=== PATIENT | female | born 1955 | race Caucasian/White ===

== ENCOUNTER 2017-12-15 15:33 | Observation (INO) | payer MEDICAID, SELFPAY ==
[2017-12-15 15:35] VITALS: BP 146/78; PULSE 77; RESP 18; TEMP 36.6; O2SAT 94; BMI 39.3
--- NOTE | 2017-12-15 16:00 | RAD_ITS ---
STUDY: X-RAY - RIGHT SHOULDER REASON FOR EXAM: Female, 62 years old. Right-sided shoulder pain after fall. TECHNIQUE: 2 view(s) of the shoulder. COMPARISON: None. FINDINGS: There is mild degenerative arthrosis of the glenohumeral articulation. There is minimal widening of the AC joint suggesting a Type I acromioclavicular joint separation. Normal acromion. There is demineralization of the humerus and visualized osseous structures. The soft tissue structures are unremarkable. There is a questionable fracture of the distal right clavicle. The visualized right lung has a prominence of bronchovascular markings. RAD/Shoulder min 2 Views IMPRESSION: 1. Possible type I acromial clavicular joint separation. 2. Possible sequela of fracture of the distal clavicle. Electronically Signed: Lizzette Swann MD at 17:01 EDT , Service support ,
--- NOTE | 2017-12-15 16:00 | RAD_ITS ---
STUDY: X-RAY - RIGHT ELBOW REASON FOR EXAM: Female, 62 years old. Right-sided elbow pain. TECHNIQUE: 3 view(s) of the elbow. COMPARISON: Prior comparison studies are not available for review at this time. FINDINGS: Normal visualized humerus, radius and ulna. There is degenerative arthrosis of the radiocapitellar and ulnotrochlear articulations. There is a bone fragment visible that may represent an intra-articular loose body. This may represent the result of previous trauma. There is prominence of the soft tissues. No anterior or posterior fat-pad signs are visible. RAD/Elbow min 3 Views IMPRESSION: 1. Degenerative arthropathy of the right elbow with intra-articular loose body. 2. If there is still clinical concern for acute fracture, follow-up radiographs in 7-10 days maybe helpful in evaluating a healing radiographically occult fracture. Electronically Signed: Lizzette Swann MD at 16:52 EDT , Service support ,
--- NOTE | 2017-12-15 16:01 | RAD_ITS ---
STUDY: X-RAY - RIGHT KNEE REASON FOR EXAM: Female, 62 years old. Right-sided knee pain after fall. TECHNIQUE: 3 view(s) of the knee. COMPARISON: Prior comparable comparison studies are not available for review at this time. FINDINGS: Normal visualized distal femur. Normal visualized proximal tibia and fibula. Normal proximal tibiofibular articulation. There is no demonstrated fracture. There is mild degenerative arthrosis of the medial femorotibial compartment. Normal lateral femorotibial compartment. There is mild degenerative arthrosis of the patellofemoral articulation. There is no demonstrated joint effusion. The soft tissue structures are unremarkable. RAD/Knee 3 Views IMPRESSION: 1. Mild degenerative arthropathy. 2. No radiographic evidence for acute fracture. 3. If there is still clinical concern for acute fracture, follow-up radiographs in 7-10 days maybe helpful in evaluating a healing radiographically occult fracture. Electronically Signed: Lizzette Swann MD at 17:00 EDT , Service support ,
[2017-12-15 17:31] VITALS: BP 142/80; PULSE 74; RESP 22; O2SAT 96
--- NOTE | 2017-12-15 17:38 | ED.VISSUMM ---
- ER Visit Summary Date of Service: 12/15/17 Chief Complaint: Fall with right shoulder pain History of Present Illness: The patient is a 62 F presenting for evaluation secondary to fall and right shoulder injury. Patient states that she suffered a mechanical fall today. She states that she was walking and tripped over a personal walker and struck her right shoulder on the ground. Patient states that she has continuous sharp pain with movement of her shoulder. She denies hitting her head or loss of consciousness. Patient does have a bakery associate, who states that the patient is unsafe and unfit to be living at home by herself at this point. Patient denies any other symptoms at this time. Physical Examination: Primary survey: Airway is patent, breath sounds equal bilateral, central peripheral pulses 2+ and symmetric, GCS 15 out of 15. Vitals within normal limits. Secondary survey: General: Well-nourished well-developed no acute distress Head: Normocephalic atraumatic Eyes: PERRLA, EOMI ENT: TMs clear no hemotympanum no drainage Neck: Nontender full range of motion, no step-offs noted Heart: Regular rate and rhythm no murmurs Lungs: Respirations nondistressed, lung sounds clear to auscultation bilaterally, chest nontender, normal chest excursion bilaterally Abdomen: Soft nontender nondistended normal bowel sounds no palpable abdominal masses Back: Nontender no step-offs noted Extremities: Patient has a boot orthosis on her left leg in brace on her right leg. There is minimal tenderness palpation over the anterior proximal tibia without any evidence of deformity with normal range of motion. Examination of the shoulder shows limited range of motion secondary to pain with no deformity. Minimal pain of the elbow. Skin: Normal color no trauma Neuro: Alert and oriented ?4, GCS 15 out of 15, no lateralizing neurological deficits. Test Results: X-rays of the shoulder elbow and knee show only evidence of a grade 1 right-sided AC joint separation Emergency Department Course and Treatment: Patient presented secondary to fall. There is no head injury. Primary and secondary surveys are noted as above and showed only injury to the knee elbow and shoulder. Radiographs show an AC joint separation. Patient's bakery associate states that she is completely unfit to be at home by herself, and the patient already has braces on both legs and now is going to have her right arm in a sling so I do believe that she meets criteria for admission for rehabilitation. I discussed this with hospitalist. Disposition: Admit Impression: 1. Right-sided AC joint separation 2. Mechanical fall 3. Functional decline This note was generated with [employer] dictation software. It may contain incorrect words, spelling, and punctuation that were not noted in review of the chart prior to signing ED Disposition - Plan for ED Patient: Chief Complaint: Upper Extremity Injury Referrals: Meseret Villalobos MD [Primary Care Provider] -
--- NOTE | 2017-12-15 17:44 | NURSING ---
301 FALL, RT UPPER EXTREMITY INJURY, POSSIBLE CLAVICLE FX ASHELFAH
--- NOTE | 2017-12-15 17:45 | ED.DCSUM_ITS ---
- ER Visit Summary Date of Service: 12/15/17 Chief Complaint: Fall with right shoulder pain History of Present Illness: The patient is a 62 F presenting for evaluation secondary to fall and right shoulder injury. Patient states that she suffered a mechanical fall today. She states that she was walking and tripped over a personal walker and struck her right shoulder on the ground. Patient states that she has continuous sharp pain with movement of her shoulder. She denies hitting her head or loss of consciousness. Patient does have a zipper setter chainstitch, who states that the patient is unsafe and unfit to be living at home by herself at this point. Patient denies any other symptoms at this time. Physical Examination: Primary survey: Airway is patent, breath sounds equal bilateral, central peripheral pulses 2+ and symmetric, GCS 15 out of 15. Vitals within normal limits. Secondary survey: General: Well-nourished well-developed no acute distress Head: Normocephalic atraumatic Eyes: PERRLA, EOMI ENT: TMs clear no hemotympanum no drainage Neck: Nontender full range of motion, no step-offs noted Heart: Regular rate and rhythm no murmurs Lungs: Respirations nondistressed, lung sounds clear to auscultation bilaterally , chest nontender, normal chest excursion bilaterally Abdomen: Soft nontender nondistended normal bowel sounds no palpable abdominal masses Back: Nontender no step-offs noted Extremities: Patient has a boot orthosis on her left leg in brace on her right leg. There is minimal tenderness palpation over the anterior proximal tibia without any evidence of deformity with normal range of motion. Examination of the shoulder shows limited range of motion secondary to pain with no deformity. Minimal pain of the elbow. Skin: Normal color no trauma Neuro: Alert and oriented ?4, GCS 15 out of 15, no lateralizing neurological deficits. Test Results: X-rays of the shoulder elbow and knee show only evidence of a grade 1 right-sided AC joint separation Emergency Department Course and Treatment: Patient presented secondary to fall. There is no head injury. Primary and secondary surveys are noted as above and showed only injury to the knee elbow and shoulder. Radiographs show an AC joint separation. Patient's zipper setter chainstitch states that she is completely unfit to be at home by herself, and the patient already has braces on both legs and now is going to have her right arm in a sling so I do believe that she meets criteria for admission for rehabilitation. I discussed this with hospitalist. Disposition: Admit Impression: 1. Right-sided AC joint separation 2. Mechanical fall 3. Functional decline This note was generated with [employer] dictation software. It may contain incorrect words, spelling, and punctuation that were not noted in review of the chart prior to signing ED Disposition - Plan for ED Patient: Chief Complaint: Upper Extremity Injury Referrals: Meseret Villalobos MD [Primary Care Provider] -
[2017-12-15 17:52] VITALS: BMI 39.3
--- NOTE | 2017-12-15 17:54 | PCM.HP.STD ---
Problem List (1) Hyperlipidemia Status: Chronic (2) Schizophrenia Status: Chronic (3) Anxiety Status: Chronic (4) Depression Status: Chronic (5) COPD (chronic obstructive pulmonary disease) Status: Chronic (6) Hypertension Status: Chronic History of Present Illness Date of Admission: 12/15/17 Chief Complaint: Fall and right shoulder pain. The patient is a 62 year old F with past medical history as mentioned above presented to the emergency room because of fall and right shoulder pain. Today, she has been using her walker and she tripped off and landed on her right side and started complaining of left shoulder and arm pain. The pain is on the right shoulder and right upper arm, sharp pain, 9 out of 10 in severity, goes down to the right elbow, aggravated by movement, relieved by rest and without associated symptoms. At this time, her pain is improved after she received pain medication in the emergency room. She denied any prodromal symptoms such as dizziness, lightheadedness, chest pain or shortness of breath. Denied syncope or presyncope. Few weeks ago, she had left lower extremity sprain or tendon injury according to the patient and she has been using walker and has a large boot that was prescribed by her information receptionist. In the emergency room, her vital signs were stable. There was no routine blood work done in the emergency room. Right elbow x-ray revealed an intra-articular loose bone. Right shoulder x-ray revealed questionable separation of the acromioclavicular joint with possible distal fracture of the clavicle. Right knee x-ray showed degenerative changes without evidence of acute fracture or dislocation. She is being admitted for mechanical fall, right upper extremity injury with separation of the acromioclavicular joint and possible distal clavicular fracture. Past Medical History Past Medical History (Chronic Problems): Chronic Problems Hyperlipidemia (Chronic) Schizophrenia (Chronic) Anxiety (Chronic) Depression (Chronic) COPD (chronic obstructive pulmonary disease) (Chronic) Hypertension (Chronic) Allergies No Known Allergies Allergy (Verified 12/15/17 15:37) Home Medications: Ambulatory Orders Medication Instructions Recorded Benztropine [Cogentin] 0.5 mg PO BID 12/15/17 BuPROPion (SR) [Wellbutrin Sr] 150 mg PO BID 12/15/17 Clonazepam [Klonopin] 0.5 mg PO Q8H PRN PRN 12/15/17 Docusate Sodium [Stool Softener] 100 mg PO DAILY 12/15/17 Fluticasone 220 Mcg [Flovent (SP)] 1 puff INHALATION BID 12/15/17 Lisinopril [Zestril] 10 mg PO DAILY 12/15/17 Omeprazole 40 mg PO DAILY 12/15/17 Perphenazine 6 mg PO TID 12/15/17 Sertraline HCl [Zoloft] 200 mg PO DAILY 12/15/17 Simvastatin [Zocor] 40 mg PO QHS 12/15/17 Surgical History: no surgical history Psychiatric History: Anxiety, Depression, Schizophrenia 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 Dyspnea, Syncope Respiratory: Denies: Cough, Hemoptysis, Pleuritic Pain, Shortness of Breath, Sputum production, Wheezing Gastrointestinal: Denies: Abdominal Pain, Constipation, Diarrhea, Nausea, Vomiting Genitourinary: Denies: Dysuria, Frequency, Hematuria Musculoskeletal: Reports: Arm Pain, Joint Pain, Shoulder Pain. Denies: Back Pain, Foot Pain Skin: Denies: Dryness, Rash Neurological: Denies: Balance problems, Double vision, Change in Speech, Slurred speech, Headaches, Incoordination, Numbness Psychiatric: Reports: Anxiety, Depression Endocrine: Denies: Change in Body Habitus, Polydipsia VTE Information - Inpt Only VTE Present on Admission: No VTE Mechan Device Prophylaxis: None VTE Pharm Prophylaxis ordered?: Yes - Physical Exam General: Alert, Oriented x3, Cooperative, No apparent distress HEENT: Atraumatic, PERRLA, EOMI Oral: Moist Mucosa, No Gingival or Mucosal Lesions/ Ulcerations Neck: Supple, No JVD, Negative Carotid Bruits, Trachea Midline, Thyroid Normal Size and Texture Lungs: Clear to auscultation, No rhonchi, No wheeze, No rales, Diminished Cardiovascular: Regular rate, Regular Rhythm, Normal S1, Normal S2, PMI Normal Abdomen: Bowel Sounds Present, Soft, Non Tender, Non-Distended, No Hepato-splenomegaly, Obese Extremities: No clubbing, No cyanosis, No edema Skin: No rashes, No breakdown Lymphatic: No Cervical, Supraclavicular, or Inguinal Adenopathy Neurological: Cranial nerves II-XII grossly intact, Motor Exam 5/5 strength throughout Psych/Mental Status: Normal Affect, Appropriate, Alert and oriented to time, place, person, mood and affect Vital Signs Temp Pulse Resp BP Pulse Ox 97.8 F 74 22 H 142/80 H 96 12/15/17 15:35 12/15/17 17:31 12/15/17 17:31 12/15/17 17:31 12/15/17 17:31 Oxygen Delivery Method Room Air Weight: 222 lb Body Mass Index (BMI) 39.3 Clinical Impression(s) from Imaging Studies Elbow X-Ray 12/15/17 16:00 IMPRESSION: 1. Degenerative arthropathy of the right elbow with intra-articular loose body. 2. If there is still clinical concern for acute fracture, follow-up radiographs in 7-10 days maybe helpful in evaluating a healing radiographically occult fracture. Electronically Signed: Lizzette Swann MD at 16:52 EDT , Service support , Shoulder X-Ray 12/15/17 16:00 IMPRESSION: 1. Possible type I acromial clavicular joint separation. 2. Possible sequela of fracture of the distal clavicle. Electronically Signed: Lizzette Swann MD at 17:01 EDT , Service support , Knee X-Ray 12/15/17 16:01 IMPRESSION: 1. Mild degenerative arthropathy. 2. No radiographic evidence for acute fracture. 3. If there is still clinical concern for acute fracture, follow-up radiographs in 7-10 days maybe helpful in evaluating a healing radiographically occult fracture. Electronically Signed: Lizzette Swann MD at 17:00 EDT , Service support , Assessment/Plan This is a 62 years old female patient presented to the emergency room because of mechanical fall and right shoulder and upper arm pain, found to have questionable separation of the right acromioclavicular joint, questionable distal clavicle fracture. #1 right upper extremity injury/questionable separation of right acromioclavicular joint/questionable distal clavicular fracture/right elbow intra-articular loose body: This is secondary to mechanical fall. X-ray report was not so clear on a much sure if patient has acute fractures or not. At this time, her vital signs are stable. No routine blood work was done in the emergency room. Plan: Admit to [facility] floor, ambulate as tolerated, IV morphine as needed for pain, OxyIR as needed for pain, orthopedic surgery consult, stat CBC and BMP, PT OT evaluation and treatment. #2 hypertension: Blood pressure stable, continue lisinopril. #3 COPD: Clinically stable, pulse ox is normal on room air. Plan for albuterol as needed. #4 schizophrenia: Continue benztropine and perphenazine. #5 hyperlipidemia: Continue statins. #6 depression/anxiety: Continue Wellbutrin, Klonopin and Zoloft. #7 DVT prophylaxis: Subcu Lovenox. This note was generated with [employer] dictation software. It may contain incorrect words, spelling, and punctuation that were not noted in checking the note before signing. Code Visit Inpatient E&M: 15890 Init Hosp L3
--- NOTE | 2017-12-15 18:00 | HP.PCM_ITS ---
Problem List (1) Hyperlipidemia Status: Chronic (2) Schizophrenia Status: Chronic (3) Anxiety Status: Chronic (4) Depression Status: Chronic (5) COPD (chronic obstructive pulmonary disease) Status: Chronic (6) Hypertension Status: Chronic History of Present Illness Date of Admission: 12/15/17 Chief Complaint: Fall and right shoulder pain. The patient is a 62 year old F with past medical history as mentioned above presented to the emergency room because of fall and right shoulder pain. Today , she has been using her walker and she tripped off and landed on her right side and started complaining of left shoulder and arm pain. The pain is on the right shoulder and right upper arm, sharp pain, 9 out of 10 in severity, goes down to the right elbow, aggravated by movement, relieved by rest and without associated symptoms. At this time, her pain is improved after she received pain medication in the emergency room. She denied any prodromal symptoms such as dizziness, lightheadedness, chest pain or shortness of breath. Denied syncope or presyncope. 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 In the emergency room, her vital signs were stable. There was no routine blood work done in the emergency room. Right elbow x-ray revealed an intra-articular loose bone. Right shoulder x-ray revealed questionable separation of the acromioclavicular joint with possible distal fracture of the clavicle. Right knee x-ray showed degenerative changes without evidence of acute fracture or dislocation. She is being admitted for mechanical fall, right upper extremity injury with separation of the acromioclavicular joint and possible distal clavicular fracture. Past Medical History Past Medical History (Chronic Problems): Chronic Problems Hyperlipidemia (Chronic) Schizophrenia (Chronic) Anxiety (Chronic) Depression (Chronic) COPD (chronic obstructive pulmonary disease) (Chronic) Hypertension (Chronic) Allergies No Known Allergies Allergy (Verified 12/15/17 15:37) Home Medications: Ambulatory Orders Medication Instructions Recorded Benztropine [Cogentin] 0.5 mg PO BID 12/15/17 BuPROPion (SR) [Wellbutrin Sr] 150 mg PO BID 12/15/17 Clonazepam [Klonopin] 0.5 mg PO Q8H PRN PRN 12/15/17 Docusate Sodium [Stool Softener] 100 mg PO DAILY 12/15/17 Fluticasone 220 Mcg [Flovent (SP)] 1 puff INHALATION BID 12/15/17 Lisinopril [Zestril] 10 mg PO DAILY 12/15/17 Omeprazole 40 mg PO DAILY 12/15/17 Perphenazine 6 mg PO TID 12/15/17 Sertraline HCl [Zoloft] 200 mg PO DAILY 12/15/17 Simvastatin [Zocor] 40 mg PO QHS 12/15/17 Surgical History: no surgical history Psychiatric History: Anxiety, Depression, Schizophrenia 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 Dyspnea, Syncope Respiratory: Denies: Cough, Hemoptysis, Pleuritic Pain, Shortness of Breath, Sputum production, Wheezing Gastrointestinal: Denies: Abdominal Pain, Constipation, Diarrhea, Nausea, Vomiting Genitourinary: Denies: Dysuria, Frequency, Hematuria Musculoskeletal: Reports: Arm Pain, Joint Pain, Shoulder Pain. Denies: Back Pain, Foot Pain Skin: Denies: Dryness, Rash Neurological: Denies: Balance problems, Double vision, Change in Speech, Slurred speech, Headaches, Incoordination, Numbness Psychiatric: Reports: Anxiety, Depression Endocrine: Denies: Change in Body Habitus, Polydipsia VTE Information - Inpt Only VTE Present on Admission: No VTE Mechan Device Prophylaxis: None VTE Pharm Prophylaxis ordered?: Yes - Physical Exam General: Alert, Oriented x3, Cooperative, No apparent distress HEENT: Atraumatic, PERRLA, EOMI Oral: Moist Mucosa, No Gingival or Mucosal Lesions/ Ulcerations Neck: Supple, No JVD, Negative Carotid Bruits, Trachea Midline, Thyroid Normal Size and Texture Lungs: Clear to auscultation, No rhonchi, No wheeze, No rales, Diminished Cardiovascular: Regular rate, Regular Rhythm, Normal S1, Normal S2, PMI Normal Abdomen: Bowel Sounds Present, Soft, Non Tender, Non-Distended, No Hepato- splenomegaly, Obese Extremities: No clubbing, No cyanosis, No edema Skin: No rashes, No breakdown Lymphatic: No Cervical, Supraclavicular, or Inguinal Adenopathy Neurological: Cranial nerves II-XII grossly intact, Motor Exam 5/5 strength throughout Psych/Mental Status: Normal Affect, Appropriate, Alert and oriented to time, place, person, mood and affect Vital Signs Temp Pulse Resp BP Pulse Ox 97.8 F 74 22 H 142/80 H 96 12/15/17 15:35 12/15/17 17:31 12/15/17 17:31 12/15/17 17:31 12/15/17 17:31 Oxygen Delivery Method Room Air Weight: 222 lb Body Mass Index (BMI) 39.3 Clinical Impression(s) from Imaging Studies Elbow X-Ray 12/15/17 16:00 IMPRESSION: 1. Degenerative arthropathy of the right elbow with intra-articular loose body. 2. If there is still clinical concern for acute fracture, follow-up radiographs in 7-10 days maybe helpful in evaluating a healing radiographically occult fracture. Electronically Signed: Lizzette Swann MD at 16:52 EDT , Service support , Shoulder X-Ray 12/15/17 16:00 IMPRESSION: 1. Possible type I acromial clavicular joint separation. 2. Possible sequela of fracture of the distal clavicle. Electronically Signed: Lizzette Swann MD at 17:01 EDT , Service support , Knee X-Ray 12/15/17 16:01 IMPRESSION: 1. Mild degenerative arthropathy. 2. No radiographic evidence for acute fracture. 3. If there is still clinical concern for acute fracture, follow-up radiographs in 7-10 days maybe helpful in evaluating a healing radiographically occult fracture. Electronically Signed: Lizzette Swann MD at 17:00 EDT , Service support , Assessment/Plan This is a 62 years old female patient presented to the emergency room because of mechanical fall and right shoulder and upper arm pain, found to have questionable separation of the right acromioclavicular joint, questionable distal clavicle fracture. #1 right upper extremity injury/questionable separation of right acromioclavicular joint/questionable distal clavicular fracture/right elbow intra-articular loose body: This is secondary to mechanical fall. X-ray report was not so clear on a much sure if patient has acute fractures or not. At this time, her vital signs are stable. No routine blood work was done in the emergency room. Plan: Admit to MedSur floor, ambulate as tolerated, IV morphine as needed for pain, OxyIR as needed for pain, orthopedic surgery consult, stat CBC and BMP, PT OT evaluation and treatment. #2 hypertension: Blood pressure stable, continue lisinopril. #3 COPD: Clinically stable, pulse ox is normal on room air. Plan for albuterol as needed. #4 schizophrenia: Continue benztropine and perphenazine. #5 hyperlipidemia: Continue statins. #6 depression/anxiety: Continue Wellbutrin, Klonopin and Zoloft. #7 DVT prophylaxis: Subcu Lovenox. This note was generated with Noah dictation software. It may contain incorrect words, spelling, and punctuation that were not noted in checking the note before signing. Code Visit Inpatient E&M: 94431 Init Hosp L3
[2017-12-15] MEDS: HYDROcodone Bitartrate/Apap 5/325 Tablet PO (18:06)
[2017-12-15 18:30] VITALS: BP 148/78; PULSE 60; RESP 16; TEMP 37.2; O2SAT 95; BMI 37.8
[2017-12-15 19:12] LABS: Absolute Lymphocyte Count 2.92 X10^3/ul (0.83-4.51); Absolute Neutrophil Count 5.4 X10^3/uL (2.0-7.7); Basophil# 0.01 X10^3/uL; Basophil% 0.1 % (0-1); Eosinophil# 0.06 X10^3/uL; Eosinophils% 0.7 % (0-5); Hematocrit 43.5 % (37-47); Hemoglobin 13.9 g/dl (12.0-15.0); Lymphocyte # 2.92 X10^3/ul (4.0); Lymphocyte % 32.3 % (19-41); Mean Corpuscular Hgb 27.7 pg (27.0-32.0); Mean Corpuscular Volume 86.7 fL (81-99); Mean Platelet Vol. 10.5 fl (6.2-12.0); Monocyte# 0.67 X10^3/uL; Monocyte% 7.4 % (0-10); Neutrophil # 5.36 X10^3/uL (2.7-7.7); Neutrophil % 59.4 % (47-70); POSITIVE COUNT NO; POSITIVE DIFFERENTIAL NO; POSITIVE MORPHOLOGY NO; Platelet Count 219 K/mm3 (150-450); RBC Distribution Width CV 14.5 % (11.6-14.6); RBC Distribution Width SD 45.6 fl (35.1-43.9); Red Blood Count 5.02 M/mm3 (4.2-5.4)
[2017-12-15 19:36] LABS: Anion Gap 7 (5-15); BUN 11 mg/dL (7-18); BUN/Creat Ratio 17.7 RATIO (10-20); Calcium,Total 8.6 mg/dL (8.5-10.1); Chloride 106 mmol/L (98-107); Creatinine, Serum 0.62 mg/dL (0.55-1.02); EST Glomerular Filtration Rate 104 mL/min (>60); Est Glom Filt Rate - Afr Amer 126 mL/min (>60); Estimated Creatinine Clearance 79.82 ml/min; Glucose 83 mg/dL (74-106); Potassium 4.2 mmol/L (3.5-5.1); Sodium Level 140 mmol/L (136-145)
[2017-12-15] MEDS: 0.9% Normal Saline 1,000 ML 75 ML IV (19:42)
[2017-12-15] MEDS: Atorvastatin Calcium 20 MG Tablet PO (21:42)
[2017-12-15] MEDS: Benztropine 2 MG Tablet 0.5 MG PO (21:42)
[2017-12-15] MEDS: Docusate Sodium 100 MG Capsule PO (21:42)
[2017-12-16] MEDS: oxyCODONE 5 MG Tablet PO ×3 (00:24→15:43)
[2017-12-16 00:50] VITALS: BP 143/73; PULSE 71; RESP 16; TEMP 36.5; O2SAT 94
[2017-12-16 06:28] VITALS: BP 151/85; PULSE 70; RESP 18; TEMP 36.6; O2SAT 95
[2017-12-16 08:52] VITALS: O2SAT 91
--- NOTE | 2017-12-16 09:21 | PCM.PN.HOSP ---
Subjective: Patient is a 62-year-old lady who presented to the emergency department following a fall injuring his right shoulder and upper arm there was a questionable separation of the right acromioclavicular joint and distal clavicular fracture. 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 SKIN: No lesions no erythema, Vitals/I&O's: Vital Signs Temp Pulse Resp BP Pulse Ox 97.9 F 70 18 151/85 H 91 12/16/17 06:28 12/16/17 06:28 12/16/17 06:28 12/16/17 06:28 12/16/17 08:52 Oxygen Flow Rate (L/min) 1.5 Oxygen Delivery Method Nasal Cannula Weight: 97 kg Body Mass Index (BMI) 37.8 Intake and Output for Last 24 Hours 12/14/17 12/15/17 12/16/17 23:59 23:59 23:59 Intake Total 1437 / 1437 Output Total 400 / 400 Balance 1037 / 1037 Laboratory Results 12/15/17 19:04: WBC 9.0, RBC 5.02, Hgb 13.9, Hct 43.5, MCV 86.7, MCH 27.7, MCHC 32.0, RDW 14.5, RDW Differential 45.6 H, Plt Count 219, MPV 10.5, Immature Gran % (Auto) 0.100, Neut % (Auto) 59.4, Lymph % (Auto) 32.3, [place] % (Auto) 7.4, Eos % (Auto) 0.7, Baso % (Auto) 0.1, Absolute Neuts (auto) 5.4, Absolute Lymphs (auto) 2.92, Total Counted Not Reportable 12/15/17 19:04: Sodium 140, Potassium 4.2, Chloride 106, Carbon Dioxide 27.0, Anion Gap 7, BUN 11, Creatinine 0.62, Estim Creat Clear Calc 79.82, Est GFR (MDRD) Af Amer 126, Est GFR (MDRD) Non-Af 104, BUN/Creatinine Ratio 17.7, Glucose 83, Calcium 8.6 Current Medications Acetaminophen (Tylenol) 650 mg PO Q6H PRN PRN PRN Reason: Fever, headache, pain Albuterol Sulfate (Ventolin Aerosols) 2.5 mg INHALATION Q4H PRN PRN PRN Reason: Shortness of breath, wheezing Atorvastatin Calcium (Lipitor) 20 mg PO QHS [facility] Last Admin: 12/15/17 21:42 Dose: 20 mg Benztropine Mesylate (Cogentin) 0.5 mg PO BID [facility] Last Admin: 12/15/17 21:42 Dose: 0.5 mg Bupropion HCl (Wellbutrin Sr) 150 mg PO BID [facility] Last Admin: 12/15/17 21:42 Dose: 150 mg Clonazepam (Klonopin) 0.5 mg PO Q8H PRN PRN PRN Reason: ANXIETY Docusate Sodium (Colace) 100 mg PO BID [facility] Last Admin: 12/15/17 21:42 Dose: 100 mg Enoxaparin Sodium (Lovenox) 40 mg SC DAILY@1000 [facility] Influenza Virus Vaccine Quadrival (Fluarix/Fluzone) 0.5 ml IM .ONCE ONE Stop: 12/16/17 10:01 Lisinopril (Zestril) 10 mg PO DAILY [facility] Magnesium Hydroxide (Milk Of Magnesia) 30 ml PO DAILY PRN PRN PRN Reason: Constipation Morphine Sulfate (Morphine) 1 mg IV Q4H PRN PRN PRN Reason: SEVERE PAIN (6-10/10) Ondansetron HCl (Zofran) 4 mg IV Q8H PRN PRN PRN Reason: NAUSEA/VOMITING Oxycodone HCl (Oxyir) 5 mg PO Q6H PRN PRN PRN Reason: SEVERE PAIN (6-10/10) Last Admin: 12/16/17 06:55 Dose: 5 mg Pantoprazole Sodium (Protonix) 40 mg PO DAILY [facility] Perphenazine (Perphenazine) 6 mg PO TID [facility] Sertraline HCl (Zoloft) 200 mg PO DAILY [facility] Sodium Chloride () 5 - 30 ml IV UD PRN PRN Reason: SALINE FLUSH Assessment/Plan Patient is a 62-year-old lady who presented to the emergency department following a fall injuring his right shoulder and upper arm there was a questionable separation of the right acromioclavicular joint and distal clavicular fracture. Patient was immobilized and admitted to regular nursing floor with consultation placed to orthopedic surgery 1. Mechanical fall injuring with right shoulder and upper arm there was a questionable separation of the right acromioclavicular joint and distal clavicular fracture. Patient was immobilized and admitted to regular nursing floor with consultation placed to orthopedic surgery 2. Hypertension-blood pressure controlled, home medications continued with dose adjustment as needed 3. COPD without exacerbation 4. Schizophrenia: on benztropine and fluphenazine did continue 5. Morbid obesity with BMI of 37.9 weight loss advised 6. Depression with anxiety patient is on Wellbutrin as well as Klonopin and SSRIZoloft 7. Dyslipidemia-patient is on statin therapy, continued at home dose 8. DVT prophylaxis: Subcu Lovenox. 9. Tobacco dependence counseled on cessation, offered nicotine patch for tobacco cravings Clinical Impression(s) from Imaging Studies Elbow X-Ray 12/15/17 16:00 IMPRESSION: 1. Degenerative arthropathy of the right elbow with intra-articular loose body. 2. If there is still clinical concern for acute fracture, follow-up radiographs in 7-10 days maybe helpful in evaluating a healing radiographically occult fracture. Electronically Signed: Lizzette Swann MD at 16:52 EDT , Service support , Shoulder X-Ray 12/15/17 16:00 IMPRESSION: 1. Possible type I acromial clavicular joint separation. 2. Possible sequela of fracture of the distal clavicle. Electronically Signed: Lizzette Swann MD at 17:01 EDT , Service support , Knee X-Ray 12/15/17 16:01 IMPRESSION: 1. Mild degenerative arthropathy. 2. No radiographic evidence for acute fracture. 3. If there is still clinical concern for acute fracture, follow-up radiographs in 7-10 days maybe helpful in evaluating a healing radiographically occult fracture. Electronically Signed: Lizzette Swann MD at 17:00 EDT , Service support , Code Visit Inpatient E&M: 87294 Subs Hosp L3
--- NOTE | 2017-12-16 09:29 | PN_ITS ---
Subjective: Patient is a 62-year-old lady who presented to the emergency department following a fall injuring his right shoulder and upper arm there was a questionable separation of the right acromioclavicular joint and distal clavicular fracture. 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 SKIN: No lesions no erythema, Vitals/I&O's: Vital Signs Temp Pulse Resp BP Pulse Ox 97.9 F 70 18 151/85 H 91 12/16/17 06:28 12/16/17 06:28 12/16/17 06:28 12/16/17 06:28 12/16/17 08:52 Oxygen Flow Rate (L/min) 1.5 Oxygen Delivery Method Nasal Cannula Weight: 97 kg Body Mass Index (BMI) 37.8 Intake and Output for Last 24 Hours 12/14/17 12/15/17 12/16/17 23:59 23:59 23:59 Intake Total 1437 / 1437 Output Total 400 / 400 Balance 1037 / 1037 Laboratory Results 12/15/17 19:04: WBC 9.0, RBC 5.02, Hgb 13.9, Hct 43.5, MCV 86.7, MCH 27.7, MCHC 32.0, RDW 14.5, RDW Differential 45.6 H, Plt Count 219, MPV 10.5, Immature Gran % (Auto) 0.100, Neut % (Auto) 59.4, Lymph % (Auto) 32.3, [place] % (Auto) 7.4, Eos % (Auto) 0.7, Baso % (Auto) 0.1, Absolute Neuts (auto) 5.4, Absolute Lymphs ( auto) 2.92, Total Counted Not Reportable 12/15/17 19:04: Sodium 140, Potassium 4.2, Chloride 106, Carbon Dioxide 27.0, Anion Gap 7, BUN 11, Creatinine 0.62, Estim Creat Clear Calc 79.82, Est GFR ( MDRD) Af Amer 126, Est GFR (MDRD) Non-Af 104, BUN/Creatinine Ratio 17.7, Glucose 83, Calcium 8.6 Current Medications Acetaminophen (Tylenol) 650 mg PO Q6H PRN PRN PRN Reason: Fever, headache, pain Albuterol Sulfate (Ventolin Aerosols) 2.5 mg INHALATION Q4H PRN PRN PRN Reason: Shortness of breath, wheezing Atorvastatin Calcium (Lipitor) 20 mg PO QHS [facility] Last Admin: 12/15/17 21:42 Dose: 20 mg Benztropine Mesylate (Cogentin) 0.5 mg PO BID [facility] Last Admin: 12/15/17 21:42 Dose: 0.5 mg Bupropion HCl (Wellbutrin Sr) 150 mg PO BID [facility] Last Admin: 12/15/17 21:42 Dose: 150 mg Clonazepam (Klonopin) 0.5 mg PO Q8H PRN PRN PRN Reason: ANXIETY Docusate Sodium (Colace) 100 mg PO BID [facility] Last Admin: 12/15/17 21:42 Dose: 100 mg Enoxaparin Sodium (Lovenox) 40 mg SC DAILY@1000 [facility] Influenza Virus Vaccine Quadrival (Fluarix/Fluzone) 0.5 ml IM .ONCE ONE Stop: 12/16/17 10:01 Lisinopril (Zestril) 10 mg PO DAILY [facility] Magnesium Hydroxide (Milk Of Magnesia) 30 ml PO DAILY PRN PRN PRN Reason: Constipation Morphine Sulfate (Morphine) 1 mg IV Q4H PRN PRN PRN Reason: SEVERE PAIN (6-10/10) Ondansetron HCl (Zofran) 4 mg IV Q8H PRN PRN PRN Reason: NAUSEA/VOMITING Oxycodone HCl (Oxyir) 5 mg PO Q6H PRN PRN PRN Reason: SEVERE PAIN (6-10/10) Last Admin: 12/16/17 06:55 Dose: 5 mg Pantoprazole Sodium (Protonix) 40 mg PO DAILY [facility] Perphenazine (Perphenazine) 6 mg PO TID [facility] Sertraline HCl (Zoloft) 200 mg PO DAILY [facility] Sodium Chloride () 5 - 30 ml IV UD PRN PRN Reason: SALINE FLUSH Assessment/Plan Patient is a 62-year-old lady who presented to the emergency department following a fall injuring his right shoulder and upper arm there was a questionable separation of the right acromioclavicular joint and distal clavicular fracture. Patient was immobilized and admitted to regular nursing floor with consultation placed to orthopedic surgery 1. Mechanical fall injuring with right shoulder and upper arm there was a questionable separation of the right acromioclavicular joint and distal clavicular fracture. Patient was immobilized and admitted to regular nursing floor with consultation placed to orthopedic surgery 2. Hypertension-blood pressure controlled, home medications continued with dose adjustment as needed 3. COPD without exacerbation 4. Schizophrenia: on benztropine and fluphenazine did continue 5. Morbid obesity with BMI of 37.9 weight loss advised 6. Depression with anxiety patient is on Wellbutrin as well as Klonopin and SSRIZoloft 7. Dyslipidemia-patient is on statin therapy, continued at home dose 8. DVT prophylaxis: Subcu Lovenox. 9. Tobacco dependence counseled on cessation, offered nicotine patch for tobacco cravings Clinical Impression(s) from Imaging Studies Elbow X-Ray 12/15/17 16:00 IMPRESSION: 1. Degenerative arthropathy of the right elbow with intra-articular loose body. 2. If there is still clinical concern for acute fracture, follow-up radiographs in 7-10 days maybe helpful in evaluating a healing radiographically occult fracture. Electronically Signed: Lizzetet Swann MD at 16:52 EDT , Service support , Shoulder X-Ray 12/15/17 16:00 IMPRESSION: 1. Possible type I acromial clavicular joint separation. 2. Possible sequela of fracture of the distal clavicle. Electronically Signed: Lizzette Swann MD at 17:01 EDT , Service support , Knee X-Ray 12/15/17 16:01 IMPRESSION: 1. Mild degenerative arthropathy. 2. No radiographic evidence for acute fracture. 3. If there is still clinical concern for acute fracture, follow-up radiographs in 7-10 days maybe helpful in evaluating a healing radiographically occult fracture. Electronically Signed: Lizzette Swann MD at 17:00 EDT , Service support , Code Visit Inpatient E&M: 49596 Subs Hosp L3
--- NOTE | 2017-12-16 10:09 | CASEMGMT ---
Social Work Met with pt renal case manager from [facility] Claire Bryant who has been pt's renal case manager for the past 10 years. Per Claire, pt lives alone in an apartment with one flight of stairs in. Pt lives alone with does have [employer] services with Rina Srinivasan is pt renal case manager. [facility] been unable to find home health aid coverage. Pt does receive meals and [employer] is setting up a chore service. Pt had a fall a few weeks ago and is currently wearing a boot. Pt made first visit to [facility] day care yesterday and fell while there. Hydraulic Punch Press Operator does not feel pt is safe to return home at this time and could benefit from short term skilled placement. Per CM, pt has been diagnosed with schizophrenia with paranoia and is compliant with medication and does not exhibit behaviors toward others. She exhibit some memory issues and needs assistance with decision making process. Pt has not been in a SNF in the past and alf goal would be to return home. CM states she did make APS referral after fall a few weeks ago but has not heard back from them. Pt living conditions are deplorable according to CM. Pt does not have a social support network. No family that is active in pt life. SW met with pt and CM in room and introduced self and role at . Discussed with pt discharge plan and asked her feelings about returning home and presented option of short term SNF placement. Pt states she has talked to her CM about this and is agreeable to short term SNF with the plan to return home. [facility] is facility of choice. Phone call to Frances at [facility] and information provided. They do have beds available and referral faxed. Will await determination from SNF. FABI Kay
[2017-12-16 10:27] VITALS: BP 141/75; PULSE 71; RESP 16; TEMP 36.9; O2SAT 95
[2017-12-16] MEDS: Docusate Sodium 100 MG Capsule PO ×2 (10:46→21:11)
[2017-12-16] MEDS: Benztropine 2 MG Tablet 0.5 MG PO ×2 (10:49→21:11)
[2017-12-16] MEDS: Sertraline 100 MG Tablet 200 MG PO (10:50)
[2017-12-16] MEDS: Lisinopril 10 MG Tablet PO (10:50)
[2017-12-16] MEDS: Pantoprazole Sodium 40 MG Tablet PO (10:50)
[2017-12-16] MEDS: Enoxaparin 40 MG/0.4 ML Syringe SC (10:52)
[2017-12-16 15:40] VITALS: BP 137/72; PULSE 76; RESP 16; TEMP 37.1; O2SAT 96
--- NOTE | 2017-12-16 16:38 | CASEMGMT ---
Social Work SW placed call to Frances at [facility] to inquire about referral. [facility] is able to accept pt. Spoke with pt CM on the phone and informed her that [facility] can accept pt and that PASSRR and LOC will need to be obtained prior to d/c. left with pt [employer] CM Rina Srinivasan and informed of pt hospitalization and d/c plan. MARY will continue to follow. Plan: [place], pending level of care FABI Kay
--- NOTE | 2017-12-16 17:18 | PCM.CONS.GEN ---
Reason for Consult Date of Consultation: 12/16/17 History of Present Illness: The patient is a 62 year old female that fell 2 days ago injuring her right shoulder region. She was having difficulty walking because of a boot on her left foot and an ankle brace on her right. She injured her right shoulder. She states her right shoulder was fine before. Denies head injury or loss of consciousness. She is still having some discomfort at the top of the right shoulder. Denies pain numbness or tingling down the arm. She feels she is to continue wearing her boot on the left foot for about another 2 weeks. She does plan to follow-up with Dr. Campbell in [facility] to that. [] Past Medical History Past Medical History (Chronic Problems): Chronic Problems Hyperlipidemia (Chronic) Schizophrenia (Chronic) Anxiety (Chronic) Depression (Chronic) COPD (chronic obstructive pulmonary disease) (Chronic) Hypertension (Chronic) Allergies No Known Allergies Allergy (Verified 12/15/17 15:37) Home Medications: Ambulatory Orders Medication Instructions Recorded Benztropine [Cogentin] 0.5 mg PO BID 12/15/17 Clonazepam [Klonopin] 0.5 mg PO Q8H PRN PRN 12/15/17 Docusate Sodium [Stool Softener] 100 mg PO DAILY 12/15/17 Fluticasone 220 Mcg [Flovent (SP)] 1 puff INHALATION BID 12/15/17 Lisinopril [Zestril] 10 mg PO DAILY 12/15/17 Omeprazole 40 mg PO DAILY 12/15/17 Perphenazine 6 mg PO TID 12/15/17 Sertraline HCl [Zoloft] 200 mg PO DAILY 12/15/17 Simvastatin [Zocor] 40 mg PO QHS 12/15/17 buPROPion SR [Wellbutrin Sr] 150 mg PO BID 12/15/17 Surgical History: no surgical history Psychiatric History: 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 Arm sling on the right side. No deformity noted. No significant bruising or swelling noted. She does have some tenderness at the top of the right shoulder, AC joint region, distal clavicle region. Mild pain over the greater tuberosity of the shoulder as well. She has no pain at the elbow wrist or fingers. Distal pulses and sensation are normal. She has mild shoulder pain with good passive motion. Negative drop arm test. Arms are neurovascularly intact distally. No pain at the left shoulder. No pain at the cervical spine. No pain at the right knee today. Boot noted on left foot. Brace noted on right ankle. Vital signs and laboratory work reviewed Admission H&P noted X-rays several views of the right shoulder shows a possible nondisplaced distal clavicle fracture. No obvious significant AC joint separation. No obvious lytic or blastic lesions. X-rays of the knee showed mild degenerative changes. Possible small loose bodies. - Physical Exam Vital Signs Temp Pulse Resp BP Pulse Ox 98.7 F 76 16 137/72 H 96 12/16/17 15:40 12/16/17 15:40 12/16/17 15:40 12/16/17 15:40 12/16/17 15:40 Oxygen Flow Rate (L/min) 2 Oxygen Delivery Method Nasal Cannula Weight: 97 kg Body Mass Index (BMI) 37.8 Intake and Output for Last 24 Hours 12/14/17 12/15/17 12/16/17 23:59 23:59 23:59 Intake Total 1437 / 1437 Output Total 400 / 400 Balance 1037 / 1037 Laboratory Tests Past 24 Hrs 12/15/17 12/15/17 19:04 19:04 WBC 9.0 RBC 5.02 Hgb 13.9 Hct 43.5 MCV 86.7 MCH 27.7 MCHC 32.0 RDW 14.5 RDW Differential 45.6 H Plt Count 219 MPV 10.5 Immature Gran % (Auto) 0.100 Neut % (Auto) 59.4 Lymph % (Auto) 32.3 Foard % (Auto) 7.4 Eos % (Auto) 0.7 Baso % (Auto) 0.1 Absolute Neuts (auto) 5.4 Absolute Lymphs (auto) 2.92 Total Counted Not Reportable Sodium 140 Potassium 4.2 Chloride 106 Carbon Dioxide 27.0 Anion Gap 7 BUN 11 Creatinine 0.62 Estim Creat Clear Calc 79.82 Est GFR (MDRD) Af Amer 126 Est GFR (MDRD) Non-Af 104 BUN/Creatinine Ratio 17.7 Glucose 83 Calcium 8.6 Assessment/Plan Right shoulder injury, possible distal clavicle fracture, doubt significant AC joint separation. Continue with sling as needed. I recommended she remove the sling to gently move the shoulder to avoid shoulder stiffness. Recommended ice if needed. Tylenol if needed. DisCharge when stable. Follow-up with orthopedic surgeon in 2 weeks if needed. Explained I am not planning on any shoulder surgery for her. She understands and agrees.
[2017-12-16] MEDS: Atorvastatin Calcium 20 MG Tablet PO (21:11)
[2017-12-16 21:40] VITALS: BP 153/78; PULSE 78; RESP 18; TEMP 36.5; O2SAT 95
[2017-12-17 03:40] VITALS: BP 154/80; PULSE 75; RESP 18; TEMP 36.6; O2SAT 94
[2017-12-17 07:18] VITALS: O2SAT 92
--- NOTE | 2017-12-17 08:36 | PCM.TXEXTCAR ---
- Diet 12/15/17 17:47 Diet: Regular Diet Food consistency:: Regular Liquid Consistency:: Regular/Thin - Routine Orders/Code Status Code Status: Full Code - Therapies Physical Therapy: Eval and Treat Occupational Therapy: Eval and Treat Speech Therapy: Eval and Treat - Allergies/Procedures Done in Hospital Allergies/Adverse Reactions: Allergies No Known Allergies Allergy (Verified 12/15/17 15:37) - Type of Care/Length of Stay Estimated LOS: Convalescent Care Less Than 30 days Type of Care Needed: Skilled Rehab Potential: Fair Prognosis: Fair - Additional Orders/Day of Discharge Day of Discharge: 12/17/17 - Follow Up Care Primary Care Physician: Meseret Villalobos MD [Primary Care Provider] -
--- NOTE | 2017-12-17 08:42 | PCM.DC.SUM ---
Discharge Date and Diagnosis Date of Admission: 12/15/17 Date of Discharge: 12/17/17 - Primary Discharge Diagnosis Mechanical fall injuring with right shoulder and upper arm with separation of the right acromioclavicular joint and distal clavicular fracture - Secondary Discharge Diagnosis Chronic Problems Hyperlipidemia (Chronic) Schizophrenia (Chronic) Anxiety (Chronic) Depression (Chronic) COPD (chronic obstructive pulmonary disease) (Chronic) Hypertension (Chronic) Hospital Course and Treatment Summary of Care Provided: Patient is a 62-year-old lady who presented to the emergency department following a fall injuring his right shoulder and upper arm there was a questionable separation of the right acromioclavicular joint and distal clavicular fracture. Patient was immobilized and admitted to regular nursing floor with consultation placed to orthopedic surgery 1. Mechanical fall injuring with right shoulder and upper arm with separation of the right acromioclavicular joint and distal clavicular fracture. Patient was immobilized and admitted to regular nursing floor with consultation placed to orthopedic surgery patient was seen in consultation by Dr. Kenneth Swann with orthopedic surgery who recommended conservative management by putting patient arm in a sling and arm exercise as tolerated 2. Hypertension-blood pressure controlled, home medications continued with dose adjustment as needed 3. COPD without exacerbation 4. Schizophrenia: on benztropine and fluphenazine did continue 5. Morbid obesity with BMI of 37.9 weight loss advised 6. Depression with anxiety patient is on Wellbutrin as well as Klonopin and SSRIZoloft 7. Dyslipidemia-patient is on statin therapy, continued at home dose 8. DVT prophylaxis: Subcu Lovenox. 9. Tobacco dependence counseled on cessation, offered nicotine patch for tobacco cravings Discharge Diet: No Restrictions Home Medications: Medications to take at Discharge Benztropine [Cogentin] 0.5 mg PO BID 12/15/17 Clonazepam [Klonopin] 0.5 mg PO Q8H PRN PRN 12/15/17 Docusate Sodium [Stool Softener] 100 mg PO DAILY 12/15/17 Fluticasone 220 Mcg [Flovent 220 Mcg] 1 puff INHALATION BID 12/15/17 Lisinopril [Zestril] 10 mg PO DAILY 12/15/17 Omeprazole 40 mg PO DAILY 12/15/17 Perphenazine 6 mg PO TID 12/15/17 Sertraline HCl [Zoloft] 200 mg PO DAILY 12/15/17 Simvastatin [Zocor] 40 mg PO QHS 12/15/17 buPROPion SR [Wellbutrin SR (150mg tablets)] 150 mg PO BID 12/15/17 Acetaminophen [Tylenol Tablet] 650 mg PO Q6H PRN PRN tablet 12/17/17 Albuterol Aerosols [Ventolin Aerosols] 2.5 mg INHALATION Q4H PRN PRN vial.neb. 12/17/17 Oxycodone [Oxyir] 5 mg PO Q6H PRN PRN 7 Days #20 tab 12/17/17 Following Prescrptions Were Given to Patient: Oxycodone [Oxyir] 5 mg PO Q6H PRN PRN 7 Days #20 tab PRN Reason: Severe Pain (-07/13) Primary Care Physician: Meseret Villalobos MD [Primary Care Provider] - Disposition: Home Minutes spent on discharge:: 35 Patient Condition:: Stable Meaningful Use Info Meaningful Use Diagnoses (Choose all that apply): None applicable Code Visit Inpatient E&M: 87926 Disch Hosp
[2017-12-17 09:19] VITALS: BP 156/78; PULSE 92; RESP 18; TEMP 36.9; O2SAT 94
[2017-12-17] MEDS: Docusate Sodium 100 MG Capsule PO ×2 (09:20→21:17)
[2017-12-17] MEDS: Pantoprazole Sodium 40 MG Tablet PO (09:20)
[2017-12-17] MEDS: Sertraline 100 MG Tablet 200 MG PO (09:20)
[2017-12-17] MEDS: Enoxaparin 40 MG/0.4 ML Syringe SC (09:21)
[2017-12-17] MEDS: Lisinopril 10 MG Tablet PO (09:21)
[2017-12-17] MEDS: Benztropine 2 MG Tablet 0.5 MG PO ×2 (09:21→21:17)
[2017-12-17] MEDS: Acetaminophen 325 MG Tablet 650 MG PO (09:25)
[2017-12-17] MEDS: oxyCODONE 5 MG Tablet PO (10:50)
--- NOTE | 2017-12-17 11:41 | CASEMGMT ---
Social Work: LOC and PASRR faxed to [facility]. TC to Myriam Rudolph regarding PASRR. Myriam states that information will be faxed to [facility] for further review due to indications of serious mental illness. Myriam also states that that because patient is a waiver (PASSPORT) patient already, the LOC will be validated. Myriam indicated that patient can not be moved to another level of care until PASRR determination is made. TC to Frances at [facility]. Frances aware that per [facility] further review is needed and information will be faxed to [facility]. Frances verbalizing understanding and states they will still take patient. Frances asking this GYNECOLOGIST to speak to patient about [facility] non smoking policy. Orders, therapy notes and Ortho consult faxed to Frances. Spoke with Claire, patient's mental health pillowcase turner, by phone and patient in room. Both aware that [facility] is able to accept patient and that a PASRR determiantion will need to be completed before patient is able to admit to [facility]. Explained to both patient and Claire that [facility] is a non smoking facility. Patient verbalizes understanding and states I am doing ok without smoking. TC to Frances at [facility]. Frances aware that patient understands the non smoking policy at [facility]. Will continue to follow. PLAN: Patient to be discharged to [facility] once PASRR determination is completed. ADDISON Perez
--- NOTE | 2017-12-17 14:02 | PCM.PN.HOSP ---
Subjective: Patient seen shoulder immobilized. Pain is tolerable. Awaiting level of care prior to transfer to [facility] facility Objective: GENERAL: cooperative HEENT: Clear conjunctiva, NECK; supple, normal thyroid, CHEST: Diminished to auscultation bilaterally, HEART: Regular S1 S2, no audible murmurs ABDOMEN: soft, non-tender, normoactive bowel sounds, RECTAL: deferred EXTREMITIES: Right upper extremity immobilized MOTION PICTURE COMMENTATOR: Awake, no lateralizing signs. SKIN: No lesions no erythema, Vitals/I&O's: Vital Signs Temp Pulse Resp BP Pulse Ox 98.4 F 92 18 156/78 H 94 12/17/17 09:19 12/17/17 09:19 12/17/17 09:19 12/17/17 09:19 12/17/17 09:19 Oxygen Flow Rate (L/min) 1 Oxygen Delivery Method Room Air Weight: 97 kg Body Mass Index (BMI) 37.8 Intake and Output for Last 24 Hours 12/15/17 12/16/17 12/17/17 23:59 23:59 23:59 Intake Total 1437 / 1437 800 / 800 Output Total 400 / 400 200 / 200 Balance 1037 / 1037 600 / 600 Current Medications Acetaminophen (Tylenol) 650 mg PO Q6H PRN PRN PRN Reason: Fever, headache, pain Last Admin: 12/17/17 09:25 Dose: 650 mg Albuterol Sulfate (Ventolin Aerosols) 2.5 mg INHALATION Q4H PRN PRN PRN Reason: Shortness of breath, wheezing Atorvastatin Calcium (Lipitor) 20 mg PO QHS [facility] Last Admin: 12/16/17 21:11 Dose: 20 mg Benztropine Mesylate (Cogentin) 0.5 mg PO BID [facility] Last Admin: 12/17/17 09:21 Dose: 0.5 mg Bupropion HCl (Wellbutrin Sr) 150 mg PO BID [facility] Last Admin: 12/17/17 09:21 Dose: 150 mg Clonazepam (Klonopin) 0.5 mg PO Q8H PRN PRN PRN Reason: ANXIETY Docusate Sodium (Colace) 100 mg PO BID [facility] Last Admin: 12/17/17 09:20 Dose: 100 mg Enoxaparin Sodium (Lovenox) 40 mg SC DAILY@1000 [facility] Last Admin: 12/17/17 09:21 Dose: 40 mg Lisinopril (Zestril) 10 mg PO DAILY [facility] Last Admin: 12/17/17 09:21 Dose: 10 mg Magnesium Hydroxide (Milk Of Magnesia) 30 ml PO DAILY PRN PRN PRN Reason: Constipation Morphine Sulfate (Morphine) 1 mg IV Q4H PRN PRN PRN Reason: SEVERE PAIN (6-10/10) Ondansetron HCl (Zofran) 4 mg IV Q8H PRN PRN PRN Reason: NAUSEA/VOMITING Oxycodone HCl (Oxyir) 5 mg PO Q6H PRN PRN PRN Reason: SEVERE PAIN (6-10/10) Last Admin: 12/17/17 10:50 Dose: 5 mg Pantoprazole Sodium (Protonix) 40 mg PO DAILY [facility] Last Admin: 12/17/17 09:20 Dose: 40 mg Perphenazine (Perphenazine) 6 mg PO TID [facility] Last Admin: 12/17/17 13:45 Dose: 6 mg Sertraline HCl (Zoloft) 200 mg PO DAILY [facility] Last Admin: 12/17/17 09:20 Dose: 200 mg Sodium Chloride () 5 - 30 ml IV UD PRN PRN Reason: SALINE FLUSH Assessment/Plan Patient is a 62-year-old lady who presented to the emergency department following a fall injuring his right shoulder and upper arm there was a questionable separation of the right acromioclavicular joint and distal clavicular fracture. Patient was immobilized and admitted to regular nursing floor with consultation placed to orthopedic surgery 1. Mechanical fall injuring with right shoulder and upper arm with separation of the right acromioclavicular joint and distal clavicular fracture. Patient was immobilized and admitted to regular nursing floor with consultation placed to orthopedic surgery patient was seen in consultation by Dr. Kenneth Swann with orthopedic surgery who recommended conservative management by putting patient arm in a sling and arm exercise as tolerated 2. Hypertension-blood pressure controlled, home medications continued with dose adjustment as needed 3. COPD without exacerbation 4. Schizophrenia: on benztropine and fluphenazine did continue 5. Morbid obesity with BMI of 37.9 weight loss advised 6. Depression with anxiety patient is on Wellbutrin as well as Klonopin and SSRIZoloft 7. Dyslipidemia-patient is on statin therapy, continued at home dose 8. DVT prophylaxis: Subcu Lovenox. 9. Tobacco dependence counseled on cessation, offered nicotine patch for tobacco cravings Code Visit Inpatient E&M: 67512 Subs Hosp L2
[2017-12-17 15:16] VITALS: BP 148/87; PULSE 80; RESP 18; TEMP 36.9; O2SAT 93
--- NOTE | 2017-12-17 17:15 | CASEMGMT ---
Social Work: TC from Sammi Mccray, mental health slot ambassador from [facility]. Sammi states that she will need to do a face to face evaluation with patient and will come to [facility] tomorrow to do this evaluation. Sammi states that patient may be able to be discharged on Wednesday or Wednesday if PASRR determination is expedited, otherwise patient can not D/C until Wednesday. Sammi given name and number of ADDISON Rose who is social worker health services working on Wednesday. Spoke with patient in room and left a voice mail for Claire mental health director case management, notifying both that patient will not be discharged today. Will follow to assist with D/C planning as needed. PLAN: Patient to be discharged to [facility] once PASRR determination is made. ADDISON Perez
[2017-12-17 20:30] VITALS: BP 148/87; PULSE 80; RESP 18; TEMP 36.8; O2SAT 94
[2017-12-17] MEDS: Atorvastatin Calcium 20 MG Tablet PO (21:18)
[2017-12-18 02:30] VITALS: BP 152/84; PULSE 76; RESP 16; TEMP 36.5; O2SAT 95
[2017-12-18 07:58] VITALS: O2SAT 94
[2017-12-18 08:30] VITALS: BP 162/82; PULSE 83; RESP 18; TEMP 37.1; O2SAT 93
[2017-12-18] MEDS: Benztropine 2 MG Tablet 0.5 MG PO ×2 (09:27→21:27)
[2017-12-18] MEDS: Enoxaparin 40 MG/0.4 ML Syringe SC (09:28)
[2017-12-18] MEDS: oxyCODONE 5 MG Tablet PO ×2 (09:28→17:02)
[2017-12-18] MEDS: Sertraline 100 MG Tablet 200 MG PO (09:28)
[2017-12-18] MEDS: Docusate Sodium 100 MG Capsule PO ×2 (09:28→21:27)
[2017-12-18] MEDS: Lisinopril 10 MG Tablet PO (09:28)
[2017-12-18] MEDS: Pantoprazole Sodium 40 MG Tablet PO (09:28)
--- NOTE | 2017-12-18 12:06 | CASEMGMT ---
SW has not received a phone call from the mental health seals engraver. Staff on the Med Surg unit have not noticed anyone visit. Patient will have to remain in the hospital until this assessment is complete and SW is given the ok. Therefore, patient will be here until Wednesday. Plan: Birgit- pending mental health assessment from [facility]. Charisma FOY MSW
[2017-12-18 14:18] VITALS: BP 133/66; PULSE 86; RESP 16; TEMP 37; O2SAT 93
--- NOTE | 2017-12-18 15:45 | NURSING ---
Pt found up in bathroom unattended. Pt is a fall risk. Reminded pt of fall risk protocol and always calling for assistance. Personal alarm will be placed on pt while up in chair.
--- NOTE | 2017-12-18 16:30 | PCM.PROGNOTE ---
Subjective: She feels well. Her mood is stable. Persisting right shoulder pain, unchanged. - Physical Exam General: Alert, Oriented x3, Cooperative HEENT: Atraumatic, PERRLA, Normocephalic Oral: Moist Mucosa, No Gingival or Mucosal Lesions/ Ulcerations Neck: Supple, No JVD, Negative Carotid Bruits, Negative Hepatojugular Reflux, No Nodes, No Nuchal Rigidity Lungs: Clear to auscultation, Normal air movement, No rhonchi, No wheeze, No rales Cardiovascular: Regular rate, Regular Rhythm, Normal S1, Normal S2, No murmurs, No Ectopic Activity Abdomen: Bowel Sounds Present, Soft, Non Tender, Non-Distended, No Hepato-splenomegaly, Obese Extremities: No clubbing, No cyanosis, No edema Skin: No rashes, No breakdown Musculoskeletal: No Muscle Wasting, - - Right upper arm in sling. Shoulder tenderness. Wears braces for right ankle. Lymphatic: No Cervical, Supraclavicular, or Inguinal Adenopathy Neurological: Cranial nerves II-XII grossly intact, Neuro grossly intact Psych/Mental Status: Normal Affect Vital Signs Temp Pulse Resp BP Pulse Ox 98.6 F 86 16 133/66 H 93 12/18/17 14:18 12/18/17 14:18 12/18/17 14:18 12/18/17 14:18 12/18/17 14:18 Oxygen Flow Rate (L/min) 1 Oxygen Delivery Method Room Air Weight: 213 lb 13.574 oz Body Mass Index (BMI) 37.8 Intake and Output for Last 24 Hours 12/16/17 12/17/17 12/18/17 23:59 23:59 23:59 Intake Total 1437 / 1437 800 / 800 Output Total 400 / 400 200 / 200 Balance 1037 / 1037 600 / 600 Diagnostic Data Elbow X-Ray 12/15/17 16:00 IMPRESSION: 1. Degenerative arthropathy of the right elbow with intra-articular loose body. 2. If there is still clinical concern for acute fracture, follow-up radiographs in 7-10 days maybe helpful in evaluating a healing radiographically occult fracture. Electronically Signed: Lizzette Swann MD at 16:52 EDT , Service support , Shoulder X-Ray 12/15/17 16:00 IMPRESSION: 1. Possible type I acromial clavicular joint separation. 2. Possible sequela of fracture of the distal clavicle. Electronically Signed: Lizzette Swann MD at 17:01 EDT , Service support , Knee X-Ray 12/15/17 16:01 IMPRESSION: 1. Mild degenerative arthropathy. 2. No radiographic evidence for acute fracture. 3. If there is still clinical concern for acute fracture, follow-up radiographs in 7-10 days maybe helpful in evaluating a healing radiographically occult fracture. Electronically Signed: Lizzette Swann MD at 17:00 EDT , Service support , Medical Necessity - Tobacco Use Smoking Status: Current every day smoker Tobacco Use: Cigarettes Assessment/Plan Patient is a 62-year-old lady who presented to the emergency department following a fall injuring his right shoulder and upper arm there was a questionable separation of the right acromioclavicular joint and distal clavicular fracture. Patient was immobilized and admitted to regular nursing floor with consultation placed to orthopedic surgery 1. Mechanical fall injuring with right shoulder and upper arm with separation of the right acromioclavicular joint and distal clavicular fracture. Patient was immobilized and admitted to regular nursing floor with consultation placed to orthopedic surgery patient was seen in consultation by Dr. Kenneth Swann with orthopedic surgery who recommended conservative management by putting patient arm in a sling and arm exercise as tolerated 2. Hypertension-blood pressure controlled, home medications continued with dose adjustment as needed 3. COPD without exacerbation 4. Schizophrenia: on benztropine and fluphenazine did continue 5. Morbid obesity with BMI of 37.9 weight loss advised 6. Depression with anxiety patient is on Wellbutrin as well as Klonopin and SSRIZoloft 7. Dyslipidemia-patient is on statin therapy, continued at home dose 8. Tobacco dependence counseled on cessation, offered nicotine patch for tobacco cravings DVT prophylaxis: Lovenox. GI prophylaxis: PPI po. patient is full code. Disposition: SNF rehab. Await mental health to evaluate for PASSRR and LOC prior to accepted to SNF. Code Visit Inpatient E&M: 66082 Subs Hosp L2
--- NOTE | 2017-12-18 16:35 | PN_ITS ---
Subjective: She feels well. Her mood is stable. Persisting right shoulder pain, unchanged. - Physical Exam General: Alert, Oriented x3, Cooperative HEENT: Atraumatic, PERRLA, Normocephalic Oral: Moist Mucosa, No Gingival or Mucosal Lesions/ Ulcerations Neck: Supple, No JVD, Negative Carotid Bruits, Negative Hepatojugular Reflux, No Nodes, No Nuchal Rigidity Lungs: Clear to auscultation, Normal air movement, No rhonchi, No wheeze, No rales Cardiovascular: Regular rate, Regular Rhythm, Normal S1, Normal S2, No murmurs, No Ectopic Activity Abdomen: Bowel Sounds Present, Soft, Non Tender, Non-Distended, No Hepato- splenomegaly, Obese Extremities: No clubbing, No cyanosis, No edema Skin: No rashes, No breakdown Musculoskeletal: No Muscle Wasting, - - Right upper arm in sling. Shoulder tenderness. Wears braces for right ankle. Lymphatic: No Cervical, Supraclavicular, or Inguinal Adenopathy Neurological: Cranial nerves II-XII grossly intact, Neuro grossly intact Psych/Mental Status: Normal Affect Vital Signs Temp Pulse Resp BP Pulse Ox 98.6 F 86 16 133/66 H 93 12/18/17 14:18 12/18/17 14:18 12/18/17 14:18 12/18/17 14:18 12/18/17 14:18 Oxygen Flow Rate (L/min) 1 Oxygen Delivery Method Room Air Weight: 213 lb 13.574 oz Body Mass Index (BMI) 37.8 Intake and Output for Last 24 Hours 12/16/17 12/17/17 12/18/17 23:59 23:59 23:59 Intake Total 1437 / 1437 800 / 800 Output Total 400 / 400 200 / 200 Balance 1037 / 1037 600 / 600 Diagnostic Data Elbow X-Ray 12/15/17 16:00 IMPRESSION: 1. Degenerative arthropathy of the right elbow with intra-articular loose body. 2. If there is still clinical concern for acute fracture, follow-up radiographs in 7-10 days maybe helpful in evaluating a healing radiographically occult fracture. Electronically Signed: Lizzette Swann MD at 16:52 EDT , Service support , Shoulder X-Ray 12/15/17 16:00 IMPRESSION: 1. Possible type I acromial clavicular joint separation. 2. Possible sequela of fracture of the distal clavicle. Electronically Signed: Lizzette Swann MD at 17:01 EDT , Service support , Knee X-Ray 12/15/17 16:01 IMPRESSION: 1. Mild degenerative arthropathy. 2. No radiographic evidence for acute fracture. 3. If there is still clinical concern for acute fracture, follow-up radiographs in 7-10 days maybe helpful in evaluating a healing radiographically occult fracture. Electronically Signed: Lizzette Swann MD at 17:00 EDT , Service support , Medical Necessity - Tobacco Use Smoking Status: Current every day smoker Tobacco Use: Cigarettes Assessment/Plan Patient is a 62-year-old lady who presented to the emergency department following a fall injuring his right shoulder and upper arm there was a questionable separation of the right acromioclavicular joint and distal clavicular fracture. Patient was immobilized and admitted to regular nursing floor with consultation placed to orthopedic surgery 1. Mechanical fall injuring with right shoulder and upper arm with separation of the right acromioclavicular joint and distal clavicular fracture. Patient was immobilized and admitted to regular nursing floor with consultation placed to orthopedic surgery patient was seen in consultation by Dr. Kenneth Swann with orthopedic surgery who recommended conservative management by putting patient arm in a sling and arm exercise as tolerated 2. Hypertension-blood pressure controlled, home medications continued with dose adjustment as needed 3. COPD without exacerbation 4. Schizophrenia: on benztropine and fluphenazine did continue 5. Morbid obesity with BMI of 37.9 weight loss advised 6. Depression with anxiety patient is on Wellbutrin as well as Klonopin and SSRIZoloft 7. Dyslipidemia-patient is on statin therapy, continued at home dose 8. Tobacco dependence counseled on cessation, offered nicotine patch for tobacco cravings DVT prophylaxis: Lovenox. GI prophylaxis: PPI po. patient is full code. Disposition: SNF rehab. Await mental health to evaluate for PASSRR and LOC prior to accepted to SNF. Code Visit Inpatient E&M: 29664 Subs Hosp L2
[2017-12-18 19:37] VITALS: BP 139/73; PULSE 81; RESP 16; TEMP 36.7; O2SAT 97
[2017-12-18] MEDS: Atorvastatin Calcium 20 MG Tablet PO (21:27)
[2017-12-19] VITALS (7 sets, daily range): BP systolic 131–153; BP diastolic 73–90; PULSE 72–80; RESP 16; TEMP 35.8–36.7; O2SAT 92–94
[2017-12-19] MEDS: oxyCODONE 5 MG Tablet PO ×2 (05:00→19:44)
[2017-12-19] MEDS: Docusate Sodium 100 MG Capsule PO ×2 (09:07→21:50)
[2017-12-19] MEDS: Enoxaparin 40 MG/0.4 ML Syringe SC (09:07)
[2017-12-19] MEDS: Sertraline 100 MG Tablet 200 MG PO (09:07)
[2017-12-19] MEDS: Benztropine 2 MG Tablet 0.5 MG PO ×2 (09:08→21:50)
[2017-12-19] MEDS: Pantoprazole Sodium 40 MG Tablet PO (09:08)
[2017-12-19] MEDS: Lisinopril 10 MG Tablet PO (09:08)
--- NOTE | 2017-12-19 12:26 | PCM.PROGNOTE ---
Subjective: No change from yesterday. Her mood is stable. Right shoulder pain unchanged. General: Alert, Oriented x3, Cooperative HEENT: Atraumatic, PERRLA, Normocephalic Oral: Moist Mucosa, No Gingival or Mucosal Lesions/ Ulcerations Neck: Supple, No JVD, Negative Carotid Bruits, Negative Hepatojugular Reflux, No Nodes, No Nuchal Rigidity Lungs: Clear to auscultation, Normal air movement, No rhonchi, No wheeze, No rales Cardiovascular: Regular rate, Regular Rhythm, Normal S1, Normal S2, No murmurs, No Ectopic Activity Abdomen: Bowel Sounds Present, Soft, Non Tender, Non-Distended, No Hepato-splenomegaly, Obese Extremities: No clubbing, No cyanosis, No edema Skin: No rashes, No breakdown Musculoskeletal: No Muscle Wasting, - - Right upper arm in sling. Shoulder tenderness. Wears braces for right ankle. Lymphatic: No Cervical, Supraclavicular, or Inguinal Adenopathy Neurological: Cranial nerves II-XII grossly intact, Neuro grossly intact Psych/Mental Status: Normal Affect - Physical Exam Vital Signs Temp Pulse Resp BP Pulse Ox 96.7 F L 76 16 138/78 H 94 12/19/17 11:28 12/19/17 11:28 12/19/17 11:28 12/19/17 11:28 12/19/17 11:28 Oxygen Flow Rate (L/min) 1 Oxygen Delivery Method Room Air Weight: 213 lb 13.574 oz Body Mass Index (BMI) 37.8 Intake and Output for Last 24 Hours 12/17/17 12/18/17 12/19/17 23:59 23:59 23:59 Intake Total 800 / 800 350 / 350 Output Total 200 / 200 200 / 200 Balance 600 / 600 150 / 150 Diagnostic Data Elbow X-Ray 12/15/17 16:00 IMPRESSION: 1. Degenerative arthropathy of the right elbow with intra-articular loose body. 2. If there is still clinical concern for acute fracture, follow-up radiographs in 7-10 days maybe helpful in evaluating a healing radiographically occult fracture. Electronically Signed: Lizzette Swann MD at 16:52 EDT , Service support , Shoulder X-Ray 12/15/17 16:00 IMPRESSION: 1. Possible type I acromial clavicular joint separation. 2. Possible sequela of fracture of the distal clavicle. Electronically Signed: Lizzette Swann MD at 17:01 EDT , Service support , Knee X-Ray 12/15/17 16:01 IMPRESSION: 1. Mild degenerative arthropathy. 2. No radiographic evidence for acute fracture. 3. If there is still clinical concern for acute fracture, follow-up radiographs in 7-10 days maybe helpful in evaluating a healing radiographically occult fracture. Electronically Signed: Lizzette Swann MD at 17:00 EDT , Service support , Medical Necessity - Tobacco Use Smoking Status: Current every day smoker Tobacco Use: Cigarettes Assessment/Plan Patient is a 62-year-old lady who presented to the emergency department following a fall injuring his right shoulder and upper arm there was a questionable separation of the right acromioclavicular joint and distal clavicular fracture. Patient was immobilized and admitted to regular nursing floor with consultation placed to orthopedic surgery 1. Mechanical fall with injury to right shoulder and upper arm with separation of the right acromioclavicular joint and distal clavicular fracture. Right upper extremity was immobilized, admitted to med-surg floor. Orghopedic surgery consultation with Dr. Kenneth Swann was done, recommended for conservative management, continue shoulder sling and increase movement with PT as tolerated. 2. Hypertension-blood pressure controlled, home medications continued with dose adjustment as needed 3. COPD without exacerbation stable. 4. Schizophrenia / mood disorder: on benztropine, fluphenazine, Wellbutrin, and Klonopin. Continue. 5. Morbid obesity with BMI of 37.9 weight loss advised 6. Dyslipidemia-patient is on statin therapy, continued at home dose 7. Tobacco dependence counseled on cessation, offered nicotine patch for tobacco cravings DVT prophylaxis: Lovenox. GI prophylaxis: PPI po. patient is full code. Disposition: SNF rehab. Await mental health to evaluate for PASSRR and LOC prior to accepted to SNF. Code Visit Inpatient E&M: 30913 Subs Hosp L2
--- NOTE | 2017-12-19 12:33 | PN_ITS ---
Subjective: No change from yesterday. Her mood is stable. Right shoulder pain unchanged. General: Alert, Oriented x3, Cooperative HEENT: Atraumatic, PERRLA, Normocephalic Oral: Moist Mucosa, No Gingival or Mucosal Lesions/ Ulcerations Neck: Supple, No JVD, Negative Carotid Bruits, Negative Hepatojugular Reflux, No Nodes, No Nuchal Rigidity Lungs: Clear to auscultation, Normal air movement, No rhonchi, No wheeze, No rales Cardiovascular: Regular rate, Regular Rhythm, Normal S1, Normal S2, No murmurs, No Ectopic Activity Abdomen: Bowel Sounds Present, Soft, Non Tender, Non-Distended, No Hepato- splenomegaly, Obese Extremities: No clubbing, No cyanosis, No edema Skin: No rashes, No breakdown Musculoskeletal: No Muscle Wasting, - - Right upper arm in sling. Shoulder tenderness. Wears braces for right ankle. Lymphatic: No Cervical, Supraclavicular, or Inguinal Adenopathy Neurological: Cranial nerves II-XII grossly intact, Neuro grossly intact Psych/Mental Status: Normal Affect - Physical Exam Vital Signs Temp Pulse Resp BP Pulse Ox 96.7 F L 76 16 138/78 H 94 12/19/17 11:28 12/19/17 11:28 12/19/17 11:28 12/19/17 11:28 12/19/17 11:28 Oxygen Flow Rate (L/min) 1 Oxygen Delivery Method Room Air Weight: 213 lb 13.574 oz Body Mass Index (BMI) 37.8 Intake and Output for Last 24 Hours 12/17/17 12/18/17 12/19/17 23:59 23:59 23:59 Intake Total 800 / 800 350 / 350 Output Total 200 / 200 200 / 200 Balance 600 / 600 150 / 150 Diagnostic Data Elbow X-Ray 12/15/17 16:00 IMPRESSION: 1. Degenerative arthropathy of the right elbow with intra-articular loose body. 2. If there is still clinical concern for acute fracture, follow-up radiographs in 7-10 days maybe helpful in evaluating a healing radiographically occult fracture. Electronically Signed: Lizzette Swann MD at 16:52 EDT , Service support , Shoulder X-Ray 12/15/17 16:00 IMPRESSION: 1. Possible type I acromial clavicular joint separation. 2. Possible sequela of fracture of the distal clavicle. Electronically Signed: Lizzette Swann MD at 17:01 EDT , Service support , Knee X-Ray 12/15/17 16:01 IMPRESSION: 1. Mild degenerative arthropathy. 2. No radiographic evidence for acute fracture. 3. If there is still clinical concern for acute fracture, follow-up radiographs in 7-10 days maybe helpful in evaluating a healing radiographically occult fracture. Electronically Signed: Lizzette Swann MD at 17:00 EDT , Service support , Medical Necessity - Tobacco Use Smoking Status: Current every day smoker Tobacco Use: Cigarettes Assessment/Plan Patient is a 62-year-old lady who presented to the emergency department following a fall injuring his right shoulder and upper arm there was a questionable separation of the right acromioclavicular joint and distal clavicular fracture. Patient was immobilized and admitted to regular nursing floor with consultation placed to orthopedic surgery 1. Mechanical fall with injury to right shoulder and upper arm with separation of the right acromioclavicular joint and distal clavicular fracture. Right upper extremity was immobilized, admitted to med-surg floor. Orghopedic surgery consultation with Dr. Kenneth Swann was done, recommended for conservative management, continue shoulder sling and increase movement with PT as tolerated. 2. Hypertension-blood pressure controlled, home medications continued with dose adjustment as needed 3. COPD without exacerbation stable. 4. Schizophrenia / mood disorder: on benztropine, fluphenazine, Wellbutrin, and Klonopin. Continue. 5. Morbid obesity with BMI of 37.9 weight loss advised 6. Dyslipidemia-patient is on statin therapy, continued at home dose 7. Tobacco dependence counseled on cessation, offered nicotine patch for tobacco cravings DVT prophylaxis: Lovenox. GI prophylaxis: PPI po. patient is full code. Disposition: SNF rehab. Await mental health to evaluate for PASSRR and LOC prior to accepted to SNF. Code Visit Inpatient E&M: 71571 Subs Hosp L2
[2017-12-19] MEDS: Acetaminophen 325 MG Tablet 650 MG PO (19:44)
[2017-12-19] MEDS: Atorvastatin Calcium 20 MG Tablet PO (21:50)
[2017-12-19] MEDS: clonazePAM 0.5 MG Tablet PO (21:57)
[2017-12-20 02:00] VITALS: BP 154/83; PULSE 75; PULSE 80; RESP 16; TEMP 36.7; O2SAT 94
[2017-12-20 06:20] LABS: Hematocrit 44.4 % (37-47); Hemoglobin 14.7 g/dl (12.0-15.0); Mean Corp Hgb Conc 33.1 g/gl (32-36); Mean Corpuscular Hgb 28.2 pg (27.0-32.0); Mean Corpuscular Volume 85.2 fL (81-99); Mean Platelet Vol. 10.3 fl (6.2-12.0); Platelet Count 205 K/mm3 (150-450); RBC Distribution Width CV 14.3 % (11.6-14.6); RBC Distribution Width SD 44.6 fl (35.1-43.9); Red Blood Count 5.21 M/mm3 (4.2-5.4); White Blood Count 7.7 K/mm3 (4.4-11.0)
[2017-12-20 06:32] LABS: Anion Gap 7 (5-15); BUN 12 mg/dL (7-18); BUN/Creat Ratio 17.8 RATIO (10-20); Calcium,Total 8.9 mg/dL (8.5-10.1); Chloride 101 mmol/L (98-107); Creatinine, Serum 0.68 mg/dL (0.55-1.02); EST Glomerular Filtration Rate 94 mL/min (>60); Est Glom Filt Rate - Afr Amer 114 mL/min (>60); Estimated Creatinine Clearance 72.78 ml/min; Glucose 87 mg/dL (74-106); Potassium 4.3 mmol/L (3.5-5.1); Sodium Level 138 mmol/L (136-145)
[2017-12-20 06:40] LABS: Scan Indicated on CBC? Y/N NO
[2017-12-20 08:00] VITALS: BP 139/87; PULSE 91; RESP 18; TEMP 36.7; O2SAT 97
--- NOTE | 2017-12-20 09:35 | CASEMGMT ---
Social Work Note Updated by Paper Pattern Folder, Lucia Joe, that [facility] has approved the pt for SNF placement. Paged physician to update and will await confirmation to discharge. SW to continue to follow and assist with discharge planning. Plan: [facility] for rehabilitation. Radha Conteh, RIB SAWYER, NATIONAL EXPANSION RECRUITER
--- NOTE | 2017-12-20 09:52 | CASEMGMT ---
Social Work Note Physician to complete new Transfer Summary with correct date. Placed call to Maggie Baker, marine operations coordinator at [facility], to update that pt would be discharging this date. Setup transport through [facility] via ambulette between [id number]. Radha Conteh, MIDDLE SCHOOL RESOURCE TEACHER, MATERIALS AND CORROSION ENGINEER
[2017-12-20] MEDS: Enoxaparin 40 MG/0.4 ML Syringe SC (09:56)
[2017-12-20] MEDS: Docusate Sodium 100 MG Capsule PO (09:56)
[2017-12-20] MEDS: Sertraline 100 MG Tablet 200 MG PO (09:58)
[2017-12-20] MEDS: Pantoprazole Sodium 40 MG Tablet PO (09:58)
[2017-12-20] MEDS: Lisinopril 10 MG Tablet PO (09:59)
[2017-12-20] MEDS: Benztropine 2 MG Tablet 0.5 MG PO (09:59)
[2017-12-20] MEDS: Acetaminophen 325 MG Tablet 650 MG PO (10:02)
[2017-12-20] MEDS: oxyCODONE 5 MG Tablet PO (10:02)
--- NOTE | 2017-12-20 10:48 | PCM.TXEXTCAR ---
- Diet 12/15/17 17:47 Diet: Regular Diet Food consistency:: Regular Liquid Consistency:: Regular/Thin - Routine Orders/Code Status Code Status: Full Code - Therapies Physical Therapy: Eval and Treat Occupational Therapy: Eval and Treat Speech Therapy: Eval and Treat - Allergies/Procedures Done in Hospital Allergies/Adverse Reactions: Allergies No Known Allergies Allergy (Verified 12/15/17 15:37) Procedures: None - Type of Care/Length of Stay Estimated LOS: Convalescent Care Less Than 30 days Type of Care Needed: Skilled Rehab Potential: Fair Prognosis: Fair - Additional Orders/Day of Discharge H&P will serve as current which was dated: 12/15/17 Day of Discharge: 12/20/17 - Follow Up Care Primary Care Physician: Meseret Villalobos MD [Primary Care Provider] -
[2017-12-20 10:53] VITALS: BP 131/79; PULSE 84; RESP 18; TEMP 36.7; O2SAT 96
--- NOTE | 2017-12-20 12:37 | CASEMGMT ---
Rina from [facility] called for an update, SW let her know pt is going to [facility] today. ADDISON Hyatt, PHOTONICS ENGINEERING TECHNOLOGIST
--- NOTE | 2017-12-22 17:04 | PCM.DC.SUM ---
Discharge Date and Diagnosis Date of Admission: 12/15/17 Date of Discharge: 12/20/17 - Primary Discharge Diagnosis #1 right distal clavicular fracture due to mechanical fall #2 Minor AC joint separation right shoulder due to mechanical fall #3 hypertension #4 COPD #5 schizophrenia - Secondary Discharge Diagnosis Chronic Problems Hyperlipidemia (Chronic) Schizophrenia (Chronic) Anxiety (Chronic) Depression (Chronic) COPD (chronic obstructive pulmonary disease) (Chronic) Hypertension (Chronic) Hospital Course and Treatment Operations: None Procedures: None Summary of Care Provided: The patient is a 62 year old F who was seen in the emergency room at [facility] after sustaining a fall and injuring her right shoulder. She complained of right shoulder pain and right upper arm pain. Patient received pain medication in the emergency room, x-rays of the right shoulder revealed probable separation of the acromioclavicular joint with a distal fracture of the clavicle. Patient was admitted to [place] [address], seen by PT and OT, and seen by orthopedic surgery. Shoulder immobilizer was utilized, it was felt that the patient would benefit from short-term placement in correction facility. On 12/20/17, patient was seen and examined felt to be in stable condition for discharge to correction facility for rehab Discharge Diet: No Restrictions Home Medications: Medications to take at Discharge Benztropine [Cogentin] 0.5 mg PO BID 12/15/17 Clonazepam [Klonopin] 0.5 mg PO Q8H PRN PRN 12/15/17 Docusate Sodium [Stool Softener] 100 mg PO DAILY 12/15/17 Fluticasone 220 Mcg [Flovent 220 Mcg] 1 puff INHALATION BID 12/15/17 Lisinopril [Zestril] 10 mg PO DAILY 12/15/17 Omeprazole 40 mg PO DAILY 12/15/17 Perphenazine 6 mg PO TID 12/15/17 Sertraline HCl [Zoloft] 200 mg PO DAILY 12/15/17 Simvastatin [Zocor] 40 mg PO QHS 12/15/17 buPROPion SR [Wellbutrin SR (150mg tablets)] 150 mg PO BID 12/15/17 Acetaminophen [Tylenol Tablet] 650 mg PO Q6H PRN PRN tablet 12/17/17 Albuterol Aerosols [Ventolin Aerosols] 2.5 mg INHALATION Q4H PRN PRN vial.neb. 12/17/17 Oxycodone [Oxyir] 5 mg PO Q6H PRN PRN 7 Days #20 tab 12/17/17 Clonazepam [Klonopin] 0.5 mg PO Q8H PRN PRN 5 Days #14 tab 12/20/17 Following Prescrptions Were Given to Patient: Oxycodone [Oxyir] 5 mg PO Q6H PRN PRN 7 Days #20 tab PRN Reason: Severe Pain (6-07/13) Clonazepam [Klonopin] 0.5 mg PO Q8H PRN PRN 5 Days #14 tab PRN Reason: Anxiety Primary Care Physician: Meseret Villalobos MD [Primary Care Provider] - Disposition: Home Minutes spent on discharge:: 34 Patient Condition:: Stable Medical Necessity - Tobacco Use Smoking Status: Current every day smoker Tobacco Use: Cigarettes Meaningful Use Info Meaningful Use Diagnoses (Choose all that apply): None applicable Code Visit OBSV E&M: 90262 Observation care discharge
--- NOTE | 2017-12-22 17:17 | DS.PCM_ITS ---
Discharge Date and Diagnosis Date of Admission: 12/15/17 Date of Discharge: 12/20/17 - Primary Discharge Diagnosis #1 right distal clavicular fracture due to mechanical fall #2 Minor AC joint separation right shoulder due to mechanical fall #3 hypertension #4 COPD #5 schizophrenia - Secondary Discharge Diagnosis Chronic Problems Hyperlipidemia (Chronic) Schizophrenia (Chronic) Anxiety (Chronic) Depression (Chronic) COPD (chronic obstructive pulmonary disease) (Chronic) Hypertension (Chronic) Hospital Course and Treatment Operations: None Procedures: None Summary of Care Provided: The patient is a 62 year old F who was seen in the emergency room at [facility] after sustaining a fall and injuring her right shoulder. She complained of right shoulder pain and right upper arm pain. Patient received pain medication in the emergency room, x-rays of the right shoulder revealed probable separation of the acromioclavicular joint with a distal fracture of the clavicle. Patient was admitted to [place] [address], seen by PT and OT , and seen by orthopedic surgery. Shoulder immobilizer was utilized, it was felt that the patient would benefit from short-term placement in long-term facility. On 12/20/17, patient was seen and examined felt to be in stable condition for discharge to long-term facility for rehab Discharge Diet: No Restrictions Home Medications: Medications to take at Discharge Benztropine [Cogentin] 0.5 mg PO BID 12/15/17 Clonazepam [Klonopin] 0.5 mg PO Q8H PRN PRN 12/15/17 Docusate Sodium [Stool Softener] 100 mg PO DAILY 12/15/17 Fluticasone 220 Mcg [Flovent 220 Mcg] 1 puff INHALATION BID 12/15/17 Lisinopril [Zestril] 10 mg PO DAILY 12/15/17 Omeprazole 40 mg PO DAILY 12/15/17 Perphenazine 6 mg PO TID 12/15/17 Sertraline HCl [Zoloft] 200 mg PO DAILY 12/15/17 Simvastatin [Zocor] 40 mg PO QHS 12/15/17 buPROPion SR [Wellbutrin SR (150mg tablets)] 150 mg PO BID 12/15/17 Acetaminophen [Tylenol Tablet] 650 mg PO Q6H PRN PRN tablet 12/17/17 Albuterol Aerosols [Ventolin Aerosols] 2.5 mg INHALATION Q4H PRN PRN vial.neb. 12/17/17 Oxycodone [Oxyir] 5 mg PO Q6H PRN PRN 7 Days #20 tab 12/17/17 Clonazepam [Klonopin] 0.5 mg PO Q8H PRN PRN 5 Days #14 tab 12/20/17 Following Prescrptions Were Given to Patient: Oxycodone [Oxyir] 5 mg PO Q6H PRN PRN 7 Days #20 tab PRN Reason: Severe Pain (6-07/13) Clonazepam [Klonopin] 0.5 mg PO Q8H PRN PRN 5 Days #14 tab PRN Reason: Anxiety Primary Care Physician: Meseret Villalobos MD [Primary Care Provider] - Disposition: Home Minutes spent on discharge:: 34 Patient Condition:: Stable Medical Necessity - Tobacco Use Smoking Status: Current every day smoker Tobacco Use: Cigarettes Meaningful Use Info Meaningful Use Diagnoses (Choose all that apply): None applicable Code Visit OBSV E&M: 25794 Observation care discharge
== END 2017-12-20 14:33 | disposition skilled nursing facility (03) ==
LOC: ED 16:20 → MS3 18:09
PROVIDERS: Hospitalist; Admitting Provider Hospitalist; Emergency Provider Emergency Medicine; Family Provider Family Medicine; PCP Family Medicine; Visit Provider Internal Medicine
DX: S42.031A Displaced fracture of lateral end of right clavicle, initial encounter for closed fracture (principal); W01.198A Fall on same level from slipping, tripping and stumbling with subsequent striking against other object, initial encounter; Y93.01 Activity, walking, marching and hiking; Y92.9 Unspecified place or not applicable; E66.01 Morbid (severe) obesity due to excess calories; Z68.37 Body mass index [BMI] 37.0-37.9, adult; Z71.3 Dietary counseling and surveillance; J44.9 Chronic obstructive pulmonary disease, unspecified; Z23 Encounter for immunization; F20.9 Schizophrenia, unspecified; E78.5 Hyperlipidemia, unspecified; F41.8 Other specified anxiety disorders; I10 Essential (primary) hypertension; Z79.899 Other long term (current) drug therapy; F17.210 Nicotine dependence, cigarettes, uncomplicated
CPT/HCPCS: 36415; 73030; 73080; 73562; 80048; 85025; 85027; 96360; 96361; 96372; 97110; 97116; 97162; 97166; 97530; 97535; 99218; 99284; 99406; J7030; 90686; A4216; G0378

== ENCOUNTER → 2018-12-15 13:49 | Outpatient (CLI) | payer MEDICAID, SELFPAY ==
--- NOTE | 2018-12-15 13:54 | US_ITS ---
STUDY: ULTRASOUND BREAST - RIGHT REASON FOR EXAM: Female, 63 years old. Palpable lump in the right breast. TECHNIQUE: Axial and longitudinal images of the RIGHT breast were performed with a high resolution ultrasound transducer. COMPARISON: Comparison is made with prior mammogram done earlier in the day. FINDINGS: RIGHT Breast: The upper lateral aspect of the right breast was examined by ultrasound. There is homogeneous fibroglandular tissue. No solid or cystic mass lesion is seen. US/Breast Limited Unilateral IMPRESSION: Unremarkable breast ultrasound. ASSESSMENT CATEGORY: BIRADS Category 1: Negative. A letter regarding these results will be sent to the patient by the facility within 30 days. Electronically Signed: Genaro Hook, at 8:17 EDT , Service support ,
--- NOTE | 2018-12-15 13:54 | BI_ITS ---
MAMMOGRAPHY - UNILATERAL DIAGNOSTIC: RIGHT BREAST REASON FOR EXAM: Female, 63 years old. Right breast bruising. PERTINENT HISTORY: Non-contributory. TECHNIQUE: Digital unilateral breast see (3D mammographic acquisition) in the CC and MLO projections. 2-D mediolateral oblique (MLO) and craniocaudad (CC) views of both breasts were obtained. CAD: Full Field Digital Mammography with Computer Added Detection was performed. COMPARISON: Comparison is made with prior examination dated September 02, 2018. FINDINGS: Breast Composition: There are scattered areas of fibroglandular density. There are no dominant masses or suspicious calcifications. No other significant abnormalities are identified. There has been no significant change since the prior study. BI/DIAG MAMM W/CAD, UNILAT IMPRESSION: Stable unilateral diagnostic mammogram. With the patient's history of a bruising and possible right breast lump, correlation with ultrasound is recommended. ASSESSMENT CATEGORY: BIRADS Category 0: Incomplete. Need additional imaging evaluation. A letter regarding these results will be sent to the patient by the facility within 30 days. Approximately 10% of breast cancers are not detected by mammography. A normal mammogram should not delay biopsy of a clinically suspicious abnormality. Electronically Signed: Genaro Hook, at 14:52 EDT , Service support ,
== END ==
PROVIDERS: Family Provider Family Medicine; PCP Family Medicine; Visit Provider Nurse Practitioner Adult Health
DX: N63.10 Unspecified lump in the right breast, unspecified quadrant (principal)
CPT/HCPCS: 76642; 77061; 77065; G0279

== ENCOUNTER → 2019-02-06 | Outpatient (CLI) | payer MEDICAID, SELFPAY ==
--- NOTE | 2019-02-06 14:52 | RAD_ITS ---
STUDY: X-RAY - LUMBAR SPINE REASON FOR EXAM: Female, 63 years old. Chronic low back pain. TECHNIQUE: 2 view(s) of the lumbar spine were obtained. COMPARISON: None FINDINGS: Normal lumbar lordosis. There is a levoscoliosis of the lumbar spine with a rotatory component. There is a normal alignment of the vertebrae. There is multilevel endplate spondylosis of the lumbar vertebrae. There is multi-level degenerative disc disease with multi-level disc space narrowing. There is no demonstrated fracture. There is atherosclerotic calcification of the abdominal aorta without a demonstrated aneurysm. RAD/Lumbar Spine 2 or 3 Views IMPRESSION: This limited 2 view study of the lumbar spine shows no acute abnormality. Degenerative changes. Electronically Signed: Lui Porras MD at 22:49 EDT , Service support ,
[2019-02-06 15:12] LABS: Absolute Lymphocyte Count 2.44 X10^3/ul (0.83-4.51); Absolute Neutrophil Count 4.7 X10^3/uL (2.0-7.7); Basophil# 0.02 X10^3/uL; Basophil% 0.3 % (0-1); Eosinophil# 0.04 X10^3/uL; Eosinophils% 0.5 % (0-5); Hematocrit 39.9 % (37-47); Hemoglobin 12.8 g/dl (12.0-15.0); Lymphocyte # 2.44 X10^3/ul (4.0); Lymphocyte % 31.3 % (19-41); Mean Corp Hgb Conc 32.1 g/gl (32-36); Mean Corpuscular Hgb 27.6 pg (27.0-32.0); Mean Corpuscular Volume 86.2 fL (81-99); Monocyte# 0.61 X10^3/uL; Monocyte% 7.8 % (0-10); Neutrophil # 4.68 X10^3/uL (2.7-7.7); Platelet Count 257 K/mm3 (150-450); RBC Distribution Width CV 14.5 % (11.6-14.6); Red Blood Count 4.63 M/mm3 (4.2-5.4); White Blood Count 7.8 K/mm3 (4.4-11.0)
[2019-02-06 15:14] LABS: POSITIVE COUNT NO; POSITIVE DIFFERENTIAL NO; POSITIVE MORPHOLOGY NO
[2019-02-06 15:50] LABS: Vitamin B12 476 pg/mL (211-911)
[2019-02-06 16:00] LABS: ALB/GLOB Ratio 1.2 RATIO (0.9-2.4); AST(SGOT) 17 U/L (15-37); Alanine Aminotransfer ALT/SGPT 25 U/L (13-56); Albumin, Serum 3.9 g/dL (3.2-5.0); Alkaline Phosphatase 68 U/L (45-117); Anion Gap 8 (5-15); BUN 9 mg/dL (7-18); BUN/Creat Ratio 11.7 RATIO (10-20); Chloride 104 mmol/L (98-107); Creatinine, Serum 0.77 mg/dL (0.55-1.02); EST Glomerular Filtration Rate 81 mL/min (>60); Est Glom Filt Rate - Afr Amer 98 mL/min (>60); Globulin 3.3 g/dL (2.2-4.2); Glucose 101 mg/dL (74-106); Potassium 4.4 mmol/L (3.5-5.1); Protein, Total 7.2 g/dL (6.4-8.2); Sodium Level 138 mmol/L (136-145); Thyroid Stim Hormone (TSH) 1.29 uIU/mL (0.358-3.74)
[2019-02-08 22:07] LABS: Folate, Hemolysate Test 491.2 ng/mL (Not Estab.); Folate, RBC (Hct) Test 38.8 % (34.0-46.6)
[2019-02-09 15:54] LABS: Folates, RBC Test 1266 ng/mL (>498)
[2019-02-10 03:40] LABS: Rapid Plasmin Reagin (RPR) NONREACTIVE (NONREACTIVE)
== END | disposition home or self-care (01) ==
LOC: LAB 14:15
PROVIDERS: Family Provider Family Medicine Geriatric Medicine; PCP Family Medicine Geriatric Medicine; Referring Provider Family Medicine Geriatric Medicine; Visit Provider Family Medicine Geriatric Medicine
DX: E53.8 Deficiency of other specified B group vitamins (principal); G30.9 Alzheimer's disease, unspecified; M54.5 Low back pain; I10 Essential (primary) hypertension
CPT/HCPCS: 36415; 72100; 80053; 82607; 82747; 84443; 85014; 85025; 86592

== ENCOUNTER 2019-02-07 13:30 | Outpatient (RCR) | payer MEDICAID, SELFPAY ==
--- NOTE | 2019-01-05 09:48 | HP.SP.AD ---
History - History Date of Eval: 01/03/19 Medical Diagnosis (from RX): Cognitive deficits. Previous speech therapy: No Smoking Status: Light Smoker (<10/day) Hx Smoking: Yes Years Smokin Hx Tobacco Use: Yes - Pain Is pain an issue with your current prescribed condition?: Yes - Personal Education History: 8th grade. Occupation: Not working currently. Right Hearing Abillity: Normal Left Hearing Abillity: Normal Visual Assistive Devices: Glasses Patient Allergies - Allergies Allergies No Known Allergies Allergy (Verified 01/04/19 12:08) CLQT - CLQT CLQT Administered: Yes CLQT: Cognitive Linguistic Quick Test (CLQT) is a criterion - referenced assessment designed for adults between the ages of 18 and 89 with known or suspected neurological dysfuntions. The CLQT is to assess strength and weaknesses in five cognitive domains. Severity ratings are within normal limits, mild, moderate, severe deficits. The subtests are as follows: Date: 01/05/19 - Attention Attention: Mild - Memory Memory: Moderate - Executive Functions Executive Functions: Moderate - Language Language: Mild - Visuospatial Skills Visuospatial Skills: Mild - CLQT Comments Analysis She need increased time but was able to self correct errors on clock drawing and mazes. During the design generation she noted that she copies designs. Overall I consider her skills mild as she only needed increased time and had good abilitiles. Other Impressions - Comments Home skills -: The patient reported taht she doesn't have to complete her own banking, medication or book meals. She moved into an assisted living two months ago as her social service technician told her she had to as she was not able to continue to care for her house. The patient reports no deficits at the assisted living.The patient reported that she has always had memory issues but they are alittle worse now. Plan - Plan Plan: Speech therapy is recommended for recall deficits. - Recommendations Treatment Warranted: Yes - Frequency Frequency: 1x/Week Duration: 4 Weeks Visits in this POC: 4 - Prognosis Prognosis: Good - Goals that are Established: Determination:: Goals will be added/modified as deemed necessary and appropriate. Therapy will be discontinued when results of re-evaluation indicate therapy is no longer needed or lack of progress has been documented. - Goal #1-5 Goal #1: The Patient will demonstrate and utilize recommended compensatory recall techniques to facilitate improved recall for functional tasks including but not limited to appointments and important dates on 4/5 trials. Education - Patient has Indicated that the Following Identified Educational Needs: Cognitively Impaired - Patient Instruction Patient Education: Diagnosis, Treatment Plan Person Taught: Patient Response to teaching: Verbalize understanding
--- NOTE | 2019-03-06 14:34 | HP.SP.DC ---
ST Discharge Summary - Discharged: Discharge: Mayuri Saez is discharged from [facility] as of February 07, 2019. She attended a total of 3 visits after her initial evaluation on 11-16-18. Patient was provided with multiple recall strategies and overall she lacked carry over for all strategies. She was given written suggestions for homework and stated things like ? I remember you said that and I should do it when I get home?. Lengthy discussion with social service coordinator to provide increased support. Patient reported that she has depression, anxiety, and schizophrenia. Patient reported that her doctor said she may have a touch of Alzheimer?s. She was given information on continuing to use strategies at home. Patient stated she feels her memory has improved and she will continue to do her strategies at home. Patient did not significantly increase overall skills but she lacked carry over at home and lived in an assisted living facility. A copy of this discharge summary will be sent to her referring physician.
== END 2019-02-07 19:00 | disposition home or self-care (01) ==
LOC: SP 13:30
PROVIDERS: Family Provider Family Medicine Geriatric Medicine; PCP Family Medicine Geriatric Medicine; Referring Provider Nurse Practitioner Adult Health; Visit Provider Nurse Practitioner Adult Health
DX: G31.84 Mild cognitive impairment of uncertain or unknown etiology (principal)
CPT/HCPCS: 92507; 92523

== ENCOUNTER → 2019-02-10 12:54 | Outpatient (CLI) | payer MEDICAID, SELFPAY ==
--- NOTE | 2019-02-10 12:59 | CT_ITS ---
STUDY: CT BRAIN WITHOUT CONTRAST REASON FOR EXAM: Female, 63 years old. Alzheimer's disease RADIATION DOSAGE (If Supplied By Facility): CTDIvol = ( 60.81 ) mGy, DLP = ( 998.67 ) mGycm TECHNIQUE: Transaxial CT imaging of the brain was performed without administration of intravenous contrast material. Individualized dose optimization techniques were used for this CT. COMPARISON: No relevant priors. FINDINGS: There is no scalp tumor and no calvarial fracture. No acute hemorrhage or acute infarction and no intra or extra-axial tumor mass. The cortical sulci in the occipital and temporal lobes are not particularly prominent. Nonspecific microangiopathic white matter changes are seen in both hemispheres. CT/Brain/Head without Contrast IMPRESSION: No acute findings in the brain. No typical brain Alzheimer's changes are noted Electronically Signed: Mark Schmidt MD at 1:14 EDT Tel , Service support ,
--- NOTE | 2019-02-10 13:00 | CT_ITS ---
STUDY: LOW DOSE CT LUNG CANCER SCREENING REASON FOR EXAM: Female, 63 years old. LUNG CANCER SCREENING. SMOKED 40 + YEARS 1PPD RADIATION DOSAGE (If Supplied By Facility): CTDIvol = ( 3.40 ) mGy, DLP = ( 89.80 ) mGycm TECHNIQUE: No contrast was administered. Low dose technique was utilized (average mAS-38 and kVp 120). 1.25 mm axial source images with a slice interval of 1.25-mm were reconstructed in lung windows. 2.5 mm axial source images with a slice interval of 2.5-mm were reconstructed in lung windows. 5.0 mm axial source images with a slice interval of 5.0-mm were reconstructed in soft tissue windows. Nodule measured using lung windows on PACS and/or independent workstation with automated measurement of minimum and maximum diameter. Nodule measurement reported as average diameter rounded to the nearest whole number. Growth is defined as an increase ins size of greater than 1.5 mm. COMPARISON: None. NODULES: Subsegmental atelectases are noted in the right middle lobe and lingula. There is no demonstrated pleural abnormality. Normal heart and pericardium. Normal mediastinum. Normal hilar regions. Normal unenhanced pulmonary arteries. Normal aorta arch and descending thoracic aorta. There are multi-level degenerative changes of the thoracic spine. There is no demonstrated abnormality of the visualized upper abdomen. CT/Low Dose CT Lung Screening IMPRESSION: Lung-RADS category 2. Benign findings. Recommendation: Routine screening CT scan in one year. IMPORTANT NOTES FOR USE: ACR Lung-RADS Version 1.0 Assessment Categories Release Date: January 29, 2014 Category: Coded 0-4 bases on nodule(s) with highest degree of suspicion. Negative screen is defined as categories 1 and 2; a positive screen is defined as categories 3 and 4. Category 3 and 4A nodules that are unchanged on interval CT should be coded as category 2, and individuals returned to screening in 12 months. Category 4X: Category 3 or 4 nodules with additional imaging findings that increase the suspicion of lung cancer, such as spiculation, GGN that doubles in size in 1 year, enlarged lymph notes, etc. Category Modifiers: S (significant finding unrelated to lung cancer) and C (prior history of treated lung cancer) may be added to the 0-4 Lung-RADS Electronically Signed: Rolo Alva, at 6:59 EDT Tel , Service support ,
== END ==
PROVIDERS: Family Provider Family Medicine Geriatric Medicine; PCP Family Medicine Geriatric Medicine; Referring Provider Family Medicine Geriatric Medicine; Visit Provider Family Medicine Geriatric Medicine
DX: G30.9 Alzheimer's disease, unspecified (principal); Z87.891 Personal history of nicotine dependence
CPT/HCPCS: 70450; G0297

== ENCOUNTER → 2019-03-01 | Outpatient (CLI) | payer MEDICAID, SELFPAY ==
[2019-03-01 14:56] VITALS: BMI 38.1
[2019-03-06 10:10] LABS: HPV APTIMA, High Risk Negative (Negative)
== END | disposition home or self-care (01) ==
PROVIDERS: Family Provider Family Medicine Geriatric Medicine; PCP Family Medicine Geriatric Medicine; Referring Provider Nurse Practitioner Women's Health; Visit Provider Nurse Practitioner Women's Health
DX: N89.8 Other specified noninflammatory disorders of vagina (principal); Z12.4 Encounter for screening for malignant neoplasm of cervix
CPT/HCPCS: 87070; 87205; 87624; 88175; G0145

== ENCOUNTER 2019-04-09 11:34 | Emergency (ER) | payer MEDICAID, SELFPAY ==
[2019-03-30 10:59] VITALS: BMI 39.9
[2019-04-09 11:35] VITALS: BP 165/96; PULSE 80; RESP 16; TEMP 36.9; O2SAT 93; BMI 42.3
[2019-04-09] MEDS: HYDROcodone Bitartrate/Apap 5/325 Tablet PO (12:43)
[2019-04-09 12:44] LABS: Mucous, Urine 0 SEEN /hpf (<or=2+)
[2019-04-09 12:45] LABS: Color, Urine Yellow (Yellow); Glucose, Dipstick Normal (Normal); Ketone-Dipstick Negative (Negative); Leukocyte Esterase-Dipstick 100 /ul (Negative); Nitrite-Dipstick Negative (Negative); Occult Blood-Urine 25 /ul (Negative); Protein-Dipstick Negative (Negative); Urine Bilirubin Dipstick Negative (Negative); Urine Clarity Sl. Cloudy (Clear); Urine Urobilinogen Normal (Normal)
[2019-04-09 12:53] LABS: Bacteria RARE /hpf (None Seen); Red Blood Cells-Urine 0-5 SEEN /hpf (0-5); Squamous Epithelial Cells - UA 0-5 SEEN /hpf (5-10); White Blood Cells 0-5 SEEN /hpf (0-5)
--- NOTE | 2019-04-09 13:11 | ED.VISSUMM ---
- ER Visit Summary Date of Service: 04/09/19 Chief Complaint: [Back pain] History of Present Illness: The patient is a 63 F [ presents to the emergency department chief complaint back pain for over a week. Patient denies any injury. Patient also complains of pain in both legs that she has had along with it. Patient's had some back issues in the past and states that she think she had x-rays about a year ago that may have showed a bend in 1 of her vertebrae. Patient denies any fevers. She does complain of some urinary frequency but no dysuria. Patient is currently in assisted living facility. She has a history of hypertension, high cholesterol, currently schizophrenia, anxiety, and depression. Patient denies any change in bowel bladder function. She denies weakness in extremities.] Physical Examination: [HEENT-PERRLA, EOMI. Cranial nerves II through XII grossly intact. TMs clear. Mucous membranes moist. No adenopathy. Cardiovascular-regular rate and rhythm without murmur or ectopy Lungs-clear to auscultation, chest wall stable without crepitus or subcu emphysema Abdomen-normoactive bowel sounds, soft, nontender, no rebound or rigidity, no peritoneal signs. Back exam-patient has tenderness to palpation over the right lumbar paraspinal muscular sure that reproduces her pain. Patient has negative straight leg raise bilaterally. Patient has deep tendon reflexes of plus 1 out of 4 bilaterally at the patella and Achilles. Patient has normal sensation to light touch. Normal L5 extension bilaterally. Extremities-intact ?4, normal range of motion, normal pulses, atraumatic] Test Results: Analysis obtained was normal. [] Emergency Department Course and Treatment: [She was given 1 [place] p.o. when she felt significantly improved.] Treatment Plan: [Follow-up with primary care physician within next 5 to 7 days.] Patient given a prescription for [place] and Flexeril as well as naproxen. Disposition: [Discharged home in stable condition. Patient advised to return if worsening pain, weakness extremities, change of bowel bladder function, or conditions worsen anyway.] Impression: [Back pain] This note was generated with [employer] dictation software. It may contain incorrect words, spelling, and punctuation that were not noted in review of the chart prior to signing ED Disposition - Plan for ED Patient: Referrals: Waldo Mark Chi, MD [Primary Care Provider] -
--- NOTE | 2019-04-09 13:14 | DCINST.ED_ITS ---
ED Disposition - Plan for ED Patient: Instructions: BACK PAIN (Acute or Chronic) Prescriptions: cycloBENZAPRine HCl [Flexeril] 10 mg PO TID PRN #20 tab PRN Reason: Muscle Spasm Prescription Printed Naproxen [Naprosyn] 500 mg PO BID PRN #20 tab Prescription Printed Hydrocodone Bitart/Apap 5-325 [[place] 5MG-325MG] 1 tab PO Q4H PRN PRN 2 Days #14 tab PRN Reason: Pain Prescription Printed Referrals: Waldo Mark Chi, MD [Primary Care Provider] - 5-7 Days
--- NOTE | 2019-04-09 13:21 | NURSING ---
CALLED [facility] FOR TRANSPORT. AMANDEEP CREMonty
[2019-04-09 13:44] VITALS: BP 195/105; PULSE 85; RESP 16; O2SAT 94
== END 2019-04-09 13:46 | disposition home or self-care (01) ==
LOC: ED 12:21
PROVIDERS: Emergency Provider Emergency Medicine; Family Provider Family Medicine Geriatric Medicine; PCP Family Medicine Geriatric Medicine
DX: M54.5 Low back pain (principal); I10 Essential (primary) hypertension; E78.00 Pure hypercholesterolemia, unspecified; F32.9 Major depressive disorder, single episode, unspecified; F41.9 Anxiety disorder, unspecified; F20.9 Schizophrenia, unspecified
CPT/HCPCS: 81001; 99284

== ENCOUNTER → 2019-04-13 15:34 | Outpatient (CLI) | payer MEDICAID, SELFPAY ==
[2019-04-09 11:35] VITALS: BMI 42.3
--- NOTE | 2019-04-13 15:38 | RAD_ITS ---
STUDY: X-RAY - ABDOMEN/PELVIS REASON FOR EXAM: Female, 63 years old. Diarrhea for past couple of months, abdomen pain. TECHNIQUE: AP supine and upright views of the abdomen and pelvis. COMPARISON: None. FINDINGS: Normal visualized lung bases. There is an unremarkable bowel gas pattern. There is no demonstrated free abdominal air. The visualized liver, spleen and kidneys are grossly normal in size and morphology. Normal soft tissue structures. There are diffuse degenerative changes of the visualized lumbar spine. There is levoscoliosis of the lumbar spine. RAD/Abd Inc Decub and/or Erect IMPRESSION: No acute abnormality of the abdomen and pelvis. Electronically Signed: Rolo Alva, at 7:20 EDT Tel , Service support ,
== END ==
PROVIDERS: Family Provider Family Medicine Geriatric Medicine; PCP Family Medicine Geriatric Medicine; Referring Provider Family Medicine Geriatric Medicine; Visit Provider Family Medicine Geriatric Medicine
DX: K56.41 Fecal impaction (principal)
CPT/HCPCS: 74019

== ENCOUNTER → 2019-05-02 | Outpatient (CLI) | payer MEDICAID, SELFPAY ==
[2019-03-30 10:59] VITALS: BMI 39.9
== END | disposition home or self-care (01) ==
LOC: SL 23:04
PROVIDERS: Family Provider Family Medicine Geriatric Medicine; PCP Family Medicine Geriatric Medicine; Referring Provider Internal Medicine Critical Care Medicine; Visit Provider Internal Medicine Critical Care Medicine
DX: G47.33 Obstructive sleep apnea (adult) (pediatric) (principal)
CPT/HCPCS: 95810; 95811

== ENCOUNTER → 2019-05-05 | Outpatient (CLI) | payer MEDICAID, SELFPAY ==
[2019-03-30 10:59] VITALS: BMI 39.9
[2019-04-09 11:35] VITALS: BMI 42.3
--- NOTE | 2019-05-06 08:51 | PFT ---
INTRODUCTION: The patient is a 64-year-old female that presents for pulmonary function studies secondary to a diagnosis of COPD. Respiratory therapy reports good patient effort. Bronchodilators were used during testing. INTERPRETATION: Forced expiration spirometry demonstrates the presence of a moderate large airways obstructive ventilatory defect. There was no significant response to aerosolized bronchodilators. Spirograms are of good quality and plateau normally. Body plethysmography was performed and reveals an elevated RV to 151% of predicted, indicative of underlying air trapping. Diffusing capacity by single breath CO is reduced at 62% of predicted. IMPRESSION: Irreversible moderate large airways obstructive ventilatory defect with associated air trapping and symmetric reduction in diffusing capacity.
== END | disposition home or self-care (01) ==
LOC: PSN 13:31
PROVIDERS: Family Provider Family Medicine Geriatric Medicine; PCP Family Medicine Geriatric Medicine; Referring Provider Internal Medicine Critical Care Medicine; Visit Provider Internal Medicine Critical Care Medicine
DX: J44.9 Chronic obstructive pulmonary disease, unspecified (principal); F17.211 Nicotine dependence, cigarettes, in remission
CPT/HCPCS: 94060; 94726; 94729

== ENCOUNTER 2019-05-19 13:00 | Outpatient (RCR) | payer MEDICAID, SELFPAY ==
--- NOTE | 2019-04-21 15:17 | HP.PTEVAL_ITS ---
Patient's Visit Information JESSENIA ARROYO is a 63 year old F referred to Physical Therapy by Waldo Mark MD with a diagnosis of LOW BACK PAIN. Date of Evaluation: 04/21/19 Physical Therapist: Luc Rebolledo, PT, Cert MDT, OCS - Visit Plan Frequency: 1-2x /Week Duration: 4 Weeks Plan: PT INTERVENTIONS POSTURAL EX'S,DLS,LE STRENGTHENING,ENDURANCE PROGRAM - Subjective Findings: This 63 y/o female presents to physical therpay with low back pain . Patient patient has LBP and leg pain may years but symptoms worse in legs past 6 months. Patient location back pain symmtrical L-S radiates to hamstring -calf . Aggravating factors walking,standing,lifting,bending. Alleviated factors rest and sitting. Patient pain affects sleeping thus has to slep in a recliner. Patient c/o parathesia left >right thigh . 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 Patient has walk-in shower but has difficulty . Patient uses cane for walking and has ankle braces hinge. SOCAIL: Assisted living [facility]. VOCATION: disablity - Pain Bilateral Back Pain Intensity (Out of 10): 6 Pain Intensity Range: 10 Bilateral Lower Extremity Pain Intensity (Out of 10): 7 Pain Intensity Range: 10 - Objective POSTURE: mild foward posture ,hips/knee flexed calaneal valgus. GAIT: antalgic gait foward posture hips/flexed foward unsteady with cane. NEURO: c/o parathesia/tingling left leg ,light touch intact,reflexes L3-,L4-5,L5-S1 1/3. SYMMTRIES: pelvis maligned. PALAPTION: tendetr L-S. MMT: quads hams 4-/5,hip flexion 4-/5,abd 4-/5,ankle 4-/5. LUMBAR ROM: flexion mod loss,side glides mod loss,extension MOD loss pain at endrange. FLEXABLITY: hams min tight - Special Tests L/S Slump test left side: Negative L/S Slump test right side: Negative L/S Left Straight Leg Raise: Negative L/S Right Straight Leg Raise: Negative - Goals Goal 1:: Independant with HEP Goal 2:: Pateint to improve gait with less pain and antalgic gait Goal Time Frame: 4-6 Weeks Goal 3:: Patient to increase strength BLE by 4/5 to improve gait and function. Goal Time Frame: 4-6 Weeks Goal 4:: Patient improve back owsestry score by 5 points or greater to improve QOL Goal Time Frame: 2-4 Weeks Goal 5:: Patient to decrease back pain by 50% or greater to improve function. Goal Time Frame: 2-4 Weeks - Rehabilitation Potential Physical Therapy Diagnosis: This patient has LBP with leg pain with weakness ,poor Lumbar ROM ,unsteady gait thus impairs function benifit from skilled PT Rehabilitation Potential: Good - Anticipated Interventions Patient/Client Instruction: Educate patient on: Condition, Plan of Care For the Purpose of:: To decrease pain, To increase ROM, To increase oxygenation perfusion, To improve ability to perform ADL's, To increase tolerance to activity/condition/position, To improve performance and independence with ADL's, To improve ability of physical actions for home/community/work/leisure, To improve health of tissue, To decrease soft tissue restriction, To increase flexibility/ROM, To improve ability to perform tasks related to life management Therapeutic Exercise to Include: Strength training, Endurance training, Postural training, Flexibilty training, Gait and locomotor training, Dynamic Lumbar Stabilization For the Purpose of:: To decrease pain, To improve muscle performance and motor function, To improve ability to perform ADL's, To increase tolerance to activity/condition/position, To improve health of tissue, To decrease soft tissue restriction, To increase flexibility/ROM, To improve endurance, To improve ability to perform tasks related to life management TENS: Yes IF ES: Yes Cryotherapy (ice pack, ice massage): Yes Thermo therapy (hot pack): Yes Ultrasound (thermal/non thermal): Yes For the Purpose of:: To decrease pain, To increase ROM, To improve health of tissue, To decrease soft tissue restriction Thank you for the opportunity to evaluate your patient. For Medicare and Medicare HMO plans, please review the plan of care and approve it. It will need to be FAXED BACK to us at [phone] for Medicare purposes. For Medicare only, by signing this I certify the plan of care. Please let me know if there are questions or concerns regarding this plan of care. Physician Signature: Date:
--- NOTE | 2019-07-19 15:22 | HP.PT.NRP ---
HP - Discharge Summary (1) - Patient Information JESSENIA ARROYO was seen in my office for initial evaluation on 04/21/19. The following Plan of Care was established for this patient: Initial Frequency: 1-2x /Week Initial Duration: 4 Weeks - Anticipated Interventions Patient/Client Instruction: Educate patient on: Condition, Plan of Care For the Purpose of:: To decrease pain, To increase ROM, To increase oxygenation perfusion, To improve ability to perform ADL's, To increase tolerance to activity/condition/position, To improve performance and independence with ADL's, To improve ability of physical actions for home/community/work/leisure, To improve health of tissue, To decrease soft tissue restriction, To increase flexibility/ROM, To improve ability to perform tasks related to life management Therapeutic Exercise to Include: Strength training, Endurance training, Postural training, Flexibilty training, Gait and locomotor training, Dynamic Lumbar Stabilization For the Purpose of:: To decrease pain, To improve muscle performance and motor function, To improve ability to perform ADL's, To increase tolerance to activity/condition/position, To improve health of tissue, To decrease soft tissue restriction, To increase flexibility/ROM, To improve endurance, To improve ability to perform tasks related to life management TENS: Yes IF ES: Yes Cryotherapy (ice pack, ice massage): Yes Thermo therapy (hot pack): Yes Ultrasound (thermal/non thermal): Yes For the Purpose of:: To decrease pain, To increase ROM, To improve health of tissue, To decrease soft tissue restriction This patient was last seen in our office 05/19/19. Pertinent comments regarding their Physical therapy will appear below: Patient seen for PT for DLS ,postural ex's for lumbar pain ,thus is d/c to HEP. At this point I will be discontinuing this patient from physical therapy. I would be happy to see this patient again in the future if found appropriate by the physician. Thank you! Luc Rebolledo, PT, Cert MDT, OCS
== END 2019-05-19 19:00 | disposition home or self-care (01) ==
LOC: PT 13:00
PROVIDERS: Family Provider Family Medicine Geriatric Medicine; PCP Family Medicine Geriatric Medicine; Referring Provider Family Medicine Geriatric Medicine; Visit Provider Family Medicine Geriatric Medicine
DX: M54.5 Low back pain (principal)
CPT/HCPCS: 97014; 97110; 97162; G0283

== ENCOUNTER → 2019-06-21 | Outpatient (CLI) | payer MEDICAID, SELFPAY ==
[2019-05-25 13:29] VITALS: BMI 42.3
== END | disposition home or self-care (01) ==
LOC: SL 19:51
PROVIDERS: Family Provider Family Medicine Geriatric Medicine; PCP Family Medicine Geriatric Medicine; Referring Provider Nurse Practitioner Acute Care; Visit Provider Nurse Practitioner Acute Care
DX: G47.33 Obstructive sleep apnea (adult) (pediatric) (principal)
CPT/HCPCS: 95811

== ENCOUNTER 2019-07-07 06:37 | Day surgery (SDC) | payer MEDICAID, SELFPAY ==
[2019-05-25 13:29] VITALS: BMI 42.3
[2019-07-07 07:03] VITALS: BP 165/82; PULSE 71; RESP 16; TEMP 36.4; O2SAT 95; BMI 37.3
[2019-07-07] MEDS: Lactated Ringers 1,000 ML 100 ML IV (07:20)
--- NOTE | 2019-07-07 07:53 | H&P.OPEN ---
History of Present Illness Date of Admission: 07/07/19 The patient is a 64 year old F here for screening colonoscopy. Her last colonoscopy was over 10 years ago. She does suffer from constipation. She denies any blood in her stool or abdominal pain. She has no family history of colon cancer. Past Medical/Surgical History - Planned Operation Planned Operative Procedure/s: COLONOSCOPY Date of Operative Procedure: 07/07/19 Permit Signed: Yes S.O.S: No Is This Patient Having a Total Joint: No - Previous Hospitalizations/Surgeries HX Hospitalizations: No HX of Surgeries: TUBAL. MOLE REMOVAL ON BACK. COLONOSCOPY/EGD Any Problems With Anesthesia: No You/Your Family Experience Fever (Hyperthermia) With Anes: No Cholinesterase deficiency: No - Cardiovascular Hx Chest Pain within Last 2 months: Yes - SOME, HASN'T BEEN TO Hx of Irregular Heartbeat and/or Afib: Yes - PALPATATIONS Hx Heart Attack: No Hx Congestive Heart Failure: No Hx Rheumatic Fever: No Hx Hypertension: Yes Hx Internal Defibrillator: No Hx Pacemaker: No Hx Cardiac Catheterization: No Hx Cardiac Surgery/Stents/Etc.: No Hx Stress Test: No HX Edema: No Hx Pain in Legs when Walking/Leg Cramps: No - Respiratory Chronic Cough: No HX of Shortness of Breath: No Hoarseness: Yes Hx Chronic Obstructive Pulmonary Disease (COPD): Yes - asthma Hx Asthma: Yes Hx Emphysema: No Hx Sleep Apnea: Yes CPAP: Yes - has not been using regularly BIPAP: No Hx Oxygen Use at Home: No Hx Respiratory Tract Infection/Cold (presently): No - RUNNY NOSE Result (for STOP score): Positive Hx Smoking: Yes Smoking Status: Former smoker - Gastrointestinal Hx Gastroesophageal Reflux: Yes Controlled With Meds: No Hx Gastrointestinal Disorders: No Hx Gastrointestinal Bleed: No Hx Ulcer: No Hx Hiatal Hernia: No Difficulty Chewing/Swallowing: No Recent Onset of Swallowing Problems: No Special diet followed at home: No Hx Unplanned Weight Loss of 20#: No HX Unplanned Weight Gain of 20#: No - Neurological Hx Seizures: No HX Syncope/Blackout Spells/Unconsciousness: No Hx CVA/Stroke: No Hx Transient Ischemic Attacks (TIA): No Hx Multiple Sclerosis: No Hx Parkinson's Disease: No Hx Head/Neck Injury: Yes Hx Headaches: No Hx Back Injury/Pain: Yes Recent Onset of Speech Difficulty: No Restless Legs: No Does patient have nerve stimulator: No - Blood Disorder Hx Leukemia: No Bleeding Tendencies: No Hx Deep Vein Thrombosis: No Hx High Cholesterol: Yes Blood Transmitted Disease: No Hx Hepatitis: No Hx Cirrhosis: No Hx Anemia: No Hx Blood Disorders: No - Genitourinary Hx Renal Disease: No Hx Dialysis: No - Musculoskeletal Hx Arthritis: Yes Hx Rheumatoid Arthritis: No Hx Gout: No Recent Onset of an Orthopedic Problem: No - Endocrine Hx Diabetes: No Thyroid Disease: No Hx Steroid Therapy: No - Psycho/Social Hx Substance Use: No Hx Alcohol Use: No Hx Anxiety: Yes Hx Depression: Yes Mental Illness: No Hx Dementia: No - Miscellaneous Hx Cancer: No Recent Exposure to Contagious Disease: No Active MRSA: No Hx of C-Diff: No Any Loose Teeth: No Allergies No Known Allergies Allergy (Verified 07/05/19 10:28) Maternal Family History: Family History (Last Reviewed 05/25/19 @ 13:57 by ELVIN Rich) Father Cancer Mother Cancer No pertinent history Paternal Family History: Family History (Last Reviewed 05/25/19 @ 13:57 by ALCON RichC) Father Cancer Mother Cancer No pertinent history - Discharge Is Pt Admitted From a Custodial, or a Long-Term: No Who Could Help: HOSP TRANSPORTATION After D/C, Where Do you Plan to Go: Assisted Living - From the PAT History Number of Risk Factors: 4 - Physical Exam General: Alert, Cooperative, No apparent distress Neck: No JVD Lungs: Normal air movement Cardiovascular: Regular rate, Regular Rhythm Abdomen: Soft, Non Tender, Non-Distended Vital Signs Temp Pulse Resp BP Pulse Ox 97.6 F L 71 16 165/82 H 95 07/07/19 07:03 07/07/19 07:03 07/07/19 07:03 07/07/19 07:03 07/07/19 07:03 Oxygen Delivery Method Room Air Weight: 217 lb 2.485 oz Body Mass Index (BMI) 37.3 Assessment/Plan All Active Problems (Last Reviewed 05/25/19 @ 13:57 by Yeny Baum NP-C) Constipation (Acute) Encounter for screening colonoscopy (Acute) Intermittent palpitations (Acute) Abnormal electrocardiogram (Acute) 64-year-old female with constipation here for screening colonoscopy I explained endoscopy in detail to the patient. I explained the risks including but not limited to stroke or heart attack with anesthesia, perforation of the GI tract, bleeding, infection. I explained that any of these could necessitate further emergency surgery. The patient understands and all questions were answered sufficiently. The patient wishes to proceed with procedure. Conor Puri MD Pager: [facility] [address] [place] [address] [address] [place] [address] Office: Surgery Risks - Colonoscopy Risks Include but are not Limited To: Risks include but are not limited to: Bleeding, perforation requiring further surgery, inability to complete colonoscopy requiring barium enema.
--- NOTE | 2019-07-07 08:00 | COLBX_PTH ---
PATIENT: JESSENIA ARROYO LOC: EN U#:[id number] AGE/SX: 64/F ROOM: RE07/07/[address]: Dr. Conor Puri MD : [id number] BED: DIS: 07/07/2019 SPEC #: [id number] RECD: 07/07/19 09:23 STATUS: CHAPO ASTER #: [id number] ROXANNE: 07/07/19 08:[address]: Conor Puri DEPT: SURGICAL PATHOLOGY RECD BY: Donta Bob ENTERED: 07/07/19 12:01 SP TYPE: COLON BX OT DR: Dena Stevens, NIK-Hany Tissues: Transverse colon Procedures: Surgery Specimen Level IV HEADER OPERATION: Colonoscopy (MAC) PRE-OP DIAGNOSIS: Screen TISSUE SUBMITTED: Transverse colon polyp MICROSCOPIC DIAGNOSIS Transverse colon polyp, biopsy: Tubular adenoma. SJ:jensen 07/10/19 MICROSCOPIC DESCRIPTION Slides are reviewed. GROSS DESCRIPTION Received in fixative is one container labeled with the patient's name and designated transverse colon polyp. The specimen consists of a dorsey-pink polyp measuring 0.6 x 0.6 x 0.3 cm. The specimen is totally submitted in one cassette. / SJ:jensen 07/07/19 TC:1 CPT: 81003
[2019-07-07 08:35] VITALS: BP 156/102; BP 165/82; PULSE 65; RESP 16; TEMP 36.1; O2SAT 97
[2019-07-07 08:40] VITALS: BP 163/90; BP 165/82; PULSE 67; RESP 16; O2SAT 99
[2019-07-07 08:47] VITALS: BP 150/102; BP 165/82; PULSE 66; RESP 16; O2SAT 99
[2019-07-07 08:50] VITALS: BP 161/96; BP 165/82; PULSE 66; RESP 16; TEMP 36.2; O2SAT 94
--- NOTE | 2019-07-07 08:50 | OP.ENDO_ITS ---
07/07/2019 Dena Stevens Re : Colonoscopy procedure for Mayuri Saez Dear Rodney This procedure was performed on Sunday, July 07, 2019. My impressions and recommendations are as follows: Impressions : - One polyp in the transverse colon, removed with a hot snare. Resected and retrieved. - The examination was otherwise normal on direct and retroflexion views. Recommendations : - Discharge patient to home. - Resume previous diet. - Continue present medications. - Repeat colonoscopy date to be determined after pending pathology results are reviewed for surveillance based on pathology results. My findings are described in the full procedure note, which is enclosed. If I can be of further assistance, please feel free to contact me at Doctor phone number(s): , Work: . Sincerely, Conor Puri MD 07/07/2019 8:49:41 AM This report has been signed electronically.
[2019-07-07 09:14] VITALS: BP 165/82
== END 2019-07-07 09:31 | disposition home or self-care (01) ==
LOC: EN 06:37 → AC 06:41
PROVIDERS: Family Provider Nurse Practitioner Adult Health; PCP Nurse Practitioner Adult Health; Referring Provider Nurse Practitioner Adult Health; Visit Provider Surgery
PROC: 0DJD8ZZ Inspection of Lower Intestinal Tract, Via Natural or Artificial Opening Endoscopic (ICD-10-PCS; CPT 45378; principal; 2019-07-07 07:55)
DX: Z12.11 Encounter for screening for malignant neoplasm of colon (principal); D12.3 Benign neoplasm of transverse colon; K21.9 Gastro-esophageal reflux disease without esophagitis; F41.9 Anxiety disorder, unspecified; F32.9 Major depressive disorder, single episode, unspecified; I10 Essential (primary) hypertension; G47.30 Sleep apnea, unspecified; Z79.899 Other long term (current) drug therapy
CPT/HCPCS: 45380; 88305; J7120

== ENCOUNTER 2019-09-10 06:31 | Emergency (ER) | payer MEDICAID, SELFPAY ==
[2019-07-26 08:04] VITALS: BMI 38.0
[2019-09-10 06:32] VITALS: BP 173/104; BP 176/109; PULSE 90; RESP 16; TEMP 36.5; O2SAT 98; BMI 37.8
--- NOTE | 2019-09-10 06:57 | EKG12_ITS ---
Test Reason : MED CLEARANCE Blood Pressure : / mmHG Vent. Rate : 085 BPM Atrial Rate : 085 BPM P-R Int : 146 ms QRS Dur : 100 ms QT Int : 370 ms P-R-T Axes : 044 -46 052 degrees QTc Int : 440 ms Normal sinus rhythm Left anterior fascicular block Cannot rule out Anteroseptal infarct , age undetermined Abnormal ECG Confirmed by JUSTIN HUFFMAN MD ([id number]), television news video editor JUDITH TIDWELL ([id number]) on 09/13/2019 11:27:03 AM Referred By: GÉNESIS Confirmed By:JUSTIN HUFFMAN MD
--- NOTE | 2019-09-10 06:58 | ED.DCSUM_ITS ---
History of Present Illness Chief Complaint: Mental Health Informant: Patient Onset: Days Context: Gradual Onset Associated Symptoms: Change in sleeping, Paranoia, Auditory Hallucinations Narrative: Patient is a 64-year-old female with extensive psychiatric history presenting with worsening auditory hallucinations and insomnia. Patient states she is only been able to sleep to 3 hours/day for the past week. She states that she has been having worsening auditory hallucinations as well. Patient states she is been hearing voices for the past 2 to 3 years but has not told anyone. She states that voices call her names as well as mentioning names of her ex- and a sister in law as well as people she does not know. The voices also stated that she is going to get murdered. Patient denies any homicidal or suicidal ideations. She states she is been feeling very anxious and tremulous because of this. She also states she feels strange inside. She notes that she had tightness in her chest for the past year as well as leg pain for the past 5 to 6 months. Patient states she does feel safe most the time at home except with the voices that she is going to get murdered. Patient has appointment to see the counseling center tomorrow. She states she is on psychiatric medications been compliant with them. States she has had a psychiatric admission in the past but it was years ago. She denies any other complaints at this time. Prior similar symptoms: Yes Recent Illness/Hospitalization: No Past Medical History - Allergies and Home Meds Allergies/Adverse Reactions: Allergies No Known Allergies Allergy (Verified 07/26/19 08:05) Primary Care Physician: Dena Stevens, [employer] ADMINISTRATOR DEVELOPER-C [Primary Care Provider] - Past Medical History: - - Schizophrenia, MIK, hyperlipidemia, GERD, hypertension, COPD, anxiety/depression, Alzheimer's disease Surgical History: - - Colonoscopy Smoking Status: Former smoker - Family History Maternal Family History: Family History (Last Reviewed 07/26/19 @ 09:58 by Akira Whitt MD) Father Cancer Mother Cancer Family History: Reports: No pertinent history Paternal Family History: Family History (Last Reviewed 07/26/19 @ 09:58 by Akira Whitt MD) Father Cancer Mother Cancer Family History: Reports: No pertinent history Review of Systems General: Denies: Chills, Fever, Sweats Eyes: Denies: Visual changes - bilaterally, Diplopia ENT: Denies: Rhinorrhea, Sore throat Cardiovascular: Reports: Chest pain - X1 year?tightness. Denies: Palpitations Respiratory: Denies: Dyspnea, Cough, Dyspnea on exertion Gastrointestinal: Denies: Abdominal pain, Nausea, Vomiting, Diarrhea, Melena, Hematochezia Genitourinary: Denies: Dysuria, Hematuria, Frequency Musculoskeletal: Reports: Back pain, Extremity Pain - Bilateral, chronic Skin: Denies: Rash, Wounds Neurological: Denies: Headache, Weakness, Numbness Psych: Reports: Anxiety, - - Auditory hallucinations. Denies: Suicidal thoughts, Suicidal ideations Physical Exam Vital Signs/Narrative: Vital Signs Temp Pulse Resp BP Pulse Ox 09/10/19 06:32 97.7 F L 90 16 173/104 H 98 Inital Vital Signs reviewed: Yes General: Well nourished, Well developed Head: Normocephalic, Atraumatic Eyes: Perrl, EOMI ENT: Moist mucous membranes, No rhinorrhea Neck: Supple, Nontender Cardiovascular: Regular rate, Regular rhythm, No murmurs Respiratory: No distress, CTA bilaterally, Chest nontender Abdomen: Soft, Nontender, Nondistended, Normal bowel sounds Back: Nontender, Normal Inspection Extremities: Nontender, No Edema Skin: Normal color, No rash Neurological: Alert, Oriented x3, Cranial nerves II-XII grossly intact, Normal Strength, Normal Sensation Psych: No suicidal or homicidal ideation, Pressured Speech, Delusions Diagnostic/Tx/Re-eval Chest X-Ray - ED: 1 View, Read by ED Physician, Read by Radiologist, No Acute Disease Clinical Impression(s) from Imaging Studies Chest X-Ray 09/10/19 07:00 IMPRESSION: Normal x-ray examination of the chest. Electronically Signed: Eulogio Mehdi, at 7:49 EST Tel , Service support , Laboratory Data 09/10/19 09/10/19 09/10/19 07:10 07:10 07:10 WBC 8.4 RBC 4.98 Hgb 13.9 Hct 42.8 MCV 85.9 MCH 27.9 MCHC 32.5 RDW Std Deviation 42.1 RDW Coeff of Humphrey 13.5 Plt Count 250 MPV 9.5 Immature Gran % (Auto) 0.600 Neut % (Auto) 72.0 H Lymph % (Auto) 19.7 [place] % (Auto) 7.1 Eos % (Auto) 0.4 Baso % (Auto) 0.2 Absolute Neuts (auto) 6.1 Absolute Lymphs (auto) 1.66 Nucleated RBC % 0 Sodium 134 L Potassium 4.1 Chloride 101 Carbon Dioxide 27.0 Anion Gap 6 BUN 9 Creatinine 0.73 Estim Creat Clear Calc 69.00 Est GFR (MDRD) Af Amer 103 Est GFR (MDRD) Non-Af 86 BUN/Creatinine Ratio 12.3 Glucose 129 H Calcium 9.3 Troponin I < 0.015 Urine Color Urine Clarity Urine pH Ur Specific [place] Urine Protein Urine Glucose (UA) Urine Ketones Urine Occult Blood Urine Nitrite Urine Bilirubin Urine Urobilinogen Ur Leukocyte Esterase Urine RBC Urine WBC Ur Squamous Epith Cells Urine Bacteria Urine Mucus Urine Opiates Screen Urine Methadone Screen Ur Barbiturates Screen Ur Phencyclidine Scrn Ur Amphetamines Screen U Methamphetamin-MDMA U Benzodiazepines Scrn Urine Cocaine Screen U Cannabinoids Screen Ur Drug Screen Comment Ethyl Alcohol < 3.0 09/10/19 09/10/19 07:53 07:53 WBC RBC Hgb Hct MCV MCH MCHC RDW Std Deviation RDW Coeff of Humphrey Plt Count MPV Immature Gran % (Auto) Neut % (Auto) Lymph % (Auto) [place] % (Auto) Eos % (Auto) Baso % (Auto) Absolute Neuts (auto) Absolute Lymphs (auto) Nucleated RBC % Sodium Potassium Chloride Carbon Dioxide Anion Gap BUN Creatinine Estim Creat Clear Calc Est GFR (MDRD) Af Amer Est GFR (MDRD) Non-Af BUN/Creatinine Ratio Glucose Calcium Troponin I Urine Color Yellow Urine Clarity Sl. Cloudy Urine pH 7.0 Ur Specific [place] 1.010 Urine Protein Negative Urine Glucose (UA) Normal Urine Ketones Negative Urine Occult Blood 10 H Urine Nitrite Negative Urine Bilirubin Negative Urine Urobilinogen Normal Ur Leukocyte Esterase Negative Urine RBC 0 SEEN Urine WBC 0 SEEN Ur Squamous Epith Cells 0-5 SEEN Urine Bacteria 0 SEEN Urine Mucus 0 SEEN Urine Opiates Screen NEGATIVE Urine Methadone Screen NEGATIVE Ur Barbiturates Screen NEGATIVE Ur Phencyclidine Scrn NEGATIVE Ur Amphetamines Screen NEGATIVE U Methamphetamin-MDMA POSITIVE H U Benzodiazepines Scrn NEGATIVE Urine Cocaine Screen NEGATIVE U Cannabinoids Screen NEGATIVE Ur Drug Screen Comment Ethyl Alcohol - Rhythm Strip Rhythm Strip: Sinus Rhythm Rate: 85 Ectopy: None - EKG Initial EKG Interpretation: Sinus Rhythm, - - Normal sinus rhythm at a rate of 85 Left anterior fascicular block Normal intervals Left axis deviation Normal ST segments Patient is evaluated for worsening psychiatric symptoms. She seems to be displaying likely angus with auditory hallucinations. Patient's been compliant with her medications and has acutely decompensated still. Consulted crisis for further evaluation. Crisis evaluated the patient after she is medically cleared. Patient does not have any obvious organic cause of her symptoms. She is hemodynamically stable and medical screening exam is completed. They feel that she is a good candidate for outpatient follow-up. She has an appointment tomorrow to see her psychiatrist. I am agreeable with this plan. I feel that patient is safe at home. Patient is counseled on signs and symptoms requiring return to the emergency room. Patient verbalizes agreement and understand this plan. Patient discharged home in stable and improved condition. ED Disposition - Plan for ED Patient: Disposition: Home or Assisted Living Diagnosis: Anxiety, Auditory hallucination Instructions: SCHIZOPHRENIA, General Referrals: Dena Stevens, [employer] ADMINISTRATOR DEVELOPER-C [Primary Care Provider] - Additional Instructions: Please make sure you follow-up with the crisis center for your appointment scheduled tomorrow. You are safe to go home. Return to emergency room if you have worsening symptoms or further concerns.
--- NOTE | 2019-09-10 07:00 | RAD_ITS ---
STUDY: X-RAY CHEST REASON FOR EXAM: Female, 64 years old. Hallucinations, decreased sleep TECHNIQUE: Portable chest COMPARISON: None. FINDINGS: The lungs are clear and expanded. There is no demonstrated pleural abnormality. Normal size heart. Normal mediastinum and yael. Normal visualized pulmonary arteries. Normal visualized aortic arch and descending thoracic aorta. Normal visualized thoracic spine. Normal visualized ribs, clavicles, and shoulders. There is no demonstrated abnormality of the visualized soft tissue structures of the upper abdomen. RAD/Chest 1 View (Portable) IMPRESSION: Normal x-ray examination of the chest. Electronically Signed: Eulogio Harding, at 7:49 EST Tel , Service support ,
--- NOTE | 2019-09-10 07:02 | NURSING ---
NO OLD EKGS
[2019-09-10 07:16] LABS: Absolute Lymphocyte Count 1.66 X10^3/uL (0.83-4.51); Absolute Neutrophil Count 6.1 X10^3/uL (2.0-7.7); Basophil# 0.02 X10^3/uL; Basophil% 0.2 % (0-1); Eosinophil# 0.03 X10^3/uL; Eosinophils% 0.4 % (0-5); Hematocrit 42.8 % (37-47); Hemoglobin 13.9 g/dL (12.0-15.0); Lymphocyte # 1.66 X10^3/ul (4.0); Lymphocyte % 19.7 % (19-41); Mean Corp Hgb Conc 32.5 g/dL (32-36); Mean Corpuscular Hgb 27.9 pg (27.0-32.0); Mean Corpuscular Volume 85.9 fL (81-99); Mean Platelet Vol. 9.5 fl (6.2-12.0); Monocyte% 7.1 % (0-10); NRBC Flagged by Analyzer 0 % (0-5); Neutrophil # 6.08 X10^3/uL (2.7-7.7); Platelet Count 250 K/mm3 (150-450); RBC Distribution Width CV 13.5 % (11.6-14.6); RBC Distribution Width SD 42.1 fl (35.1-43.9); Red Blood Count 4.98 M/mm3 (4.2-5.4); White Blood Count 8.4 K/mm3 (4.4-11.0)
[2019-09-10 07:32] LABS: Anion Gap 6 (5-15); BUN 9 mg/dL (7-18); BUN/Creat Ratio 12.3 RATIO (10-20); Calcium,Total 9.3 mg/dL (8.5-10.1); Chloride 101 mmol/L (98-107); Creatinine, Serum 0.73 mg/dL (0.55-1.02); EST Glomerular Filtration Rate 86 mL/min (>60); Est Glom Filt Rate - Afr Amer 103 mL/min (>60); Glucose 129 mg/dL (74-106); Potassium 4.1 mmol/L (3.5-5.1); Sodium Level 134 mmol/L (136-145)
[2019-09-10 07:40] LABS: Alcohol, Blood (Medical)-Serum < 3.0 mg/dL
[2019-09-10 08:03] LABS: Bacteria 0 SEEN /hpf (None Seen); Mucous, Urine 0 SEEN /hpf (<or=2+); Red Blood Cells-Urine 0 SEEN /hpf (0-5); White Blood Cells 0 SEEN /hpf (0-5)
[2019-09-10 08:04] LABS: Color, Urine Yellow (Yellow); Glucose, Dipstick Normal (Normal); Ketone-Dipstick Negative (Negative); Leukocyte Esterase-Dipstick Negative /ul (Negative); Nitrite-Dipstick Negative (Negative); Occult Blood-Urine 10 /ul (Negative); Protein-Dipstick Negative (Negative); Urine Bilirubin Dipstick Negative (Negative); Urine Clarity Sl. Cloudy (Clear); Urine Urobilinogen Normal (Normal)
[2019-09-10 08:08] LABS: Amphetamine Urine VISTA NEGATIVE (<1000 ng/mL); Barbiturate Urine VISTA NEGATIVE (< 200 ng/mL); Benzodiazepine Urine VISTA NEGATIVE (< 200 ng/mL); Cocaine Urine VISTA NEGATIVE (< 300 ng/mL); Ecstacy Urine VISTA POSITIVE (< 500 ng/mL); Methadone Urine VISTA NEGATIVE (< 300 ng/mL); PCP Urine VISTA NEGATIVE (< 25 ng/mL); THC Urine VISTA NEGATIVE (< 50 ng/mL); Vista UDS pH Range 6
[2019-09-10 08:11] LABS: Squamous Epithelial Cells - UA 0-5 SEEN /hpf (5-10)
--- NOTE | 2019-09-10 08:20 | NURSING ---
CALLED CRISIS, LEFT MESSAGE WITH ANSWERING SERVICE
--- NOTE | 2019-09-10 08:25 | NURSING ---
CHANDLER LORD, CALLED BACK. SHE WILL BE SENDING [facility] TO SEE PATIENT
[2019-09-10 09:33] VITALS: RESP 16
[2019-09-10 11:42] VITALS: RESP 18
--- NOTE | 2019-09-10 11:44 | NURSING ---
CALLED [facility] FOR TRANSPORT. ETA IS 20 MIN
== END 2019-09-10 12:20 | disposition home or self-care (01) ==
PROVIDERS: Emergency Provider Emergency Medicine; Family Provider Nurse Practitioner Adult Health; PCP Nurse Practitioner Adult Health
DX: R44.0 Auditory hallucinations (principal); F41.9 Anxiety disorder, unspecified; Z87.891 Personal history of nicotine dependence; Z79.899 Other long term (current) drug therapy
CPT/HCPCS: 71045; 80048; 80307; 80320; 81001; 84484; 85025; 93005; 99284; A4216; G0480

== ENCOUNTER 2019-12-11 19:30 | Emergency (ER) | payer MEDICAID, SELFPAY ==
[2019-12-11 19:31] VITALS: BP 177/103; PULSE 92; RESP 16; TEMP 36.7; O2SAT 92; BMI 38.8
--- NOTE | 2019-12-11 19:34 | EKG12_ITS ---
Test Reason : WEAKNESS Blood Pressure : / mmHG Vent. Rate : 080 BPM Atrial Rate : 080 BPM P-R Int : 148 ms QRS Dur : 100 ms QT Int : 396 ms P-R-T Axes : 047 -27 065 degrees QTc Int : 456 ms Normal sinus rhythm Low voltage QRS Borderline ECG Confirmed by BINTA PELLETIER, ANNA ([id number]), assignment desk editor JILL EVANS ([id number]) on 12/12/2019 1:45:27 PM Referred By: MARK ANTHONY Confirmed By:ANNA JUDD MD
--- NOTE | 2019-12-11 19:38 | ED.DCSUM_ITS ---
History of Present Illness Chief Complaint: Weakness Informant: Patient Onset: Days Context: Gradual Onset Timing: Continuous Current Severity: Moderate Maximum Severity: Moderate Narrative: The patient is a 64-year-old female with medical history of COPD who is not on oxygen, noncompliant with BiPAP, schizophrenia who presents to the emergency department with cough, shortness of breath, and generalized weakness. The patient states that she was diagnosed with influenza just about a week ago. She states that she was treated with Tamiflu. She states that since that, she is been having a lot of myalgias and arthralgias. She states she is also had cough and shortness of breath. She denies any fevers or chills. She has had productive sputum. She was sent in from her nursing facility due to increasing weakness. Prior similar symptoms: No Recent Illness/Hospitalization: Yes Past Medical History - Allergies and Home Meds Allergies/Adverse Reactions: Allergies No Known Allergies Allergy (Verified 12/11/19 19:36) Primary Care Physician: Dena Stevens [facility] RO[facility]-C [Primary Care Provider] - Prior records reviewed: Yes Past Medical History: - - COPD, schizophrenia Surgical History: noncontributory, - - Colonoscopy Smoking Status: Former smoker - Family History Maternal Family History: Family History (Last Reviewed 07/26/19 @ 09:[address] Akira Whitt MD) Father Cancer Mother Cancer Family History: Reports: No pertinent history Paternal Family History: Family History (Last Reviewed 07/26/19 @ 09:[address] Akira Whitt MD) Father Cancer Mother Cancer Family History: Reports: No pertinent history Review of Systems General: Reports: Malaise. Denies: Chills, Fever, Sweats Eyes: Denies: Visual changes - bilaterally, Diplopia ENT: Denies: Rhinorrhea, Sore throat Cardiovascular: Denies: Chest pain, Palpitations Respiratory: Reports: Dyspnea, Cough. Denies: Dyspnea on exertion Gastrointestinal: Denies: Abdominal pain, Nausea, Vomiting, Diarrhea, Melena, Hematochezia Genitourinary: Denies: Dysuria, Hematuria, Frequency Musculoskeletal: Reports: Myalgias. Denies: Back pain, Extremity Pain Skin: Denies: Rash, Wounds Neurological: Denies: Headache, Weakness, Numbness Physical Exam Vital Signs/Narrative: Vital Signs Temp Pulse Resp BP Pulse Ox 12/11/19 19:31 98.0 F 92 16 177/103 H 87 Inital Vital Signs reviewed: Yes General: Well nourished, Well developed, No Acute Distress Head: Normocephalic, Atraumatic Eyes: Perrl, EOMI ENT: Moist mucous membranes, No rhinorrhea Neck: Supple, Nontender Cardiovascular: Regular rate, Regular rhythm, No murmurs Respiratory: No distress, Chest nontender, Wheezing, Decreased Air Movement Abdomen: Soft, Nontender, Nondistended, Normal bowel sounds Back: Nontender, Normal Inspection Extremities: Nontender, No edema Skin: Normal color, No rash Neurological: Alert, Oriented x3, Cranial nerves II-XII grossly intact, Normal Strength, Normal Sensation Psychological: Normal affect, Normal Mood Diagnostic/Tx/Re-eval Clinical Impression(s) from Imaging Studies Chest X-Ray 12/11/19 20:25 IMPRESSION: No acute cardiopulmonary disease perceived. at 2045 Reported and signed by: Mike Bettencourt MD Electronically Signed: Mike Bettencourt MD at 20:43 EDT Tel , Service support , Abnormal Lab Results 12/11/19 12/11/19 12/11/19 19:55 19:55 19:55 WBC 9.5 RBC 4.44 Hgb 12.2 Hct 38.2 MCV 86.0 MCH 27.5 MCHC 31.9 L RDW Std Deviation 41.0 RDW Coeff of Humphrey 13.2 Plt Count 254 MPV 9.7 Immature Gran % (Auto) 2.300 H Neut % (Auto) 64.0 Lymph % (Auto) 25.6 [place] % (Auto) 7.2 Eos % (Auto) 0.5 Baso % (Auto) 0.4 Absolute Neuts (auto) 6.1 Absolute Lymphs (auto) 2.43 Nucleated RBC % 0 Sodium 139 Potassium 4.0 Chloride 106 Carbon Dioxide 27.0 Anion Gap 6 BUN 13 Creatinine 0.54 L Estim Creat Clear Calc 89.35 Est GFR (MDRD) Af Amer 146 Est GFR (MDRD) Non-Af 121 BUN/Creatinine Ratio 24.0 H Glucose 102 Lactic Acid 1.3 Calcium 9.3 Total Creatine Kinase 12/11/19 19:55 WBC RBC Hgb Hct MCV MCH MCHC RDW Std Deviation RDW Coeff of Humphrey Plt Count MPV Immature Gran % (Auto) Neut % (Auto) Lymph % (Auto) [place] % (Auto) Eos % (Auto) Baso % (Auto) Absolute Neuts (auto) Absolute Lymphs (auto) Nucleated RBC % Sodium Potassium Chloride Carbon Dioxide Anion Gap BUN Creatinine Estim Creat Clear Calc Est GFR (MDRD) Af Amer Est GFR (MDRD) Non-Af BUN/Creatinine Ratio Glucose Lactic Acid Calcium Total Creatine Kinase 105 - Medical Decision Making The patient presents with generalized weakness after diagnosed with influenza. She had finished Tamiflu. The weakness is in her legs and she describes pain in her calves and thighs. She has normal pulses and reflexes. The patient does ambulate with a walker. She has no focal neurologic complaints. My suspicion is that this is likely a post influenza myositis. She is had no bowel or bladder difficulty. I do not suspect epidural abscess or other dangerous process like cauda equina. Patient did have wheezing all lung larose. She was given steroids and nebulized breathing treatments with improvement of aeration. Her chest x-ray does not show focal infiltrative process. Screening labs including CK are unremarkable. The patient is feeling improved. At this point, I do feel that she is safe for outpatient therapy. She was counseled on concerning symptoms and reasons to return. She will be discharged back to her nursing facility. Impression 1. COPD exacerbation 2. Viral myositis ED Disposition - Plan for ED Patient: Instructions: Copd Flare Prescriptions: Prednisone [Deltasone] 40 mg PO DAILY #10 tab Prescription Printed Referrals: Dena Stevens, [facility]EW[facility] RO[facility]-C [Primary Care Provider] -
[2019-12-11] MEDS: Ipratropium/Albuterol Sulfate 3 ML AMPUL.NEB INHALATION (19:47)
[2019-12-11 19:48] VITALS: PULSE 84; RESP 20
[2019-12-11] MEDS: Albuterol 2.5 MG/3 ML VIAL.NEB. INHALATION ×3 (19:56)
[2019-12-11 20:02] LABS: Absolute Lymphocyte Count 2.43 X10^3/uL (0.83-4.51); Absolute Neutrophil Count 6.1 X10^3/uL (2.0-7.7); Basophil# 0.04 X10^3/uL; Basophil% 0.4 % (0-1); Eosinophil# 0.05 X10^3/uL; Eosinophils% 0.5 % (0-5); Hematocrit 38.2 % (37-47); Hemoglobin 12.2 g/dL (12.0-15.0); Lymphocyte # 2.43 X10^3/ul (4.0); Lymphocyte % 25.6 % (19-41); Mean Corp Hgb Conc 31.9 g/dL (32-36); Mean Corpuscular Hgb 27.5 pg (27.0-32.0); Mean Platelet Vol. 9.7 fl (6.2-12.0); Monocyte# 0.68 X10^3/uL; Monocyte% 7.2 % (0-10); NRBC Flagged by Analyzer 0 % (0-5); Neutrophil # 6.06 X10^3/uL (2.7-7.7); Platelet Count 254 K/mm3 (150-450); RBC Distribution Width CV 13.2 % (11.6-14.6); Red Blood Count 4.44 M/mm3 (4.2-5.4); White Blood Count 9.5 K/mm3 (4.4-11.0)
[2019-12-11] MEDS: Acetaminophen 500 MG Tablet 1000 MG PO (20:02)
[2019-12-11] MEDS: MethylPREDNISolone 125 MG/2 ML Vial IV (20:02)
[2019-12-11] MEDS: 0.9% Normal Saline 1,000 ML 150 ML IV (20:02)
[2019-12-11 20:15] LABS: Anion Gap 6 (5-15); BUN 13 mg/dL (7-18); Calcium,Total 9.3 mg/dL (8.5-10.1); Chloride 106 mmol/L (98-107); Creatinine, Serum 0.54 mg/dL (0.55-1.02); EST Glomerular Filtration Rate 121 mL/min (>60); Est Glom Filt Rate - Afr Amer 146 mL/min (>60); Estimated Creatinine Clearance 89.35 ml/min; Glucose 102 mg/dL (74-106); Sodium Level 139 mmol/L (136-145)
--- NOTE | 2019-12-11 20:25 | RAD_ITS ---
HISTORY: WEAKNESS WITH COUGH AND SOB EXAM: XR Chest 2 Views: COMPARISON: None FINDINGS: # of images incl. paperwork: 2 Lungs are clear. Heart is not enlarged. Multilevel degenerative disc disease is present with a lower lumbar spine kyphosis. The descending thoracic aorta is tortuous Pulmonary vascularity is distinct. No effusions. RAD/Chest PA and Lateral IMPRESSION: No acute cardiopulmonary disease perceived. at 2045 Reported and signed by: Mike Bettencourt MD Electronically Signed: Mike Bettencourt MD at 20:43 EDT Tel , Service support ,
[2019-12-11 20:58] LABS: Lactic Acid 1.3 mmol/L (0.4-1.9)
[2019-12-11 21:04] LABS: CPK Total, Creatine Kinase 105 U/L (26-192)
[2019-12-11 21:58] VITALS: BP 174/99; PULSE 87; RESP 16; O2SAT 92
== END 2019-12-11 22:32 | disposition home or self-care (01) ==
LOC: ED 19:59
PROVIDERS: Emergency Provider Emergency Medicine; PCP Nurse Practitioner Adult Health
DX: J44.1 Chronic obstructive pulmonary disease with (acute) exacerbation (principal); M60.9 Myositis, unspecified; F20.9 Schizophrenia, unspecified; Z79.51 Long term (current) use of inhaled steroids; Z79.899 Other long term (current) drug therapy; Z87.891 Personal history of nicotine dependence
CPT/HCPCS: 71046; 80048; 82550; 83605; 85025; 93005; 94640; 96361; 96374; 99251; 99285; J7030; A4216; G0463

== ENCOUNTER 2019-12-18 16:26 | Emergency (ER) | payer MEDICAID, SELFPAY ==
[2019-12-18 16:27] VITALS: BP 156/101; PULSE 86; RESP 16; TEMP 36.5; O2SAT 90; BMI 37.7
--- NOTE | 2019-12-18 16:43 | ED.VIS.GEN ---
History of Present Illness Chief Complaint: Lower Extremity Injury Detail of Chief Complaint: Lateral leg pain Informant: Patient Onset: Month(s) Current Severity: Moderate Maximum Severity: Moderate Narrative: Patient presents from [facility] with bilateral leg pain. She states this is been going on for couple months. She states the pain is over the back of her thighs and calves. She states she is not able to get up and walk secondary to pain. She has been given Tylenol and naproxen without improvement. She states that she was doing in-home physical therapy but stopped that a few weeks ago. She tells me she is been crawling to the bathroom. She states that the staff at her assisted living facility has been telling her to come down to eat meals. She states that she is not able. They did bring her breakfast yesterday. - Past Medical History (1) COPD (chronic obstructive pulmonary disease) Status: Chronic (2) Schizophrenia Status: Chronic (3) Essential (primary) hypertension Status: Chronic (4) Hyperlipidemia Status: Chronic Past Medical History - Allergies and Home Meds Allergies/Adverse Reactions: Allergies No Known Allergies Allergy (Verified 12/18/19 16:29) Primary Care Physician: Dena Stevens NP-C [Primary Care Provider] - Prior records reviewed: Yes Surgical History: noncontributory, - - Colonoscopy Lives: - - Assisted living Smoking Status: Former smoker - Family History Maternal Family History: Family History (Last Reviewed 07/26/19 @ 09:[address] Akira Whitt MD) Father Cancer Mother Cancer Family History: Reports: No pertinent history Paternal Family History: Family History (Last Reviewed 07/26/19 @ 09:[address] Akira Whitt MD) Father Cancer Mother Cancer Family History: Reports: No pertinent history Review of Systems General: Denies: Chills, Fever Eyes: Denies: Visual changes - bilaterally ENT: Denies: Bilateral ear pain Cardiovascular: Denies: Chest pain Respiratory: Reports: Dyspnea, Cough. Denies: Sputum Gastrointestinal: Denies: Abdominal pain, Nausea, Vomiting, Diarrhea Musculoskeletal: Reports: Extremity Pain. Denies: Swelling Skin: Denies: Rash Neurological: Denies: Headache Hematologic: Denies: Easy bruising, Easy bleeding Allergy: Denies: Uticaria Physical Exam Vital Signs/Narrative: Vital Signs Temp Pulse Resp BP Pulse Ox 12/18/19 16:27 97.7 F L 86 16 156/101 H 90 Inital Vital Signs reviewed: Yes General: Well nourished, Well developed Head: Normocephalic ENT: Moist mucous membranes Neck: Supple Cardiovascular: Regular rate, Regular rhythm Respiratory: Diminished Abdomen: Soft, Nontender Extremities: - - No significant extremity edema noted. When patient is distracted she has no pain with palpation. There is no significant erythema or joint swelling. She has strong pulses. She is able to hold both legs up off the bed for me. Neurological: Alert, Oriented x3 Psychological: Normal affect Diagnostic/Tx/Re-eval Impressions Venous Duplex 12/18/19 17:20 IMPRESSION: Normal venous Doppler ultrasound of the bilateral lower extremities. Electronically Signed: Oziel Mcgregor MD at 18:33 EDT , Service support , Chest X-Ray 12/18/19 17:25 IMPRESSION: Normal x-ray examination of the chest. Electronically Signed: Lui Porras MD at 17:39 EDT , Service support , 12/18/19 17:25 Chest 1 View (Portable) [RAD] Stat Laboratory Results 12/18/19 12/18/19 12/18/19 17:10 17:10 17:10 WBC 12.9 H RBC 4.68 Hgb 12.7 Hct 39.7 MCV 84.8 MCH 27.1 MCHC 32.0 RDW Std Deviation 42.2 RDW Coeff of Humphrey 13.7 Plt Count 336 MPV 9.7 Immature Gran % (Auto) 1.900 H Neut % (Auto) 71.9 H Lymph % (Auto) 20.2 [place] % (Auto) 5.6 Eos % (Auto) 0.2 Baso % (Auto) 0.2 Absolute Neuts (auto) 9.3 H Absolute Lymphs (auto) 2.60 Nucleated RBC % 0 Sodium 137 Potassium 4.1 Chloride 104 Carbon Dioxide 24.0 Anion Gap 9 BUN 14 Creatinine 0.59 Estim Creat Clear Calc 81.78 Est GFR (MDRD) Af Amer 133 Est GFR (MDRD) Non-Af 110 BUN/Creatinine Ratio 23.8 H Glucose 91 Calcium 8.9 Total Bilirubin 0.50 Direct Bilirubin 0.09 AST 25 ALT 30 Alkaline Phosphatase 76 Total Creatine Kinase 109 Total Protein 7.8 Albumin 3.6 Globulin 4.2 Urine Color Urine Clarity Urine pH Ur Specific [place] Urine Protein Urine Glucose (UA) Urine Ketones Urine Occult Blood Urine Nitrite Urine Bilirubin Urine Urobilinogen Ur Leukocyte Esterase Urine RBC Urine WBC Ur Squamous Epith Cells Urine Bacteria Urine Mucus 12/18/19 18:30 WBC RBC Hgb Hct MCV MCH MCHC RDW Std Deviation RDW Coeff of Humphrey Plt Count MPV Immature Gran % (Auto) Neut % (Auto) Lymph % (Auto) [place] % (Auto) Eos % (Auto) Baso % (Auto) Absolute Neuts (auto) Absolute Lymphs (auto) Nucleated RBC % Sodium Potassium Chloride Carbon Dioxide Anion Gap BUN Creatinine Estim Creat Clear Calc Est GFR (MDRD) Af Amer Est GFR (MDRD) Non-Af BUN/Creatinine Ratio Glucose Calcium Total Bilirubin Direct Bilirubin AST ALT Alkaline Phosphatase Total Creatine Kinase Total Protein Albumin Globulin Urine Color Yellow Urine Clarity Clear Urine pH 6.5 Ur Specific [place] 1.010 Urine Protein Negative Urine Glucose (UA) Normal Urine Ketones 15 H Urine Occult Blood 10 H Urine Nitrite Negative Urine Bilirubin Negative Urine Urobilinogen Normal Ur Leukocyte Esterase Negative Urine RBC 0 SEEN Urine WBC 0 SEEN Ur Squamous Epith Cells 0 SEEN Urine Bacteria 0 SEEN Urine Mucus 0 SEEN - Medical Decision Making Patient was able to use the bedpan here and lift her hips to get on and off the bedpan. She was then able to get up to the bedside commode. She is able to get her self back in the bed after getting off the commode. At this time there is no medical reason why the patient cannot get up and walk, I feel that this is more behavioral in nature. Patient was seen by social work. Patient has agreed to in-home physical therapy and social work to visit her there. She has made those arrangements. Patient will be sent back to [facility]. ED Disposition - Plan for ED Patient: Disposition: Home or Assisted Living Diagnosis: Leg pain Instructions: CONTUSION, Lower Extremity Referrals: Dena Stevens, CLOTH BLEACHING RANGE OPERATOR CHIEF-C [Primary Care Provider] -
[2019-12-18] MEDS: Acetaminophen 325 MG Tablet 650 MG PO (17:13)
[2019-12-18] MEDS: 0.9% Normal Saline 1,000 ML 150 ML IV (17:13)
[2019-12-18 17:14] LABS: Absolute Neutrophil Count 9.3 X10^3/uL (2.0-7.7); Basophil# 0.03 X10^3/uL; Basophil% 0.2 % (0-1); Eosinophil# 0.02 X10^3/uL; Eosinophils% 0.2 % (0-5); Hematocrit 39.7 % (37-47); Hemoglobin 12.7 g/dL (12.0-15.0); Lymphocyte % 20.2 % (19-41); Mean Corpuscular Hgb 27.1 pg (27.0-32.0); Mean Corpuscular Volume 84.8 fL (81-99); Mean Platelet Vol. 9.7 fl (6.2-12.0); Monocyte# 0.72 X10^3/uL; Monocyte% 5.6 % (0-10); NRBC Flagged by Analyzer 0 % (0-5); Neutrophil # 9.28 X10^3/uL (2.7-7.7); Neutrophil % 71.9 % (47-70); Platelet Count 336 K/mm3 (150-450); RBC Distribution Width CV 13.7 % (11.6-14.6); RBC Distribution Width SD 42.2 fl (35.1-43.9); Red Blood Count 4.68 M/mm3 (4.2-5.4); White Blood Count 12.9 K/mm3 (4.4-11.0)
--- NOTE | 2019-12-18 17:20 | US_ITS ---
STUDY: VENOUS DOPPLER ULTRASOUND - BILATERAL LOWER EXTREMITIES REASON FOR EXAM: Female, 64 years old. BILATERAL LEG PAIN FOR WEEKS SEVERE/ SHARP TECHNIQUE: Ultrasound evaluation of the deep vein system to include landeros-scale imaging and compression was performed. Landeros-scale imaging and Doppler sonographic evaluation, including duplex spectral analysis and qualitative color flow sonography, was performed. COMPARISON: None. FINDINGS: RIGHT LEG Common Femoral Vein: Normal compression, spontaneity and augmentation. Normal color Doppler. Common Femoral Vein/Greater Saphenous Junction: Normal compression, spontaneity and augmentation. Normal color Doppler. Deep Femoral Vein: Normal compression, spontaneity and augmentation. Normal color Doppler. Femoral Proximal: Normal compression, spontaneity and augmentation. Normal color Doppler. Femoral Middle: Normal compression, spontaneity and augmentation. Normal color Doppler. Femoral Distal: Normal compression, spontaneity and augmentation. Normal color Doppler. Popliteal Vein: Normal compression, spontaneity and augmentation. Normal color Doppler. Posterior Tibial Vein: Normal compression, spontaneity and augmentation. Normal color Doppler. Peroneal Vein: Normal compression, spontaneity and augmentation. Normal color Doppler. LEFT LEG Common Femoral Vein: Normal compression, spontaneity and augmentation. Normal color Doppler. Common Femoral Vein/Greater Saphenous Junction: Normal compression, spontaneity and augmentation. Normal color Doppler. Deep Femoral Vein: Normal compression, spontaneity and augmentation. Normal color Doppler. Femoral Proximal: Normal compression, spontaneity and augmentation. Normal color Doppler. Femoral Middle: Normal compression, spontaneity and augmentation. Normal color Doppler. Femoral Distal: Normal compression, spontaneity and augmentation. Normal color Doppler. Popliteal Vein: Normal compression, spontaneity and augmentation. Normal color Doppler. Posterior Tibial Vein: Normal compression, spontaneity and augmentation. Normal color Doppler. Peroneal Vein: Normal compression, spontaneity and augmentation. Normal color Doppler. There is no demonstrated deep venous thrombosis. US/Venous Duplex Imag/Sen Extrem IMPRESSION: Normal venous Doppler ultrasound of the bilateral lower extremities. Electronically Signed: Oziel Mcgregor MD at 18:33 EDT , Service support ,
--- NOTE | 2019-12-18 17:25 | RAD_ITS ---
STUDY: X-RAY CHEST REASON FOR EXAM: Female, 64 years old. BILATERAL LEG PAIN WITH COUGH AND WEAKNESS TECHNIQUE: Single AP portable view of the chest. COMPARISON: 12/11/2019. FINDINGS: The lungs are clear and expanded. There is no demonstrated pleural abnormality. Normal size heart. Normal mediastinum and yael. Normal visualized pulmonary arteries. Normal visualized aortic arch and descending thoracic aorta. Normal visualized thoracic spine. Normal visualized ribs, clavicles, and shoulders. There is no demonstrated abnormality of the visualized soft tissue structures of the upper abdomen. RAD/Chest 1 View (Portable) IMPRESSION: Normal x-ray examination of the chest. Electronically Signed: Lui Porras MD at 17:39 EDT , Service support ,
[2019-12-18 17:51] LABS: AST(SGOT) 25 U/L (15-37); Alanine Aminotransfer ALT/SGPT 30 U/L (13-56); Albumin, Serum 3.6 g/dL (3.2-5.0); Alkaline Phosphatase 76 U/L (45-117); Anion Gap 9 (5-15); BUN 14 mg/dL (7-18); BUN/Creat Ratio 23.8 RATIO (10-20); Bilirubin, Direct 0.09 mg/dL (0.00-0.30); CPK Total, Creatine Kinase 109 U/L (26-192); Calcium,Total 8.9 mg/dL (8.5-10.1); Chloride 104 mmol/L (98-107); Creatinine, Serum 0.59 mg/dL (0.55-1.02); EST Glomerular Filtration Rate 110 mL/min (>60); Est Glom Filt Rate - Afr Amer 133 mL/min (>60); Estimated Creatinine Clearance 81.78 ml/min; Globulin 4.2 g/dL (2.2-4.2); Glucose 91 mg/dL (74-106); Potassium 4.1 mmol/L (3.5-5.1); Protein, Total 7.8 g/dL (6.4-8.2); Sodium Level 137 mmol/L (136-145)
[2019-12-18 18:38] LABS: Bacteria 0 SEEN /hpf (None Seen); Mucous, Urine 0 SEEN /hpf (<or=2+); Red Blood Cells-Urine 0 SEEN /hpf (0-5); Squamous Epithelial Cells - UA 0 SEEN /hpf (5-10); White Blood Cells 0 SEEN /hpf (0-5)
[2019-12-18 19:10] VITALS: BP 175/80; PULSE 77; RESP 16; O2SAT 95
[2019-12-18 19:27] LABS: Color, Urine Yellow (Yellow); Glucose, Dipstick Normal (Normal); Ketone-Dipstick 15 mg/dl (Negative); Leukocyte Esterase-Dipstick Negative /ul (Negative); Nitrite-Dipstick Negative (Negative); Occult Blood-Urine 10 /ul (Negative); Protein-Dipstick Negative (Negative); Urine Bilirubin Dipstick Negative (Negative); Urine Clarity Clear (Clear); Urine Urobilinogen Normal (Normal); Urine pH 6.5 (5.0 - 8.0)
--- NOTE | 2019-12-18 20:00 | CM.ED ---
SOCIAL WORK INFORMANT: DR. GODOY REASON FOR REFERRAL: RESOURCES MET WITH PATIENT IN ROOM. INTRODUCED ROLE AND REASON FOR REFERRAL. PATIENT REPORTS RESIDES AT [facility]. UPDATED PATIENT, DOES NOT MEET CRITERIA FOR ADMISSION. PATIENT BELIEVES WOULD BENEFIT FROM THERAPY AND STATES HAD HOME HEALTH PT/OT LAST MONTH. PATIENT UNSURE OF THE NAME OF PROVIDER AND IS IN AGREEMENT WITH HOME HEALTH SERVICES. PATIENT REPORTS WILL NEED TRANSPORT HOME UPON D/C. STAFF UPDATED. CALL TO [facility]. PER WORKER, THE FACILITY PROVIDES THEIR OWN THERAPY AND REQUESTS ORDER FOR THERAPY. ORDER TO BE FAXED. DR. GODOY UPDATED ON THE ABOVE. PLAN: HOME WITH ORDER FOR HOME HEALTH PT/OT. Garrick ZAVALA MSW, OIL WELL SERVICE OPERATOR HELPER.
[2019-12-18 20:45] VITALS: BP 179/86; PULSE 77; RESP 16; O2SAT 94
== END 2019-12-18 21:23 | disposition skilled nursing facility (03) ==
PROVIDERS: Emergency Provider Emergency Medicine; PCP Nurse Practitioner Adult Health
DX: M79.605 Pain in left leg (principal); M79.604 Pain in right leg; J44.9 Chronic obstructive pulmonary disease, unspecified; I10 Essential (primary) hypertension; E78.5 Hyperlipidemia, unspecified; F20.9 Schizophrenia, unspecified; Z79.51 Long term (current) use of inhaled steroids; Z79.52 Long term (current) use of systemic steroids; Z79.899 Other long term (current) drug therapy; Z87.891 Personal history of nicotine dependence
CPT/HCPCS: 71045; 80048; 80076; 81001; 82550; 85025; 93970; 96360; 96361; 99285; J7030; P9612; A4216

== ENCOUNTER 2020-02-07 09:44 | Observation (INO) | payer MEDICAID, SELFPAY ==
[2020-02-07 09:45] VITALS: BP 157/93; PULSE 74; RESP 16; TEMP 36.7; O2SAT 93; BMI 38.9
--- NOTE | 2020-02-07 10:10 | ED.DCSUM_ITS ---
- ER Visit Summary Date of Service: 02/07/20 Chief Complaint: Leg pain History of Present Illness: The patient is a 64 F who sees Porsche Stevens. She reports that she has had bilateral leg pain for the past year. States that for the past few months she has had to use a walker. States that his pain was so b ad today that she could not even get around with her walker. She reports that she fell today. She denies any loss of consciousness. She is not on anticoagulants. She complains of right shoulder pain is 7-10 in severity. She is left-hand dominant. She reports she has low back pain is 7 out of 10 severity. She denies any wrist or hip pain. However, the patient then reports I hurt all over. On review of systems patient complains of rhinorrhea and nausea once in a while. She also reports generalized weakness. Physical Examination: Vitals: Stable. Afebrile. Neck: No vertebral tenderness. Full ROM without difficulty. Cleared by NEXUS criteria. Back: No vertebral tenderness. General: A&O x 3. NAD. Cardiovascular exam: Regular rate and rhythm, no murmur, rub or gallop. Respiratory exam: Chest nontender. No crepitus. Clear to auscultation bilaterally. No wheezes or stridor. Abdominal exam: Soft, nontender, nondistended, normal bowel sounds. No pain in R UQ or LUQ specifically. No peritoneal signs. Extremity: Mild tenderness palpation over the proximal humerus on the right. Full range of motion of her shoulder without any difficulty. She is neuro vas intact distally. Moderate diffuse tenderness palpation over her legs bilaterally. There is no point tenderness. When distracted the patient does not have pain with palpation.. No pain with range of motion. 2+ dorsalis pedis pulses bilaterally. Neuro: Alert and oriented x3. Cranials 2 through 12 are grossly intact. She has normal sensation to light touch throughout. 4-5 strength throughout. However, this is due to effort in my opinion. Psych: Depressed affect. Test Results: CBC is normal. Chem-7 shows a BUN of 21. UA is negative. CPK is 114. Clinical Impression(s) from Imaging Studies Femur X-Ray 02/07/20 11:00 IMPRESSION: Normal x-ray examination of the femur. Electronically Signed: Genaro Hook, at 11:13 EDT , Service support , Shoulder X-Ray 02/07/20 11:00 IMPRESSION: Normal x-ray examination of the shoulder. Electronically Signed: Genaro Hook, at 11:13 EDT , Service support , Emergency Department Course and Treatment: Patient has chronic pain. She reports of pain for over a year. She was given a dose of ibuprofen p.o. She is asking for stronger pain medications. I had a prolonged discussion with her her primary care physician or pain management needs to prescribe opiates for her chronic pain. I do not think that it is appropriate to give her opiates in the emergency department. She reports that she spoken with her primary care physician about pain medications, but they will not give her anything stronger for pain and they are wrong. Patient was discussed with case management who has seen her in the emergency department. They have discussed with her outpatient case manager from the counseling center. This person reports that they have known the patient for 11 years and she had never complained of back pain until last summer and that no one is taking her seriously. She does not think the patient is medication seeking. Because of this an x-ray was obtained which shows degenerative changes. Case management also discussed the patient with assisted living. They report that unless the patient is willing to get up and walk that they cannot accept her back. Patient is still refusing to even get out of the bed. Patient was given a dose of morphine IV and is resting more comfortably. Treatment Plan: The patient was discussed with Dr. Prakash. She will be admitted to the hospital for further evaluation and treatment. Disposition: Admitted in stable condition. Impression: 1. Fall. 2. Low back pain. 3. Right leg pain. 4. Inability to ambulate. 5. Generalized weakness. This note was generated with [employer] software. It may contain incorrect words, spelling, and punctuation that were not noted in review of the chart prior to signing ED Disposition - Plan for ED Patient: Referrals: Dena Stevens, TIGER MACHINE OPERATOR-C [Primary Care Provider] -
[2020-02-07] MEDS: Ibuprofen 600 MG Tablet PO (10:12)
[2020-02-07 10:34] LABS: Absolute Lymphocyte Count 1.87 X10^3/uL (0.83-4.51); Absolute Neutrophil Count 4.6 X10^3/uL (2.0-7.7); Basophil# 0.02 X10^3/uL; Basophil% 0.3 % (0-1); Eosinophil# 0.04 X10^3/uL; Eosinophils% 0.6 % (0-5); Hematocrit 42.2 % (37-47); Hemoglobin 13.1 g/dL (12.0-15.0); Lymphocyte # 1.87 X10^3/ul (4.0); Lymphocyte % 26.3 % (19-41); Mean Corpuscular Hgb 27.2 pg (27.0-32.0); Mean Corpuscular Volume 87.7 fL (81-99); Mean Platelet Vol. 9.9 fl (6.2-12.0); Monocyte# 0.52 X10^3/uL; Monocyte% 7.3 % (0-10); NRBC Flagged by Analyzer 0 % (0-5); Neutrophil # 4.62 X10^3/uL (2.7-7.7); Neutrophil % 65.1 % (47-70); Platelet Count 230 K/mm3 (150-450); RBC Distribution Width CV 14.3 % (11.6-14.6); Red Blood Count 4.81 M/mm3 (4.2-5.4); White Blood Count 7.1 K/mm3 (4.4-11.0)
[2020-02-07 10:42] LABS: Bacteria 0 SEEN /hpf (None Seen); Mucous, Urine 0 SEEN /hpf (<or=2+); Squamous Epithelial Cells - UA 0 SEEN /hpf (5-10); White Blood Cells 0 SEEN /hpf (0-5)
[2020-02-07 10:43] LABS: Color, Urine Yellow (Yellow); Glucose, Dipstick Normal (Normal); Ketone-Dipstick Negative (Negative); Leukocyte Esterase-Dipstick Negative /ul (Negative); Nitrite-Dipstick Negative (Negative); Occult Blood-Urine Negative /ul (Negative); Protein-Dipstick Negative (Negative); Urine Bilirubin Dipstick Negative (Negative); Urine Clarity Clear (Clear); Urine Urobilinogen Normal (Normal)
[2020-02-07 10:47] LABS: Anion Gap 6 (5-15); BUN 21 mg/dL (7-18); BUN/Creat Ratio 31.6 RATIO (10-20); Calcium,Total 9.5 mg/dL (8.5-10.1); Chloride 104 mmol/L (98-107); Creatinine, Serum 0.66 mg/dL (0.55-1.02); EST Glomerular Filtration Rate 95 mL/min (>60); Est Glom Filt Rate - Afr Amer 115 mL/min (>60); Estimated Creatinine Clearance 73.11 ml/min; Glucose 103 mg/dL (74-106); Potassium 4.2 mmol/L (3.5-5.1); Sodium Level 139 mmol/L (136-145)
[2020-02-07 10:49] LABS: Red Blood Cells-Urine 0-5 SEEN /hpf (0-5)
[2020-02-07 10:53] LABS: CPK Total, Creatine Kinase 114 U/L (26-192)
--- NOTE | 2020-02-07 11:00 | RAD_ITS ---
STUDY: X-RAY - RIGHT SHOULDER REASON FOR EXAM: Female, 64 years old. COMPLAINTS OF ALL OVER PAIN, DX WITH PSYCHOLOGICAL PAIN TECHNIQUE: 4 view(s) of the shoulder. COMPARISON: None. FINDINGS: Normal glenohumeral articulation. Normal acromioclavicular joint. Normal acromion. Normal humeral head and visualized proximal humerus. The soft tissue structures are unremarkable. Normal visualized pulmonary apex. RAD/Shoulder min 2 Views IMPRESSION: Normal x-ray examination of the shoulder. Electronically Signed: Genaro Hook, at 11:13 EDT , Service support ,
--- NOTE | 2020-02-07 11:00 | RAD_ITS ---
STUDY: X-RAY - RIGHT FEMUR REASON FOR STUDY: Female, 64 years old. COMPLAINTS OF ALL OVER PAIN, DX WITH PSYCHOLOGICAL PAIN TECHNIQUE: 4 view(s) of the femur. COMPARISON: None. FINDINGS: Normal visualized femur. Normal visualized soft tissue structure. RAD/Femur Min 2 Views IMPRESSION: Normal x-ray examination of the femur. Electronically Signed: Genaro Hook, at 11:13 EDT , Service support ,
[2020-02-07 13:17] VITALS: BP 116/86; PULSE 96; RESP 15; O2SAT 95
--- NOTE | 2020-02-07 13:28 | RAD_ITS ---
STUDY: X-RAY - LUMBAR SPINE REASON FOR EXAM: Female, 64 years old. FALL, PAIN TECHNIQUE: 3 view(s) of the lumbar spine were obtained. COMPARISON: None FINDINGS: Normal lumbar lordosis. There is a levoscoliosis of the lumbar spine. There is a normal alignment of the vertebrae. There is multilevel endplate spondylosis of the lumbar vertebrae. There is multi-level degenerative disc disease with multi-level disc space narrowing. There is atherosclerotic calcification of the abdominal aorta without a demonstrated aneurysm. RAD/Lumbar Spine 2 or 3 Views IMPRESSION: Degenerative changes of the spine, as detailed above. Electronically Signed: Genaro Hook, at 13:50 EDT , Service support ,
--- NOTE | 2020-02-07 13:30 | CASEMGMT ---
Social Work Reason for Consult: from assisted living, inability to ambulate, mental health history; concern that patient is refusing to ambulate; assess for needs Summary: Report received from Dr. Ramachandran in the ED and from Santino Hopper RN for the ED. Brief chart review. Noted that patient has diagnosis of schizoaffective disorder in addition to other medical issues. Noted ED squad report indicating that patient with history of similar issues as ED presentation today, which in the past was related to psychological pain. Noted an ED visit in 09/2019 related to mental health, exacerbation of hallucinations and weakness, cleared by crisis and sent back to assisted living. 2 ED visits in December 2019 related to pain, weakness and inability to ambulate, sent back to the assisted living. Presented to patient's room but the patient toileting. Per [facility]: Called [facility] nurse for an update, at [phone]. Spoke with Cortney who reports patient has been having pain issues, and the thought that this has been related to psychiatric issues. Cortney reports she updated [facility] yesterday and today. Cortney reports in order for patient to return the patient must be able to help with own transfers as the facility does not have a Betty lift and there is only one aide at night. Terry has a rollator and has been getting in house physical therapy about 2 times a week. Cortney reports the patient refused to get up or help assisted living staff or EMS squad with getting up today after falling. Confirmed with Cortney that patient is own guardian, but was informed that patient has a case management associate, Claire Bryant, who is involved and helps out. Conversation with patient: Met with patient in room. Patient confirms use of rollator, but belief that has had much difficulty doing so safely. Patent reports she fell today transferring to the rollator and laid on the floor for approximately a half hour prior to staff finding the patient. Patient reports was unable to get up or move, had too much pain, and was not able to reach phone or call light. Patient reports pain and weakness have been getting worse without much relief and now fearful of falling again if she returns to the assisted living. Reports increasing pain in lower back and general weakness in legs for a couple of months, worsening over the last couple of days. Patient reports to feel the assisted living doesn't treat me right. Upon clarification of this statement patient feels it is wrong she must travel from the 3rd floor to the 1st floor 4 times a day to get her medicine, and that people are not checking on patient more often. Patient reports people don't believe me regarding level of pain. Patient reports has been getting physical therapy at the assisted living and the PT reportedly told patient that thinks something is wrong with patient's spine. Patient asked about a MRI and something for pain. Patient states she has been trying to do things for herself. Patient also admits she has not been doing PT exercises on her own like she should. Through conversation, patient started crying, the patient spontaneously endorsed thoughts of dying and stated sometimes I wish I was . This check writer explored whether patient has ever thought of suicide. Patient endorsed that lately thinking of suicide. No thoughts of harming others endorsed. Patient reports thoughts of dying and suicide have been on and off. Patient describes thinking that should get it over with and then won't have to worry about anything. Patient reports last thought of suicide was this morning when lying on the floor alone. Patient admits thought of stabbing self with a knife, denies intent to follow through with this method, and denies actual planning to kill self. Patient reports to think about things, such as her children and then is able to move on from thoughts of dying and suicide. Patient reports the thoughts come and go, and has been able to move on. Patient reports history of overdosing on sleeping pills years ago, no treatment sought, and that moved on. Last psychiatric hospitalization in the mid . Patient inquired about where she can go today if discharged, as does not feel in current state and pain management that she would be safe alone in her assisted living apartment. Patient talked about whether someone could stay with patient a few nights of if patient could use a wheelchair. Conversation with mental health case management associate: Received message patient's case management associate from [facility], Claire Garcia ([phone]) called in for an update. Let patient know and patient gave verbal consent for pediatric social worker to call Claire back. Spoke with Claire on the phone who shares that has been patient's case management associate for 11 years and that complaints of pain have just started since the summer 2018. Claire voiced belief many health care providers are not taking patient seriously, that patient's pain has not gotten better, that recently physical therapy indicated patient may have sciatic issues or impinged nerve, and that due to COVID no further testing or workup has been done for patient. Claire reports it has been a struggle with patient getting needs met, such as meals being brought to patient rather than patient having to travel to main dining area. Claire report the waiver case management associate through the [facility] was able to help get some more care for patient at the assisted living, but that patient has still been struggling over the last month. Claire made statements that patient is not medication seeking for pain medications, nor is patient attention seeking, that patient is truly dealing with pain issues. Updated Claire to patient's statements about wanting to . Per Claire, this is new and not something that patient talks about. Claire reports patient's mental health has been stable overall since moving into the assisted living, as patient's medication regiment is better managed and adhered to. Patient's Mental Status: Patient alert, oriented, logical thought process when talking to this check writer. Patient stayed focused on task and subject at hand. Patient's main focus was pain, weakness, inability to walk around without pain and fear of falling again. Patient denies any active hallucinations but admits that auditory hallucinations come and go, with last episode a few days ago. Patient denies the hallucinations as problematic or distressing to the patient at present time. Patient's affect blunted to flattened. Patient became tearful and actively cried several times during conversation, appropriate to topics being discussed: not feeling heard about pain, loss of children to children services years ago, and also feelings of loneliness and loss of independence. Mood depressed. Has had recent thoughts of suicide, has thought of a method and has history of one past reported attempt years ago. At present time patient denies intent to kill herself, has no plan to do so, and reports desire to feel better. Patient identifies thoughts of children helping patient to move on from suicidal thinking, as well as has a cat that patient loves and cares for Assessment: Updated nursing staff and ED physician regarding assisted living being unable to take patient back if unable to transfer, as well as conversations with patient and patient's mental health case management associate today. This is patient's 3rd presentation since December to the ED for similar complaints. Plan: Social work to follow and assist. -ADDISNO Arana, MADISON
--- NOTE | 2020-02-07 14:00 | CM.ED ---
Social Work After collaboration with ED staff, physician, patient, mental health casey saw operator and [facility] assisted living decision made to have patient stay in hospital at least overnight for further workup. Spoke with hospitalist and plan for observation stay and MRI. Met with patient to update. Patient tearful, asking what she will do if she goes back to the assisted living today, wondered if someone can stay with patient a few days or if there is somewhere to go for a couple of days. Updated patient that looking into having patient stay overnight in the hospital and get an MRI. Let patient know the ultimate goal would be for patient to return to her home at the assisted living, rather than go to a alf. Patient voiced agreement that this would probably be better, as well as voiced thanks that may be able to stay in hospital overnight. Let patient know in a gentle but direct way that it is expected and encouraged for patient to participate in own care, to give effort in things rather than refusal to try. Educated patient that if patient just lays in the bed, does not help staff, then it is very hard for staff to make a good assessment and know what interventions may best help patient. Encouraged that if PT and OT are ordered, that patient needs to participate. Let patient know that patient is not expected to run marathon, to which patient smiled, but that patient is highly encouraged to put in effort. Reinforced with patient that no one knows what they can or cannot do until they try. Patient voiced understanding and that she will give effort in things regarding mobility. Addressed topic of suicidality again. Patient reports intermittent thoughts of dying and suicide have been present even before pain started, but that has always been able to move on from these negative thoughts. Patient admits that she does not talk to her psychiatrist, Dr. Ray, or casey saw operator about this. Patient reports I guess I should. This feature writer encouraged patient to be open and honest with mental health providers as the providers want to help patient. Patient voiced agreement. Patient denies current thoughts of suicide, there is no intent at this time, no current plan, and reports thanks for help today. Patient is future oriented in the sense that she does have desire to feel better. No active plan or intent. No current need for suicide risk precautions. Called patient's casey saw operator Claire Bryant at [phone] to update. Claire expressed much appreciation for giving patient a chance with trying to determine cause of pain. This feature writer addressed patient's cat, to which Claire reports she will make sure the cat is taken care of. Updated Cortney, a nurse, at [facility] to plan for observation stay. Plan: Anticipating return to [facility] assisted living, so long as patient can participate more in own care. Claire, mental health casey saw operator, plans to call in tomorrow to check on patient. *note, Patient has been to [facility] in the past. Handoff to Sheryl WALLACE for MS3 regarding social work interventions with patient this date. ADDISON Arana, SUPERVISOR TUMBLERS
[2020-02-07] MEDS: Morphine 4 MG/ML Syringe IV (14:11)
[2020-02-07 14:13] VITALS: BP 166/64; PULSE 71; RESP 22; TEMP 36.3; O2SAT 99
--- NOTE | 2020-02-07 14:20 | NURSING ---
306 [facility] INABILITY TO AMBULATE
--- NOTE | 2020-02-07 14:27 | HP.PCM_ITS ---
Problem List (1) Low back pain Status: Acute (2) Anxiety and depression Status: Chronic (3) COPD (chronic obstructive pulmonary disease) Status: Chronic (4) Schizophrenia Status: Chronic (5) Essential (primary) hypertension Status: Chronic (6) Hyperlipidemia Status: Chronic History of Present Illness Date of Admission: 02/07/20 Chief Complaint: Leg pain, back pain. The patient is a 64 year old F with past medical history as mentioned above p resented to the emergency room because of bilateral leg pain and back pain. Her main presenting complaint today is leg pain which has been going on for almost a year, on both legs, more on the right leg, associated with difficulty ambulating and in the recent days, she has not been able even to stand up. She complained of low back pain that has been going on for several months, sharp pain, somet imes 7 out of 10 in severity, goes down to both legs but more to the right lower extremity, aggravated by standing and no significant improvement with rest. Patient was resting comfortably but she mentioned her pain is 10 out of 10 in severity. She denied leg numbness or tingling. She denied urine or stool incontinence. She denied paresthesia in the perineal region. She mentioned that she fell today but denied any loss of consciousness or significant trauma to her head or extremities. She complains of right shoulder pain and left thigh pain as well. In the emergency department, her vital signs were stable. Her routine blood work was unremarkable. Urinalysis revealed no evidence of infection. Right femur x-ray showed no acute fractures. Right shoulder x-ray showed no acute fractures as well. Lumbar spine x-ray showed degenerative changes, no acute findings. She is being admitted for intractable low back pain with debility and difficulty ambulating for evaluation and patient probably will need placement to detention facility. Past Medical History Past Medical History (Chronic Problems): Chronic Problems (Last Updated 02/07/20 @ 14:[address] Adrian Prakash MD) Anxiety and depression (Chronic) COPD (chronic obstructive pulmonary disease) (Chronic) Schizophrenia (Chronic) Essential (primary) hypertension (Chronic) Hyperlipidemia (Chronic) Medical History: Medical History (Last Updated 02/07/20 @ 14:[address] 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 MIK (obstructive sleep apnea) G47.33 Obesity E66.9 Obstructive sleep apnea G47.33 Schizophrenia F20.9 Allergies No Known Allergies Allergy (Verified 12/18/19 16:29) Home Medications: Ambulatory Orders Medication Instructions Recorded Sertraline HCl [Zoloft] 200 mg PO DAILY 12/15/17 buPROPion SR [Wellbutrin SR (150mg 150 mg PO BID 12/15/17 tablets)] meloxicam 15 mg tablet 15 mg PO QHS tab 12/28/18 paliperidone palmitate 234 mg/1.5 234 mg IM QMONTH 02/17/19 mL intramuscular syringe lidocaine 5 % topical patch 1 patch TOPICAL DAILY 03/01/19 Acetaminophen 1,000 mg PO TID 04/09/19 Clonazepam [Klonopin] 0.5 mg PO TID PRN 04/09/19 Famotidine [Pepcid] 40 mg PO DAILY 07/05/19 Memantine HCl [Namenda] 10 mg PO BID 07/05/19 Budesonide/Formoterol 160/4.5 2 puff INHALATION BID 12/11/19 [Symbicort 160/4.5 Mcg Inhaler (SP)] Docusate Sodium [Dok] 100 mg PO DAILY 12/11/19 Holliday-3 Fatty Acids/Fish Oil [Fish 1 ea PO BID 12/11/19 Oil 1,000 mg Capsule] Acetaminophen 650 mg PO Q6H PRN PRN 02/07/20 Atorvastatin Calcium [Lipitor] 10 mg PO QHS 02/07/20 Benztropine Mesylate 0.5 mg PO BID 02/07/20 Donepezil HCl [Aricept] 10 mg PO DAILY 02/07/20 Guaifenesin 400 mg PO TID PRN PRN 02/07/20 Lisinopril 20 mg PO DAILY 02/07/20 Lisinopril [Prinivil] 5 mg PO DAILY 02/07/20 Melatonin 5 mg PO QHS 02/07/20 Naproxen [Naprosyn] 500 mg PO BID PRN PRN 02/07/20 Perphenazine 8 mg PO TID 02/07/20 cycloBENZAPRine HCl [Flexeril] 10 mg PO BID PRN 02/07/20 Surgical History: Surgical History (Last Reviewed 07/26/19 @ 09:[address] Akira Whitt MD) History of colonoscopy Z98.890 History of esophagogastroduodenoscopy (EGD) Onset Date: ~2015 Z98.890 History of tooth extraction K08.409 History of tubal ligation Z98.51 Surgical History: - - Colonoscopy Psychiatric History: Anxiety, Depression, Schizophrenia [employer] CHIEF History: No pertinent [employer] CHIEF history Lives: - - Assisted living. Smoking Status: Former smoker Alcohol: None Drugs: None - *Family History Maternal Family History: Family History (Last Reviewed 02/07/20 @ 14:[address] Adrian Prakash MD) Father Cancer Mother Cancer Paternal Family History: Family History (Last Reviewed 02/07/20 @ 14:[address] Adrian Prakash MD) Father Cancer Mother Cancer Review of Systems Constitutional: Denies: Anorexia, Chills, Fever, Weakness Eyes: Denies: Blurred vision, Double vision, Drainage, Redness HEENT: Denies: Difficulty Hearing, Ear Pain, Eye Pain, Nasal Congestion, Sore Throat Cardiovascular: Denies: Chest Pain, Chest Pressure, Chest Tightness, Heaviness, Light Headedness, Palpitations, Syncope Respiratory: Denies: Cough, Pleuritic Pain, Shortness of Breath, Sputum production, Wheezing Gastrointestinal: Reports: Constipation. Denies: Abdominal Pain, Diarrhea, Nausea, Vomiting Genitourinary: Denies: Dysuria, Frequency, Hematuria Musculoskeletal: Reports: Back Pain, Leg Pain. Denies: Arm Pain, Foot Pain, Neck Pain Skin: Denies: Dryness, Rash Neurological: Denies: Balance problems, Double vision, Change in Speech, Slurred speech, Confusion, Focal weakness, Headaches, Incoordination, Numbness Psychiatric: Reports: Anxiety, Depression Endocrine: Denies: Change in Body Habitus, Polydipsia, Polyuria VTE Information - Inpt Only VTE Present on Admission: No VTE Mechan Device Prophylaxis: None VTE Pharm Prophylaxis ordered?: Yes Patient Problems: Active and Suspected Problems (Last Updated 02/07/20 @ 14:[address] Adrian Prakash MD) Low back pain (Acute) - Physical Exam Vitals/I&O's: Vital Signs Temp Pulse Resp BP Pulse Ox 97.4 F L 71 22 H 166/64 H 99 02/07/20 14:13 02/07/20 14:13 02/07/20 14:13 02/07/20 14:13 02/07/20 14:13 Oxygen Delivery Method Room Air Weight: 219 lb 12.814 oz Body Mass Index (BMI) 38.9 General: Alert, Oriented x3, Cooperative, No apparent distress HEENT: Atraumatic, PERRLA, EOMI, Normocephalic Oral: Moist Mucosa, No Gingival or Mucosal Lesions/ Ulcerations Neck: Supple, No JVD, Negative Carotid Bruits, Trachea Midline, Thyroid Normal Size and Texture Lungs: Clear to auscultation, Normal air movement, No rhonchi, No wheeze, No rales, Diminished Cardiovascular: Regular rate, Regular Rhythm, Normal S1, Normal S2, PMI Normal Abdomen: Bowel Sounds Present, Soft, Non Tender, Non-Distended, No Hepato- splenomegaly, Obese Extremities: No clubbing, No cyanosis, No edema Skin: No rashes, No breakdown Lymphatic: No Cervical, Supraclavicular, or Inguinal Adenopathy Neurological: Cranial nerves II-XII grossly intact, Motor Exam 5/5 strength throughout Psych/Mental Status: Normal Affect, Appropriate, Alert and oriented to time, place, person, mood and affect Laboratory Results 02/07/20 10:25: WBC 7.1, RBC 4.81, Hgb 13.1, Hct 42.2, MCV 87.7, MCH 27.2, MCHC 31.0 L, RDW Std Deviation 46.0 H, RDW Coeff of Humphrey 14.3, Plt Count 230, MPV 9.9, Immature Gran % (Auto) 0.400, Neut % (Auto) 65.1, Lymph % (Auto) 26.3, Teller % (Auto) 7.3, Eos % (Auto) 0.6, Baso % (Auto) 0.3, Absolute Neuts (auto) 4.6, Absolute Lymphs (auto) 1.87, Nucleated RBC % 0 02/07/20 10:25: Sodium 139, Potassium 4.2, Chloride 104, Carbon Dioxide 29.0, Anion Gap 6, BUN 21 H, Creatinine 0.66, Estim Creat Clear Calc 73.11, Est GFR (MDRD) Af Amer 115, Est GFR (MDRD) Non-Af 95, BUN/Creatinine Ratio 31.6 H, Glucose 103, Calcium 9.5 02/07/20 10:25: Total Creatine Kinase 114 02/07/20 10:40: Urine Color Yellow, Urine Clarity Clear, Urine pH 7.0, Ur Specific [place] 1.010, Urine Protein Negative, Urine Glucose (UA) Normal, Urine Ketones Negative, Urine Occult Blood Negative, Urine Nitrite Negative, Urine Bilirubin Negative, Urine Urobilinogen Normal, Ur Leukocyte Esterase Negative, Urine RBC 0-5 SEEN, Urine WBC 0 SEEN, Ur Squamous Epith Cells 0 SEEN, Urine Bacteria 0 SEEN, Urine Mucus 0 SEEN Clinical Impression(s) from Imaging Studies Femur X-Ray 02/07/20 11:00 IMPRESSION: Normal x-ray examination of the femur. Electronically Signed: Genaro Hook at 11:13 EDT , Service support , Shoulder X-Ray 02/07/20 11:00 IMPRESSION: Normal x-ray examination of the shoulder. Electronically Signed: Genaro Hook at 11:13 EDT , Service support , Lumbar Spine X-Ray 02/07/20 13:28 IMPRESSION: Degenerative changes of the spine, as detailed above. Electronically Signed: Genaro Hook, at 13:50 EDT , Service support , Assessment/Plan All Active Problems (Last Updated 02/07/20 @ 14:[address] Adrian Prakash MD) Low back pain (Acute) This is a 64 years old female patient presented to the emergency room because of low back pain, bilateral leg pain more on the right lower extremity, has been having difficulty ambulating and she is being admitted for evaluation and probably she will need placement to detention facility. #1 intractable low back pain/bilateral leg pain more on the right lower extremity: X-ray of the lumbar spine reviewed as above. Patient denied paresthesia on the lower extremities. Denied urine or stool incontinence. Plan: Admit to [facility] floor for observation, ambulate as tolerated, IV morphine PRN for pain, OxyIR pain for pain, laxative as needed, Tylenol PRN, IV antiemetics, MRI lumbar spine, PT OT evaluation and treatment, case management consult for discharge planning. #2 physical debility/functional decline: Patient lives at the assisted living. According to her, she has not been able to ambulate around because of back pain and leg pain. Plan as above, PT OT evaluation and treatment. #3 hypertension: Blood pressure stable, continue lisinopril, start IV urology PRN. #4 COPD: Clinically stable, pulse ox is maintained on room air. Continue albuterol inhaler as needed, Symbicort twice daily. #6 schizophrenia: Continue benztropine and perphenazine. #7 anxiety and depression: Stable, continue Klonopin and Zoloft. #8 hyperlipidemia: Stable, continue statins. #9 dementia: Continue Aricept and Namenda. #10 DVT prophylaxis: Subcu Lovenox. This note was generated with [employer] dictation software. It may contain incorrect words, spelling, and punctuation that were not noted in checking the note before signing. OBSV E&M: 93689 Initial observation care L3
[2020-02-07 15:02] VITALS: BMI 37.0
--- NOTE | 2020-02-07 15:02 | MRI_ITS ---
STUDY: MRI LUMBAR SPINE WITHOUT CONTRAST REASON FOR EXAM: Female, 64 years old. pain BILATERAL LEGS R and gt;L UNABLE TO AMBULATE TECHNIQUE: Standardized fat and water weighted pulse sequences were obtained in the sagittal and axial planes. COMPARISON: None FINDINGS: T12-L1: Endplate spondylosis. Decreased disc height and moderate circumferential disc bulge. Degenerative changes of the bilateral facet joints. Mild narrowing of the central canal and bilateral intervertebral neural foramina. Normal lumbar lordosis. There is levoscoliosis of the lumbar spine and ankle measures 30 degrees. Normal conus medullaris that terminates at the L1 level. L1-2: Normal endplates. Normal disc height, hydration and morphology. Normal bilateral facet joints. Normal central canal and bilateral lateral recesses. Normal bilateral intervertebral neural foramina. L2-3: Endplate spondylosis. Decreased disc height and moderate circumferential disc bulge. Degenerative changes of the bilateral facet joints. Moderate narrowing of the central canal and bilateral intervertebral neural foramina more prominent on the right side. L3-4: Endplate spondylosis. Decreased disc height and large circumferential disc bulge. Degenerative changes of the bilateral facet joints. Severe narrowing of the central canal and bilateral intervertebral neural foramina. L4-5: Endplate spondylosis. Decreased disc height and small circumferential disc bulge. Degenerative changes of the bilateral facet joints. Mild narrowing of the central canal and moderate narrowing of the bilateral intervertebral neural foramina. L5-S1: Normal endplates. Normal disc height, hydration and morphology. Degenerative changes of the bilateral facet joints. Mild narrowing of the bilateral intervertebral neural foramina. Normal visualized sacral ala. Normal visualized paraspinous soft tissue structures. MRI/Spine Lumbar (Routine) IMPRESSION: Multilevel degenerative changes, as described above. Electronically Signed: Rolo Alva, at 3:28 EDT Tel , Service support ,
[2020-02-07 15:12] VITALS: BP 160/79; PULSE 82; RESP 18; TEMP 37; O2SAT 96
[2020-02-07 15:14] VITALS: PULSE 90
[2020-02-07] MEDS: Morphine 2 MG/ML Syringe IV ×2 (16:26→21:15)
[2020-02-07] MEDS: 0.9% Saline Lock 10 ML Syringe IV (16:26)
[2020-02-07] MEDS: cycloBENZAPRine HCl 10 MG Tablet PO (17:41)
[2020-02-07 20:56] VITALS: BP 133/79; PULSE 82; RESP 20; TEMP 36.6; O2SAT 93
[2020-02-07] MEDS: MELATONIN 10 MG TABLET 5 MG PO (21:13)
[2020-02-07] MEDS: Memantine Hydrochloride 10 MG Tablet PO (21:14)
[2020-02-07] MEDS: buPROPion (SR) 150 MG Tablet.SA PO (21:14)
[2020-02-08] VITALS (7 sets, daily range): BP systolic 118–126; BP diastolic 58–74; PULSE 68–85; RESP 16–20; TEMP 36.4–37.1; O2SAT 94–98
[2020-02-08] MEDS: Albuterol 2.5 MG/3 ML VIAL.NEB. INHALATION ×4 (02:00→19:35)
[2020-02-08] MEDS: Budesonide Respules 0.5 MG/2 ML AMPUL.NEB. INHALATION ×3 (02:10→19:35)
[2020-02-08] MEDS: oxyCODONE 5 MG Tablet PO ×3 (03:34→17:27)
--- NOTE | 2020-02-08 07:37 | PCM.PN.HOSP ---
Patient Problems: Active and Suspected Problems (Last Updated 02/07/20 @ 14:[address] Adrian Prakash MD) Low back pain (Acute) Reason for Visit: Follow-up on acute back and leg pain Subjective: Patient was seen and examined. She complains of radiating dull pain down her right leg with tingling and numbness in her right thigh. She denies fever, chills, incontinence of stool or urine. MRI of lumbar spine showed degenerative changes. Objective: Physical exam: General: Alert, Oriented x3, Cooperative, No apparent distress, flat affect HEENT: Atraumatic, PERRLA, EOMI, Normocephalic Oral: Moist Mucosa, No Gingival or Mucosal Lesions/ Ulcerations Neck: Supple, No JVD, Negative Carotid Bruits, Trachea Midline, Thyroid Normal Size and Texture Lungs: Clear to auscultation, Normal air movement, No rhonchi, No wheeze, No rales, Diminished Cardiovascular: Regular rate, Regular Rhythm, Normal S1, Normal S2, PMI Normal Abdomen: Bowel Sounds Present, Soft, Non Tender, Non-Distended, No Hepato-splenomegaly, Obese Extremities: No clubbing, No cyanosis, No edema Skin: No rashes, No breakdown Lymphatic: No Cervical, Supraclavicular, or Inguinal Adenopathy Neurological: Cranial nerves II-XII grossly intact, power in the right upper leg is 4 out of 5, restricted by pain Psych/Mental Status: Normal Affect, Appropriate, Alert and oriented to time, place, person, mood and affect Vitals/I&O's: Vital Signs Temp Pulse Resp BP Pulse Ox 98.1 F 84 16 121/70 H 94 02/08/20 02:00 02/08/20 02:00 02/08/20 02:00 02/08/20 02:00 02/08/20 02:00 Oxygen Delivery Method Room Air Weight: 94.8 kg Body Mass Index (BMI) 37.0 Intake and Output for Last 24 Hours 02/06/20 02/07/20 02/08/20 23:59 23:59 23:59 Intake Total 500 / 500 Output Total 1340 / 1340 Balance -840 / -840 Laboratory Results 02/07/20 10:25: WBC 7.1, RBC 4.81, Hgb 13.1, Hct 42.2, MCV 87.7, MCH 27.2, MCHC 31.0 L, RDW Std Deviation 46.0 H, RDW Coeff of Humphrey 14.3, Plt Count 230, MPV 9.9, Immature Gran % (Auto) 0.400, Neut % (Auto) 65.1, Lymph % (Auto) 26.3, Schley % (Auto) 7.3, Eos % (Auto) 0.6, Baso % (Auto) 0.3, Absolute Neuts (auto) 4.6, Absolute Lymphs (auto) 1.87, Nucleated RBC % 0 02/07/20 10:25: Sodium 139, Potassium 4.2, Chloride 104, Carbon Dioxide 29.0, Anion Gap 6, BUN 21 H, Creatinine 0.66, Estim Creat Clear Calc 73.11, Est GFR (MDRD) Af Amer 115, Est GFR (MDRD) Non-Af 95, BUN/Creatinine Ratio 31.6 H, Glucose 103, Calcium 9.5 02/07/20 10:25: Total Creatine Kinase 114 02/07/20 10:40: Urine Color Yellow, Urine Clarity Clear, Urine pH 7.0, Ur Specific [place] 1.010, Urine Protein Negative, Urine Glucose (UA) Normal, Urine Ketones Negative, Urine Occult Blood Negative, Urine Nitrite Negative, Urine Bilirubin Negative, Urine Urobilinogen Normal, Ur Leukocyte Esterase Negative, Urine RBC 0-5 SEEN, Urine WBC 0 SEEN, Ur Squamous Epith Cells 0 SEEN, Urine Bacteria 0 SEEN, Urine Mucus 0 SEEN Current Medications Acetaminophen (Tylenol) 650 mg PO Q6H PRN PRN PRN Reason: Pain Score 1-10/Temp > 100.7 F Albuterol Sulfate (Ventolin Aerosols) 2.5 mg INHALATION Q4H PRN PRN PRN Reason: WHEEZING Albuterol Sulfate (Ventolin Aerosols) 2.5 mg INHALATION Q6HWA.RT [facility] Last Admin: 02/08/20 07:04 Dose: 2.5 mg Documented by: Atorvastatin Calcium (Lipitor) 10 mg PO DAILY PATTI Benztropine Mesylate (Cogentin) 0.5 mg PO BID PRN PRN PRN Reason: SCHIZOPHRENIA Budesonide (Pulmicort Aerosol) 0.5 mg INHALATION Q12H.RT [facility] Last Admin: 02/08/20 07:04 Dose: 0.5 mg Documented by: Bupropion HCl (Wellbutrin Sr (150mg Tablets)) 150 mg PO BID [facility] Last Admin: 02/07/20 21:14 Dose: 150 mg Documented by: Clonazepam (Klonopin) 0.5 mg PO TID PRN PRN PRN Reason: ANXIETY Cyclobenzaprine HCl (Flexeril) 10 mg PO BID PRN PRN PRN Reason: MUSCLE SPASM Last Admin: 02/07/20 17:41 Dose: 10 mg Documented by: Docusate Sodium (Colace) 100 mg PO DAILY [facility] Donepezil HCl (Aricept) 10 mg PO DAILY [facility] Enoxaparin Sodium (Lovenox) 40 mg SC DAILY [facility] Famotidine (Pepcid) 40 mg PO DAILY [facility] Lisinopril (Zestril) 20 mg PO DAILY [facility] Melatonin (Melatonin) 5 mg PO QHS [facility] Last Admin: 02/07/20 21:13 Dose: 5 mg Documented by: Memantine (Namenda) 10 mg PO BID [facility] Last Admin: 02/07/20 21:14 Dose: 10 mg Documented by: Morphine Sulfate () 2 mg IV Q4H PRN PRN PRN Reason: Pain Score 6-10/10 Last Admin: 02/07/20 21:15 Dose: 2 mg Documented by: Ondansetron HCl (Zofran) 4 mg IV Q8H PRN PRN PRN Reason: NAUSEA/VOMITING Oxycodone HCl (Oxyir) 5 mg PO Q6H PRN PRN PRN Reason: Pain Score 4-5/10 Last Admin: 02/08/20 03:34 Dose: 5 mg Documented by: Perphenazine (Perphenazine) 8 mg PO TID [facility] Polyethylene Glycol (Miralax) 17 gm PO DAILY PRN PRN PRN Reason: Constipation Senna/Docusate Sodium (Senokot-S, Debra-Colace) 2 tablet PO BID PRN PRN PRN Reason: Constipation Sertraline HCl (Zoloft) 200 mg PO DAILY [facility] Sodium Chloride () 10 - 40 ml IV UD PRN PRN Reason: SALINE FLUSH Last Admin: 02/07/20 16:26 Dose: 20 ml Documented by: Medical Necessity - Tobacco Use Smoking Status: Former smoker Tobacco Use: Cigarettes Assessment/Plan All Active Problems (Last Updated 02/07/20 @ 14:[address] Adrian Prakash MD) Low back pain (Acute) 64-year-old female with past medical history of schizophrenia/anxiety/depression/hypertension, COPD admitted on 02/07/20 with progressive low back and bilateral leg pain, worse on the right with difficulty ambulating. 1. Acute intractable low back/bilateral leg pain, worse on the right with difficulty ambulation Denies any signs of cord compression Imaging personally reviewed -lumbar spine x-ray showed degenerative changes. This was confirmed with lumbar spine MRI. Dr. Vines consulted, will continue on current pain med regimen with scheduled Tylenol, PRN oxycodone as well as morphine 2. Hypertension, controlled, continue on lisinopril 3. COPD, not in acute exacerbation, stable, continue PRN breathing treatments 4. Schizoaffective disorder with congnitive impairment, stable Continue on Cogentin, Wellbutrin, Klonopin, Namenda, Aricept, Zoloft 5. DVT PPx- SCDs Inpatient E&M: 38813 Subs Hosp L2
[2020-02-08] MEDS: Morphine 2 MG/ML Syringe IV ×2 (08:06→21:41)
[2020-02-08] MEDS: clonazePAM 0.5 MG Tablet PO (08:06)
--- NOTE | 2020-02-08 09:33 | PCM.TXEXTCAR ---
- Diet 02/07/20 15:02 Diet: Cardiac/Low Cholesterol Food consistency:: Regular Liquid Consistency:: Regular/Thin - Routine Orders/Code Status Keep PO Greater than or Equal to (%): 94 Routine Lab Work: CBC - within 3 days, BMP - within 3 days Code Status: Full Code - Therapies Weight Bearing: Weight bearing as tolerated Extremity Affected:: Bilateral Lower Physical Therapy: Eval and Treat Occupational Therapy: Eval and Treat - Allergies/Procedures Done in Hospital Allergies/Adverse Reactions: Allergies No Known Allergies Allergy (Verified 12/18/19 16:29) - Type of Care/Length of Stay Estimated LOS: Convalescent Care Less Than 30 days Type of Care Needed: Skilled Rehab Potential: Good Prognosis: Good - Additional Orders/Day of Discharge Day of Discharge: 02/08/20 - Follow Up Care Primary Care Physician: Dena Stevens, [employer] [Primary Care Provider] - Please follow up with your Primary Care Physician in: within 1-2 weeks
[2020-02-08] MEDS: Docusate Sodium 100 MG Capsule PO (10:46)
[2020-02-08] MEDS: Sertraline 100 MG Tablet 200 MG PO (10:46)
[2020-02-08] MEDS: Polyethylene Glycol 3350 17 GM PACKET PO (10:46)
[2020-02-08] MEDS: Famotidine 20 MG Tablet 40 MG PO (10:46)
--- NOTE | 2020-02-08 10:46 | EKG12_ITS ---
Test Reason : Blood Pressure : / mmHG Vent. Rate : 080 BPM Atrial Rate : 080 BPM P-R Int : 148 ms QRS Dur : 096 ms QT Int : 368 ms P-R-T Axes : 063 -08 068 degrees QTc Int : 424 ms Normal sinus rhythm Low voltage QRS Borderline ECG Confirmed by ARMIDA PELLETIER, JUSTIN ([id number]), news videotape editor JUDITH TIDWELL ([id number]) on 02/12/2020 3:21:05 PM Referred By: [facility] Confirmed By:JUSTIN HUFFMAN MD
[2020-02-08] MEDS: Lisinopril 20 MG Tablet PO (10:47)
[2020-02-08] MEDS: buPROPion (SR) 150 MG Tablet.SA PO ×2 (10:47→21:39)
[2020-02-08] MEDS: Atorvastatin Calcium 10 MG Tablet PO (10:47)
[2020-02-08] MEDS: Donepezil HCl 10 MG Tablet PO (10:47)
[2020-02-08] MEDS: Memantine Hydrochloride 10 MG Tablet PO ×2 (10:47→21:39)
--- NOTE | 2020-02-08 12:04 | CASEMGMT ---
Social Work Social Work spoke with pt physician and nurse who state pt is presenting with functional limitations related to pain. Pt is able to get from bed to chair with assist of staff and is very painful. Unable to ambulate to bathroom and can use bedside commode with great effort if placed right beside bed. Pain management physician has been consulted and to see pt today. Pt ability to return to [place] vs. SNF placement is dependent upon outcome from Pain Management physician. SW met with pt and introduced self and role of SW. Discussed discharge plan with pt and pt does not feel she can return to [facility] at this time as the amount of assistance they provide to pt is limited. Pt is open to considering SNF short term for therapy. List of area SNFs provided to pt who states she has been to [facility] previously and would like to return. Phone call to Edmund at [facility] and they do have beds available. Referral faxed and will await return call on determination. Phone call to Silvia Garcia CM at [facility] and updated on pt status along with possible placement in SNF. SW will continue to follow for appropriate placement. FABI Kay
--- NOTE | 2020-02-08 14:02 | CASEMGMT ---
Social Work Return call from Edmund at [facility] and they are able to accept pt. Edmund requesting Covid screen be faxed. Form completed and faxed to [facility]. MARY met with pt and informed that [facility] can accept if pt continues to need SNF at time of d/c and pt is agreeable. Pt requests that BREANNA Vega at [facility] be kept in the loop with discharge plans. VM left with Claire. PASSRR completed in [facility] system and Level of Care submitted. Will need to wait for results of LOC prior to pt discharge. FABI Kay
[2020-02-08] MEDS: Acetaminophen 500 MG Tablet 1000 MG PO ×2 (14:31→21:39)
--- NOTE | 2020-02-08 15:58 | CHAPLAIN ---
Type of Pastoral Visit _x__ Initial Visit ___ Follow-up Visit ___ On-call Visit ___ General Patient Visit ___ Spiritual Assessment ___ Family Conference ___ Bereavement ___ Rapid Response ___ Code Blue ___ Other (describe below) Pastoral Care Referral From _x__ Patient ___ Family ___ Nurse ___ Physician ___ Rfid Engineer ___ Side Seam Tender ___ Other (describe below) Sacrament/Intervention _x_ Active listening ___ Anointing ___ Bahai ___ Bereavement ___ Communion ___ Elzbieta exploration ___ ___ Life review _x__ Prayer ___ Reconciliation ___ Sacrament of Sick _x__ Supportive presence ___ Wedding ___ Other (describe below) Pastoral Comments
[2020-02-08] MEDS: MELATONIN 10 MG TABLET 5 MG PO (21:39)
[2020-02-08] MEDS: 0.9% Saline Lock 10 ML Syringe IV (21:42)
[2020-02-09] VITALS (11 sets, daily range): BP systolic 119–137; BP diastolic 63–92; PULSE 72–87; RESP 16–20; TEMP 36.5–36.8; O2SAT 92–94; BMI 37.0
[2020-02-09] MEDS: Morphine 2 MG/ML Syringe IV ×3 (04:01→14:08)
[2020-02-09] MEDS: 0.9% Saline Lock 10 ML Syringe IV ×3 (04:01→10:47)
[2020-02-09] MEDS: Budesonide Respules 0.5 MG/2 ML AMPUL.NEB. INHALATION ×2 (07:50→19:26)
[2020-02-09] MEDS: Albuterol 2.5 MG/3 ML VIAL.NEB. INHALATION ×2 (07:50→19:26)
--- NOTE | 2020-02-09 07:56 | PCM.PN.HOSP ---
Patient Problems: Active and Suspected Problems (Last Updated 02/07/20 @ 14:[address] Adrian Prakash MD) Low back pain (Acute) Reason for Visit: Follow-up on acute back and leg pain Subjective: Patient was seen and examined. She complains of back pain. She is going for epidural injection of L5-S1. Objective: Physical exam: General: Alert, Oriented x3, Cooperative, No apparent distress, flat affect HEENT: Atraumatic, PERRLA, EOMI, Normocephalic Oral: Moist Mucosa, No Gingival or Mucosal Lesions/ Ulcerations Neck: Supple, No JVD, Negative Carotid Bruits, Trachea Midline, Thyroid Normal Size and Texture Lungs: Clear to auscultation, Normal air movement, No rhonchi, No wheeze, No rales, Diminished Cardiovascular: Regular rate, Regular Rhythm, Normal S1, Normal S2, PMI Normal Abdomen: Bowel Sounds Present, Soft, Non Tender, Non-Distended, No Hepato-splenomegaly, Obese Extremities: No clubbing, No cyanosis, No edema Skin: No rashes, No breakdown Lymphatic: No Cervical, Supraclavicular, or Inguinal Adenopathy Neurological: Cranial nerves II-XII grossly intact, power in the right upper leg is 4 out of 5, restricted by pain Psych/Mental Status: Normal Affect, Appropriate, Alert and oriented to time, place, person, mood and affect Vitals/I&O's: Vital Signs Temp Pulse Resp BP Pulse Ox 97.8 F 72 20 H 119/66 93 02/09/20 03:30 02/09/20 07:47 02/09/20 07:47 02/09/20 03:30 02/09/20 07:47 Oxygen Delivery Method Room Air Weight: 94.8 kg Body Mass Index (BMI) 37.0 Intake and Output for Last 24 Hours 02/07/20 02/08/20 02/09/20 23:59 23:59 23:59 Intake Total 2150 / 2750 600 / 600 Output Total 2800 / 3500 750 / 750 Balance -650 / -750 -150 / -150 Current Medications Acetaminophen (Tylenol) 1,000 mg PO Q8 [facility] Last Admin: 02/09/20 04:36 Dose: Not Given Documented by: Albuterol Sulfate (Ventolin Aerosols) 2.5 mg INHALATION Q6HWA.RT [facility] Last Admin: 02/09/20 07:50 Dose: 2.5 mg Documented by: Atorvastatin Calcium (Lipitor) 10 mg PO DAILY [facility] Last Admin: 02/08/20 10:47 Dose: 10 mg Documented by: Benztropine Mesylate (Cogentin) 0.5 mg PO BID PRN PRN PRN Reason: SCHIZOPHRENIA Budesonide (Pulmicort Aerosol) 0.5 mg INHALATION Q12H.RT [facility] Last Admin: 02/09/20 07:50 Dose: 0.5 mg Documented by: Bupropion HCl (Wellbutrin Sr (150mg Tablets)) 150 mg PO BID [facility] Last Admin: 02/08/20 21:39 Dose: 150 mg Documented by: Clonazepam (Klonopin) 0.5 mg PO TID PRN PRN PRN Reason: ANXIETY Last Admin: 02/08/20 08:06 Dose: 0.5 mg Documented by: Cyclobenzaprine HCl (Flexeril) 10 mg PO BID PRN PRN PRN Reason: MUSCLE SPASM Last Admin: 02/07/20 17:41 Dose: 10 mg Documented by: Docusate Sodium (Colace) 100 mg PO DAILY [facility] Last Admin: 02/08/20 10:46 Dose: 100 mg Documented by: Donepezil HCl (Aricept) 10 mg PO DAILY [facility] Last Admin: 02/08/20 10:47 Dose: 10 mg Documented by: Famotidine (Pepcid) 40 mg PO DAILY [facility] Last Admin: 02/08/20 10:46 Dose: 40 mg Documented by: Lisinopril (Zestril) 20 mg PO DAILY [facility] Last Admin: 02/08/20 10:47 Dose: 20 mg Documented by: Melatonin (Melatonin) 5 mg PO QHS [facility] Last Admin: 02/08/20 21:39 Dose: 5 mg Documented by: Memantine (Namenda) 10 mg PO BID [facility] Last Admin: 02/08/20 21:39 Dose: 10 mg Documented by: Morphine Sulfate () 2 mg IV Q4H PRN PRN PRN Reason: Pain Score 6-10/10 Last Admin: 02/09/20 04:01 Dose: 2 mg Documented by: Ondansetron HCl (Zofran) 4 mg IV Q8H PRN PRN PRN Reason: NAUSEA/VOMITING Oxycodone HCl (Oxyir) 5 mg PO Q6H PRN PRN PRN Reason: Pain Score 4-5/10 Last Admin: 02/08/20 17:27 Dose: 5 mg Documented by: Perphenazine (Perphenazine) 8 mg PO TID [facility] Last Admin: 02/08/20 21:38 Dose: 8 mg Documented by: Polyethylene Glycol (Miralax) 17 gm PO DAILY [facility] Last Admin: 02/08/20 10:46 Dose: 17 gm Documented by: Senna/Docusate Sodium (Senokot-S, Debra-Colace) 2 tablet PO BID PRN PRN PRN Reason: Constipation Sertraline HCl (Zoloft) 200 mg PO DAILY [facility] Last Admin: 02/08/20 10:46 Dose: 200 mg Documented by: Sodium Chloride () 10 - 40 ml IV UD PRN PRN Reason: SALINE FLUSH Last Admin: 02/09/20 04:01 Dose: 10 ml Documented by: STROKE Vital Signs/Narrative: Vital Signs Pulse Resp Pulse Ox 02/09/20 07:47 72 20 H 93 Medical Necessity - Tobacco Use Smoking Status: Former smoker Tobacco Use: Cigarettes Assessment/Plan All Active Problems (Last Updated 02/07/20 @ 14:[address] Adrian Prakash MD) Low back pain (Acute) 64-year-old female with past medical history of schizophrenia/anxiety/depression/hypertension, COPD admitted on 02/07/20 with progressive low back and bilateral leg pain, worse on the right with difficulty ambulating. 1. Acute intractable low back/bilateral leg pain, worse on the right with difficulty ambulation Pain remains uncontrolled. Going for L5-S1 epidural injection with Dr. Vines consulted, Will continue on current pain med regimen with scheduled Tylenol, PRN oxycodone as well as morphine 2. Hypertension, controlled, continue on lisinopril 3. COPD, not in acute exacerbation, stable, continue PRN breathing treatments 4. Schizoaffective disorder with cognitive impairment, stable Continue on Cogentin, Wellbutrin, Klonopin, Namenda, Aricept, Zoloft 5. DVT PPx- SCDs Inpatient E&M: 32529 [facility] Hosp L2
--- NOTE | 2020-02-09 09:11 | CASEMGMT ---
Social Work Note MARY received message from Teresita at [facility] requesting clinicals be faxed to [facility] at [phone]. Teresita states no one site visits are being conducted at this time, will likely just complete phone interview with pt if needed. MARY faxed clinicals to Teresita at [facility]. Plan: Return to [facility] vs [facility]. If pt needs SNF ([facility]) pt will need LOC and and approval from [facility] before being able to admit to SNF. Sheryl Johansen TOURIST [employer], SALES SECRETARY
[2020-02-09] MEDS: oxyCODONE 5 MG Tablet PO ×2 (10:28→19:30)
[2020-02-09] MEDS: Lisinopril 20 MG Tablet PO (10:31)
[2020-02-09 10:56] LABS: Bedside Glucose 108 mg/dL (70-110)
--- NOTE | 2020-02-09 12:45 | RAD_ITS ---
STUDY: X-RAY - LUMBAR SPINE REASON FOR EXAM: Female, 64 years old. BLOCK TECHNIQUE: 1 intraoperative view(s) of the lumbar spine was obtained. COMPARISON: None FINDINGS: Intraoperative imaging provided for L4-L5 epidural block. RAD/Spine 1 View Any Level IMPRESSION: Intraoperative imaging provided for L4-L5 epidural block. Electronically Signed: Genaro Hook, at 14:46 EDT , Service support ,
[2020-02-09] MEDS: Triamcinolone Acetonide 40 MG/ML Vial (12:58)
--- NOTE | 2020-02-09 13:45 | CASEMGMT ---
Social Work Received phone call from Edmund at [facility] and update on pt given. If LOC received then pt can go to [facility] over the weekend. Updates faxed. FABI Kay
--- NOTE | 2020-02-09 13:57 | NURSING ---
Arrived back to room from having epidural. Awake and painful.
[2020-02-09] MEDS: cycloBENZAPRine HCl 10 MG Tablet PO ×2 (14:07→21:58)
[2020-02-09] MEDS: Polyethylene Glycol 3350 17 GM PACKET PO (14:11)
[2020-02-09] MEDS: Sertraline 100 MG Tablet 200 MG PO (14:11)
[2020-02-09] MEDS: Docusate Sodium 100 MG Capsule PO (14:13)
[2020-02-09] MEDS: buPROPion (SR) 150 MG Tablet.SA PO ×2 (14:13→21:59)
[2020-02-09] MEDS: Famotidine 20 MG Tablet 40 MG PO (14:14)
[2020-02-09] MEDS: Acetaminophen 500 MG Tablet 1000 MG PO ×2 (14:15→22:03)
[2020-02-09] MEDS: Atorvastatin Calcium 10 MG Tablet PO (14:15)
[2020-02-09] MEDS: Memantine Hydrochloride 10 MG Tablet PO ×2 (14:15→22:00)
[2020-02-09] MEDS: Donepezil HCl 10 MG Tablet PO (14:15)
--- NOTE | 2020-02-09 15:20 | CASEMGMT ---
Social Work Note Lucia Herr called [facility] to have them call this worker if Mental Health Review is completed today. emailed Myriam Soriano at [facility] and asked for Myriam to send LOC results once completed to both this worker and Seamus Lopez tomorrow as Seamus Lopez is SW working on Wednesday. SW waiting to hear from [facility] regarding Mental Health Review results. Once results are back from [facility], the results will need to be faxed to Myriam Rudolph at [facility] and will will finish LOC. Pt had injection today with Dr. Vines. Pt will need to work with PT/OT tomorrow to determine if pt is able to return to [facility] or go to [facility] for therapy. If pt needs to go to [facility], results from Mental Health Review and LOC will be needed before pt is able to admit to [facility]. Plan: Return to [facility] vs [facility]. Sheryl Johansen CONCRETE PLANT LABORER, CERTIFIED [employer]CH [employer] TECHNICIAN
[2020-02-09] MEDS: clonazePAM 0.5 MG Tablet PO (21:58)
[2020-02-09] MEDS: MELATONIN 10 MG TABLET 5 MG PO (22:00)
[2020-02-10] MEDS: oxyCODONE 5 MG Tablet PO ×2 (04:14→10:11)
[2020-02-10 04:20] VITALS: BP 141/75; PULSE 76; RESP 16; TEMP 36.6; O2SAT 93
[2020-02-10] MEDS: Acetaminophen 500 MG Tablet 1000 MG PO ×3 (06:08→21:49)
[2020-02-10] MEDS: Budesonide Respules 0.5 MG/2 ML AMPUL.NEB. INHALATION (07:02)
[2020-02-10] MEDS: Albuterol 2.5 MG/3 ML VIAL.NEB. INHALATION (07:02)
[2020-02-10 07:10] VITALS: PULSE 88; RESP 20
[2020-02-10 09:59] VITALS: BP 147/75; PULSE 86; RESP 18; TEMP 37.1; O2SAT 94
[2020-02-10] MEDS: Sertraline 100 MG Tablet 200 MG PO (10:04)
[2020-02-10] MEDS: Docusate Sodium 100 MG Capsule PO (10:04)
[2020-02-10] MEDS: Famotidine 20 MG Tablet 40 MG PO (10:05)
[2020-02-10] MEDS: Memantine Hydrochloride 10 MG Tablet PO ×2 (10:05→21:50)
[2020-02-10] MEDS: Lisinopril 20 MG Tablet PO (10:05)
[2020-02-10] MEDS: buPROPion (SR) 150 MG Tablet.SA PO ×2 (10:05→21:50)
[2020-02-10] MEDS: Atorvastatin Calcium 10 MG Tablet PO (10:05)
[2020-02-10] MEDS: Donepezil HCl 10 MG Tablet PO (10:06)
[2020-02-10] MEDS: Senna/Docusate Sodium 1 Tablet 2 TABLET PO (10:12)
[2020-02-10] MEDS: Polyethylene Glycol 3350 17 GM PACKET PO (10:12)
[2020-02-10 11:31] VITALS: O2SAT 94
--- NOTE | 2020-02-10 11:31 | PN_ITS ---
Patient Problems: Active and Suspected Problems (Last Updated 02/07/20 @ 14:[address] Adrian Prakash MD) Low back pain (Acute) Reason for Visit: Follow-up for severe low back pain with lumbar radiculopathy Subjective: Patient seen and examined. Still having significant pain with significant radicular symptoms. But overall less than prior to epidural injections having difficulty with walking due to pain. Discussed with therapist in the room. Vitals/I&O's: Vital Signs Temp Pulse Resp BP Pulse Ox 98.8 F 86 18 147/75 H 94 02/10/20 09:59 02/10/20 09:59 02/10/20 09:59 02/10/20 09:59 02/10/20 11:31 Oxygen Delivery Method Room Air Weight: 94.8 kg Body Mass Index (BMI) 37.0 Intake and Output for Last 24 Hours 02/08/20 02/09/20 02/10/20 23:59 23:59 23:59 Intake Total 2150 / 2750 960 / 960 300 / 300 Output Total 2800 / 3500 1250 / 1250 1000 / 1000 Balance -650 / -750 -290 / -290 -700 / -700 General: Alert, Oriented x3, Cooperative, - - Painful distress some HEENT: Atraumatic Neck: Supple Lungs: - - non Labored Abdomen: Obese Neurological: Cranial nerves II-XII grossly intact Psych/Mental Status: Appropriate Current Medications Acetaminophen (Tylenol) 1,000 mg PO Q8 [facility] Last Admin: 02/10/20 06:08 Dose: 1,000 mg Documented by: Albuterol Sulfate (Ventolin Aerosols) 2.5 mg INHALATION Q6HWA.RT [facility] Last Admin: 02/10/20 07:02 Dose: 2.5 mg Documented by: Atorvastatin Calcium (Lipitor) 10 mg PO DAILY [facility] Last Admin: 02/10/20 10:05 Dose: 10 mg Documented by: Benztropine Mesylate (Cogentin) 0.5 mg PO BID PRN PRN PRN Reason: SCHIZOPHRENIA Budesonide (Pulmicort Aerosol) 0.5 mg INHALATION Q12H.RT [facility] Last Admin: 02/10/20 07:02 Dose: 0.5 mg Documented by: Bupropion HCl (Wellbutrin Sr (150mg Tablets)) 150 mg PO BID [facility] Last Admin: 02/10/20 10:05 Dose: 150 mg Documented by: Clonazepam (Klonopin) 0.5 mg PO TID PRN PRN PRN Reason: ANXIETY Last Admin: 02/09/20 21:58 Dose: 0.5 mg Documented by: Cyclobenzaprine HCl (Flexeril) 10 mg PO BID PRN PRN PRN Reason: MUSCLE SPASM Last Admin: 02/09/20 21:58 Dose: 10 mg Documented by: Docusate Sodium (Colace) 100 mg PO DAILY [facility] Last Admin: 02/10/20 10:04 Dose: 100 mg Documented by: Donepezil HCl (Aricept) 10 mg PO DAILY [facility] Last Admin: 02/10/20 10:06 Dose: 10 mg Documented by: Famotidine (Pepcid) 40 mg PO DAILY [facility] Last Admin: 02/10/20 10:05 Dose: 40 mg Documented by: Gabapentin (Neurontin) 300 mg PO TIDCM [facility] Lisinopril (Zestril) 20 mg PO DAILY [facility] Last Admin: 02/10/20 10:05 Dose: 20 mg Documented by: Melatonin (Melatonin) 5 mg PO QHS [facility] Last Admin: 02/09/20 22:00 Dose: 5 mg Documented by: Memantine (Namenda) 10 mg PO BID [facility] Last Admin: 02/10/20 10:05 Dose: 10 mg Documented by: Morphine Sulfate () 2 mg IV Q4H PRN PRN PRN Reason: Pain Score 6-10/10 Last Admin: 02/09/20 14:08 Dose: 2 mg Documented by: Ondansetron HCl (Zofran) 4 mg IV Q8H PRN PRN PRN Reason: NAUSEA/VOMITING Oxycodone HCl (Oxyir) 5 mg PO Q6H PRN PRN PRN Reason: Pain Score 4-5/10 Last Admin: 02/10/20 10:11 Dose: 5 mg Documented by: Perphenazine (Perphenazine) 8 mg PO TID [facility] Last Admin: 02/10/20 06:07 Dose: 8 mg Documented by: Polyethylene Glycol (Miralax) 17 gm PO DAILY [facility] Last Admin: 02/10/20 10:12 Dose: 17 gm Documented by: Senna/Docusate Sodium (Senokot-S, Debra-Colace) 2 tablet PO BID PRN PRN PRN Reason: Constipation Last Admin: 02/10/20 10:12 Dose: 2 tablet Documented by: Sertraline HCl (Zoloft) 200 mg PO DAILY [facility] Last Admin: 02/10/20 10:04 Dose: 200 mg Documented by: Sodium Biphosphate/Sodium Phosphate (Fleet Enema) 1 bottle RECTAL X1 ONE Stop: 02/10/20 11:30 Sodium Chloride () 10 - 40 ml IV UD PRN PRN Reason: SALINE FLUSH Last Admin: 02/09/20 10:47 Dose: 10 ml Documented by: STROKE Vital Signs/Narrative: Vital Signs Temp Pulse Resp BP Pulse Ox 02/10/20 11:31 94 02/10/20 09:59 98.8 F 86 18 147/75 H 94 Medical Necessity - Tobacco Use Smoking Status: Former smoker Tobacco Use: Cigarettes Assessment/Plan All Active Problems (Last Updated 02/07/20 @ 14:[address] Adrian Prakash MD) Low back pain (Acute) 1. 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 Patient also has scoliosis. Patient is status post epidural injection by pain management. Patient still having radicular symptoms/pain. Will try Neurontin for neuropathic pain in addition to her opi oid analgesics. Continue to monitor patient. [facility]. Should patient not do well, decompressive surgery might need to be considered. 2. Hypertension. Fairly well controlled. 3. COPD. Stable. 4. Schizoaffective disorder. Stable at this time. Inpatient E&M: 32652 Subs Hosp L2
[2020-02-10] MEDS: Gabapentin 300 MG Capsule PO ×2 (11:58→16:23)
--- NOTE | 2020-02-10 11:59 | CASEMGMT ---
SW received message stating that someone will follow up Wednesday in regard to the further review for Mental Health from [facility]. SW reviewed PT, spoke w/pt, pt is still agreeable to going to [facility], is not independent enough to return to assisted living. SW to follow up on Wednesday. ADDISON Hyatt
[2020-02-10 13:31] VITALS: BP 149/77; PULSE 87; RESP 18; TEMP 36.6; O2SAT 93
[2020-02-10 19:42] VITALS: BP 148/73; PULSE 79; RESP 18; TEMP 36.6; O2SAT 93
[2020-02-10] MEDS: MELATONIN 10 MG TABLET 5 MG PO (21:49)
[2020-02-11] VITALS (8 sets, daily range): BP systolic 126–161; BP diastolic 61–91; PULSE 69–90; RESP 16–19; TEMP 36.4–36.8; O2SAT 91–96
[2020-02-11] MEDS: oxyCODONE 5 MG Tablet PO ×3 (02:55→17:24)
[2020-02-11] MEDS: Acetaminophen 500 MG Tablet 1000 MG PO ×3 (05:58→22:11)
[2020-02-11] MEDS: Budesonide Respules 0.5 MG/2 ML AMPUL.NEB. INHALATION ×2 (07:10→22:47)
[2020-02-11] MEDS: Albuterol 2.5 MG/3 ML VIAL.NEB. INHALATION ×3 (07:10→22:47)
[2020-02-11] MEDS: Gabapentin 300 MG Capsule PO (08:59)
[2020-02-11] MEDS: Donepezil HCl 10 MG Tablet PO (09:01)
[2020-02-11] MEDS: buPROPion (SR) 150 MG Tablet.SA PO ×2 (09:02→22:08)
[2020-02-11] MEDS: Sertraline 100 MG Tablet 200 MG PO (09:02)
[2020-02-11] MEDS: Memantine Hydrochloride 10 MG Tablet PO ×2 (09:03→22:07)
[2020-02-11] MEDS: Atorvastatin Calcium 10 MG Tablet PO (09:03)
[2020-02-11] MEDS: Famotidine 20 MG Tablet 40 MG PO (09:04)
[2020-02-11] MEDS: Senna/Docusate Sodium 1 Tablet 2 TABLET PO ×2 (09:10→22:09)
[2020-02-11] MEDS: Lisinopril 20 MG Tablet PO (09:12)
--- NOTE | 2020-02-11 09:40 | PCM.PN.HOSP ---
Patient Problems: Active and Suspected Problems (Last Updated 02/07/20 @ 14:[address] Adrian Prakash MD) Lumbar radicular syndrome (Acute) Low back pain (Acute) Reason for Visit: Follow-up for severe neck pain with lumbar radiculopathy Subjective: Patient seen and examined. States the pain is better. Was able to ambulate with therapy to the bathroom. Actually states she is ambulating better today than yesterday. Vitals/I&O's: Vital Signs Temp Pulse Resp BP Pulse Ox 97.8 F 90 18 161/91 H 95 02/11/20 09:15 02/11/20 09:15 02/11/20 09:15 02/11/20 09:15 02/11/20 09:15 Oxygen Delivery Method Room Air Weight: 94.8 kg Body Mass Index (BMI) 37.0 Intake and Output for Last 24 Hours 02/09/20 02/10/20 02/11/20 23:59 23:59 23:59 Intake Total 960 / 960 300 / 1200 1200 / 1200 Output Total 1250 / 1250 1000 / 2000 2550 / 2550 Balance -290 / -290 -700 / -800 -1350 / -1350 General: Alert, Oriented x3, Cooperative HEENT: Atraumatic, PERRLA Oral: Moist Mucosa Neck: Supple Lungs: - - non labored Skin: No rashes Musculoskeletal: No Muscle Wasting Neurological: Cranial nerves II-XII grossly intact Psych/Mental Status: Flat Affect Current Medications Acetaminophen (Tylenol) 1,000 mg PO Q8 [facility] Last Admin: 02/11/20 05:58 Dose: 1,000 mg Documented by: Albuterol Sulfate (Ventolin Aerosols) 2.5 mg INHALATION Q6HWA.RT [facility] Last Admin: 02/11/20 07:10 Dose: 2.5 mg Documented by: Atorvastatin Calcium (Lipitor) 10 mg PO DAILY [facility] Last Admin: 02/11/20 09:03 Dose: 10 mg Documented by: Benztropine Mesylate (Cogentin) 0.5 mg PO BID PRN PRN PRN Reason: SCHIZOPHRENIA Budesonide (Pulmicort Aerosol) 0.5 mg INHALATION Q12H.RT [facility] Last Admin: 02/11/20 07:10 Dose: 0.5 mg Documented by: Bupropion HCl (Wellbutrin Sr (150mg Tablets)) 150 mg PO BID [facility] Last Admin: 02/11/20 09:02 Dose: 150 mg Documented by: Clonazepam (Klonopin) 0.5 mg PO TID PRN PRN PRN Reason: ANXIETY Last Admin: 02/09/20 21:58 Dose: 0.5 mg Documented by: Cyclobenzaprine HCl (Flexeril) 10 mg PO BID PRN PRN PRN Reason: MUSCLE SPASM Last Admin: 02/09/20 21:58 Dose: 10 mg Documented by: Donepezil HCl (Aricept) 10 mg PO DAILY [facility] Last Admin: 02/11/20 09:01 Dose: 10 mg Documented by: Famotidine (Pepcid) 40 mg PO DAILY [facility] Last Admin: 02/11/20 09:04 Dose: 40 mg Documented by: Lisinopril (Zestril) 20 mg PO DAILY [facility] Last Admin: 02/11/20 09:12 Dose: 20 mg Documented by: Melatonin (Melatonin) 5 mg PO QHS [facility] Last Admin: 02/10/20 21:49 Dose: 5 mg Documented by: Memantine (Namenda) 10 mg PO BID [facility] Last Admin: 02/11/20 09:03 Dose: 10 mg Documented by: Morphine Sulfate () 2 mg IV Q4H PRN PRN PRN Reason: Pain Score 6-10/10 Last Admin: 02/09/20 14:08 Dose: 2 mg Documented by: Ondansetron HCl (Zofran) 4 mg IV Q8H PRN PRN PRN Reason: NAUSEA/VOMITING Oxycodone HCl (Oxyir) 5 mg PO Q6H PRN PRN PRN Reason: Pain Score 4-5/10 Last Admin: 02/11/20 08:59 Dose: 5 mg Documented by: Perphenazine (Perphenazine) 8 mg PO TID [facility] Last Admin: 02/11/20 05:58 Dose: 8 mg Documented by: Polyethylene Glycol (Miralax) 17 gm PO DAILY [facility] Last Admin: 02/11/20 09:04 Dose: Not Given Documented by: Senna/Docusate Sodium (Senokot-S, Debra-Colace) 2 tablet PO BID [facility] Last Admin: 02/11/20 09:10 Dose: 2 tablet Documented by: Sertraline HCl (Zoloft) 200 mg PO DAILY [facility] Last Admin: 02/11/20 09:02 Dose: 200 mg Documented by: Sodium Chloride () 10 - 40 ml IV UD PRN PRN Reason: SALINE FLUSH Last Admin: 02/09/20 10:47 Dose: 10 ml Documented by: STROKE Vital Signs/Narrative: Vital Signs Temp Pulse Resp BP Pulse Ox 02/11/20 09:15 97.8 F 90 18 161/91 H 95 02/11/20 07:10 82 16 91 Medical Necessity - Tobacco Use Smoking Status: Former smoker Tobacco Use: Cigarettes Assessment/Plan All Active Problems (Last Updated 02/07/20 @ 14:[address] Adrian Prakash MD) Lumbar radicular syndrome (Acute) Low back pain (Acute) 1. 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 Patient also has scoliosis. Neurontin for neuropathic pain added to her opioid analgesics and this may be helping as well. Continue to monitor patient. Plan is for custodial facility for rehabilitation hopefully tomorrow. Should patient not do well, decompressive surgery might need to be considered. Will increase dose of Neurontin. 2. Hypertension. Fairly well controlled. 3. COPD. Stable. 4. Schizoaffective disorder. Stable at this time. Inpatient E&M: 73026 Subs Hosp L2
[2020-02-11] MEDS: Gabapentin 400 MG Capsule PO ×2 (12:06→17:24)
[2020-02-12 04:32] VITALS: BP 144/77; PULSE 82; RESP 18; TEMP 36.9; O2SAT 92
[2020-02-12] MEDS: oxyCODONE 5 MG Tablet PO ×2 (04:36→10:53)
[2020-02-12] MEDS: Acetaminophen 500 MG Tablet 1000 MG PO (04:42)
[2020-02-12 07:11] VITALS: PULSE 82; RESP 16; O2SAT 92
[2020-02-12] MEDS: Budesonide Respules 0.5 MG/2 ML AMPUL.NEB. INHALATION (07:11)
[2020-02-12] MEDS: Albuterol 2.5 MG/3 ML VIAL.NEB. INHALATION (07:11)
[2020-02-12 08:29] VITALS: BP 139/76; PULSE 86; RESP 16; TEMP 36.7; O2SAT 93
[2020-02-12] MEDS: Gabapentin 400 MG Capsule PO (08:32)
--- NOTE | 2020-02-12 08:59 | CASEMGMT ---
Addendum entered by Sheryl Johansen 02/12/20 11:02: SW received LOC results. Pt is able to discharge to [facility] today. Physician states pt is medically ready for discharge. SW faxed completed discharge paperwork to Demund at [facility] including transfer to extended care facility, signed medication list and any scripts. SW also faxed LOC results and [facility] results. Original in SNF folder and copy on pt's chart. SW placed a call to [facility] and arranged transportation via wheelchair van for 12:00pm. Transportation form completed and placed on SNF folder and copy on pt's chart. RN updated on transportation time. SW in to speak with pt and updated her on discharge and transportation time. Pt states understanding. SW placed a call to Edmund at [facility] and left message regarding discharge and transportation time. MARY placed a call to [facility] and left message for RN updated RN on discharge and transportation time. MARY placed a call to pt's BREANNA Rangel and updated her on discharge and transportation time. Plan: [facility] today with [facility] transporting via wheelchair van at 12:00pm FABI Kitchen Original Note: Social Work Note SW reviewed [place] pt's mental health results from [facility] are available. MARY printed off results, faxed to Myriam at [facility]. MARY waiting for LOC results. FABI Kitchen
--- NOTE | 2020-02-12 09:57 | PCM.TXEXTCAR ---
- Diet 02/09/20 14:04 Diet: Regular Diet Is pt able to select menu?: Yes - Routine Orders/Code Status Code Status: Full Code - Wound(s) Middle Back Wound Type: Puncture - Suggestions for Active Care Change Position every (hours): 3 Hours to sit in a chair: 2 Times a day to sit in chair: 3 - Therapies Weight Bearing: Weight bearing as tolerated Extremity Affected:: Bilateral Lower Physical Therapy: Eval and Treat Occupational Therapy: Eval and Treat - Problem/Diagnosis (1) Low back pain Status: Acute Current Visit: Yes (2) Anxiety and depression Status: Chronic Current Visit: Yes (3) COPD (chronic obstructive pulmonary disease) Status: Chronic Current Visit: No (4) Schizophrenia Status: Chronic Current Visit: No (5) Essential (primary) hypertension Status: Chronic Current Visit: No (6) Hyperlipidemia Status: Chronic Current Visit: No - Allergies/Procedures Done in Hospital Allergies/Adverse Reactions: Allergies No Known Allergies Allergy (Verified 12/18/19 16:29) - Type of Care/Length of Stay Estimated LOS: Convalescent Care Less Than 30 days Type of Care Needed: Skilled Rehab Potential: Fair Prognosis: Fair - Additional Orders/Day of Discharge H&P will serve as current which was dated: 02/07/20 Day of Discharge: 02/12/20 - Follow Up Care Primary Care Physician: Dena Stevens NP-C [Primary Care Provider] - Please follow up with your Primary Care Physician in: within 1-2 weeks
--- NOTE | 2020-02-12 10:37 | PCM.DC.SUM ---
Discharge Date and Diagnosis Date of Admission: 02/07/20 Date of Discharge: 02/12/20 - Primary Discharge Diagnosis Active and Suspected Problems (Last Updated 02/07/20 @ 14:[address] Adrian Prakash MD) #1 acute intractable low back pain/bilateral leg pain, attributed to degenerative changes of the lumbar spine, no evidence of acute cord compression. #2 physical debility/functional decline, difficulty ambulating. - Secondary Discharge Diagnosis Chronic Problems (Last Updated 02/07/20 @ 14:[address] Adrian Prakash MD) Anxiety and depression (Chronic) COPD (chronic obstructive pulmonary disease) (Chronic) Schizophrenia (Chronic) Essential (primary) hypertension (Chronic) Hyperlipidemia (Chronic) Hospital Course and Treatment Imaging Results: Clinical Impression(s) from Imaging Studies Femur X-Ray 02/07/20 11:00 IMPRESSION: Normal x-ray examination of the femur. Electronically Signed: Genaro Hook at 11:13 EDT , Service support , Shoulder X-Ray 02/07/20 11:00 IMPRESSION: Normal x-ray examination of the shoulder. Electronically Signed: Genaro Hook, at 11:13 EDT , Service support , Lumbar Spine X-Ray 02/07/20 13:28 IMPRESSION: Degenerative changes of the spine, as detailed above. Electronically Signed: Genaro Hook at 13:50 EDT , Service support , Lumbar Spine MRI 02/07/20 15:02 IMPRESSION: Multilevel degenerative changes, as described above. Electronically Signed: Rolo Alva, at 3:28 EDT Tel , Service support , Spine X-Ray 02/09/20 12:45 IMPRESSION: Intraoperative imaging provided for L4-L5 epidural block. Electronically Signed: Genaro Hook, at 14:46 EDT , Service support , Dr. Vines, pain management. Operations: None Procedures: - - L4-L5 epidural block. Summary of Care Provided: The patient is a 64 year old F presented to the emergency room because of bilateral leg pain, difficulty ambulating and low back pain. On admission, patient had multiple complaints including pain on the right shoulder, back pain, leg pain and difficulty ambulating at home. There was no symptoms or clinical signs of radiculopathy or acute nerve compression. X-ray of the right femur done because patient complained of right thigh pain and that showed no acute fractures. Right shoulder x-ray done because she complained of right shoulder pain and showed no acute fractures and it was normal. Lumbar spine x-ray revealed degenerative changes of the lumbar spine, no acute findings. Her routine blood work was unremarkable. Urinalysis revealed no evidence of acute cystitis. Creatinine phosphokinase was normal. Patient was admitted, treated with pain medication as needed and MRI lumbar spine performed. MRI lumbar spine revealed multilevel degenerative changes of the lumbar spine without evidence of acute cord compression. Dr. Vines was consulted and patient underwent L4-L5 steroid epidural block. Patient symptoms slightly improved. She was evaluated by PT OT and [facility] to jail facility. Patient discharged to jail facility in a stable medical condition, discharged on OxyIR PRN for pain, meloxicam was discontinued, continued on her other previous home medications, recommended follow-up with PCP in 1 to 2 weeks. - Physical Exam Vitals/I&O's: Vital Signs Temp Pulse Resp BP Pulse Ox 98.0 F 86 16 139/76 H 93 02/12/20 08:29 02/12/20 08:29 02/12/20 08:29 02/12/20 08:29 02/12/20 08:29 Oxygen Delivery Method Room Air Weight: 208 lb 15.971 oz Body Mass Index (BMI) 37.0 Intake and Output for Last 24 Hours 02/10/20 02/11/20 02/12/20 23:59 23:59 23:59 Intake Total 300 / 1200 1980 / 2180 300 / 300 Output Total 1000 / 2000 3350 / 3850 700 / 700 Balance -700 / -800 -1370 / -1670 -400 / -400 General: Alert, Oriented x3, Cooperative, No apparent distress HEENT: Atraumatic, PERRLA, EOMI, Normocephalic Oral: Moist Mucosa, No Gingival or Mucosal Lesions/ Ulcerations Neck: Supple, No JVD, Negative Carotid Bruits, Trachea Midline, Thyroid Normal Size and Texture Lungs: Clear to auscultation, Normal air movement, No rhonchi, No wheeze, No rales Cardiovascular: Regular rate, Regular Rhythm, Normal S1, Normal S2, PMI Normal Abdomen: Bowel Sounds Present, Soft, Non Tender, Non-Distended, No Hepato-splenomegaly Extremities: No clubbing, No cyanosis, No edema Skin: No rashes, No breakdown Lymphatic: No Cervical, Supraclavicular, or Inguinal Adenopathy Neurological: Cranial nerves II-XII grossly intact, - - Symmetrical weakness of both legs due to pain. Power on the upper extremities is 5 x 5 on both sides. Psych/Mental Status: Normal Affect, Appropriate Current Medications Acetaminophen (Tylenol) 1,000 mg PO Q8 [facility] Last Admin: 02/12/20 04:42 Dose: 1,000 mg Documented by: Albuterol Sulfate (Ventolin Aerosols) 2.5 mg INHALATION Q6HWA.RT [facility] Last Admin: 02/12/20 07:11 Dose: 2.5 mg Documented by: Atorvastatin Calcium (Lipitor) 10 mg PO DAILY [facility] Last Admin: 02/11/20 09:03 Dose: 10 mg Documented by: Benztropine Mesylate (Cogentin) 0.5 mg PO BID PRN PRN PRN Reason: SCHIZOPHRENIA Budesonide (Pulmicort Aerosol) 0.5 mg INHALATION Q12H.RT [facility] Last Admin: 02/12/20 07:11 Dose: 0.5 mg Documented by: Bupropion HCl (Wellbutrin Sr (150mg Tablets)) 150 mg PO BID [facility] Last Admin: 02/11/20 22:08 Dose: 150 mg Documented by: Clonazepam (Klonopin) 0.5 mg PO TID PRN PRN PRN Reason: ANXIETY Last Admin: 02/09/20 21:58 Dose: 0.5 mg Documented by: Cyclobenzaprine HCl (Flexeril) 10 mg PO BID PRN PRN PRN Reason: MUSCLE SPASM Last Admin: 02/09/20 21:58 Dose: 10 mg Documented by: Donepezil HCl (Aricept) 10 mg PO DAILY [facility] Last Admin: 02/11/20 09:01 Dose: 10 mg Documented by: Famotidine (Pepcid) 40 mg PO DAILY [facility] Last Admin: 02/11/20 09:04 Dose: 40 mg Documented by: Gabapentin (Neurontin) 400 mg PO TIDCM [facility] Last Admin: 02/12/20 08:32 Dose: 400 mg Documented by: Lisinopril (Zestril) 20 mg PO DAILY [facility] Last Admin: 02/11/20 09:12 Dose: 20 mg Documented by: Melatonin (Melatonin) 5 mg PO QHS [facility] Last Admin: 02/11/20 22:06 Dose: Not Given Documented by: Memantine (Namenda) 10 mg PO BID [facility] Last Admin: 02/11/20 22:07 Dose: 10 mg Documented by: Morphine Sulfate () 2 mg IV Q4H PRN PRN PRN Reason: Pain Score 6-10/10 Last Admin: 02/09/20 14:08 Dose: 2 mg Documented by: Ondansetron HCl (Zofran) 4 mg IV Q8H PRN PRN PRN Reason: NAUSEA/VOMITING Oxycodone HCl (Oxyir) 5 mg PO Q6H PRN PRN PRN Reason: Pain Score 4-5/10 Last Admin: 02/12/20 04:36 Dose: 5 mg Documented by: Perphenazine (Perphenazine) 8 mg PO TID [facility] Last Admin: 02/12/20 04:41 Dose: 8 mg Documented by: Polyethylene Glycol (Miralax) 17 gm PO DAILY [facility] Last Admin: 02/11/20 09:04 Dose: Not Given Documented by: Senna/Docusate Sodium (Senokot-S, Debra-Colace) 2 tablet PO BID [facility] Last Admin: 02/11/20 22:09 Dose: 2 tablet Documented by: Sertraline HCl (Zoloft) 200 mg PO DAILY [facility] Last Admin: 02/11/20 09:02 Dose: 200 mg Documented by: Sodium Chloride () 10 - 40 ml IV UD PRN PRN Reason: SALINE FLUSH Last Admin: 02/09/20 10:47 Dose: 10 ml Documented by: Home Medications: Medications to take at Discharge Sertraline HCl [Zoloft] 200 mg PO DAILY 12/15/17 buPROPion SR [Wellbutrin SR (150mg tablets)] 150 mg PO BID 12/15/17 paliperidone palmitate 234 mg/1.5 mL intramuscular syringe 234 mg IM QMONTH 02/17/19 Acetaminophen 1,000 mg PO TID 04/09/19 Clonazepam [Klonopin] 0.5 mg PO TID PRN PRN 04/09/19 Famotidine [Pepcid] 40 mg PO DAILY 07/05/19 Memantine HCl [Namenda] 10 mg PO BID 07/05/19 Budesonide/Formoterol 160/4.5 [Symbicort 160/4.5 Mcg Inhaler (SP)] 2 puff INHALATION BID 12/11/19 Docusate Sodium [Dok] 100 mg PO BID 12/11/19 [place]-3 Fatty Acids/Fish Oil [Fish Oil 1,000 mg Capsule] 1 cap PO BID 12/11/19 Acetaminophen 325 mg PO Q6H PRN PRN 02/07/20 Atorvastatin Calcium [Lipitor] 10 mg PO QHS 02/07/20 Benztropine Mesylate 0.5 mg PO BID 02/07/20 Donepezil HCl [Aricept] 10 mg PO DAILY 02/07/20 Guaifenesin 400 mg PO TID PRN PRN 02/07/20 Lisinopril 20 mg PO DAILY 02/07/20 Lisinopril [Prinivil] 5 mg PO DAILY 02/07/20 Melatonin 5 mg PO QHS 02/07/20 Naproxen [Naprosyn] 500 mg PO BID PRN PRN 02/07/20 Perphenazine 8 mg PO TID 02/07/20 cycloBENZAPRine HCl [Flexeril] 10 mg PO BID PRN 02/07/20 Oxycodone [Oxyir] 5 mg PO Q6H PRN PRN 5 Days #20 tab 02/12/20 Following Prescrptions Were Given to Patient: Oxycodone [Oxyir] 5 mg PO Q6H PRN PRN 5 Days #20 tab PRN Reason: Pain Score 4-5/10 Prescription Printed Primary Care Physician: Dena Stevens NP-C [Primary Care Provider] - Please follow up with your Primary Care Physician in: within 1-2 weeks Disposition: Longterm facility Minutes spent on discharge:: 27 Patient Condition:: Stable Medical Necessity - Tobacco Use Smoking Status: Former smoker Tobacco Use: Cigarettes Meaningful Use Info Meaningful Use Diagnoses (Choose all that apply): None applicable Inpatient E&M: 04894 Disch Hosp
[2020-02-12] MEDS: Lisinopril 20 MG Tablet PO (10:53)
[2020-02-12] MEDS: Famotidine 20 MG Tablet 40 MG PO (10:53)
[2020-02-12] MEDS: Senna/Docusate Sodium 1 Tablet 2 TABLET PO (10:53)
[2020-02-12] MEDS: Atorvastatin Calcium 10 MG Tablet PO (10:54)
[2020-02-12] MEDS: Donepezil HCl 10 MG Tablet PO (10:54)
[2020-02-12] MEDS: Sertraline 100 MG Tablet 200 MG PO (10:54)
[2020-02-12] MEDS: buPROPion (SR) 150 MG Tablet.SA PO (10:54)
[2020-02-12] MEDS: Memantine Hydrochloride 10 MG Tablet PO (10:54)
== END 2020-02-12 12:15 | disposition skilled nursing facility (03) ==
LOC: ED 13:15 → MS3 14:31
PROVIDERS: Anesthesiology Pain Medicine; Internal Medicine; Admitting Provider Hospitalist; Emergency Provider Emergency Medicine; PCP Nurse Practitioner Adult Health; Visit Provider Hospitalist
PROC: 3E0S3BZ Introduction of Anesthetic Agent into Epidural Space, Percutaneous Approach (ICD-10-PCS; CPT 62322; principal; 2020-02-09 12:25)
DX: M47.26 Other spondylosis with radiculopathy, lumbar region (principal); G89.29 Other chronic pain; R53.1 Weakness; J44.9 Chronic obstructive pulmonary disease, unspecified; F41.9 Anxiety disorder, unspecified; F32.9 Major depressive disorder, single episode, unspecified; E78.5 Hyperlipidemia, unspecified; I10 Essential (primary) hypertension; F25.9 Schizoaffective disorder, unspecified; G30.9 Alzheimer's disease, unspecified; F02.80 Dementia in other diseases classified elsewhere, unspecified severity, without behavioral disturbance, psychotic disturbance, mood disturbance, and anxiety; G47.33 Obstructive sleep apnea (adult) (pediatric); K21.9 Gastro-esophageal reflux disease without esophagitis; E66.9 Obesity, unspecified; Z79.899 Other long term (current) drug therapy; Z79.51 Long term (current) use of inhaled steroids; Z68.37 Body mass index [BMI] 37.0-37.9, adult; Z87.891 Personal history of nicotine dependence
CPT/HCPCS: 01992; 62323; 64483; 72020; 72100; 72148; 73030; 73552; 80048; 81001; 82550; 82962; 85025; 93005; 94640; 96374; 96376; 97110; 97116; 97162; 97166; 97530; 97535; 99218; 99285; A4216; G0378

== ENCOUNTER 2020-11-18 09:02 | Day surgery (SDC) | payer MEDICAID, SELFPAY ==
[2020-02-09 10:32] VITALS: BMI 37.0
[2020-11-18] VITALS (7 sets, daily range): BP systolic 96–135; BP diastolic 62–72; PULSE 73–93; RESP 16; TEMP 36.2–36.5; O2SAT 92–95; BMI 35.2
[2020-11-18] MEDS: Lactated Ringers 1,000 ML 100 ML IV (09:37)
--- NOTE | 2020-11-18 09:45 | RAD_ITS ---
STUDY: X-RAY - LUMBAR SPINE REASON FOR EXAM: Female, 65 years old. LUMBAR FACET INJECTION, L4-S1. 3 levels BILATERALLY TECHNIQUE: 6 intraoperative view(s) of the lumbar spine were obtained. COMPARISON: None FINDINGS: Intraoperative imaging provided for bilateral L4- S1 facet joint injection. RAD/L/S Spine Min 4 Views IMPRESSION: Intraoperative imaging provided for bilateral L4-S1 facet joint injection. Electronically Signed: Genaro Hook MD at 13:21 EST , Service support ,
[2020-11-18] MEDS: Bupivacaine 0.25% 30 ML Vial (09:55)
[2020-11-18] MEDS: MethylPREDNISolone Acetate 40 MG/ML Vial IM (09:55)
[2020-11-18] MEDS: Lidocaine 1% (20 ml mdv) 20 ML Vial (09:56)
--- NOTE | 2020-11-18 15:43 | PCM.OPRPT ---
Report of Operation Date of Procedure: 11/18/20 Description of Surgical Findings:: Preoperative diagnosis: Lumbosacral spondylosis, lumbosacral degenerative disc disease, lumbar facet arthropathy Postoperative diagnosis: Lumbosacral spondylosis, lumbosacral degenerative disc disease, lumbar facet arthropathy PROCEDURE PERFORMED: Bilateral lumbar facet steroid injection, L4, L5, and S1. ANESTHESIA: MAC. BLOOD LOSS: Minimal. COMPLICATIONS: None. DESCRIPTION OF PROCEDURE: History and physical of today was reviewed. Risks and benefits of the procedure were explained. The patient understood and agreed to proceed. Informed consent was obtained. IV inserted per routine protocol. The patient was taken to the operating room and placed in the prone position with a pillow positioned underneath the abdomen. The lower back area was prepped and draped in a sterile fashion using iodine x3. Under fluoroscopy guidance on AP view, the L4 through S1 vertebral bodies were visualized. The skin and subcutaneous tissue was anesthetized with approximately 5 mL of 1% lidocaine using a 25-gauge regular needle. Under direct visualization with fluoroscopy, at approximately 25-degree angle, starting on the left L4, ending on the right L4, passing through the L5 and S1 bilaterally, using a 22-gauge 3-1/2-inch spinal needle, the needle was advanced via the skin. The tip of the needle was maneuvered and directed towards the superior medial gutter of the transverse process at the vicinity of the medial branch. Once tip of the needle was in contact with the bone, the needle was pulled approximately 2 mm off the bone. After negative aspiration for blood or CSF and confirmation on AP, oblique as well as lateral view, a total of 12 mL of preservative-free 0.25% Marcaine with 80 mg of Depo-Medrol was injected in divided doses between those six levels. The needles were then removed intact. The patient experienced no sign or symptoms of intrathecal or intravascular injection. The patient experienced no paresthesia. The procedure was completed without any apparent difficulty or any complications. The patient appeared to tolerate it well. ASSESSMENT AND PLAN: This is a 65-year-old female with lumbosacral spondylosis, lumbosacral degenerative disc disease, lumbar facet arthropathy status post bilateral lumbar facets steroid injection L4-S1, patient will continue her current medications, patient will follow in approximately 2 weeks for reevaluation.
== END 2020-11-18 10:58 | disposition home or self-care (01) ==
LOC: SDC 09:03 → AC 09:04
PROVIDERS: PCP Nurse Practitioner Adult Health; Referring Provider Anesthesiology Pain Medicine; Visit Provider Anesthesiology Pain Medicine
PROC: 3E0T3BZ Introduction of Anesthetic Agent into Peripheral Nerves and Plexi, Percutaneous Approach (ICD-10-PCS; CPT 64493; principal; 2020-11-18 10:05)
DX: M51.17 Intervertebral disc disorders with radiculopathy, lumbosacral region (principal); M47.27 Other spondylosis with radiculopathy, lumbosacral region; M48.07 Spinal stenosis, lumbosacral region; Z79.891 Long term (current) use of opiate analgesic; I10 Essential (primary) hypertension; E78.5 Hyperlipidemia, unspecified; G47.33 Obstructive sleep apnea (adult) (pediatric); F41.9 Anxiety disorder, unspecified; J44.9 Chronic obstructive pulmonary disease, unspecified; F32.9 Major depressive disorder, single episode, unspecified; K21.9 Gastro-esophageal reflux disease without esophagitis; Z87.891 Personal history of nicotine dependence; Z79.51 Long term (current) use of inhaled steroids; Z79.899 Other long term (current) drug therapy
CPT/HCPCS: 64493; 64494 ×2; 64483; 72110; J7120

== ENCOUNTER 2021-04-21 09:23 | Day surgery (SDC) | payer MEDICAID, SELFPAY ==
[2020-11-18 09:28] VITALS: BMI 35.2
[2021-04-21] MEDS: Lactated Ringers 1,000 ML 100 ML IV (09:55)
[2021-04-21 10:01] VITALS: BP 117/75; PULSE 65; RESP 16; TEMP 36.2; O2SAT 96; BMI 34.0
[2021-04-21 10:10] LABS: Bedside Glucose 111 mg/dL (70-110)
[2021-04-21] MEDS: Lidocaine 1% (5 ml sdv) 5 ML Vial (10:26)
[2021-04-21] MEDS: MethylPREDNISolone Acetate 80 MG/ML Vial (10:26)
[2021-04-21] MEDS: Bupivacaine 0.25% 30 ML Vial (10:26)
--- NOTE | 2021-04-21 10:28 | RAD_ITS ---
PROCEDURE: Bilateral L4-S1 facet injection. DATE OF EXAMINATION: 04/21/2021. INDICATION: Female, 65 years old. Chronic low back pain. FLUOROSCOPY TIME (if supplied): (25.1 seconds.) minutes/seconds. 7 images were obtained. RAD/L/S Spine Min 4 Views IMPRESSION: Intraoperative imaging provided for bilateral L4-S1 facet injection. Electronically Signed: Genaro Hook MD at 20:19 EDT , Service support ,
[2021-04-21 10:38] VITALS: BP 100/59; BP 117/75; PULSE 80; RESP 14; TEMP 36.7; O2SAT 96
[2021-04-21 10:45] VITALS: BP 117/75; BP 118/67; PULSE 72; RESP 18; O2SAT 94
[2021-04-21 10:50] VITALS: BP 115/74; BP 117/75; PULSE 68; RESP 18; O2SAT 94
[2021-04-21 10:55] VITALS: BP 114/78; BP 117/75; PULSE 65; RESP 18; TEMP 37.4; O2SAT 93
--- NOTE | 2021-04-21 15:53 | PCM.HP.BLA ---
History and Physical Date of Admission: 04/21/21 CC Follow up/medication refill HPI This is a 65 Y/O female was evaluated via telephone encounter for a follow up. Pain: low back,right side hip,left upper thigh Quality: constant,varies in intensity Region: Pain in the lower back radiates across into right hip.Intermittant pain in left upper thigh. Severity: aching,intense,occasional sharp Timin05/2019 Aggravated by: standing Relieved by: nothing Pain score (out of 10): 5/10 Other info: Follow up for pain in lower back and right side hip. States her left thigh hurts on occasion. States pain is intermittent and hurts when she is sitting down. States pain is sharp/stabbing. States she would like to discuss having an injection. Denies any side effects to medication. Needs refill. ROS Patient denies any recent fever, chills, headache, change in weight without trying, vision or hearing problems. No cp, sob, celestin, pnd, orthopnea, or peripheral edema.They note no lumps or swollen glands, no new rashes, changing moles, or change in bowel or bladder function. Mood has been good overall. PMH h/o hypertension h/o hyperlipidemia h/o obstructive sleep apnea h/o schizophrenia h/o anxiety h/o depression h/o asthma h/o acid reflux h/o hallucinations h/o psychosis s/p tubal ligation SH [Tobacco: Former smoker (0 pk yrs / 0 yrs quit) Start Date: 05/28/2020 End Date: 05/28/2020 Pipe Smoker: No Cigar Smoker: No Chewing Tobacco User: No Electronic Cigarette User: No] Living situation: Assisted Living Occupation: SSI Tobacco: Former EtOH: Denies Rec. drugs: Denies FH ======== Structured Family History ======== Patient does not know family's health history [employer] The information on this page is confidential. Any release of this information requires the written authorization of the patient listed above. Page 1 of 3 Printed By: Sheryl Jiang, CARDIAC MONITOR TECHNICIAN 05/09/2021 3:37:02 PM JESSENIA ARROYO (: 1955 ID: [id number]) Mar 18, 2021 Tue 03:15 PM Allergies No Known Allergies Meds 1) acetaminophen 325 mg oral tablet, Take 1 tablet by mouth every 6 hours prn pain 2) acetaminophen 500 mg oral tablet, Take 1 or 2 tablet(s) by mouth every 8 hours as needed for pain 3) Acidophilus oral capsule, Take 1 tablet by mouth once daily 4) benztropine 0.5 mg oral tablet, Take 1 tablet by mouth 2 times a Day 5) buPROPion 150 mg/12 hours (SR) oral tablet, extended release, Take 1 tablet by mouth 2 times a Day 6) cetirizine 10 mg oral tablet, Take 1 tablet by mouth every evening 7) clotrimazole 1% topical cream, bid as directed 8) Colace 100 mg oral capsule, Take 1 tablet by mouth 2 times a Day 9) docusate sodium 100 mg oral capsule, Take 1 tablet by mouth 2 times a Day 10) donepezil 10 mg oral tablet, Take 1 tablet by mouth once daily 11) Fiber Lax 625 mg oral tablet, Take 1 tablet by mouth 2 times a Day 12) Fish Oil 1000 mg oral capsule, Take 1 tablet by mouth 2 times a Day 13) fluticasone 50 mcg/inh nasal spray, 1 spray in each nostril once daily prn 14) GaviLAX oral powder for reconstitution, daily as directed prn 15) guaiFENesin 100 mg/5 mL oral liquid, as directed q8 hrs prn 16) Imodium A-D 2 mg oral tablet, as directed prn 17) Invega Sustenna 234 mg/1.5 mL intramuscular suspension, extended release, as directed every 30 days 18) latanoprost 0.005% ophthalmic solution, 1 gtt both eyes @ hs 19) Lipitor 10 mg oral tablet, Take 1 tablet by mouth every evening 20) lisinopril 20 mg oral tablet, Take 1 tablet by mouth once daily 21) lisinopril 5 mg oral tablet, Take 1 tablet by mouth once daily w/20mg tablet 22) Melatonin 5 mg oral tablet, Take 1 tablet by mouth every evening 23) memantine 10 mg oral tablet, Take 1 tablet by mouth 2 times a Day 24) Milk of Magnesia 8% oral suspension, daily as directed 25) MiraLax oral powder for reconstitution, daily as directed prn 26) Mobic 7.5 mg oral tablet, One tablet daily with food 27) montelukast 10 mg oral tablet, Take 1 tablet by mouth once daily 28) Muscle Rub External Cream, 3-4x daily as directed prn 29) omeprazole 20 mg oral delayed release tablet, Take 1 tablet by mouth once daily 30) perphenazine 8 mg oral tablet, Take 1 tablet by mouth 3 Times a Day 31) QUEtiapine 100 mg oral tablet, Take 1 tablet by mouth every evening 32) SEROquel XR 300 mg oral tablet, extended release, Take 1 tablet by mouth every evening 33) sertraline 100 mg oral tablet, Take 2 tablet by mouth once daily 34) Symbicort 160 mcg-4.5 mcg/inh inhalation aerosol, 2 puffs inhalation bid 35) Vitamin D2 2000 intl units oral capsule, Take 2 tablet by mouth once daily Vitals Wt: 193 lb Ht/Ln: 63 in BMI: 34.2 Pain: 5 PE Discussion via telephone encounter: Pt is alert and oriented X3. Pt consented to telephone encounter No audible shortness of breath noted Pt verbally describes: Gait is Antalgic with a walker Bilateral lumbar facet loading is positive. Lumbar paraspinal muscle tenderness increased with extension Lumbar ROM is limited due to pain. Motor and sensory exam is unchanged. A/P # Degeneration of lumbosacral intervertebral disc (M51.37): # Lumbosacral spondylosis (M47.817): [employer] The information on this page is confidential. Any release of this information requires the written authorization of the patient listed above. Page 2 of 3 Printed By: Sheryl Jiang, CARDIAC MONITOR TECHNICIAN 05/09/2021 3:37:02 PM JESSENIA ARROYO (: 1955 ID: [id number]) Mar 18, 2021 Tue 03:15 PM # Lumbosacral radiculopathy (M54.17): # Lumbosacral stenosis (M48.07): # Arthropathy of lumbar facet (M46.96): # Other manager terminal (current) drug therapy (Z79.899): PRESCRIBE: Mobic 7.5 mg oral tablet, One tablet daily with food, # 30, RF: 0. (Transmitted by KATHE GARCIA NP) Continue current medication regime. OARRS was reviewed today. UDS was reviewed, pt appears compliant SOAPP score is 2 MRI of the lumbar spine was reviewed with the pt today and they appear to understand. There are no signs of diversion or addiction with the pt, there is also no signs of abuse or misuse, continues to do well with their medications without any side effects, we will continue monitoring the pt closely. Reviewed with the pt today our opioid agreement and they appear to understand. PEG was reviewed today. Life style modifications were also discussed today and the pt appears to understand. Weight loss was recommended today through diet and exercise Risks and benefits of the above meds were discussed with the pt and they appear to understand. The common side effects of the medications were discussed and all of their questions and concerns were answered and they appear to understand Discussed natural and expected course of this diagnosis and need to alert me if symptoms do not follow expected course, or if any worse. Pt is to continue with her PT and HEP. Pt has tried multiple modalities with no success, we will reschedule the pt to repeat a therapeutic/diagnostic bilateral lumbar facet intra articular steroid injection L4-S1 under fluoroscopy We have discussed the risks, benefits as well as alternatives of the procedure and the patient appears to understand and would like to proceed with the above plan. The above plan was discussed today with the pt in details and they appear to understand and agrees to continue with the plan. appt approx 15 min
--- NOTE | 2021-04-21 16:52 | OP.PCM_ITS ---
Report of Operation Date of Procedure: 04/21/21 Pre-Operative Diagnosis: Lumbosacral spondylosis, lumbosacral degenerative disc disease, lumbar facet arthropathy Post-Operative Diagnosis: Lumbosacral spondylosis, lumbosacral degenerative disc disease, lumbar facet arthropathy Description of Surgical Findings:: PROCEDURE PERFORMED: Bilateral lumbar facet steroid injection, L4, L5, and S1. ANESTHESIA: MAC. BLOOD LOSS: Minimal. COMPLICATIONS: None. DESCRIPTION OF PROCEDURE: History and physical of today was reviewed. Risks and benefits of the procedure were explained. The patient understood and agreed to proceed. Informed consent was obtained. IV inserted per routine protocol. The patient was taken to the operating room and placed in the prone position with a pillow positioned underneath the abdomen. The lower back area was prepped and draped in a sterile fashion using iodine x3. Under fluoroscopy guidance on AP view, the L4 through S1 vertebral bodies were visualized. The skin and subcutaneous tissue was anesthetized with approximately 5 mL of 1% lidocaine using a 25-gauge regular needle. Under direct visualization with fluoroscopy, at approximately 25-degree angle, starting on the left L4, ending on the right L4, passing through the L5 and S1 bilaterally, using a 22-gauge 3-1/2-inch spinal needle, the needle was advanced via the skin. The tip of the needle was maneuvered and directed towards the superior medial gutter of the tra nsverse process at the vicinity of the medial branch. Once tip of the needle was in contact with the bone, the needle was pulled approximately 2 mm off the bone. After negative aspiration for blood or CSF and confirmation on AP, oblique as well as lateral view, a total of 12 mL of preservative-free 0.25% Marcaine with 80 mg of Depo-Medrol was injected in divided doses between those six levels. The needles were then removed intact. The patient experienced no sign or symptoms of intrathecal or intravascular injection. The patient experienced no paresthesia. The procedure was completed without any apparent difficulty or any complications. The patient appeared to tolerate it well. ASSESSMENT AND PLAN: This is 65-year-old female with lumbosacral spondylosis, lumbosacral degenerative disease, lumbar facet arthropathy, status post bilateral lumbar facet steroid injection L4-S1, patient will continue her current medications, patient will follow in approximately 2 weeks for reevaluation.
--- NOTE | 2021-04-21 16:54 | OP.PCM_ITS ---
Report of Operation Date of Procedure: 04/21/21
--- NOTE | 2021-04-21 16:54 | PCM.OPRPT ---
Report of Operation Date of Procedure: 04/21/21
== END 2021-04-21 11:38 | disposition home or self-care (01) ==
LOC: SDC 09:25 → AC 10:07
PROVIDERS: PCP Nurse Practitioner Adult Health; Referring Provider Anesthesiology Pain Medicine; Visit Provider Anesthesiology Pain Medicine
PROC: 3E0T3BZ Introduction of Anesthetic Agent into Peripheral Nerves and Plexi, Percutaneous Approach (ICD-10-PCS; CPT 64493; principal; 2021-04-21 10:15)
DX: M51.17 Intervertebral disc disorders with radiculopathy, lumbosacral region (principal); M47.27 Other spondylosis with radiculopathy, lumbosacral region; M48.07 Spinal stenosis, lumbosacral region; F02.80 Dementia in other diseases classified elsewhere, unspecified severity, without behavioral disturbance, psychotic disturbance, mood disturbance, and anxiety; F32.9 Major depressive disorder, single episode, unspecified; F41.9 Anxiety disorder, unspecified; J44.9 Chronic obstructive pulmonary disease, unspecified; K21.9 Gastro-esophageal reflux disease without esophagitis; E66.9 Obesity, unspecified; G47.33 Obstructive sleep apnea (adult) (pediatric); F20.9 Schizophrenia, unspecified; I10 Essential (primary) hypertension; E78.5 Hyperlipidemia, unspecified; Z68.34 Body mass index [BMI] 34.0-34.9, adult; Z87.891 Personal history of nicotine dependence; Z79.51 Long term (current) use of inhaled steroids; Z79.899 Other long term (current) drug therapy
CPT/HCPCS: 64493; 64494 ×2; 64483; 72110; 82962; J7120

== ENCOUNTER 2021-05-19 09:29 | Day surgery (SDC) | payer MEDICAID, SELFPAY ==
--- NOTE | 2021-05-19 10:40 | RAD_ITS ---
PROCEDURE: Caudal block. DATE OF EXAMINATION: 05/19/2021 INDICATION: Female, 66 years old. Chronic low back pain. FLUOROSCOPY TIME (if supplied): (5 seconds) minutes/seconds RAD/Fluor Guidance for Spine Inj IMPRESSION: Intraoperative imaging provided for caudal block. Electronically Signed: Genaro Hook MD at 15:51 EDT , Service support ,
[2021-05-19 10:52] VITALS: BP 122/73; PULSE 80; RESP 16; TEMP 36.4; O2SAT 95; BMI 34.0
[2021-05-19] MEDS: Lactated Ringers 1,000 ML 100 ML IV (11:06)
[2021-05-19] MEDS: Bupivacaine Mpf 0.5% 30 ML VIAL (11:42)
[2021-05-19] MEDS: 0.9% Normal Saline (Pres. free 10 ML Vial (11:42)
[2021-05-19] MEDS: MethylPREDNISolone Acetate 80 MG/ML Vial (11:42)
[2021-05-19] MEDS: Lidocaine 1% (5 ml sdv) 5 ML Vial (11:43)
[2021-05-19 11:57] VITALS: BP 122/73; BP 97/67; PULSE 75; RESP 12; TEMP 36.2; O2SAT 94
[2021-05-19 12:05] VITALS: BP 108/71; BP 122/73; PULSE 72; RESP 12; O2SAT 95
[2021-05-19 12:10] VITALS: BP 116/68; BP 122/73; PULSE 68; RESP 12; O2SAT 94
[2021-05-19 12:12] VITALS: BP 122/73
--- NOTE | 2021-05-19 12:26 | OP.PCM_ITS ---
Report of Operation Date of Procedure: 05/19/21 Pre-Operative Diagnosis: Lumbosacral radiculopathy, lumbosacral degenerative di sc disease, lumbosacral spinal stenosis Post-Operative Diagnosis: Lumbosacral radiculopathy, lumbosacral degenerative disc disease, lumbosacral spinal stenosis Surgery/Procedure Performed:: Caudal epidural steroid injection under fluoroscopic guidance Type of Anesthesia: MAC Estimated Blood Loss (mL): Minimal Description of Procedure: DESCRIPTION OF PROCEDURE: History and physical of today was reviewed. Risks and benefits of the procedure were explained. The patient understood and agreed to proceed. Informed consent was obtained. IV inserted per routine protocol. The patient was taken to the operating room and placed in the prone position with a pillow positioned underneath the abdomen. The lower back and tailbone area was prepped and draped in a sterile fashion using iodine x3. Under fluoroscopy guidance on a lateral view, the caudal space was identified. The skin and subcutaneous tissue was anesthetized with approximately 3 mL of 1% lidocaine using a 25-gauge regular needle. Under direct visualization with fluoroscopy, using a 22-gauge 3-1/2-inch spinal needle, the needle was advanced via the skin through the sacral hiatus. The tip of the needle was passed through the sacrococcygeal ligament and advanced to approximately S4 area. After negative aspiration of blood or CSF, a total of 3 mL of contrast was injected to confirm correct placement of the needle as well as cephalad spread. The spread was followed to approximately L5 area. After confirmation on AP as well as lateral view and repeated negative aspiration, a total of 15 mL of preservative-free 0.125% Marcaine with 80 mg of Depo-Medrol was injected easily. The needle was then removed intact. The patient experienced no sign or symptoms of intrathecal or intravascular injection. The patient experienced no paresthesia. The procedure was completed without any apparent difficulty or any complications. The patient appeared to tolerate it well. ASSESSMENT AND PLAN: This is a 66-year-old female with lumbosacral radiculopathy, lumbosacral degenerative disc disease, lumbosacral spinal stenosis status post caudal epidural steroid injection, patient will continue her current medications, patient will follow in approximately 2 weeks for reevaluation. Complications None
[2021-05-19 13:10] VITALS: BP 122/73
== END 2021-05-19 13:46 | disposition home or self-care (01) ==
LOC: SDC 09:30 → AC 10:13
PROVIDERS: PCP Nurse Practitioner Adult Health; Visit Provider Anesthesiology Pain Medicine
PROC: 3E0S3BZ Introduction of Anesthetic Agent into Epidural Space, Percutaneous Approach (ICD-10-PCS; CPT 62282; principal; 2021-05-19 10:35)
DX: M51.17 Intervertebral disc disorders with radiculopathy, lumbosacral region (principal); M47.27 Other spondylosis with radiculopathy, lumbosacral region; M48.07 Spinal stenosis, lumbosacral region; G30.9 Alzheimer's disease, unspecified; F02.80 Dementia in other diseases classified elsewhere, unspecified severity, without behavioral disturbance, psychotic disturbance, mood disturbance, and anxiety; I10 Essential (primary) hypertension; E78.5 Hyperlipidemia, unspecified; G47.33 Obstructive sleep apnea (adult) (pediatric); F41.9 Anxiety disorder, unspecified; F32.9 Major depressive disorder, single episode, unspecified; J45.909 Unspecified asthma, uncomplicated; K21.9 Gastro-esophageal reflux disease without esophagitis; E66.9 Obesity, unspecified; Z68.34 Body mass index [BMI] 34.0-34.9, adult; Z87.891 Personal history of nicotine dependence; Z79.51 Long term (current) use of inhaled steroids; Z79.899 Other long term (current) drug therapy
CPT/HCPCS: 62323; 64520; 64483; 77003; J7120; J3490

== ENCOUNTER 2021-06-23 08:32 | Day surgery (SDC) | payer MEDICAID, SELFPAY ==
--- NOTE | 2021-06-23 09:00 | RAD_ITS ---
PROCEDURE: Radiofrequency ablation. DATE OF EXAMINATION: 06/23/2021. INDICATION: Female, 66 years old. Chronic low back pain. FLUOROSCOPY TIME (if supplied): (21 seconds) minutes/seconds. 10 images were obtained. RAD/L/S Spine Min 4 Views IMPRESSION: Intraoperative imaging provided for right L3-S1 radiofrequency ablation. Electronically Signed: Genaro Hook MD at 15:48 EDT , Service support ,
[2021-06-23 09:05] VITALS: BP 141/80; PULSE 85; RESP 16; TEMP 36.2; O2SAT 95; BMI 35.2
[2021-06-23] MEDS: Lactated Ringers 1,000 ML 100 ML IV (09:11)
[2021-06-23] MEDS: Lidocaine 1% (30 ml sdv) 30 ML Vial (09:30)
[2021-06-23] MEDS: Bupivacaine 0.25% 30 ML Vial (09:30)
[2021-06-23] MEDS: MethylPREDNISolone Acetate 40 MG/ML Vial IM (09:33)
[2021-06-23 09:50] VITALS: BP 112/72; BP 141/80; PULSE 73; RESP 18; TEMP 36.4; O2SAT 93
[2021-06-23 09:50] LABS: Bedside Glucose 116 mg/dL (70-110)
[2021-06-23 09:55] VITALS: BP 124/81; BP 141/80; PULSE 73; RESP 16; O2SAT 93
[2021-06-23 10:00] VITALS: BP 137/86; BP 141/80; PULSE 69; RESP 16; O2SAT 94
[2021-06-23 10:06] VITALS: BP 141/80; BP 144/79; PULSE 68; RESP 16; TEMP 36.4; O2SAT 94
[2021-06-23 10:25] VITALS: BP 141/80
--- NOTE | 2021-06-23 14:29 | PCM.OPRPT ---
Report of Operation Date of Procedure: 06/23/21 Pre-Operative Diagnosis: Lumbosacral spondylosis, lumbosacral degenerative disc disease, lumbar facet arthropathy Post-Operative Diagnosis: Lumbosacral spondylosis, lumbosacral degenerative disc disease, lumbar facet arthropathy Surgery/Procedure Performed:: Right-sided lumbar radiofrequency ablation of the medial branch L3, L4, L5, S1 Type of Anesthesia: MAC Estimated Blood Loss (mL): Minimal Description of Procedure: History and physical today was reviewed. Risks and benefits of procedure explained. The patient understood, agreed to the procedure and informed consent was obtained. IV inserted per routine protocol. The patient was taken to the operating room, placed in the prone position with a pillow positioned underneath the abdomen. The right side of the lower back was prepped and draped in a sterile fashion using iodine x 3. Under fluoroscopy guidance, on an oblique view, the L3 through S1 vertebral bodies were visualized. The skin and subcutaneous tissue was anesthetized with approximately 10 mL of 1% lidocaine using a 25-gauge regular needle. Under direct visualization with fluoroscopy at approximately 25-degree angle, starting on the right L3, ending on the right S1 passing through the L4-L5 using a 20-gauge 15 cm with a 10 mm curved active tip radiofrequency ablation needle the needle passed through the skin. The tip of the needle was maneuvered and directed towards the superior and medial gutter of the transverse process at the vicinity of the medial branch. Once the tip of the needle was in contact with the bone, the needle pulled approximately 2 mm up the bone. The stylet of each needle was then removed. After negative aspiration of blood with CSF and confirmation of AP as well as oblique view, radiofrequency ablation probe was then inserted at each level. Impedance was then recorded at L3 to be 331, at L4 295, at L5 261, at S1 232 ohm. Motor-evoked potential was then initiated to 1.5 volt without any motor response at each corresponding level. The probe was then removed intact and a total of 6 mL preservative-free 1% lidocaine was injected in divided doses between those 4 levels after negative aspiration of blood with CSF. The radiofrequency ablation probe was then reinserted after confirmation of AP, oblique as well as lateral view. Radiofrequency ablation was then initiated to 80 degrees Celsius for 90 seconds at each level. Once concluded, the probe was then removed intact and a total of 6 mL of preservative-free 0.25% Marcaine with 40 mg Depo-Medrol was injected in divided doses between those 4 levels. The needles were then removed intact. The patient experienced no signs or symptoms of intrathecal, intravascular injection. The patient experienced no paraesthesia. The procedure was completed without any apparent difficulty, any complication. The patient appeared to tolerate well. Sensory as well as motor exam was unchanged from prior to procedure. ASSESSMENT AND PLAN: This is a 66-year-old female with lumbosacral spondylosis, lumbosacral degenerative disc disease, lumbar facet arthropathy, status post right-sided radiofrequency ablation of the medial branch L3 through S1. The patient will continue her current medications. The patient will follow up in approximately 2 weeks for reevaluation. Complications None
== END 2021-06-23 11:05 | disposition home or self-care (01) ==
LOC: SDC 08:33 → AC 08:36
PROVIDERS: PCP Nurse Practitioner Adult Health; Referring Provider Anesthesiology Pain Medicine; Visit Provider Anesthesiology Pain Medicine
PROC: (CPT 64635; principal; 2021-06-23 09:55)
DX: M47.27 Other spondylosis with radiculopathy, lumbosacral region (principal); M51.17 Intervertebral disc disorders with radiculopathy, lumbosacral region; M46.96 Unspecified inflammatory spondylopathy, lumbar region; M48.07 Spinal stenosis, lumbosacral region; E66.9 Obesity, unspecified; Z68.35 Body mass index [BMI] 35.0-35.9, adult; I10 Essential (primary) hypertension; E78.5 Hyperlipidemia, unspecified; G47.33 Obstructive sleep apnea (adult) (pediatric); F20.9 Schizophrenia, unspecified; F41.9 Anxiety disorder, unspecified; F32.9 Major depressive disorder, single episode, unspecified; J44.9 Chronic obstructive pulmonary disease, unspecified; K21.9 Gastro-esophageal reflux disease without esophagitis; Z79.899 Other long term (current) drug therapy; Z87.891 Personal history of nicotine dependence
CPT/HCPCS: 01992; 64635; 64636 ×2; 72110; 76000; 82962; J7120

== ENCOUNTER → 2021-08-04 13:45 | Outpatient (CLI) | payer MEDICAID, SELFPAY ==
--- NOTE | 2021-08-04 13:49 | BI_ITS ---
MAMMOGRAPHY - BILATERAL SCREENING REASON FOR EXAM: Female, 66 years old. Routine annual screening examination. PERTINENT HISTORY: Non-contributory. TECHNIQUE: Digital bilateral breast petey (3D mammographic acquisition) in the CC and MLO projections. 2-D mediolateral oblique (MLO) and craniocaudad (CC) views of both breasts were obtained. CAD: Full Field Digital Mammography with Computer Added Detection was performed. COMPARISON: Comparison is made with prior outside examination dated 07/03/2018 and 12/15/2018. FINDINGS: Breast Composition: There are scattered areas of fibroglandular density. There are no dominant masses or suspicious calcifications. Stable small benign-appearing bilateral axillary lymph nodes. No other significant abnormalities are identified. There has been no significant change since the prior study. BI/SCRN MAMM (CAD)W/PETEY BILAT IMPRESSION: Stable bilateral screening mammogram. Yearly follow-up mammogram recommended. (A) ASSESSMENT CATEGORY: BIRADS Category 2: Benign. A letter regarding these results will be sent to the patient by the facility within 30 days. Approximately 10% of breast cancers are not detected by mammography. A normal mammogram should not delay biopsy of a clinically suspicious abnormality. [id number] Electronically Signed: Genaro Hook MD at 15:21 EDT , Service support ,
== END ==
PROVIDERS: PCP Nurse Practitioner Adult Health; Referring Provider Nurse Practitioner Women's Health; Visit Provider Nurse Practitioner Women's Health
DX: Z12.31 Encounter for screening mammogram for malignant neoplasm of breast (principal)
CPT/HCPCS: 77063; 77067

== ENCOUNTER → 2021-08-21 14:07 | Outpatient (CLI) | payer MEDICAID, SELFPAY ==
[2021-08-25 08:07] LABS: Alternaria tenuis <0.10 kU/L (Class 0); Ash, White <0.10 kU/L (Class 0); Aspergillus fumigatus <0.10 kU/L (Class 0); Bermuda Grass <0.10 kU/L (Class 0); Birch <0.10 kU/L (Class 0); Black Walnut <0.10 kU/L (Class 0); Cat Hair / Dander,Stand <0.10 kU/L (Class 0); Cedar, Mountain <0.10 kU/L (Class 0); Cladosporium herbarum <0.10 kU/L (Class 0); Cockroach, American <0.10 kU/L (Class 0); Cottonwood <0.10 kU/L (Class 0); D farinae Mite <0.10 kU/L (Class 0); D pteronyssinus <0.10 kU/L (Class 0); Dog Epithelia <0.10 kU/L (Class 0); Elm, American White <0.10 kU/L (Class 0); Immunoglobulin E 10 IU/mL (6-495); Maple/Box Elder <0.10 kU/L (Class 0); Mulberry, White <0.10 kU/L (Class 0); Oak, White <0.10 kU/L (Class 0); Pecan <0.10 kU/L (Class 0); Penicillium Notatum <0.10 kU/L (Class 0); Pigweed, Rough <0.10 kU/L (Class 0); Ragweed, Short/Common <0.10 kU/L (Class 0); Russian Thistle <0.10 kU/L (Class 0); Sheep Sorrel <0.10 kU/L (Class 0); Sycamore, American <0.10 kU/L (Class 0); Timothy Grass <0.10 kU/L (Class 0)
[2021-08-25 13:27] LABS: Mouse Urine <0.10 kU/L (Class 0)
== END ==
PROVIDERS: PCP Nurse Practitioner Adult Health; Referring Provider Otolaryngology; Visit Provider Otolaryngology
DX: T78.40XA Allergy, unspecified, initial encounter (principal)
CPT/HCPCS: 36415; 82785; 86003

== ENCOUNTER → 2022-08-13 | Outpatient (CLI) | payer MEDICAID, SELFPAY ==
--- NOTE | 2022-08-13 12:55 | BI_ITS ---
MAMMOGRAPHY - BILATERAL SCREENING REASON FOR EXAM: Female, 67 years old. Routine annual screening examination. PERTINENT HISTORY: Non-contributory. TECHNIQUE: Digital bilateral breast petey (3D mammographic acquisition) in the CC and MLO projections. 2-D mediolateral oblique (MLO) and craniocaudad (CC) views of both breasts were obtained. CAD: Full Field Digital Mammography with Computer Added Detection was performed. COMPARISON: Comparison is made with prior study dated 08/04/2021 and 12/15/2018. FINDINGS: Breast Composition: There are scattered areas of fibroglandular density. There are no dominant masses or suspicious calcifications. Stable small benign appearing bilateral axillary. No other significant abnormalities are identified. There has been no significant change since the prior study. BI/SCRN MAMM (CAD)W/PETEY BILAT IMPRESSION: Stable bilateral screening mammogram. Yearly follow-up mammogram recommended. (A) ASSESSMENT CATEGORY: BIRADS Category 2: Benign. A letter regarding these results will be sent to the patient by the facility within 30 days. Approximately 10% of breast cancers are not detected by mammography. A normal mammogram should not delay biopsy of a clinically suspicious abnormality. [id number] Electronically Signed: Genaro Hook MD at 14:18 EST ,
== END | disposition home or self-care (01) ==
LOC: OPBI 12:54
PROVIDERS: PCP Nurse Practitioner Adult Health; Visit Provider Nurse Practitioner Women's Health
DX: Z12.31 Encounter for screening mammogram for malignant neoplasm of breast (principal)
CPT/HCPCS: 77063; 77067

== ENCOUNTER → 2023-08-09 | Outpatient (CLI) | payer MEDICAID, SELFPAY ==
--- NOTE | 2023-08-09 12:34 | ART_ITS ---
Reason For Study: Claudication Procedure A bilateral lower extremity continuous wave Doppler with analog waveform analysis,segmental pressures,and ankle brachial indexes without exercise. Did not walk patient on treadmill due to arriving in wheelchair and shakey. Left Segmental Pressures Left brachial= 145mmHg. Left posterior tibial artery = 153mmHg. Left dorsalis pedis artery = 150mmHg. Left digit = 116 mmHg. The left dorsalis pedis waveforms are triphasic. The left posterior tibial artery waveforms are triphasic. Right Segmental Pressures Right brachial= 141mmHg. Right posterior tibial artery = 147mmHg. Right dorsalis pedis artery = 139mmHg. Right digit = 129 mmHg. The right dorsalis pedis waveforms are triphasic. The right posterior tibial artery waveforms are triphasic. Indices The right ankle brachial index by the dorsalis pedis is 0.96. The right ankle brachial index by the posterior tibial artery is 1.01. The right digital-brachial index is 0.89. The left ankle brachial index by the dorsalis pedis is 1.03. The left ankle brachial index by the posterior tibial artery is 1.06. The left digital-brachial index is 0.80. VL/Lower Ext Art Exam w/o Exercis Interpretation Summary Right SHANE 1.01, normal. TBI andDoppler/PVR waveforms of the right leg normal at rest. Left SHANE 1.06, normal. TBI and Doppler/PVR waveforms of the left leg normal at rest. Ordering Physician: Myriam Beauchamp Referring Physician: Dena Neely Performed By: Sheryl Rodriguez RVT
== END | disposition home or self-care (01) ==
LOC: CVS 12:30
PROVIDERS: PCP Nurse Practitioner Adult Health; Referring Provider Physician Assistant; Visit Provider Physician Assistant
DX: I73.9 Peripheral vascular disease, unspecified (principal)
CPT/HCPCS: 93923

== ENCOUNTER 2024-03-03 19:19 | Inpatient (IN) | payer MEDICAID, SELFPAY ==
[2024-03-03 19:20] VITALS: BP 137/81; PULSE 78; RESP 20; TEMP 36.3; O2SAT 93
--- NOTE | 2024-03-03 19:32 | RAD_ITS ---
INDICATION: injury EXAMINATION/TECHNIQUE: X-RAY - RIGHT XR Ankle Min 3 Views COMPARISON: None. FINDINGS: Age indeterminate nondisplaced spiral fracture of the distal fibular diametaphysis with incomplete healing. The ankle mortise is symmetric. No blastic or lytic lesions. Moderate degenerative changes. Soft tissue swelling of the lateral ankle. RAD/Ankle min 3 Views IMPRESSION: Age indeterminate nondisplaced spiral fracture of the distal fibular diametaphysis with incomplete healing. Symmetric ankle mortise. Electronically Signed: Stewart Lara MD at 20:58 EDT ,
--- NOTE | 2024-03-03 19:32 | RAD_ITS ---
INDICATION: injury EXAMINATION/TECHNIQUE: X-RAY - RIGHT XR Foot 2 Views COMPARISON: None. FINDINGS: No acute fracture or malalignment. No blastic or lytic lesions. Moderate scattered degenerative changes. The soft tissues are unremarkable. RAD/Foot 2 Views IMPRESSION: No acute radiographic abnormalities. Electronically Signed: Stewart Lara MD at 20:56 EDT ,
--- NOTE | 2024-03-03 19:33 | RAD_ITS ---
INDICATION: injury EXAMINATION/TECHNIQUE: X-RAY - LEFT XR Ankle Min 3 Views COMPARISON: None. FINDINGS: Subacute minimally displaced bimalleolar fracture with incomplete healing. The ankle mortise is symmetric. No blastic or lytic lesions. Moderate degenerative changes. Soft tissue swelling of the ankle. RAD/Ankle min 3 Views IMPRESSION: Subacute minimally displaced bimalleolar fracture with incomplete healing. Symmetric ankle mortise. Electronically Signed: Stewart Lara MD at 21:00 EDT ,
--- NOTE | 2024-03-03 19:33 | RAD_ITS ---
INDICATION: injury EXAMINATION/TECHNIQUE: X-RAY - LEFT XR Foot 2 Views COMPARISON: None. FINDINGS: No acute fracture or malalignment. No blastic or lytic lesions. Moderate degenerative changes. The soft tissues are unremarkable. RAD/Foot 2 Views IMPRESSION: No acute radiographic abnormalities. Electronically Signed: Stewart Lara MD at 20:59 EDT ,
--- NOTE | 2024-03-03 19:34 | EX.ED.DYSGE1 ---
HPI History of Present Illness Chief Complaint: Lower Extremity Injury Informant: patient Narrative Narrative: Patient presents after falling twice this past week. She states she fell on Wednesday injuring both feet and ankles. She had difficult time getting around for couple days but that seemed to have been improving. She fell again today and reinjured her ankles and feet as well as injuring her right elbow. She did strike her head on Wednesday but no loss of consciousness. She is not on any blood thinners. [facility] Medical History Mitral valve regurgitation Hx of steroid therapy Nicotine dependence, cigarettes, in remission MIK (obstructive sleep apnea) Barretts esophagus Chronic back pain Alzheimer disease GERD (gastroesophageal reflux disease) Obstructive sleep apnea Obesity Nicotine dependence Schizophrenia Anxiety and depression COPD (chronic obstructive pulmonary disease) Essential (primary) hypertension Hyperlipidemia Home Medications ?Medication ?Instructions ?Recorded ?Last Taken ?Type bupropion HCl 150 mg tablet,12 hr 150 mg PO BID mental health 12/15/17 02/06/20 History sustained-release sertraline 100 mg tablet 200 mg PO DAILY depression 12/15/17 02/06/20 History acetaminophen 325 mg tablet 1,000 mg PO TID PAIN 04/09/19 02/06/20 History memantine 10 mg tablet 10 mg PO BID MEMORY 07/05/19 02/06/20 History budesonide-formoterol HFA 160 2 puff inhalation BID SOB 12/11/19 02/06/20 History mcg-4.5 mcg/actuation aerosol inhaler (Symbicort) omega-3 fatty acids-fish oil 340 1 cap PO BID SUPPLEMENT 12/11/19 02/06/20 History mg-1,000 mg capsule acetaminophen 325 mg tablet 325 mg PO Q6H PRN PRN Pain Or Fever 02/07/20 02/03/20 History donepezil 10 mg tablet (Aricept) 10 mg PO DAILY MEMORY 02/07/20 02/04/20 History Lactobacillus acidophilus 1 ea PO DAILY 11/15/20 Unknown History latanoprost 0.005 % eye drops 1 drp EACH EYE QHS 11/15/20 Unknown History omeprazole 20 mg capsule,delayed 20 mg PO DAILY 11/15/20 Unknown History release quetiapine 300 mg tablet,extended 300 mg PO QHS 09/30/21 Unknown History release 24 hr (Seroquel XR) lisinopril 20 mg tablet 20 mg PO DAILY 11/04/21 Unknown History atorvastatin 20 mg tablet 20 mg PO QHS 09/21/23 Unknown History benztropine 0.5 mg tablet 0.5 mg PO BID PRN shakes 09/21/23 Unknown History calcium polycarbophil 625 mg 625 mg PO BID 09/21/23 Unknown History tablet (Fiber-Lax) cetirizine 10 mg capsule (Zyrtec) 10 mg PO DAILY ALLERGIES 09/21/23 Unknown History dicyclomine 20 mg tablet 20 mg PO BID PRN abdominal pain 09/21/23 Unknown History docusate sodium 100 mg capsule 100 mg PO QHS CONSTIPATION 09/21/23 Unknown History guaifenesin 100 mg/5 mL oral 200 mg PO Q8H PRN cough 09/21/23 Unknown History liquid (Child Mucus Relief Expectorant) ipratropium bromide 42 mcg (0.06 2 spray intranasal BID 09/21/23 Unknown History %) nasal spray lisinopril 5 mg tablet 5 mg PO DAILY BP 09/21/23 Unknown History loperamide 2 mg capsule 2 mg PO Q6H PRN loose stool 09/21/23 Unknown History magnesium hydroxide 400 mg/5 mL 30 ml PO DAILY PRN constipation 09/21/23 Unknown History oral suspension (Milk of Magnesia) melatonin 5 mg tablet 15 mg PO QHS SLEEP 09/21/23 Unknown History montelukast 10 mg tablet 10 mg PO DAILY 09/21/23 Unknown History paliperidone palmitate 234 mg/1.5 234 mg IM Q4W 09/21/23 Unknown History mL intramuscular syringe (Invega Sustenna) polyethylene glycol 3350 17 4 g PO DAILY PRN constipation 09/21/23 Unknown History gram/dose oral powder quetiapine 50 mg tablet,extended 100 mg PO QHS 09/21/23 Unknown History release 24 hr Allergy/AdvReac Type Severity Reaction Status Date / Time No Known Allergies Allergy Verified 09/21/23 13:26 Family History Father Cancer Mother Cancer Surgical History History of esophagogastroduodenoscopy (EGD) (~2016) History of colonoscopy History of tubal ligation History of tooth extraction Social History Smoking Status: Former smoker alcohol intake: never substance use type: does not use caffeine: Yes what type of physical activity do you participate in: none seatbelt use: sometimes do you feel safe at home: Yes additional social history: Single-Lives at [facility] Living ROS ROS ED Constitutional Constitutional ED: Denies chills or fever(s) Eyes Eyes: Denies discharge from eye(s) ENT ENT ED: Denies discharge from eye(s), rhinorrhea or sore throat Cardiovascular Cardiovascular: Denies chest pain Respiratory/Chest Respiratory/Chest: Denies cough or dyspnea Gastrointestinal Gastrointestinal: Denies abdominal pain, nausea or vomiting Musculoskeletal Musculoskeletal: Reports extremity pain; Denies back pain Integumentary Reports other Details: Ecchymoses ; Denies Abrasions or rash Neurologic Neurologic: Reports weakness; Denies headache(s) Psychiatric Psychiatric: Denies anxiety or depression Allergic/Immunologic Allergic/Immunologic ED: Denies lip swelling or urticaria EXAM Physical Exam Const Vital Signs: 03/03/24 19:20 03/03/24 20:27 03/03/24 21:16 Temperature 97.3 F L 98.0 F Temperature Source Temporal Pulse Rate 78 80 80 Respiratory Rate 20 H 19 H 19 H Blood Pressure 137/81 H 135/76 H 135/76 H Blood Pressure Mean 99 95 95 Pulse Ox 93 90 90 Oxygen Delivery Method Room Air Room Air Positive well nourished and well developed General Appearance ED: well developed HEENT Reports moist mucous membranes HEENT Narrative: No scalp tenderness or hematomas. Eyes EOMs intact bilaterally Neck Neck Narrative: No C-spine tenderness. Chest Wall inspection of chest normal and palpation of chest normal Resp normal respiratory effort and clear to auscultation bilaterally Cardio regular rate and regular rhythm GI non-tender Palpation: soft Extremity Extremity Narrative: Mild ecchymosis and mild edema noted to the bilateral ankles and feet. Good distal pulses. Can wiggle toes. No tenderness of the knees. Neuro oriented x3 and no sensory deficits noted Psych mental status grossly normal MDM MDM MDM Narrative Medical decision making narrative: We will obtain x-rays of the right elbow, bilateral feet, bilateral ankles to evaluate for potential fracture. History & Record Review Discussion w/independent historian: Patient Lab Data Attestation: I reviewed the patient's lab results. Labs: Laboratory Results - last 24 hr 03/03/24 20:05 WBC 7.1 RBC 4.60 Hgb 12.3 Hct 40.7 MCV 88.5 MCH 26.7 L MCHC 30.2 L RDW Std Deviation 43.8 RDW Coeff of Humphrey 13.6 Plt Count 257 MPV 10.1 Immature Gran % (Auto) 0.700 Neut % (Auto) 65.1 Lymph % (Auto) 22.6 Dauphin % (Auto) 10.2 H Eos % (Auto) 1.0 Baso % (Auto) 0.4 Absolute Neuts (auto) 4.6 Absolute Lymphs (auto) 1.60 Nucleated RBC % 0 Sodium 137 Potassium 3.9 Chloride 105 Carbon Dioxide 26.0 Anion Gap 6 BUN 25 H Creatinine 0.64 Est GFR (MDRD) Af Amer 119 Est GFR (MDRD) Non-Af 99 BUN/Creatinine Ratio 39.1 H Glucose 120 H Calcium 9.6 Radiography Diagnostic Testing: Clinical Impression(s) from Imaging Studies Ankle X-Ray 03/03/24 19:32 IMPRESSION: Age indeterminate nondisplaced spiral fracture of the distal fibular diametaphysis with incomplete healing. Symmetric ankle mortise. Electronically Signed: Stewart Lara MD at 20:58 EDT Reading Location ID and State: [employer] / [place] Tel , Service support , Foot X-Ray 03/03/24 19:32 IMPRESSION: No acute radiographic abnormalities. Electronically Signed: Stewart Lara MD at 20:56 EDT Reading Location ID and State: [employer] / [place] Tel , Service support , Ankle X-Ray 03/03/24 19:33 IMPRESSION: Subacute minimally displaced bimalleolar fracture with incomplete healing. Symmetric ankle mortise. Electronically Signed: Stewart Lara MD at 21:00 EDT Reading Location ID and State: [employer] / [place] Tel , Service support , Foot X-Ray 03/03/24 19:33 IMPRESSION: No acute radiographic abnormalities. Electronically Signed: Stewart Lara MD at 20:59 EDT , Elbow X-Ray 03/03/24 19:45 IMPRESSION: Displacement of the anterior fat pad indicates possible occult radial head fracture. Consider CT. Electronically Signed: Stewart Lara MD at 20:55 EDT , Treatment and Re-Evaluation :: Left ankle x-ray per my interpretation was a bimalleolar ankle fracture. Left foot x-ray per my interpretation reveals no acute findings. Radiology interpretation of both studies is reviewed. They do feel that the bimalleolar fracture is subacute. Right ankle x-ray per my interpretation reveals a distal fibular fracture. Radiology interpretation reviewed and agrees. They also feel this has incomplete healing and may be subacute. Right foot x-ray per my interpretation reveals a small fracture at the proximal phalanx of the great toe. Radiology interpretation is reviewed and they do not call this fracture. Patient does have bruising and tenderness to this area. Right elbow x-ray per my interpretation was no obvious abnormalities. Radiology interpretation is reviewed and does reveal an anterior fat pad sign. This does raise the concern for possible radial head fracture. CT scan recommended. Given the patient does have bilateral ankle fractures she will require admission. Screening lab work is obtained for admission. CBC and chemistry studies are largely unremarkable. She is given a dose of fentanyl for pain. I spoke with Dr. Cox, on-call for podiatry. As I was sending the patient to CT for imaging of her right elbow, he did asked that we go ahead and CT both ankles to help with any surgical planning that may be needed. This has been obtained. Formal reports are pending. Patient is placed in a sling as well as bilateral walking boots to help with ankle support, although she will be nonweightbearing. Hospitalist will admit patient for further evaluation. Dr. Cox will see the patient tomorrow. If she does not fact have a right elbow fracture orthopedics will also be consulted. Discharge Plan Triage Chief Complaint: Lower Extremity Injury ED Provider: Cecile Gannon Dx/Rx/DC Orders Clinical Impression: Bilateral ankle fractures Prescriptions: No Action lisinopril 20 mg tablet 20 mg PO DAILY atorvastatin 20 mg tablet 20 mg PO QHS calcium polycarbophil [Fiber-Lax] 625 mg tablet 625 mg PO BID ipratropium bromide 42 mcg (0.06 %) spray,non-aerosol 2 spray intranasal BID montelukast 10 mg tablet 10 mg PO DAILY quetiapine 50 mg tablet extended release 24 hr 100 mg PO QHS benztropine 0.5 mg tablet 0.5 mg PO BID PRN (Reason: shakes) loperamide 2 mg capsule 2 mg PO Q6H PRN (Reason: loose stool) guaifenesin [Child Mucus Relief Expectorant] 100 mg/5 mL liquid 200 mg PO Q8H PRN (Reason: cough) magnesium hydroxide [Milk of Magnesia] 400 mg/5 mL suspension 30 ml PO DAILY PRN (Reason: constipation) dicyclomine 20 mg tablet 20 mg PO BID PRN (Reason: abdominal pain) polyethylene glycol 3350 17 gram/dose powder 4 g PO DAILY PRN (Reason: constipation) bupropion HCl 150 MG tablet sustained-release 12 hr 150 mg PO BID sertraline 100 MG tablet 200 mg PO DAILY acetaminophen 325 MG tablet 1,000 mg PO TID memantine 10 MG tablet 10 mg PO BID omega-3 fatty acids-fish oil 1 EACH capsule 1 cap PO BID budesonide-formoterol [Symbicort] 1 INHALER inhaler 2 puff inhalation BID docusate sodium 100 mg capsule 100 mg PO QHS acetaminophen 325 MG tablet 325 mg PO Q6H PRN PRN (Reason: Pain Or Fever) donepezil [Aricept] 10 MG tablet 10 mg PO DAILY lisinopril 5 mg tablet 5 mg PO DAILY melatonin 5 mg tablet 15 mg PO QHS latanoprost 1 DROP bottle 1 drp EACH EYE QHS omeprazole 20 MG capsule 20 mg PO DAILY Lactobacillus acidophilus 1 EACH capsule 1 ea PO DAILY Invega Sustenna 234 mg/1.5 mL syringe 234 mg IM Q4W quetiapine [Seroquel XR] 300 mg Tablet Extended Release 24 Hr 300 mg PO QHS Zyrtec 10 mg capsule 10 mg PO DAILY Primary Care Provider: Dena Stevens [employer]AGE LOAN REVIEWER Referrals: Dena Stevesn MORTGAGE LOAN REVIEWER, MORTGAGE LOAN REVIEWER-C [Primary Care Provider] - Print Language: Azeri Disposition Disposition: Acute Care Hospital [facility]
--- NOTE | 2024-03-03 19:45 | RAD_ITS ---
INDICATION: injury EXAMINATION/TECHNIQUE: X-RAY - RIGHT XR Elbow Min 3 Views COMPARISON: No relevant prior comparison study available FINDINGS: SOFT TISSUES: No soft tissue swelling or gas. No radiopaque foreign body. BONES/JOINTS: There is displacement of the anterior fat pad indicating possible occult radial head fracture.. No acute fracture or subluxation. Normal alignment. Mild degenerative changes No sclerotic or destructive changes observed. RAD/Elbow min 3 Views IMPRESSION: Displacement of the anterior fat pad indicates possible occult radial head fracture. Consider CT. Electronically Signed: Stewart Lara MD at 20:55 EDT ,
[2024-03-03] MEDS: fentaNYL 100 MCG/2 ML Ampul 25 MCG IV (20:21)
[2024-03-03 20:25] LABS: Absolute Neutrophil Count 4.6 X10^3/uL (2.0-7.7); Basophil# 0.03 X10^3/uL; Basophil% 0.4 % (0-1); Eosinophil# 0.07 X10^3/uL; Hematocrit 40.7 % (37-47); Hemoglobin 12.3 g/dL (12.0-15.0); Lymphocyte % 22.6 % (19-41); Mean Corp Hgb Conc 30.2 g/dL (32-36); Mean Corpuscular Hgb 26.7 pg (27.0-32.0); Mean Corpuscular Volume 88.5 fL (81-99); Mean Platelet Vol. 10.1 fl (6.2-12.0); Monocyte# 0.72 X10^3/uL; Monocyte% 10.2 % (0-10); NRBC Flagged by Analyzer 0 % (0-5); Neutrophil # 4.61 X10^3/uL (2.7-7.7); Neutrophil % 65.1 % (47-70); Platelet Count 257 K/mm3 (150-450); RBC Distribution Width CV 13.6 % (11.6-14.6); RBC Distribution Width SD 43.8 fl (35.1-43.9); White Blood Count 7.1 K/mm3 (4.4-11.0)
[2024-03-03 20:27] VITALS: BP 135/76; PULSE 80; RESP 19; TEMP 36.7; O2SAT 90
--- NOTE | 2024-03-03 20:44 | ED.RN ---
THIS RN CALLED [facility] TO GIVE REPORT. PT IS BEING ADMITTED AND NEEDS HER CAT FED TOMORROW AM. NURSE STATED SHE WOULD FEED THE PT CAT.
[2024-03-03 21:11] LABS: Anion Gap 6 (5-15); BUN 25 mg/dL (7-18); BUN/Creat Ratio 39.1 RATIO (10-20); Calcium,Total 9.6 mg/dL (8.5-10.1); Chloride 105 mmol/L (98-107); Creatinine, Serum 0.64 mg/dL (0.55-1.02); EST Glomerular Filtration Rate 99 mL/min (>60); Est Glom Filt Rate - Afr Amer 119 mL/min (>60); Glucose 120 mg/dL (74-106); Potassium 3.9 mmol/L (3.5-5.1); Sodium Level 137 mmol/L (136-145)
[2024-03-03 21:16] VITALS: BP 135/76; PULSE 80; RESP 19; O2SAT 90
--- NOTE | 2024-03-03 21:31 | CT_ITS ---
INDICATION: injury - ? radial head fx EXAMINATION: CT Upper Extremity W/O Contrast Injection TECHNIQUE: Helically acquired images were obtained of the right elbow. 2-D reformats were performed by the technologist. A radiation dose optimization technique was used for this scan. IV Contrast dosage and agent: None. COMPARISON: None. FINDINGS: BONES AND ALIGNMENT: No acute fractures. The alignment is anatomic. JOINTS: Moderate degenerative changes. SOFT TISSUES: No significant soft tissue swelling. CT/Extremity Upper without Contra IMPRESSION: No fracture or malalignment. Electronically Signed: Stewart Lara MD at 22:45 EDT ,
--- NOTE | 2024-03-03 21:31 | CT_ITS ---
INDICATION: fracture EXAMINATION: CT Lower Extremity W/O Contrast Injection TECHNIQUE: Helically acquired images were obtained of the left ankle. 2-D reformats were performed by the technologist. A radiation dose optimization technique was used for this scan. IV Contrast dosage and agent: None. COMPARISON: None. FINDINGS: BONES AND ALIGNMENT: Acute nondisplaced medial malleolar fracture. Acute minimally displaced lateral malleolar fracture. JOINTS: Moderate degenerative changes. Osteopenia. The ankle mortise is slightly asymmetric and widened laterally. SOFT TISSUES: Soft tissue swelling of the ankle. CT/Extremity Lower without Contra IMPRESSION: Acute nondisplaced medial and minimally displaced lateral malleolar fractures. The ankle mortise is slightly asymmetric and widened laterally indicating joint instability. Electronically Signed: Stewart Lara MD at 22:47 EDT ,
--- NOTE | 2024-03-03 21:33 | CT_ITS ---
INDICATION: fracture EXAMINATION: CT Lower Extremity W/O Contrast Injection TECHNIQUE: Helically acquired images were obtained of the right ankle. 2-D reformats were performed by the technologist. A radiation dose optimization technique was used for this scan. IV Contrast dosage and agent: None. COMPARISON: None. FINDINGS: BONES AND ALIGNMENT: Acute minimally displaced tibial plafond and lateral malleolus fractures. JOINTS: Moderate degenerative changes. Ankle mortise is slightly widened laterally. SOFT TISSUES: Soft tissue swelling of the ankle. CT/Extremity Lower without Contra IMPRESSION: Acute minimally displaced lateral tibial plafond (pilon) and lateral malleolus fractures. The ankle mortise is slightly widened laterally indicating joint instability. Electronically Signed: Stewart Lara MD at 22:44 EDT ,
--- NOTE | 2024-03-03 21:44 | HP.PCM.HOS_ITS ---
HPI - General General Date of Admission: 03/03/24 Date of Service: 03/03/24 Chief Complaint: Fall x 2, BL ankle pain. HPI Narrative The patient is a 68 y/o F w/ PMHx: Anxiety and Depression/Schizophrenia, Alzheimer's disease with underlying dementia with unclear behavioral disturbance history, COPD, HTN, HLD, Chronic back pain following with pain management Dr. Aguirre, MIK, GERD with Shirley's esophagus, Former tobacco use who presents to the [facility] ED on 03/03/24 from her assisted living at [facility] who presents to the [facility] ED on 03/03/2024 with history of at least 2 falls the week prior with significant discomfort to bilateral ankles as well as bruising not improving with patient stating she believes she heard cracking in her ankles at some point prompting eventual transition to the ED for evaluation. Patient currently reports the pain in her bilateral ankles as 9 out of 10 in severity, dull aching throb and sharp with any movement attempt. She notes that she did not come in when she initially fell and had the pain because she was worried about being sent to a skilled facility because she has a cat and does not want to lose her feline. She denies any pain to her right upper extremity at this point and has movement without issue. Discussed with her need to continue sling until rule out and assure no fracture. Workup in the ED included T97.3, heart rate is 78, BP 137/81, respiratory rate 20, 93% on room air, CBC with WC 7.1, human 12.3, platelet 257 without marked shift, BMP with BUN/creatinine 25/0.64, glucose 120, GFR 99, plain film of the right ankle with age-indeterminate nondisplaced spiral fracture of the distal fibular diametaphysis with incomplete healing, symmetric ankle mortise, plain film of the right foot with no acute radiographic abnormalities, plain film of the left ankle with subacute minimally displaced bimalleolar fracture with incomplete healing, symmetric ankle mortise, plain film of the left foot with no acute radiographic abnormalities, plain film of the right elbow with displacement the anterior fat pad with concern for possible occult radial head fracture, follow-up CT right upper extremity and CT bilateral distal lower extremity pending upon requested evaluation of patient. ED discussed case with podiatry Dr. Cox who requested boots to be placed to bilateral lower extremities and nonweightbearing with plan evaluation in AM. In the ED patient right upper extremity was placed in a sling pending CT imaging to be cautious. [facility] Medical History Mitral valve regurgitation Hx of steroid therapy Nicotine dependence, cigarettes, in remission MIK (obstructive sleep apnea) Barretts esophagus Chronic back pain Alzheimer disease GERD (gastroesophageal reflux disease) Obstructive sleep apnea Obesity Nicotine dependence Schizophrenia Anxiety and depression COPD (chronic obstructive pulmonary disease) Essential (primary) hypertension Hyperlipidemia Home Medications ?Medication ?Instructions ?Recorded ?Last Taken ?Type bupropion HCl 150 mg tablet,12 hr 150 mg PO BID mental health 12/15/17 02/06/20 History sustained-release sertraline 100 mg tablet 200 mg PO DAILY depression 12/15/17 02/06/20 History acetaminophen 325 mg tablet 1,000 mg PO TID PAIN 04/09/19 02/06/20 History memantine 10 mg tablet 10 mg PO BID MEMORY 07/05/19 02/06/20 History budesonide-formoterol HFA 160 2 puff inhalation BID SOB 12/11/19 02/06/20 History mcg-4.5 mcg/actuation aerosol inhaler (Symbicort) omega-3 fatty acids-fish oil 340 1 cap PO BID SUPPLEMENT 12/11/19 02/06/20 History mg-1,000 mg capsule acetaminophen 325 mg tablet 325 mg PO Q6H PRN PRN Pain Or Fever 02/07/20 02/03/20 History donepezil 10 mg tablet (Aricept) 10 mg PO DAILY MEMORY 02/07/20 02/04/20 History Lactobacillus acidophilus 1 ea PO DAILY 11/15/20 Unknown History latanoprost 0.005 % eye drops 1 drp EACH EYE QHS 11/15/20 Unknown History omeprazole 20 mg capsule,delayed 20 mg PO DAILY 11/15/20 Unknown History release quetiapine 300 mg tablet,extended 300 mg PO QHS 09/30/21 Unknown History release 24 hr (Seroquel XR) lisinopril 20 mg tablet 20 mg PO DAILY 11/04/21 Unknown History atorvastatin 20 mg tablet 20 mg PO QHS 09/21/23 Unknown History benztropine 0.5 mg tablet 0.5 mg PO BID PRN shakes 09/21/23 Unknown History calcium polycarbophil 625 mg 625 mg PO BID 09/21/23 Unknown History tablet (Fiber-Lax) cetirizine 10 mg capsule (Zyrtec) 10 mg PO DAILY ALLERGIES 09/21/23 Unknown History dicyclomine 20 mg tablet 20 mg PO BID PRN abdominal pain 09/21/23 Unknown History docusate sodium 100 mg capsule 100 mg PO QHS CONSTIPATION 09/21/23 Unknown History guaifenesin 100 mg/5 mL oral 200 mg PO Q8H PRN cough 09/21/23 Unknown History liquid (Child Mucus Relief Expectorant) ipratropium bromide 42 mcg (0.06 2 spray intranasal BID 09/21/23 Unknown History %) nasal spray lisinopril 5 mg tablet 5 mg PO DAILY BP 09/21/23 Unknown History loperamide 2 mg capsule 2 mg PO Q6H PRN loose stool 09/21/23 Unknown History magnesium hydroxide 400 mg/5 mL 30 ml PO DAILY PRN constipation 09/21/23 Unknown History oral suspension (Milk of Magnesia) melatonin 5 mg tablet 15 mg PO QHS SLEEP 09/21/23 Unknown History montelukast 10 mg tablet 10 mg PO DAILY 09/21/23 Unknown History paliperidone palmitate 234 mg/1.5 234 mg IM Q4W 09/21/23 Unknown History mL intramuscular syringe (Invega Sustenna) polyethylene glycol 3350 17 4 g PO DAILY PRN constipation 09/21/23 Unknown History gram/dose oral powder quetiapine 50 mg tablet,extended 100 mg PO QHS 09/21/23 Unknown History release 24 hr Allergy/AdvReac Type Severity Reaction Status Date / Time No Known Allergies Allergy Verified 09/21/23 13:26 Family History Father Cancer Mother Cancer Surgical History History of esophagogastroduodenoscopy (EGD) (~2015) History of colonoscopy History of tubal ligation History of tooth extraction Social History (Updated 03/03/24 @ 22:[address] Colette Womack MD) household members: none housing: assisted living facility Smoking Status: Former smoker alcohol intake: never substance use type: does not use caffeine: Yes what type of physical activity do you participate in: none seatbelt use: sometimes do you feel safe at home: Yes additional social history: Single-Lives at [facility] ROS ROS Narrative Admission Review of Systems: CONSTITUTIONAL: No weight loss, fever, chills, + weakness or fatigue. HEENT: Eyes: No visual loss, blurred vision, double vision or yellow sclerae. Ears, Nose, Throat: No hearing loss, sneezing, congestion, runny nose or sore throat. SKIN: No rash or itching, lesions, wounds except significant + bilateral lower extremity staged ecchymoses accompanied by swelling and deformity appearance, occasional staged abrasion. CARDIOVASCULAR: No chest pain, chest pressure or chest discomfort, palpitations, edema, orthopnea, syncopal events. RESPIRATORY: No shortness of breath, cough or sputum, wheezing, hemoptysis. GASTROINTESTINAL: No anorexia, nausea, vomiting or diarrhea, abdominal pain, melena, BRBPR. GENITOURINARY: No dysuria, frequency, urgency or retention. NEUROLOGICAL: No headache, dizziness, syncope, paralysis, ataxia, numbness or tingling in the extremities, focal weakness, change in bowel or bladder control, seizure. MUSCULOSKELETAL:+ muscle, back pain, joint pain or stiffness. HEMATOLOGIC: No anemia, bleeding or bruising. LYMPHATICS: No enlarged nodes. No history of splenectomy. PSYCHIATRIC: + Underlying significant psychiatric history with anxiety depression/schizophrenia. ENDOCRINOLOGIC: No reports of sweating, cold or heat intolerance. No polyuria or polydipsia. ALLERGIES: + History of allergic rhinitis. Vital Signs Vital Signs Vital Signs: 03/03/24 19:20 03/03/24 20:27 03/03/24 21:16 Temperature 97.3 F L 98.0 F Temperature Source Temporal Pulse Rate 78 80 80 Respiratory Rate 20 H 19 H 19 H Blood Pressure 137/81 H 135/76 H 135/76 H Blood Pressure Mean 99 95 95 Pulse Ox 93 90 90 Oxygen Delivery Method Room Air Room Air Physical Exam Narrative Physical Examination: General: Awake, alert, oriented x 3 and cooperative, seated upright in the ED bed, rates pain currently to bilateral ankles 9 out of 10 in severity, reports the reason she never presented earlier despite being encouraged to do so was because she was afraid she was gone to be sent to a skilled and she notes having a cat. Skin: Normal color, normal turgor, no icterus, no cyanosis except significant bilateral lower extremity staged ecchymoses to her ankles and distal extremities with obvious deformities and swelling. HEENT: AT/NC, EOMI, PERRLA, mildly dry MM, no carotid bruits or JVD noted; however, thickened neck makes evaluation difficult. Lungs: Diminished, greater bases, distant, no evidence of any respiratory distress, no rales, ronchi or wheezing. Heart: Regular rate and rhythm; no gallop, rub audible. Abdomen: Soft, obese, NTTP, mildly hyperactive BS, no appreciated distention or HSM however habitus makes evaluation difficult. Extremities: No cyanosis, no clubbing, significant bilateral distal lower extremity deformities with ecchymoses with bilateral ankle fractures. Neurological: Patient awake, alert, oriented as noted, cognitive function intact but does have underlying dementia as well as schizophrenia; pupils equally reactive to light and accommodation, cranial nerves grossly normal, moving all 4 extremities except extremely limited lower extremity given bilateral fracture and pain elicited, currently right upper extremity also in a sling until pending CT to assure no fracture but denies any significant pain to the extremity and able to move hand without any issue with appropriate peripheral pulses, strength severely globally decreased secondary to acute presentation. Psychiatric: Affect appears fatigued otherwise normal, no acute evidence of depressive or anxiety feelings but does have significant underlying psychiatric history. Results Lab / Micro Data 03/03/24 20:05 03/03/24 20:05 Labs: Laboratory Results - last 24 hr 03/03/24 20:05: WBC 7.1, RBC 4.60, Hgb 12.3, Hct 40.7, MCV 88.5, MCH 26.7 L, M CHC 30.2 L, RDW Std Deviation 43.8, RDW Coeff of Humphrey 13.6, Plt Count 257, MPV 10.1, Immature Gran % (Auto) 0.700, Neut % (Auto) 65.1, Lymph % (Auto) 22.6, M hipolito % (Auto) 10.2 H, Eos % (Auto) 1.0, Baso % (Auto) 0.4, Absolute Neuts (auto) 4.6, Absolute Lymphs (auto) 1.60, Nucleated RBC % 0, Sodium 137, Potassium 3.9, Chloride 105, Carbon Dioxide 26.0, Anion Gap 6, BUN 25 H, Creatinine 0.64, Est GFR (MDRD) Af Amer 119, Est GFR (MDRD) Non-Af 99, BUN/Creatinine Ratio 39.1 H, G lucose 120 H, Calcium 9.6 Imaging Radiology Impression Ankle X-Ray 03/03/24 19:32 IMPRESSION: Age indeterminate nondisplaced spiral fracture of the distal fibular diametaphysis with incomplete healing. Symmetric ankle mortise. Electronically Signed: Stewart Lara MD at 20:58 EDT Reading Location ID and State: [employer] , Service support , Foot X-Ray 03/03/24 19:32 IMPRESSION: No acute radiographic abnormalities. Electronically Signed: Stewart Lara MD at 20:56 EDT Reading Location ID and State: [employer] , Service support , Ankle X-Ray 03/03/24 19:33 IMPRESSION: Subacute minimally displaced bimalleolar fracture with incomplete healing. Symmetric ankle mortise. Electronically Signed: Stewart Lara MD at 21:00 EDT Reading Location ID and State: [employer] , Service support , Foot X-Ray 03/03/24 19:33 IMPRESSION: No acute radiographic abnormalities. Electronically Signed: Stewart Lara MD at 20:59 EDT Reading Location ID and State: [employer] , Service support , Elbow X-Ray 03/03/24 19:45 IMPRESSION: Displacement of the anterior fat pad indicates possible occult radial head fracture. Consider CT. Electronically Signed: Stewart Lara MD at 20:55 EDT Reading Location ID and State: [employer] , Service support , Assessment & Plan Assessment/Plan (1) Bilateral ankle fractures: PLAN: Plan The patient is a 68 y/o F w/ PMHx: Anxiety and Depression/Schizophrenia, Alzheimer's disease with underlying dementia with unclear behavioral disturbance history, COPD, HTN, HLD, Chronic back pain following with pain management Dr. Aguirre, MIK, GERD with Shirley's esophagus, Former tobacco use who presents to the [facility] ED on 03/03/24 from her assisted living at [facility] who presents to the [facility] ED on 03/03/2024 with history of at least 2 falls the week prior with significant discomfort to bilateral ankles as well as bruising not improving with patient stating she believes she heard cracking in her ankles at some point prompting eventual transition to the ED for evaluation. #1. General debility, significant bilateral ankle pain/lower extremity pain s/p mechanical fall w/ left bimalleolar fracture, right spiral fracture of the distal fibular diametaphysis and concern for possible right upper extremity: Will admit to MS, maintain NPO status after midnight in case of any operative intervention needs, continue very judicious IVFs, nonweightbearing to bilateral lower extremities as well as right upper extremity pending CT with sling and will continue boot as requested per podiatry to ED physician which are being placed currently, monitor I/Os, frequent positioning, Pain, anti-emetic regimen. PT/OT following operative intervention if felt appropriate but awaiting podiatry evaluation. Per NSQIP patient clinically per review of labs, imaging and underlying medical history is appropriate to continue with planned operative intervention given acute and severe pain with no concerning history of chest pain or dyspnea with exertion although patient does have underlying chronic COPD and allergic rhinitis but notes she has been stable. #2. Chronic COPD with allergic rhinitis: Will temporarily hold home inhalers in the interim transition to ATC budesonide therapy, PRN albuterol, HOB, IS parameters, continue patient home cetirizine, montelukast and nasal ipratropium spray. #3. Anxiety and depression/schizophrenia: Will continue patient home benztropine, sertraline, Seroquel, bupropion home regimen in addition to noted outpatient routine paliperidone injections. #4. Alzheimer's dementia/disease, unclear extent with unclear behavioral disturbance history: Complicates presentation, will continue patient home Aricept and memantine home regimen, maintain on fall precautions, PT/OT/case meds consulted as given this presentation will likely need transition from assisted to skilled setting. #5. Chronic back pain: Patient following with Dr. Aguirre pain management, not on any chronic narcotic therapy per current list but likely injections per review of records, encourage frequent positional changes, therapies consulted as well as case management as noted. #6. Hypertension: Continue home regimen including lisinopril, PRN hydralazine. #7. Hyperlipidemia: We will continue patient on statin therapy. #8. Former tobacco use: Encourage continued tobacco cessation. #9. GERD with history of Shirley's esophagus: Continue patient home PPI. #10. Obesity: Weight loss and lifestyle changes encouraged. #11. MIK: Patient notes she does not use a CPAP. #12. DVT prophylaxis: Lovenox which certainly may be held if any operative intervention needs. Will defer SCDs given location of fractures on plain films and also awaiting CT imaging. #13. CODE status: Patient HCPOA and living will are not in place but she notes if decisions were necessary her children would be her decision makers. Discussed CODE status at length including difference between FULL code, DNR-CCA and DNR-CC status. Following discussions about the differences in these status, requested Full Code status. Advanced Care Planning Face to Face Time: 16 minutes. Charges/Coding Visit Charges Inpatient E&M: 64631 Init Hosp L3 Procedures Hospitalists Procedures: 14172 Advncd Care Plan 30 Min
[2024-03-03 23:07] VITALS: BMI 38.3
[2024-03-03 23:10] VITALS: BP 132/66; PULSE 71; RESP 18; TEMP 36.4; O2SAT 95
[2024-03-03] MEDS: 0.9% Saline Lock 10 ML Syringe IV (23:55)
[2024-03-03] MEDS: 0.9% Normal Saline (1000mL) 1,000 ML 100 ML IV (23:55)
[2024-03-03] MEDS: oxyCODONE 5 MG Tablet PO (23:56)
[2024-03-04] VITALS (7 sets, daily range): BP systolic 123–132; BP diastolic 61–73; PULSE 64–82; RESP 16–18; TEMP 36.6–36.8; O2SAT 91–95; BMI 38.3; BMI 39.2
[2024-03-04] MEDS: MELATONIN 10 MG TABLET 15 MG PO ×2 (01:47→21:34)
[2024-03-04 05:39] LABS: Absolute Lymphocyte Count 2.49 X10^3/uL (0.83-4.51); Absolute Neutrophil Count 4.8 X10^3/uL (2.0-7.7); Basophil# 0.03 X10^3/uL; Basophil% 0.4 % (0-1); Eosinophil# 0.07 X10^3/uL; Eosinophils% 0.9 % (0-5); Hematocrit 37.3 % (37-47); Hemoglobin 11.4 g/dL (12.0-15.0); Lymphocyte # 2.49 X10^3/ul (0.83-4.51); Lymphocyte % 30.4 % (19-41); Mean Corp Hgb Conc 30.6 g/dL (32-36); Mean Corpuscular Volume 88.2 fL (81-99); Mean Platelet Vol. 10.3 fl (6.2-12.0); Monocyte# 0.74 X10^3/uL; NRBC Flagged by Analyzer 0 % (0-5); Neutrophil # 4.81 X10^3/uL (2.7-7.7); Neutrophil % 58.6 % (47-70); Platelet Count 249 K/mm3 (150-450); RBC Distribution Width CV 13.8 % (11.6-14.6); RBC Distribution Width SD 44.3 fl (35.1-43.9); Red Blood Count 4.23 M/mm3 (4.2-5.4); White Blood Count 8.2 K/mm3 (4.4-11.0)
[2024-03-04 05:59] LABS: ALB/GLOB Ratio 0.9 RATIO (0.9-2.4); AST(SGOT) 11 U/L (15-37); Alanine Aminotransfer ALT/SGPT 19 U/L (13-56); Albumin, Serum 3.2 g/dL (3.2-5.0); Alkaline Phosphatase 58 U/L (45-117); Anion Gap 8 (5-15); BUN 25 mg/dL (7-18); BUN/Creat Ratio 42.4 RATIO (10-20); Calcium,Total 8.9 mg/dL (8.5-10.1); Chloride 105 mmol/L (98-107); Creatinine, Serum 0.59 mg/dL (0.55-1.02); EST Glomerular Filtration Rate 108 mL/min (>60); Est Glom Filt Rate - Afr Amer 131 mL/min (>60); Estimated Creatinine Clearance 77.23 ml/min; Globulin 3.5 g/dL (2.2-4.2); Glucose 95 mg/dL (74-106); Protein, Total 6.7 g/dL (6.4-8.2); Sodium Level 138 mmol/L (136-145)
[2024-03-04] MEDS: Budesonide Respules 0.5 MG/2 ML AMPUL.NEB. INHALATION ×2 (06:57→19:13)
--- NOTE | 2024-03-04 07:24 | PN.HOSP_ITS ---
Reason for Visit Reason for Visit: Diagnoses Other fracture of right lower leg, initial encounter for closed fracture (03/03/24) Other fracture of left lower leg, initial encounter for closed fracture (03/03/24) Objective Data Objective Data Vital Signs: Vital Signs Temp Pulse Resp BP Pulse Ox O2 Del Method 97.9 F 82 18 123/62 H 91 Room Air 03/04/24 03:33 03/04/24 06:58 03/04/24 06:58 03/04/24 03:33 03/04/24 06:58 03/04/24 06:58 Oxygen Delivery Method Room Air Weight: 216 lb 7.903 oz Body Mass Index (BMI) 38.3 Intake & Output: Intake and Output for Last 24 Hours 03/02/24 03/03/24 03/04/24 23:59 23:59 23:59 Intake Total 100 / 100 Output Total 500 / 500 Balance 100 / 100 -500 / -500 Lab / Micro Data 03/04/24 05:00 03/04/24 05:00 Labs: Laboratory Results - last 24 hr 03/03/24 20:05: WBC 7.1, RBC 4.60, Hgb 12.3, Hct 40.7, MCV 88.5, MCH 26.7 L, M CHC 30.2 L, RDW Std Deviation 43.8, RDW Coeff of Humphrey 13.6, Plt Count 257, MPV 10.1, Immature Gran % (Auto) 0.700, Neut % (Auto) 65.1, Lymph % (Auto) 22.6, M hipolito % (Auto) 10.2 H, Eos % (Auto) 1.0, Baso % (Auto) 0.4, Absolute Neuts (auto) 4.6, Absolute Lymphs (auto) 1.60, Nucleated RBC % 0, Sodium 137, Potassium 3.9, Chloride 105, Carbon Dioxide 26.0, Anion Gap 6, BUN 25 H, Creatinine 0.64, Est GFR (MDRD) Af Amer 119, Est GFR (MDRD) Non-Af 99, BUN/Creatinine Ratio 39.1 H, G lucose 120 H, Calcium 9.6 03/04/24 05:00: WBC 8.2, RBC 4.23, Hgb 11.4 L, Hct 37.3, MCV 88.2, MCH 27.0, M CHC 30.6 L, RDW Std Deviation 44.3 H, RDW Coeff of Humphrey 13.8, Plt Count 249, MPV 10.3, Immature Gran % (Auto) 0.700, Neut % (Auto) 58.6, Lymph % (Auto) 30.4, [place] % (Auto) 9.0, Eos % (Auto) 0.9, Baso % (Auto) 0.4, Absolute Neuts (auto) 4.8, Absolute Lymphs (auto) 2.49, Nucleated RBC % 0, Sodium 138, Potassium 4.0, Chloride 105, Carbon Dioxide 25.0, Anion Gap 8, BUN 25 H, Creatinine 0.59, Estim Creat Clear Calc 77.23, Est GFR (MDRD) Af Amer 131, Est GFR (MDRD) Non-Af 108, B UN/Creatinine Ratio 42.4 H, Glucose 95, Calcium 8.9, Total Bilirubin 0.40, AST 11 L, ALT 19, Alkaline Phosphatase 58, Total Protein 6.7, Albumin 3.2, Globulin 3.5, Albumin/Globulin Ratio 0.9 Radiography Diagnostic Testing: Radiology Impression Ankle X-Ray 03/03/24 19:32 IMPRESSION: Age indeterminate nondisplaced spiral fracture of the distal fibular diametaphysis with incomplete healing. Symmetric ankle mortise. Electronically Signed: Stewart Lara MD at 20:58 EDT , Foot X-Ray 03/03/24 19:32 IMPRESSION: No acute radiographic abnormalities. Electronically Signed: Stewart Lara MD at 20:56 EDT , Ankle X-Ray 03/03/24 19:33 IMPRESSION: Subacute minimally displaced bimalleolar fracture with incomplete healing. Symmetric ankle mortise. Electronically Signed: Stewart Lara MD at 21:00 EDT , Foot X-Ray 03/03/24 19:33 IMPRESSION: No acute radiographic abnormalities. Electronically Signed: Stewart Lara MD at 20:59 EDT Reading Location ID and State: [facility] / [place] Tel , Service support , Elbow X-Ray 03/03/24 19:45 IMPRESSION: Displacement of the anterior fat pad indicates possible occult radial head fracture. Consider CT. Electronically Signed: Stewart Lara MD at 20:55 EDT Reading Location ID and State: [facility] / [place] Tel , Service support , Lower Extremity CT 03/03/24 21:31 IMPRESSION: Acute nondisplaced medial and minimally displaced lateral malleolar fractures. The ankle mortise is slightly asymmetric and widened laterally indicating joint instability. Electronically Signed: Stewart Lara MD at 22:47 EDT Reading Location ID and State: [facility] / [place] Tel , Service support , Upper Extremity CT 03/03/24 21:31 IMPRESSION: No fracture or malalignment. Electronically Signed: Stewart Lara MD at 22:45 EDT Reading Location ID and State: [facility] / [place] Tel , Service support , Lower Extremity CT 03/03/24 21:33 IMPRESSION: Acute minimally displaced lateral tibial plafond (pilon) and lateral malleolus fractures. The ankle mortise is slightly widened laterally indicating joint instability. Electronically Signed: Stewart Lara MD at 22:44 EDT Reading Location ID and State: [facility] / [place] Tel , Service support , Physical Exam Narrative Seen and examined. Patient states that her left ankle hurts more than right ankle. There was anticipated plan for surgery today but painter interior finish thinks she does not need. Had 2 falls in the past 1 week. No prior fracture of ankle but had ankle sprain Physical exam General: Alert, Oriented x3, Cooperative HEENT: Atraumatic, PERRLA, EOMI, Normocephalic Oral: No Gingival or Mucosal Lesions/ Ulcerations Neck: Supple, No JVD, Negative Carotid Bruits Chest wall/Lungs: Air entry diminished in bilateral lung bases. No crepitation/rhonchi Cardiovascular: Regular rate, Regular Rhythm, Normal S1, Normal S2, No M/G/R Abdomen: Bowel Sounds Present, Soft, Non Tender, Non-Distended : No dysuria. No renal angle tenderness. No suprapubic tenderness. Extremities: No edema, Capillary Refill Less than 3 Seconds Skin: No rashes, No breakdown Musculoskeletal: Both lower legs in cam boot. Mild swelling of ankle. Tenderness and ROM not evaluated because of cam boot and pain Neurological: Cranial nerves II-XII grossly intact, DTR 2+/4. No acute focal neurological deficit. Psych/Mental Status: Normal Affect, Appropriate. Assessment & Plan Assessment/Plan (1) Bilateral ankle fractures: PLAN: Plan The patient is a 68 y/o F was admitted from assisted living at [facility] after she fell twice the past week. She fell on Wednesday injuring both feet and ankles and head but no LOC. She again fell on the day of the admission and injured both ankles and right elbow. #1. General debility, significant bilateral ankle pain/lower extremity pain s/p mechanical fall w/ left bimalleolar fracture, right spiral fracture of the distal fibular diametaphysis and concern for possible right upper extremity: [facility] Pain controlled. Nonweightbearing of lower extremities. Bilateral cam boot. Continue incentive spirometry and PEP for [address] was reviewed. Right upper shoulder in sling and swath Patient was evaluated by painter interior finish. Patient elected to proceed with nonsurgical intervention as she ambulates very minimally knowing the risk of posttraumatic arthritis. On rollator. #2. COPD with allergic rhinitis: Will temporarily hold home inhalers in the interim transition to ATC budesonide therapy, PRN albuterol, HOB, IS parameters, continue patient home cetirizine, montelukast and nasal ipratropium spray. #3. Anxiety and depression/schizophrenia: Will continue patient home benztropine, sertraline, Seroquel, bupropion home regimen in addition to noted outpatient routine paliperidone injections. #4. Alzheimer's dementia/disease, unclear extent with unclear behavioral disturbance history: Complicates presentation, continue patient home Aricept and memantine home regimen, maintain on fall precautions, PT/OT/case meds consulted as given this presentation will likely need transition from assisted to skilled setting. #5. Chronic back pain: Patient following with Dr. Aguirre pain management, not on any chronic narcotic therapy per current list but likely injections per review of records, encourage frequent positional changes, therapies consulted as well as case management as noted. #6. Hypertension: Continue home regimen including lisinopril, PRN hydralazine. #7. Hyperlipidemia: We will continue patient on statin therapy. #8. Former tobacco use: Encourage continued tobacco cessation. #9. GERD with history of Shirley's esophagus: Continue patient home PPI. #10. Obesity: Weight loss and lifestyle changes encouraged. #11. MIK: Patient notes she does not use a CPAP. #12. DVT prophylaxis: Lovenox which certainly may be held if any operative intervention needs. Will defer SCDs given location of fractures on plain films and also awaiting CT imaging. #13. CODE status: Patient HCPOA and living will are not in place but she notes if decisions were necessary her children would be her decision makers. Discussed CODE status at length including difference between FULL code, DNR-CCA and DNR-CC status. Following discussions about the differences in these status, requested Full Code status. Charges/Coding Visit Charges Inpatient E&M: 05974 Subs Hosp L2
[2024-03-04] MEDS: Acetaminophen 325 MG Tablet 650 MG PO ×3 (07:49→22:59)
[2024-03-04] MEDS: oxyCODONE 5 MG Tablet PO ×3 (07:50→22:59)
--- NOTE | 2024-03-04 09:18 | CASEMGMT ---
Patient is from [facility]. SW also received an SDOH for transportation. SW met with patient. Introduced self and role at [facility]. SW first asked patient about her transportation issues. Patient stated she will need a ride home. Patient states she normally uses [employer] for her transportation. Sometimes they do not show up. She has relayed this to [employer]. SW then spoke with patient about her discharge plan. Patient is hoping to return to [facility] at d/c. SW explained to patient that we will have to see what the doctor says and how she does with therapy before that determination can be made. Patient stated she has a cat she would like to get back to. Patient said there is someone taking care of her cat right now. SW did provide patient with a list of prison facility providers including quality and resource use data and consistent with the patient?s preferred geographic region, medical needs, and insurance network were provided via the [employer] Guide Link. SW let patient know SW will continue to follow and assist her with d/c planning. Plan: TBD, but likely SNF for rehab [facility]
--- NOTE | 2024-03-04 10:27 | CON.PCM_ITS ---
Assessment & Plan Assessment/Plan (1) Bilateral ankle fractures: (2) Bilateral lower extremity pain: PLAN: Plan Evaluation performed. Reviewed diagnostic data. Reviewed bilateral foot and ankle xrays, as well as CT scans bilateral ankle - discussed with patient. Reviewed nonsurgical and surgical options - reviewed possible benefits vs risks of each. At this time she elected to proceed with nonsurgical intervention as she ambulates very minimally anyways and already uses a rollator, discussed increased risk of post traumatic arthritis and future symptoms in ankle - she relates she does not want to proceed with surgical intervention so we will treat nonsurgically and monitor healing at this time. She may need an AFO in future. Applied kerlix and kam dressing bilateral foot/ankle/leg, and overall CAM boots - keep ankles protected in boots at all times. Elevate feet/ankles to help with swelling. No weightbearing left foot and partial protected weightbearing right foot. Podiatry will continue to follow, thank you for consultation. HPI Consult Data Date of Consult: 03/04/24 HPI Narrative Reason for Consultation: bilateral ankle fracture HPI Narrative: JESSENIA ARROYO, is a 68 F who presents from assisted living for bilateral ankle pain - she has sustained bilateral ankle fractures, she was seen in ER last night - she has bilateral CAM boots in place, she relates to pain to the ankles, but controlled at this time, she relates she does not ambulate much, she uses a rollator at baseline, she relates she does not want surgery, she is concerned about infection. She has a sling in place to upper extremity, no complaints of f/c/n/v/sob/chest pain or calf pain. [facility] Medical History Mitral valve regurgitation Hx of steroid therapy Nicotine dependence, cigarettes, in remission MIK (obstructive sleep apnea) Barretts esophagus Chronic back pain Alzheimer disease GERD (gastroesophageal reflux disease) Obstructive sleep apnea Obesity Nicotine dependence Schizophrenia Anxiety and depression COPD (chronic obstructive pulmonary disease) Essential (primary) hypertension Hyperlipidemia Home Medications ?Medication ?Instructions ?Recorded ?Last Taken ?Type bupropion HCl 150 mg tablet,12 hr 150 mg PO BID mental health 12/15/17 02/06/20 History sustained-release sertraline 100 mg tablet 200 mg PO DAILY depression 12/15/17 02/06/20 History acetaminophen 325 mg tablet 1,000 mg PO TID PAIN 04/09/19 02/06/20 History memantine 10 mg tablet 10 mg PO BID MEMORY 07/05/19 02/06/20 History budesonide-formoterol HFA 160 2 puff inhalation BID SOB 12/11/19 02/06/20 History mcg-4.5 mcg/actuation aerosol inhaler (Symbicort) omega-3 fatty acids-fish oil 340 1 cap PO BID SUPPLEMENT 12/11/19 02/06/20 History mg-1,000 mg capsule acetaminophen 325 mg tablet 325 mg PO Q6H PRN PRN Pain Or Fever 02/07/20 02/03/20 History donepezil 10 mg tablet (Aricept) 10 mg PO DAILY MEMORY 02/07/20 02/04/20 History Lactobacillus acidophilus 1 ea PO DAILY 11/15/20 Unknown History latanoprost 0.005 % eye drops 1 drp EACH EYE QHS 11/15/20 Unknown History omeprazole 20 mg capsule,delayed 20 mg PO DAILY 11/15/20 Unknown History release quetiapine 300 mg tablet,extended 300 mg PO QHS 09/30/21 Unknown History release 24 hr (Seroquel XR) lisinopril 20 mg tablet 20 mg PO DAILY 11/04/21 Unknown History atorvastatin 20 mg tablet 20 mg PO QHS 09/21/23 Unknown History benztropine 0.5 mg tablet 0.5 mg PO BID PRN shakes 09/21/23 Unknown History calcium polycarbophil 625 mg 625 mg PO BID 09/21/23 Unknown History tablet (Fiber-Lax) cetirizine 10 mg capsule (Zyrtec) 10 mg PO DAILY ALLERGIES 09/21/23 Unknown History dicyclomine 20 mg tablet 20 mg PO BID PRN abdominal pain 09/21/23 Unknown History docusate sodium 100 mg capsule 100 mg PO QHS CONSTIPATION 09/21/23 Unknown History guaifenesin 100 mg/5 mL oral 200 mg PO Q8H PRN cough 09/21/23 Unknown History liquid (Child Mucus Relief Expectorant) ipratropium bromide 42 mcg (0.06 2 spray intranasal BID 09/21/23 Unknown History %) nasal spray lisinopril 5 mg tablet 5 mg PO DAILY BP 09/21/23 Unknown History loperamide 2 mg capsule 2 mg PO Q6H PRN loose stool 09/21/23 Unknown History magnesium hydroxide 400 mg/5 mL 30 ml PO DAILY PRN constipation 09/21/23 Unknown History oral suspension (Milk of Magnesia) melatonin 5 mg tablet 15 mg PO QHS SLEEP 09/21/23 Unknown History montelukast 10 mg tablet 10 mg PO DAILY 09/21/23 Unknown History paliperidone palmitate 234 mg/1.5 234 mg IM Q4W 09/21/23 Unknown History mL intramuscular syringe (Invega Sustenna) polyethylene glycol 3350 17 4 g PO DAILY PRN constipation 09/21/23 Unknown History gram/dose oral powder quetiapine 50 mg tablet,extended 100 mg PO QHS 09/21/23 Unknown History release 24 hr Allergy/AdvReac Type Severity Reaction Status Date / Time No Known Allergies Allergy Verified 09/21/23 13:26 Family History Father Cancer Mother Cancer Surgical History History of esophagogastroduodenoscopy (EGD) (~2015) History of colonoscopy History of tubal ligation History of tooth extraction Social History (Updated 03/03/24 @ 22:[address] Colette Womack MD) household members: none housing: assisted living facility Smoking Status: Former smoker alcohol intake: never substance use type: does not use caffeine: Yes what type of physical activity do you participate in: none seatbelt use: sometimes do you feel safe at home: Yes additional social history: Single-Lives [facility] Physical Exam Const alert, oriented x3 and no apparent distress Constitutional Narrative: Ecchymosis bilateral foot and ankle, no open lesions, no cellulitis, no fluctuance, no crepitus, no drainage, no tissue break down is present bilateral, CFt < 2 seconds to all toes and intact pedal pulses bilateral, there is foot/ankle edema c/w injury, no calf edema and no pain with calf squeeze - calf is soft and supple bilateral, chronic pes planus deformity bilateral foot, there is pain to the ankle bilateral c/w injury, guarding to ankles c/w injury otherwise appears no evidence of tendon tear bilateral foot or ankle. Sensation intact to light touch bilateral foot. No evidence of compartment syndrome or ischemia bilateral foot or ankle. Lab / Micro Data 03/04/24 05:00 03/04/24 05:00 Labs: Laboratory Results - last 24 hr 03/03/24 20:05: WBC 7.1, RBC 4.60, Hgb 12.3, Hct 40.7, MCV 88.5, MCH 26.7 L, M CHC 30.2 L, RDW Std Deviation 43.8, RDW Coeff of Humphrey 13.6, Plt Count 257, MPV 10.1, Immature Gran % (Auto) 0.700, Neut % (Auto) 65.1, Lymph % (Auto) 22.6, M hipolito % (Auto) 10.2 H, Eos % (Auto) 1.0, Baso % (Auto) 0.4, Absolute Neuts (auto) 4.6, Absolute Lymphs (auto) 1.60, Nucleated RBC % 0, Sodium 137, Potassium 3.9, Chloride 105, Carbon Dioxide 26.0, Anion Gap 6, BUN 25 H, Creatinine 0.64, Est GFR (MDRD) Af Amer 119, Est GFR (MDRD) Non-Af 99, BUN/Creatinine Ratio 39.1 H, G lucose 120 H, Calcium 9.6 03/04/24 05:00: WBC 8.2, RBC 4.23, Hgb 11.4 L, Hct 37.3, MCV 88.2, MCH 27.0, M CHC 30.6 L, RDW Std Deviation 44.3 H, RDW Coeff of Humphrey 13.8, Plt Count 249, MPV 10.3, Immature Gran % (Auto) 0.700, Neut % (Auto) 58.6, Lymph % (Auto) 30.4, [place] % (Auto) 9.0, Eos % (Auto) 0.9, Baso % (Auto) 0.4, Absolute Neuts (auto) 4.8, Absolute Lymphs (auto) 2.49, Nucleated RBC % 0, Sodium 138, Potassium 4.0, Chloride 105, Carbon Dioxide 25.0, Anion Gap 8, BUN 25 H, Creatinine 0.59, Estim Creat Clear Calc 77.23, Est GFR (MDRD) Af Amer 131, Est GFR (MDRD) Non-Af 108, B UN/Creatinine Ratio 42.4 H, Glucose 95, Calcium 8.9, Total Bilirubin 0.40, AST 11 L, ALT 19, Alkaline Phosphatase 58, Total Protein 6.7, Albumin 3.2, Globulin 3.5, Albumin/Globulin Ratio 0.9 Imaging Radiology Impression Ankle X-Ray 03/03/24 19:32 IMPRESSION: Age indeterminate nondisplaced spiral fracture of the distal fibular diametaphysis with incomplete healing. Symmetric ankle mortise. Electronically Signed: Stewart Lara MD at 20:58 EDT Reading Location ID and State: [facility] / [employer] , Service support , Foot X-Ray 03/03/24 19:32 IMPRESSION: No acute radiographic abnormalities. Electronically Signed: Stewart Lara MD at 20:56 EDT Reading Location ID and State: [facility] / [employer] , Service support , Ankle X-Ray 03/03/24 19:33 IMPRESSION: Subacute minimally displaced bimalleolar fracture with incomplete healing. Symmetric ankle mortise. Electronically Signed: Stewart Lara MD at 21:00 EDT Reading Location ID and State: [facility] / [place] Tel , Service support , Foot X-Ray 03/03/24 19:33 IMPRESSION: No acute radiographic abnormalities. Electronically Signed: Stewart Lara MD at 20:59 EDT Reading Location ID and State: [facility] / [employer] , Service support , Elbow X-Ray 03/03/24 19:45 IMPRESSION: Displacement of the anterior fat pad indicates possible occult radial head fracture. Consider CT. Electronically Signed: Stewart Lara MD at 20:55 EDT Reading Location ID and State: [employer] / [place] Tel , Service support , Lower Extremity CT 03/03/24 21:31 IMPRESSION: Acute nondisplaced medial and minimally displaced lateral malleolar fractures. The ankle mortise is slightly asymmetric and widened laterally indicating joint instability. Electronically Signed: Stewart Lara MD at 22:47 EDT , Upper Extremity CT 03/03/24 21:31 IMPRESSION: No fracture or malalignment. Electronically Signed: Stewart Lara MD at 22:45 EDT Reading Location ID and State: [email or web address] / [place] Tel , Service support , Lower Extremity CT 03/03/24 21:33 IMPRESSION: Acute minimally displaced lateral tibial plafond (pilon) and lateral malleolus fractures. The ankle mortise is slightly widened laterally indicating joint instability. Electronically Signed: Stewart Lara MD at 22:44 EDT ,
[2024-03-04] MEDS: CLARIFY ORDER 1 EACH NOTE ×2 (10:42→17:23)
[2024-03-04] MEDS: Menthol/Lanolin/Calamine/Znox 113 GM Tube 1 APPLIC TOPICAL ×4 (10:43→21:30)
[2024-03-04] MEDS: Lactobacillis Acidophilus 1 CAP PO (10:44)
[2024-03-04] MEDS: Donepezil HCl 10 MG Tablet PO (10:45)
[2024-03-04] MEDS: Ipratropium Bromide 0.06% NASAL SPRAY 2 SPRAY NASAL ×2 (10:45→21:21)
[2024-03-04] MEDS: Loratadine 10 MG Tablet PO (10:48)
[2024-03-04] MEDS: Memantine Hydrochloride 10 MG Tablet PO ×2 (10:49→21:29)
[2024-03-04] MEDS: Enoxaparin 40 MG/0.4 ML Syringe SC (10:49)
[2024-03-04] MEDS: Pantoprazole Sodium 20 MG Tablet PO (10:50)
[2024-03-04] MEDS: buPROPion (SR) 150 MG Tablet.SA PO ×2 (10:50→21:30)
[2024-03-04] MEDS: Montelukast 10 MG Tablet PO (10:50)
[2024-03-04] MEDS: Lisinopril 5 MG Tablet PO (10:52)
[2024-03-04] MEDS: Sertraline 100 MG Tablet 200 MG PO (10:52)
[2024-03-04] MEDS: Lisinopril 20 MG Tablet PO (10:59)
[2024-03-04] MEDS: busPIRone 15 MG TABLET PO ×2 (10:59→21:30)
[2024-03-04] MEDS: Celecoxib 200 MG Capsule PO (11:00)
[2024-03-04] MEDS: Polyethylene Glycol 3350 17 GM PACKET PO (13:04)
[2024-03-04] MEDS: 0.9% Saline Lock 10 ML Syringe IV (21:20)
[2024-03-04] MEDS: Atorvastatin Calcium 20 MG Tablet PO (21:30)
[2024-03-04] MEDS: Docusate Sodium 100 MG Capsule PO (21:32)
[2024-03-05 03:24] VITALS: BP 119/61; PULSE 73; RESP 18; TEMP 36.8; O2SAT 95
[2024-03-05 05:43] VITALS: BMI 38.3
[2024-03-05] MEDS: oxyCODONE 5 MG Tablet PO ×3 (06:34→21:11)
[2024-03-05] MEDS: Acetaminophen 325 MG Tablet 650 MG PO ×3 (06:38→21:12)
[2024-03-05 07:30] VITALS: O2SAT 95
[2024-03-05 08:46] VITALS: BP 121/54; PULSE 80; RESP 16; TEMP 36.7; O2SAT 94
[2024-03-05] MEDS: Ipratropium Bromide 0.06% NASAL SPRAY 2 SPRAY NASAL ×2 (08:58→21:19)
[2024-03-05] MEDS: Donepezil HCl 10 MG Tablet PO (08:58)
[2024-03-05] MEDS: Lactobacillis Acidophilus 1 CAP PO (08:58)
[2024-03-05] MEDS: busPIRone 15 MG TABLET PO ×2 (08:59→21:11)
[2024-03-05] MEDS: Celecoxib 200 MG Capsule PO (08:59)
[2024-03-05] MEDS: buPROPion (SR) 150 MG Tablet.SA PO ×2 (09:00→21:14)
[2024-03-05] MEDS: Montelukast 10 MG Tablet PO (09:00)
[2024-03-05] MEDS: Memantine Hydrochloride 10 MG Tablet PO ×2 (09:00→21:11)
[2024-03-05] MEDS: Sertraline 100 MG Tablet 200 MG PO (09:00)
[2024-03-05] MEDS: Pantoprazole Sodium 20 MG Tablet PO (09:00)
[2024-03-05] MEDS: Lisinopril 5 MG Tablet PO (09:01)
[2024-03-05] MEDS: Senna/Docusate Sodium 1 Tablet 2 TABLET PO ×2 (09:01→21:10)
[2024-03-05] MEDS: Polyethylene Glycol 3350 17 GM PACKET PO (09:02)
[2024-03-05] MEDS: Enoxaparin 40 MG/0.4 ML Syringe SC (09:02)
[2024-03-05] MEDS: Loratadine 10 MG Tablet PO (09:03)
[2024-03-05] MEDS: Menthol/Lanolin/Calamine/Znox 113 GM Tube 1 APPLIC TOPICAL ×4 (09:03→21:04)
[2024-03-05] MEDS: Lisinopril 20 MG Tablet PO (09:07)
--- NOTE | 2024-03-05 11:20 | PCM.PN.HOSP ---
Reason for Visit Reason for Visit: Diagnoses Pain in right leg (03/03/24) Pain in left leg (03/03/24) Other fracture of right lower leg, initial encounter for closed fracture (03/03/24) Other fracture of left lower leg, initial encounter for closed fracture (03/03/24) Objective Data Objective Data Vital Signs: Vital Signs Temp Pulse Resp BP Pulse Ox O2 Del Method 98.0 F 80 16 121/54 H 94 Room Air 03/05/24 08:46 03/05/24 08:46 03/05/24 08:46 03/05/24 08:46 03/05/24 08:46 03/05/24 08:46 Oxygen Delivery Method Room Air Weight: 216 lb 7.903 oz Body Mass Index (BMI) 38.3 Intake & Output: Intake and Output for Last 24 Hours 03/03/24 03/04/24 03/05/24 23:59 23:59 23:59 Intake Total 100 / 100 2000 / 2000 800 / 800 Output Total 3100 / 3100 600 / 600 Balance 100 / 100 -1100 / -1100 200 / 200 Lab / Micro Data 03/04/24 05:00 03/04/24 05:00 Physical Exam Narrative Seen and examined. Patient states that her left ankle hurts more than right ankle. Patient states he does not want surgery. It seems she is afraid about the surgery infection. Had 2 falls in the past 1 week. No prior fracture of ankle but had ankle sprain Physical exam General: Alert, Oriented x3, Cooperative HEENT: Atraumatic, PERRLA, EOMI, Normocephalic Oral: No Gingival or Mucosal Lesions/ Ulcerations Neck: Supple, No JVD, Negative Carotid Bruits Chest wall/Lungs: Air entry diminished in bilateral lung bases. No crepitation/rhonchi Cardiovascular: Regular rate, Regular Rhythm, Normal S1, Normal S2, No M/G/R Abdomen: Bowel Sounds Present, Soft, Non Tender, Non-Distended : No dysuria. No renal angle tenderness. No suprapubic tenderness. Extremities: No edema, Capillary Refill Less than 3 Seconds Skin: No rashes, No breakdown Musculoskeletal: Both lower legs in cam boot. Mild swelling of ankles. Tenderness and ROM not evaluated because of cam boot, pain and swelling Neurological: Cranial nerves II-XII grossly intact, DTR 2+/4. No acute focal neurological deficit. Psych/Mental Status: Normal Affect, Appropriate. Assessment & Plan Assessment/Plan (1) Bilateral ankle fractures: PLAN: Plan The patient is a 68 y/o F was admitted from assisted living at [facility] after she fell twice the past week. She fell on Wednesday injuring both feet and ankles and head but no LOC. She again fell on the day of the admission and injured both ankles and right elbow. #1. General debility, significant bilateral ankle pain/lower extremity pain s/p mechanical fall w/ left bimalleolar fracture, right spiral fracture of the distal fibular diametaphysis and concern for possible right upper extremity: Patient admitted to [facility]. Pain controlled. Nonweightbearing of lower extremities. Bilateral cam boot. Continue incentive spirometry and PEP for [address] was reviewed. Right upper shoulder in sling and swath Patient was evaluated by criminal intelligence specialist. Patient elected to proceed with nonsurgical intervention as she ambulates very minimally knowing the risk of posttraumatic arthritis. On rollator. 03/05: Discussed with the patient regarding surgical option and she refused. She is concerned about the postsurgical infection and bleeding and surgical complications. She wants conservative management. Discharge plan possible need SNF #2. COPD with allergic rhinitis: Will temporarily hold home inhalers in the interim transition to ATC budesonide therapy, PRN albuterol, HOB, IS parameters, continue patient home cetirizine, montelukast and nasal ipratropium spray. 03/05: No COPD exacerbation. Continue home baseline medications #3. Anxiety and depression/schizophrenia: Will continue patient home benztropine, sertraline, Seroquel, bupropion home regimen in addition to noted outpatient routine paliperidone injections. #4. Alzheimer's dementia/disease, unclear extent with unclear behavioral disturbance history: Complicates presentation, continue patient home Aricept and memantine home regimen, maintain on fall precautions, PT/OT/case meds consulted as given this presentation will likely need transition from assisted to skilled setting. #5. Chronic back pain: Patient following with Dr. Aguirre pain management, not on any chronic narcotic therapy per current list but likely injections per review of records, encourage frequent positional changes, therapies consulted as well as case management as noted. #6. Hypertension: Continue home regimen including lisinopril, PRN hydralazine. #7. Hyperlipidemia: We will continue patient on statin therapy. #8. Former tobacco use: Encourage continued tobacco cessation. #9. GERD with history of Shirley's esophagus: Continue patient home PPI. #10. Obesity: Weight loss and lifestyle changes encouraged. #11. MIK: Patient notes she does not use a CPAP. #12. DVT prophylaxis: Lovenox which certainly may be held if any operative intervention needs. Will defer SCDs given location of fractures on plain films and also awaiting CT imaging. #13. CODE status: Patient HCPOA and living will are not in place but she notes if decisions were necessary her children would be her decision makers. Discussed CODE status at length including difference between FULL code, DNR-CCA and DNR-CC status. Following discussions about the differences in these status, requested Full Code status. Charges/Coding Visit Charges Inpatient E&M: 65364 Subs Hosp L2
[2024-03-05 14:37] VITALS: BP 109/64; PULSE 77; RESP 16; TEMP 37.1; O2SAT 94
[2024-03-05 19:16] VITALS: PULSE 68; RESP 20
[2024-03-05] MEDS: Budesonide Respules 0.5 MG/2 ML AMPUL.NEB. INHALATION (19:16)
[2024-03-05 21:00] VITALS: BP 144/57; PULSE 85; RESP 16; TEMP 36.6; O2SAT 97
[2024-03-05] MEDS: Atorvastatin Calcium 20 MG Tablet PO (21:11)
[2024-03-05] MEDS: MELATONIN 10 MG TABLET 15 MG PO (21:11)
[2024-03-05] MEDS: Docusate Sodium 100 MG Capsule PO (21:15)
[2024-03-06 02:47] VITALS: BP 125/53; PULSE 67; RESP 16; TEMP 36.6; O2SAT 94
[2024-03-06 03:12] VITALS: BMI 37.7
[2024-03-06] MEDS: Budesonide Respules 0.5 MG/2 ML AMPUL.NEB. INHALATION ×2 (07:06→18:49)
[2024-03-06 07:07] VITALS: PULSE 72; RESP 18; O2SAT 91
--- NOTE | 2024-03-06 08:16 | PCM.PN.HOSP ---
Reason for Visit Reason for Visit: Diagnoses Pain in right leg (03/03/24) Pain in left leg (03/03/24) Other fracture of right lower leg, initial encounter for closed fracture (03/03/24) Other fracture of left lower leg, initial encounter for closed fracture (03/03/24) Subjective Subjective Patient is a 68-year-old lady resident at an extended care facility who presented following a fall imaging studies demonstrated bilateral trauma ankle fractures admitted to regular nursing floor for further management. Treatment options were offered to the patient she requested for conservative management for now. Objective Data Objective Data Vital Signs: Vital Signs Temp Pulse Resp BP Pulse Ox O2 Del Method 98 F 72 18 125/53 H 91 Room Air 03/06/24 02:47 03/06/24 07:07 03/06/24 07:07 03/06/24 02:47 03/06/24 07:07 03/06/24 07:07 Oxygen Delivery Method Room Air Weight: 96.6 kg Body Mass Index (BMI) 37.7 Intake & Output: Intake and Output for Last 24 Hours 03/04/24 03/05/24 03/06/24 23:59 23:59 23:59 Intake Total 2000 / 2000 800 / 800 Output Total 3100 / 3100 2050 / 3550 2600 / 2600 Balance -1100 / -1100 -1250 / -2750 -2600 / -2600 Lab / Micro Data 03/04/24 05:00 03/04/24 05:00 Physical Exam Narrative GENERAL: cooperative HEENT: Atraumatic; normocephalic EYES; Anicteric, Normal Conjunctiva NECK; supple, normal thyroid, RESPIRATORY: Diminished to auscultation CARDIOVASCULAR: Regular S1 S2, GI: soft, normoactive bowel sounds, : No Renal angle tenderness; EXTREMITIES: No edema, no clubbing, MUSCULOSKELETAL: Both lower extremities in [place] boots NEURO: Awake; no lateralizing signs. SKIN: No Rash PSYCH; Flat affect Assessment & Plan Assessment/Plan (1) Bilateral ankle fractures: PLAN: Plan Patient is a 68-year-old lady resident at an extended care facility who presented following a fall imaging studies demonstrated bilateral trauma ankle fractures admitted to regular nursing floor for further management. Treatment options were offered to the patient she requested for conservative management for now. 1. Fall with multiple fractures Left ankle images demonstrated subacute minimally displaced bimalleolar fracture with incomplete healing. Right ankle images demonstrated Age indeterminate nondisplaced spiral fracture of the distal fibular diametaphysis with incomplete healing. Admitted to regular nursing floor patient opted for conservative management. Requested for PT OT eval and social work supervisor to assist with discharge planning 2. COPD ? Without acute exacerbation aerosol treatment as needed 3. Class II obesity with BMI of 37.7 ? Complicating care weight loss advised 4. Hypertension - Blood pressure controlled, home medications continued with dose adjustment as needed 5. Dyslipidemia -Patient is on statin therapy, continued at home dose 6. Depression with anxiety ? Patient is on sertraline 7. History of schizophrenia ? Patient is on quetiapine at night and q. monthly paliperidone 8. GERD with history of Shirley's esophagus - Continue patient home PPI. 9. DVT prophylaxis ? SC enoxaparin Time spent in the patient's overall evaluation,decision-making process, review of diagnostic data, adjustment of management, discussion with other providers, nursing nursing and ancillary staff involved in patient's care documentation, 36 Minutes Charges/Coding Visit Charges Inpatient E&M: 65399 Subs Hosp L2
[2024-03-06] MEDS: Enoxaparin 40 MG/0.4 ML Syringe SC (09:55)
[2024-03-06] MEDS: Ipratropium Bromide 0.06% NASAL SPRAY 2 SPRAY NASAL ×2 (09:55→19:52)
[2024-03-06] MEDS: Pantoprazole Sodium 20 MG Tablet PO (09:55)
[2024-03-06] MEDS: Senna/Docusate Sodium 1 Tablet 2 TABLET PO ×2 (09:55→21:04)
[2024-03-06] MEDS: busPIRone 15 MG TABLET PO ×2 (09:56→21:04)
[2024-03-06] MEDS: Loratadine 10 MG Tablet PO (09:56)
[2024-03-06] MEDS: Sertraline 100 MG Tablet 200 MG PO (09:56)
[2024-03-06] MEDS: Lactobacillis Acidophilus 1 CAP PO (09:56)
[2024-03-06] MEDS: Memantine Hydrochloride 10 MG Tablet PO ×2 (09:57→21:04)
[2024-03-06] MEDS: Polyethylene Glycol 3350 17 GM PACKET PO (09:57)
[2024-03-06] MEDS: Menthol/Lanolin/Calamine/Znox 113 GM Tube 1 APPLIC TOPICAL ×4 (09:57→19:52)
[2024-03-06] MEDS: Celecoxib 200 MG Capsule PO (09:57)
[2024-03-06] MEDS: Donepezil HCl 10 MG Tablet PO (09:57)
[2024-03-06] MEDS: Montelukast 10 MG Tablet PO (09:58)
[2024-03-06] MEDS: buPROPion (SR) 150 MG Tablet.SA PO ×2 (09:58→21:05)
[2024-03-06] MEDS: Lisinopril 20 MG Tablet PO (09:58)
[2024-03-06] MEDS: Lisinopril 5 MG Tablet PO (09:59)
[2024-03-06 10:04] VITALS: BP 138/65; PULSE 83; RESP 16; TEMP 36.6; O2SAT 97
--- NOTE | 2024-03-06 12:47 | CASEMGMT ---
Social Work- SW met with pt to discuss preferences at d/c. PT selected [facility] as FOC followed by [facility]. SW advised [facility] to start referrals. FABI Martinez
--- NOTE | 2024-03-06 12:53 | CASEMGMT ---
Addendum entered by Abiola Cordon 03/07/24 12:29: [facility] declined. SW updated. Abiola Cordon DC Planning Asst. Original Note: Discharge Planning Referral sent via [facility] to [facility]. Abiola Cordon DC Planning Asst.
--- NOTE | 2024-03-06 14:16 | PRE.ANES_ITS ---
Pre-Assessment* Anesthesia History Anesthesia History - pathology technician: Anesthesia History - pathology technician Hx Hospitalization No 10/15/21 09:01 Any Problems With Anesthesia No 10/15/21 09:01 Cholinesterase deficiency No 10/15/21 09:01 You/Your Family Experience No 10/15/21 09:01 fever (hyperthermia) with Relationship Recent Exposure to Contagious No 10/15/21 09:01 Disease Does patient have nerve No 10/15/21 09:01 stimulator Patient instructed to have device shut off --Does patient have Pacemaker or ICD? When Was Last Pacemaker Check QUESTION #4 FULL TEXT #4) You/Your Family Experience fever (hyperthermia) with Anesthesia Any additional information?: Yes Airway/Respiratory Assessment Respiratory Assessment - pathology technician: Respiratory Tract Infection Hx - pathology technician Hx Respiratory Tract Infection No 10/15/21 09:01 STOP Sleep Apnea STOP Sleep Apnea - pathology technician: STOP Sleep Apnea - pathology technician Hx Hypertension Yes 03/05/24 09:13 Hx Sleep Apnea Yes 03/03/24 23:07 CPAP Yes: noncompliant 03/03/24 23:07 BIPAP No 03/03/24 23:07 Do you snore loudly (louder than talking or can be heard Do you often feel tired/ fatigued/ sleepy during daytime? Has anyone observed you stop breathing during sleep? STOP Results Positive 03/03/24 23:07 Tobacco Use History Tobacco Use History - pathology technician: Tobacco Use Histor - pathology technician Tobacco Use Smoking Status Former smoker 03/03/24 23:07 Hx Tobacco Use No 03/03/24 23:07 Years Smoking Packs Smoked per Day Smoking Cessation Date was Yes - quit smoking within 15 03/03/24 23:07 within the last 15 years years Hx Smoking Cessation Date 10/04/18 03/03/24 23:07 Hx Smoking Cessation Counseling /Reproduction History /Reproductive History - pathology technician: /Reproductive Hx- pathology technician Hx Now Gestational Age (in weeks): EDC: Hx Hx Para Hx Section SAB No 10/15/21 09:01 Hematologic Medial History Hematologic Hx - pathology technician: Hematologic Medical Hx - surgical dental assistant Hx of Blood Transfusion No 03/03/24 23:07 Hx of Transfusion in last 3 No 03/03/24 23:07 Months Date of Last Transfusion (if within last 3 months) Ever experience any problems No 03/03/24 23:07 with transfusion(s)? Specify any problems Hx of Preganancy in last 3 No 03/03/24 23:07 Months Nurse Filling Out Transfusion EVIZZO 03/03/24 23:07 & Questions: Date: 03/03/24 03/03/24 23:07 Time: 23:18 03/03/24 23:07 Patient unable to answer at this time (ie. confused, unrespo PONV PONV - pathology technician: PONV - pathology technician Female HX of Motion Sickness HX of N/V After Surgery Non-Smoker Duration of Surgery greater than 60 minutes Number of Risk Factors PONV Score Anesthesia focused assessment* Height & Weight: Anesthesia: Height & Weight Height 5 ft 3 in 03/03/24 23:07 Weight: 96.6 kg 03/06/24 03:12 Body Mass Index (BMI) 37.7 03/06/24 03:12 Temperature: 97.8 F Pulse Rate: 83 Blood Pressure: 138/65 Respiratory Rate: 16 Pulse Ox: 97 Active Medications: Current Medications Generic Name Dose Route Start Last Admin Trade Name Freq PRN Reason Stop Dose Admin Acetaminophen 650 mg 03/03/24 23:14 03/05/24 21:12 Acetaminophen 325 Mg Tablet PO 650 mg Q4H PRN PRN Administration Fever, pain 1-1010 Al Hydroxide/Mg Hydroxide 30 ml 03/03/24 23:14 Mag Hydrox/Al Hydrox/Simeth 30 Ml Udc PO Q6H PRN PRN Gastric Burning Albuterol Sulfate 2.5 mg 03/03/24 23:14 Albuterol 2.5 Mg/3 Ml Vial.Neb. INHALATION Q2H PRN PRN Dyspnea, wheezing Atorvastatin Calcium 20 mg 03/04/24 22:00 03/05/24 21:11 Atorvastatin Calcium 20 Mg Tablet PO 20 mg QHS PATTI Administration Benztropine Mesylate 0.5 mg 03/03/24 23:14 Benztropine Mesylate 0.5 Mg Tablet PO BID PRN PRN shakes Budesonide 0.5 mg 03/03/24 23:14 03/06/24 07:06 Budesonide Respules 0.5 Mg/2 Ml Ampul.Neb. INHALATION 0.5 mg BID.RT PATTI Administration Bupropion HCl 150 mg 03/04/24 10:00 03/06/24 09:58 Bupropion (Sr) 150 Mg Tablet.Sa PO 150 mg BID PATTI Administration Buspirone HCl 15 mg 03/04/24 10:15 03/06/24 09:56 Buspirone 15 Mg Tablet PO 15 mg BID PATTI Administration Calamine/Phenol 1 applic 03/04/24 10:00 03/06/24 13:54 Menthol/Lanolin/Calamine/Znox 113 Gm Tube TOPICAL 1 applic 4X/DAY PATTI Administration Protocol Calcium Polycarbophil 625 mg 03/04/24 10:00 03/06/24 09:59 Calcium Polycarbophil 625 Mg Tablet PO 625 mg BID PATTI Administration Celecoxib 200 mg 03/04/24 10:15 03/06/24 09:57 Celecoxib 200 Mg Capsule PO 200 mg DAILY PATTI Administration Dicyclomine HCl 20 mg 03/03/24 23:38 Dicyclomine 10 Mg Capsule PO BID PRN PRN abdominal pain Docusate Sodium 100 mg 03/04/24 22:00 03/05/24 21:15 Docusate Sodium 100 Mg Capsule PO 100 mg QHS PATTI Administration Donepezil HCl 10 mg 03/05/24 10:00 03/06/24 09:57 Donepezil Hcl 10 Mg Tablet PO 10 mg DAILY PATTI Administration Enoxaparin Sodium 40 mg 03/04/24 10:00 03/06/24 09:55 Enoxaparin 40 Mg/0.4 Ml Syringe SC 40 mg DAILY PATTI Administration Hydralazine HCl 10 mg 03/03/24 23:14 Hydralazine 20 Mg/Ml Vial IV Q4H PRN PRN SBP > 160 Protocol Ipratropium [place] 2 spray 03/04/24 10:00 03/06/24 09:55 Ipratropium [place] 0.06% Nasal [place] NASAL 2 spray BID PATTI Administration Lisinopril 20 mg 03/04/24 10:00 03/06/24 09:58 Lisinopril 20 Mg Tablet PO 20 mg DAILY PATTI Administration Protocol Lisinopril 5 mg 03/04/24 10:00 03/06/24 09:59 Lisinopril 5 Mg Tablet PO 5 mg DAILY PATTI Administration Protocol Loratadine 10 mg 03/04/24 10:00 03/06/24 09:56 Loratadine 10 Mg Tablet PO 10 mg DAILY PATTI Administration Melatonin 15 mg 03/04/24 22:00 03/05/24 21:11 Melatonin 10 Mg Tablet PO 15 mg QHS PATTI Administration Memantine 10 mg 03/04/24 10:00 03/06/24 09:57 Memantine Hydrochloride 10 Mg Tablet PO 10 mg BID PATTI Administration Montelukast Sodium 10 mg 03/04/24 10:00 03/06/24 09:58 Montelukast 10 Mg Tablet PO 10 mg DAILY PATTI Administration Morphine Sulfate 4 mg 03/03/24 23:14 Morphine 2 Mg/Ml Syringe IV Q3H PRN PRN Pain Score 6-10 Ondansetron HCl 4 mg 03/03/24 23:14 Ondansetron 4 Mg/2 Ml Vial IV Q8H PRN PRN NAUSEA/VOMITING Oxycodone HCl 5 mg 03/03/24 23:14 03/05/24 21:11 Oxycodone 5 Mg Tablet PO 5 mg Q4H PRN PRN Administration Pain Score 4-10 Pantoprazole Sodium 20 mg 03/04/24 10:00 03/06/24 09:55 Pantoprazole Sodium 20 Mg Tablet PO 20 mg DAILY PATTI Administration Polyethylene Glycol 17 gm 03/04/24 11:20 03/06/24 09:57 Polyethylene Glycol 3350 17 Gm Packet PO 17 gm DAILY PATTI Administration Prochlorperazine Edisylate 5 mg 03/03/24 23:14 Prochlorperazine 10 Mg/2 Ml Vial IV Q4H PRN PRN Breakthrough nausea/vomiting Senna/Docusate Sodium 2 tablet 03/04/24 22:00 03/06/24 09:55 Senna/Docusate Sodium 1 Tablet PO 2 tablet BID PATTI Administration Sertraline HCl 200 mg 03/04/24 10:00 03/06/24 09:56 Sertraline 100 Mg Tablet PO 200 mg DAILY PATTI Administration Sodium Chloride 10 - 40 ml 03/03/24 23:23 03/04/24 21:20 0.9% Saline Lock 10 Ml Syringe IV 10 ml UD PRN Administration SALINE FLUSH Focused labs Anesthesia Preop lab: CBC WBC 8.2 K/mm3 (4.4-11.0) 03/04/24 05:00 RBC 4.23 M/mm3 (4.2-5.4) 03/04/24 05:00 Hgb 11.4 g/dL (12.0-15.0) L 03/04/24 05:00 Hct 37.3 % (37-47) 03/04/24 05:00 Plt Count 249 K/mm3 (150-450) 03/04/24 05:00 CHEMISTRY Potassium 4.0 mmol/L (3.5-5.1) 03/04/24 05:00 Sodium 138 mmol/L (136-145) 03/04/24 05:00 BUN 25 mg/dL (7-18) H 03/04/24 05:00 Creatinine 0.59 mg/dL (0.55-1.02) 03/04/24 05:00 Glucose 95 mg/dL (74-106) 03/04/24 05:00 TSH 1.29 uIU/mL (0.358-3.74) 02/06/19 14:30 COAG Assessment & Plan Anesthesia* Anesthesia Assessment Anesthesia Assessment: Discussed sedation and/or anesthesia options, risks, benefits, and alternatives with patient/parents/legal guardian. Questions invited. The patient/parents/legal guardian/POA seems to understand and agrees to proceed with anesthesia plan. Reviewed the physical assessment, medical history, allergy history and patient home medications list prior to surgery/procedure/anesthetic and documented any changes. Performed airway and anesthesia risk assessments. Review of Systems (Anesthesia) ROS Narrative System reviewed and no additional complaints, except as documented. [facility] Medical History Mitral valve regurgitation Hx of steroid therapy Nicotine dependence, cigarettes, in remission MIK (obstructive sleep apnea) Barretts esophagus Chronic back pain Alzheimer disease GERD (gastroesophageal reflux disease) Obstructive sleep apnea Obesity Nicotine dependence Schizophrenia Anxiety and depression COPD (chronic obstructive pulmonary disease) Essential (primary) hypertension Hyperlipidemia Home Medications ?Medication ?Instructions ?Recorded ?Last Taken ?Type bupropion HCl 150 mg tablet,12 hr 150 mg PO BID mental health 12/15/17 02/06/20 History sustained-release sertraline 100 mg tablet 200 mg PO DAILY depression 12/15/17 02/06/20 History acetaminophen 325 mg tablet 1,000 mg PO TID PAIN 04/09/19 02/06/20 History memantine 10 mg tablet 10 mg PO BID MEMORY 07/05/19 02/06/20 History budesonide-formoterol HFA 160 2 puff inhalation BID SOB 12/11/19 02/06/20 History mcg-4.5 mcg/actuation aerosol inhaler (Symbicort) omega-3 fatty acids-fish oil 340 1 cap PO BID SUPPLEMENT 12/11/19 02/06/20 History mg-1,000 mg capsule acetaminophen 325 mg tablet 325 mg PO Q6H PRN PRN Pain Or Fever 02/07/20 02/03/20 History donepezil 10 mg tablet (Aricept) 10 mg PO DAILY MEMORY 02/07/20 02/04/20 History Lactobacillus acidophilus 1 ea PO DAILY 11/15/20 Unknown History latanoprost 0.005 % eye drops 1 drp EACH EYE QHS 11/15/20 Unknown History omeprazole 20 mg capsule,delayed 20 mg PO DAILY 11/15/20 Unknown History release quetiapine 300 mg tablet,extended 300 mg PO QHS 09/30/21 Unknown History release 24 hr (Seroquel XR) lisinopril 20 mg tablet 20 mg PO DAILY 11/04/21 Unknown History atorvastatin 20 mg tablet 20 mg PO QHS 09/21/23 Unknown History benztropine 0.5 mg tablet 0.5 mg PO BID PRN shakes 09/21/23 Unknown History calcium polycarbophil 625 mg 625 mg PO BID 09/21/23 Unknown History tablet (Fiber-Lax) cetirizine 10 mg capsule (Zyrtec) 10 mg PO DAILY ALLERGIES 09/21/23 Unknown History dicyclomine 20 mg tablet 20 mg PO BID PRN abdominal pain 09/21/23 Unknown History docusate sodium 100 mg capsule 100 mg PO QHS CONSTIPATION 09/21/23 Unknown History guaifenesin 100 mg/5 mL oral 200 mg PO Q8H PRN cough 09/21/23 Unknown History liquid (Child Mucus Relief Expectorant) ipratropium bromide 42 mcg (0.06 2 spray intranasal BID 09/21/23 Unknown History %) nasal spray lisinopril 5 mg tablet 5 mg PO DAILY BP 09/21/23 Unknown History loperamide 2 mg capsule 2 mg PO Q6H PRN loose stool 09/21/23 Unknown History magnesium hydroxide 400 mg/5 mL 30 ml PO DAILY PRN constipation 09/21/23 Unknown History oral suspension (Milk of Magnesia) melatonin 5 mg tablet 15 mg PO QHS SLEEP 09/21/23 Unknown History montelukast 10 mg tablet 10 mg PO DAILY 09/21/23 Unknown History paliperidone palmitate 234 mg/1.5 234 mg IM Q4W 09/21/23 Unknown History mL intramuscular syringe (Invega Sustenna) polyethylene glycol 3350 17 4 g PO DAILY PRN constipation 09/21/23 Unknown History gram/dose oral powder quetiapine 50 mg tablet,extended 100 mg PO QHS 09/21/23 Unknown History release 24 hr Allergy/AdvReac Type Severity Reaction Status Date / Time No Known Allergies Allergy Verified 09/21/23 13:26 Family History Father Cancer Mother Cancer Surgical History History of esophagogastroduodenoscopy (EGD) (~2015) History of colonoscopy History of tubal ligation History of tooth extraction Social History (Updated 03/03/24 @ 22:[address] Colette Womack MD) household members: none housing: assisted living facility Smoking Status: Former smoker alcohol intake: never substance use type: does not use caffeine: Yes what type of physical activity do you participate in: none seatbelt use: sometimes do you feel safe at home: Yes additional social history: Single-Lives at [facility]
[2024-03-06 16:00] VITALS: BP 129/56; PULSE 79; RESP 16; TEMP 36.6; O2SAT 95
[2024-03-06] MEDS: Acetaminophen 325 MG Tablet 650 MG PO ×2 (16:33→21:03)
[2024-03-06] MEDS: oxyCODONE 5 MG Tablet PO ×2 (16:34→21:03)
[2024-03-06 18:49] VITALS: PULSE 75; RESP 18
[2024-03-06 20:30] VITALS: BP 132/50; PULSE 80; RESP 16; TEMP 36.9; O2SAT 94
[2024-03-06] MEDS: MELATONIN 10 MG TABLET 15 MG PO (21:03)
[2024-03-06] MEDS: Docusate Sodium 100 MG Capsule PO (21:04)
[2024-03-06] MEDS: Atorvastatin Calcium 20 MG Tablet PO (21:04)
[2024-03-07] VITALS (7 sets, daily range): BP systolic 116–141; BP diastolic 51–74; PULSE 67–77; RESP 16–18; TEMP 36.6–36.7; O2SAT 92–95; BMI 38.0
[2024-03-07] MEDS: oxyCODONE 5 MG Tablet PO ×5 (02:11→22:56)
[2024-03-07] MEDS: Acetaminophen 325 MG Tablet 650 MG PO ×5 (02:12→22:56)
[2024-03-07 06:20] LABS: Absolute Lymphocyte Count 1.84 X10^3/uL (0.83-4.51); Absolute Neutrophil Count 4.9 X10^3/uL (2.0-7.7); Basophil# 0.01 X10^3/uL; Basophil% 0.1 % (0-1); Eosinophils% 2.6 % (0-5); Hematocrit 38.6 % (37-47); Lymphocyte # 1.84 X10^3/ul (0.83-4.51); Lymphocyte % 24.1 % (19-41); Mean Corp Hgb Conc 31.1 g/dL (32-36); Mean Corpuscular Hgb 27.4 pg (27.0-32.0); Mean Corpuscular Volume 88.1 fL (81-99); Mean Platelet Vol. 10.2 fl (6.2-12.0); Monocyte# 0.64 X10^3/uL; Monocyte% 8.4 % (0-10); NRBC Flagged by Analyzer 0 % (0-5); Neutrophil # 4.87 X10^3/uL (2.7-7.7); Neutrophil % 63.9 % (47-70); Platelet Count 263 K/mm3 (150-450); RBC Distribution Width CV 13.9 % (11.6-14.6); RBC Distribution Width SD 44.7 fl (35.1-43.9); Red Blood Count 4.38 M/mm3 (4.2-5.4); White Blood Count 7.6 K/mm3 (4.4-11.0)
[2024-03-07] MEDS: Budesonide Respules 0.5 MG/2 ML AMPUL.NEB. INHALATION ×2 (07:07→20:04)
[2024-03-07 07:23] LABS: Anion Gap 5 (5-15); BUN 14 mg/dL (7-18); BUN/Creat Ratio 19.7 RATIO (10-20); Calcium,Total 9.3 mg/dL (8.5-10.1); Chloride 102 mmol/L (98-107); Creatinine, Serum 0.71 mg/dL (0.55-1.02); EST Glomerular Filtration Rate 88 mL/min (>60); Est Glom Filt Rate - Afr Amer 106 mL/min (>60); Estimated Creatinine Clearance 76.92 ml/min; Glucose 101 mg/dL (74-106); Magnesium 2.1 mg/dL (1.6-2.6); Phosphorus 4.4 mg/dL (2.5-4.9); Potassium 4.3 mmol/L (3.5-5.1); Sodium Level 134 mmol/L (136-145)
--- NOTE | 2024-03-07 08:17 | PN.HOSP_ITS ---
Reason for Visit Reason for Visit: Diagnoses Pain in right leg (03/03/24) Pain in left leg (03/03/24) Other fracture of right lower leg, initial encounter for closed fracture (03/03/24) Other fracture of left lower leg, initial encounter for closed fracture (03/03/24) Subjective Subjective Patient seen complaining of pain in both ankles Objective Data Objective Data Vital Signs: Vital Signs Temp Pulse Resp BP Pulse Ox O2 Del Method 97.8 F 73 18 141/51 H 92 Room Air 03/07/24 02:10 03/07/24 07:09 03/07/24 07:09 03/07/24 02:10 03/07/24 07:10 03/07/24 07:10 Oxygen Delivery Method Room Air Weight: 97.5 kg Body Mass Index (BMI) 38.0 Intake & Output: Intake and Output for Last 24 Hours 03/05/24 03/06/24 03/07/24 23:59 23:59 23:59 Intake Total 800 / 800 Output Total 2050 / 3550 4450 / 5350 2200 / 2200 Balance -1250 / -2750 -4450 / -5350 -2200 / -2200 Lab / Micro Data 03/07/24 05:29 03/07/24 05:29 Labs: Laboratory Results - last 24 hr 03/07/24 05:29: WBC 7.6, RBC 4.38, Hgb 12.0, Hct 38.6, MCV 88.1, MCH 27.4, MCHC 31.1 L, RDW Std Deviation 44.7 H, RDW Coeff of Humphrey 13.9, Plt Count 263, MPV 10.2, Immature Gran % (Auto) 0.900, Neut % (Auto) 63.9, Lymph % (Auto) 24.1, [place] % (Auto) 8.4, Eos % (Auto) 2.6, Baso % (Auto) 0.1, Absolute Neuts (auto) 4.9, Absolute Lymphs (auto) 1.84, Nucleated RBC % 0, Sodium 134 L, Potassium 4.3, Chloride 102, Carbon Dioxide 27.0, Anion Gap 5, BUN 14, Creatinine 0.71, Estim Creat Clear Calc 76.92, Est GFR (MDRD) Af Amer 106, Est GFR (MDRD) Non-Af 88, BUN/Creatinine Ratio 19.7, Glucose 101, Calcium 9.3, Phosphorus 4.4, Magnesium 2.1 Physical Exam Narrative GENERAL: cooperative HEENT: Atraumatic; normocephalic EYES; Anicteric, Normal Conjunctiva NECK; supple, normal thyroid, RESPIRATORY: Diminished to auscultation CARDIOVASCULAR: Regular S1 S2, GI: soft, normoactive bowel sounds, : No Renal angle tenderness; EXTREMITIES: No edema, no clubbing, MUSCULOSKELETAL: Both lower extremities in Unna boots NEURO: Awake; no lateralizing signs. SKIN: No Rash PSYCH; Flat affect Assessment & Plan Assessment/Plan (1) Bilateral ankle fractures: PLAN: Plan Patient is a 68-year-old lady resident at an extended care facility who presented following a fall imaging studies demonstrated bilateral trauma ankle fractures admitted to regular nursing floor for further management. Treatment options were offered to the patient she requested for conservative management for now. 1. Fall with multiple fractures Left ankle images demonstrated subacute minimally displaced bimalleolar fracture with incomplete healing. Right ankle images demonstrated Age indeterminate nondisplaced spiral fracture of the distal fibular diametaphysis with incomplete healing. Admitted to regular nursing floor patient opted for conservative management. Requested for PT OT eval and social sciences department chair to assist with discharge planning -03/07/2024; patient continues to experience pain in both ankles. Transferred to a longterm facility pending 2. COPD ? Without acute exacerbation aerosol treatment as needed 3. Class II obesity with BMI of 37.7 ? Complicating care weight loss advised 4. Hypertension - Blood pressure controlled, home medications continued with dose adjustment as needed 5. Dyslipidemia -Patient is on statin therapy, continued at home dose 6. Depression with anxiety ? Patient is on sertraline 7. History of schizophrenia ? Patient is on quetiapine at night and q. monthly paliperidone 8. GERD with history of Shirley's esophagus - Continue patient home PPI. 9. DVT prophylaxis ? SC enoxaparin Time spent in the patient's overall evaluation,decision-making process, review of diagnostic data, adjustment of management, discussion with other providers, nursing nursing and ancillary staff involved in patient's care documentation, 35 Minutes Charges/Coding Visit Charges Inpatient E&M: 55319 Subs Hosp L2
[2024-03-07] MEDS: Senna/Docusate Sodium 1 Tablet 2 TABLET PO ×2 (08:37→21:30)
[2024-03-07] MEDS: busPIRone 15 MG TABLET PO ×2 (08:37→21:30)
[2024-03-07] MEDS: Sertraline 100 MG Tablet 200 MG PO (08:37)
[2024-03-07] MEDS: Lactobacillis Acidophilus 1 CAP PO (08:38)
[2024-03-07] MEDS: Donepezil HCl 10 MG Tablet PO (08:41)
[2024-03-07] MEDS: Celecoxib 200 MG Capsule PO (08:41)
[2024-03-07] MEDS: Pantoprazole Sodium 20 MG Tablet PO (08:41)
[2024-03-07] MEDS: Lisinopril 5 MG Tablet PO (08:41)
[2024-03-07] MEDS: buPROPion (SR) 150 MG Tablet.SA PO ×2 (08:41→21:30)
[2024-03-07] MEDS: Memantine Hydrochloride 10 MG Tablet PO ×2 (08:41→21:30)
[2024-03-07] MEDS: Montelukast 10 MG Tablet PO (08:42)
[2024-03-07] MEDS: Enoxaparin 40 MG/0.4 ML Syringe SC (08:42)
[2024-03-07] MEDS: Lisinopril 20 MG Tablet PO (08:43)
[2024-03-07] MEDS: Loratadine 10 MG Tablet PO (08:43)
[2024-03-07] MEDS: Menthol/Lanolin/Calamine/Znox 113 GM Tube 1 APPLIC TOPICAL ×4 (08:44→21:31)
[2024-03-07] MEDS: Ipratropium Bromide 0.06% NASAL SPRAY 2 SPRAY NASAL ×2 (08:44→21:30)
--- NOTE | 2024-03-07 12:03 | CM.UR ---
Social Work Hamzah from [facility] called asking for an update on discharge plan. SW called her back([phone]), let her know pt will be going to a SNF from here. ADDISON Hyatt
--- NOTE | 2024-03-07 12:29 | CASEMGMT ---
Addendum entered by Abiola Cordon 03/07/24 14:48: [facility] has accepted and asked that a full passr be completed. SW updated. Abiola Cordon DC Planning Asst. Original Note: Discharge Planning Referral sent to [facility] [place] via [facility]. Abiola Cordon DC Planning Asst.
--- NOTE | 2024-03-07 13:54 | CASEMGMT ---
Addendum entered by Brittny Lopez 03/07/24 15:25: Social Work [facility] can take pt, they do want SW to complete the PAS/RR. SW spoke w/pt, let her know [facility] can take her, she is agreeable, definitely wants to get back to her home at [facility] when able. SW inquired w/pt about any recent psych hospitalizations, pt states it has been years. Pt does have ongoing case management w/[facility]. Pt has been at [facility] for five years. SW completed the PAS/RR, pt did not trigger a further review. SW faxed all information for level of care including transfer to extended care, med list, ADLS, H&P, and PAS/RR w/results to [facility]. It is anticipated SW will get results tomorrow and pt can go to SNF tomorrow. ADDISON Hyatt Original Note: Social Work [facility] cannot take pt, referral made by d/c urban planning teacher Abiola to [facility]. SW received a call from [facility], they would like to come see pt before accepting, will be here about 2pm. SW let pt know that [facility] cannot take pt, but [facility] may, they are coming to meet her. Pt is fine w/this. SW will continue to follow. ADDISON Hyatt
--- NOTE | 2024-03-07 15:02 | TREXTCAR_ITS ---
Diet Diet Order/Speech Therapy: 03/04/24 11:09 Diet: Regular - General Is pt able to select menu?: Yes Routine Orders/Code Status Code Status: Full Code Therapies Weight Bearing: Weight bearing as tolerated Physical Therapy: Eval and Treat Occupational Therapy: Eval and Treat Problem/Diagnosis (1) Bilateral ankle fractures: Status: Acute Code(s): S82.891A - Other fracture of right lower leg, initial encounter for closed fracture; S82.892A - Other fracture of left lower leg, initial encounter for closed fracture Plan Patient is a 68-year-old lady resident at an extended care facility who presented following a fall imaging studies demonstrated bilateral trauma ankle fractures admitted to regular nursing floor for further management. Treatment options were offered to the patient she requested for conservative management for now. 1. Fall with multiple fractures Left ankle images demonstrated subacute minimally displaced bimalleolar fracture with incomplete healing. Right ankle images demonstrated Age indeterminate nondisplaced spiral fracture of the distal fibular diametaphysis with incomplete healing. Admitted to regular nursing floor patient opted for conservative ma nagement. Requested for PT OT eval and manager social responsibility to assist with discharge planning -03/07/2024; patient continues to experience pain in both ankles. Transferred to a senior care facility pending 2. COPD ? Without acute exacerbation aerosol treatment as needed 3. Class II obesity with BMI of 37.7 ? Complicating care weight loss advised 4. Hypertension - Blood pressure controlled, home medications continued with dose adjustment as needed 5. Dyslipidemia -Patient is on statin therapy, continued at home dose 6. Depression with anxiety ? Patient is on sertraline 7. History of schizophrenia ? Patient is on quetiapine at night and q. monthly paliperidone 8. GERD with history of Shirley's esophagus - Continue patient home PPI. 9. DVT prophylaxis ? SC enoxaparin Time spent in the patient's overall evaluation,decision-making process, review of diagnostic data, adjustment of management, discussion with other providers, nursing nursing and ancillary staff involved in patient's care documentation, 35 Minutes Allergies/Procedures Done in Hospital Allergies No Known Allergies Allergy (Verified 09/21/23 13:26) Type of Care/Length of Stay Estimated LOS: Convalescent Care Less Than 30 days Type of Care Needed: Skilled Rehab Potential: Good Prognosis: Good Additional Orders/Day of Discharge Day of Discharge: 03/08/24 Discharge Plan Admission Admit Date/Time: 03/03/24 22:16 Attending Provider: Reji Agarwal Primary Care Provider: Dena Stevens FINANCIAL ANALYSIS CONSULTANT Consulting Providers: Julio Cesar Cox; Colette Womack; Sanket Greenfield Discharge Orders/Prescriptions Prescriptions: New oxycodone 5 mg Tablet 5 mg PO Q4H PRN PRN (Reason: Pain Score 4-10) 3 Days Qty: 14 0RF enoxaparin 40 mg/0.4 mL Syringe 40 mg subcut DAILY 30 Days Qty: 0 0RF sennosides-docusate sodium [Stool Softener-Stimulant Laxat] 8.6-50 mg Tablet 2 tab PO BID Qty: 0 0RF Continued lisinopril 20 mg tablet 20 mg PO DAILY atorvastatin 20 mg tablet 20 mg PO QHS calcium polycarbophil [Fiber-Lax] 625 mg tablet 625 mg PO BID ipratropium bromide 42 mcg (0.06 %) spray,non-aerosol 2 spray intranasal BID montelukast 10 mg tablet 10 mg PO DAILY quetiapine 50 mg tablet extended release 24 hr 100 mg PO QHS benztropine 0.5 mg tablet 0.5 mg PO BID PRN (Reason: shakes) loperamide 2 mg capsule 2 mg PO Q6H PRN (Reason: loose stool) guaifenesin [Child Mucus Relief Expectorant] 100 mg/5 mL liquid 200 mg PO Q8H PRN (Reason: cough) magnesium hydroxide [Milk of Magnesia] 400 mg/5 mL suspension 30 ml PO DAILY PRN (Reason: constipation) dicyclomine 20 mg tablet 20 mg PO BID PRN (Reason: abdominal pain) polyethylene glycol 3350 17 gram/dose powder 4 g PO DAILY PRN (Reason: constipation) bupropion HCl 150 MG tablet sustained-release 12 hr 150 mg PO BID sertraline 100 MG tablet 200 mg PO DAILY acetaminophen 325 MG tablet 1,000 mg PO TID memantine 10 MG tablet 10 mg PO BID omega-3 fatty acids-fish oil 1 EACH capsule 1 cap PO BID budesonide-formoterol [Symbicort] 1 INHALER inhaler 2 puff inhalation BID docusate sodium 100 mg capsule 100 mg PO QHS acetaminophen 325 MG tablet 325 mg PO Q6H PRN PRN (Reason: Pain Or Fever) donepezil [Aricept] 10 MG tablet 10 mg PO DAILY lisinopril 5 mg tablet 5 mg PO DAILY melatonin 5 mg tablet 15 mg PO QHS latanoprost 1 DROP bottle 1 drp EACH EYE QHS omeprazole 20 MG capsule 20 mg PO DAILY Lactobacillus acidophilus 1 EACH capsule 1 ea PO DAILY Invega Sustenna 234 mg/1.5 mL syringe 234 mg IM Q4W quetiapine [Seroquel XR] 300 mg Tablet Extended Release 24 Hr 300 mg PO QHS Zyrtec 10 mg capsule 10 mg PO DAILY Referrals / Follow Up: Dena Stevens FINANCIAL ANALYSIS CONSULTANT, FINANCIAL ANALYSIS CONSULTANT-C [Primary Care Provider] - Within 2 Weeks Julio Cesar Cox DPM [Med Staff - Active Staff] - Within 2 Weeks Disposition Disposition (needs filled in before D/C Order can be placed): Senior Living Facility
[2024-03-07] MEDS: MELATONIN 10 MG TABLET 15 MG PO (21:30)
[2024-03-07] MEDS: Docusate Sodium 100 MG Capsule PO (21:30)
[2024-03-07] MEDS: Atorvastatin Calcium 20 MG Tablet PO (21:30)
[2024-03-08 02:45] VITALS: BP 151/68; PULSE 65; RESP 16; TEMP 36.6; O2SAT 94
[2024-03-08 06:00] VITALS: BMI 38.1
[2024-03-08 07:17] VITALS: PULSE 64; RESP 18; O2SAT 94
[2024-03-08] MEDS: Budesonide Respules 0.5 MG/2 ML AMPUL.NEB. INHALATION (07:17)
[2024-03-08 07:18] LABS: Absolute Lymphocyte Count 1.82 X10^3/uL (0.83-4.51); Absolute Neutrophil Count 4.1 X10^3/uL (2.0-7.7); Basophil# 0.04 X10^3/uL; Basophil% 0.6 % (0-1); Eosinophils% 2.9 % (0-5); Hematocrit 43.7 % (37-47); Hemoglobin 13.1 g/dL (12.0-15.0); Lymphocyte # 1.82 X10^3/ul (0.83-4.51); Lymphocyte % 26.6 % (19-41); Mean Corpuscular Hgb 27.2 pg (27.0-32.0); Mean Corpuscular Volume 90.9 fL (81-99); Mean Platelet Vol. 10.4 fl (6.2-12.0); Monocyte# 0.66 X10^3/uL; Monocyte% 9.6 % (0-10); NRBC Flagged by Analyzer 0 % (0-5); Neutrophil # 4.05 X10^3/uL (2.7-7.7); Neutrophil % 59.3 % (47-70); Platelet Count 240 K/mm3 (150-450); RBC Distribution Width SD 46.6 fl (35.1-43.9); Red Blood Count 4.81 M/mm3 (4.2-5.4); White Blood Count 6.8 K/mm3 (4.4-11.0)
--- NOTE | 2024-03-08 08:00 | PCM.DC.SUM ---
Providers Date of Admission: 03/03/24 Date of Discharge: 03/08/24 Primary Care Physician: Dena tSevens, TRACK AND FIELD COACH-C Consultations 03/03/24 23:14 Consult: Podiatry Routine Consulting Provider: Julio Cesar Cox Reason for Consult: BL LE fx EMERGENT Consult: No MD Notified: Yes Date Notified: 03/03/24 Time Notified: 22:21 Method of Notification: ED Physician Initiated Reason For Visit: FALL, BL LE FRACTURES Diagnosis Discharge Diagnosis (1) Bilateral ankle fractures: Status: Acute Code(s): S82.891A - Other fracture of right lower leg, initial encounter for closed fracture; S82.892A - Other fracture of left lower leg, initial encounter for closed fracture Plan Patient is a 68-year-old lady resident at an extended care facility who presented following a fall imaging studies demonstrated bilateral trauma ankle fractures admitted to regular nursing floor for further management. Treatment options were offered to the patient she requested for conservative management for now. 1. Fall with multiple fractures Left ankle images demonstrated subacute minimally displaced bimalleolar fracture with incomplete healing. Right ankle images demonstrated Age indeterminate nondisplaced spiral fracture of the distal fibular diametaphysis with incomplete healing. Admitted to regular nursing floor patient opted for conservative management. Requested for PT OT eval and licensed social worker to assist with discharge planning -03/07/2024; patient continues to experience pain in both ankles. [facility] 2. COPD ? Without acute exacerbation aerosol treatment as needed 3. Class II obesity with BMI of 37.7 ? Complicating care weight loss advised 4. Hypertension - Blood pressure controlled, home medications continued with dose adjustment as needed 5. Dyslipidemia -Patient is on statin therapy, continued at home dose 6. Depression with anxiety ? Patient is on sertraline 7. History of schizophrenia ? Patient is on quetiapine at night and q. monthly paliperidone 8. GERD with history of Shirley's esophagus - Continue patient home PPI. 9. DVT prophylaxis ? SC enoxaparin Time spent in the patient's overall evaluation,decision-making process, review of diagnostic data, adjustment of management, discussion with other providers, nursing nursing and ancillary staff involved in patient's care documentation, 35 Minutes Medications at Discharge Home Medications bupropion HCl 150 mg tablet,12 hr sustained-release 150 mg PO BID mental health 12/15/17 sertraline 100 mg tablet 200 mg PO DAILY depression 12/15/17 acetaminophen 325 mg tablet 1,000 mg PO TID PAIN 04/09/19 memantine 10 mg tablet 10 mg PO BID MEMORY 07/05/19 budesonide-formoterol HFA 160 mcg-4.5 mcg/actuation aerosol inhaler (Symbicort) 2 puff inhalation BID SOB 12/11/19 omega-3 fatty acids-fish oil 340 mg-1,000 mg capsule 1 cap PO BID SUPPLEMENT 12/11/19 acetaminophen 325 mg tablet 325 mg PO Q6H PRN PRN Pain Or Fever 02/07/20 donepezil 10 mg tablet (Aricept) 10 mg PO DAILY MEMORY 02/07/20 Lactobacillus acidophilus 1 ea PO DAILY 11/15/20 latanoprost 0.005 % eye drops 1 drp EACH EYE QHS 11/15/20 omeprazole 20 mg capsule,delayed release 20 mg PO DAILY 11/15/20 quetiapine 300 mg tablet,extended release 24 hr (Seroquel XR) 300 mg PO QHS 09/30/21 lisinopril 20 mg tablet 20 mg PO DAILY 11/04/21 atorvastatin 20 mg tablet 20 mg PO QHS 09/21/23 benztropine 0.5 mg tablet 0.5 mg PO BID PRN shakes 09/21/23 calcium polycarbophil 625 mg tablet (Fiber-Lax) 625 mg PO BID 09/21/23 cetirizine 10 mg capsule (Zyrtec) 10 mg PO DAILY ALLERGIES 09/21/23 dicyclomine 20 mg tablet 20 mg PO BID PRN abdominal pain 09/21/23 docusate sodium 100 mg capsule 100 mg PO QHS CONSTIPATION 09/21/23 guaifenesin 100 mg/5 mL oral liquid (Child Mucus Relief Expectorant) 200 mg PO Q8H PRN cough 09/21/23 ipratropium bromide 42 mcg (0.06 %) nasal spray 2 spray intranasal BID 09/21/23 lisinopril 5 mg tablet 5 mg PO DAILY BP 09/21/23 loperamide 2 mg capsule 2 mg PO Q6H PRN loose stool 09/21/23 magnesium hydroxide 400 mg/5 mL oral suspension (Milk of Magnesia) 30 ml PO DAILY PRN constipation 09/21/23 melatonin 5 mg tablet 15 mg PO QHS SLEEP 09/21/23 montelukast 10 mg tablet 10 mg PO DAILY 09/21/23 paliperidone palmitate 234 mg/1.5 mL intramuscular syringe (Invega Sustenna) 234 mg IM Q4W 09/21/23 polyethylene glycol 3350 17 gram/dose oral powder 4 g PO DAILY PRN constipation 09/21/23 quetiapine 50 mg tablet,extended release 24 hr 100 mg PO QHS 09/21/23 enoxaparin 40 mg/0.4 mL subcutaneous syringe 40 mg (0.4 mL) subcut DAILY 30 days #0 mL 03/07/24 oxycodone 5 mg tablet 5 mg PO Q4H PRN PRN Pain Score 4-10 3 days #14 tabs 03/07/24 sennosides 8.6 mg-docusate sodium 50 mg tablet (Stool Softener-Stimulant Laxative) 2 tab PO BID #0 tabs 03/07/24 Physical Exam Narrative GENERAL: cooperative HEENT: Atraumatic; normocephalic EYES; Anicteric, Normal Conjunctiva NECK; supple, normal thyroid, RESPIRATORY: Diminished to auscultation CARDIOVASCULAR: Regular S1 S2, GI: soft, normoactive bowel sounds, : No Renal angle tenderness; EXTREMITIES: No edema, no clubbing, MUSCULOSKELETAL: Both lower extremities in Unna boots NEURO: Awake; no lateralizing signs. SKIN: No Rash PSYCH; Flat affect Weight / BMI Weight Weight: 97.7 kg Body Mass Index (BMI) 38.1 ABG / Lab / Microbiology Data 03/08/24 05:35 03/07/24 05:29 Laboratory: Laboratory Results - last 24 hr 03/08/24 05:35: WBC 6.8, RBC 4.81, Hgb 13.1, Hct 43.7, MCV 90.9, MCH 27.2, MCHC 30.0 L, RDW Std Deviation 46.6 H, RDW Coeff of Humphrey 14.0, Plt Count 240, MPV 10.4, Immature Gran % (Auto) 1.000 H, Neut % (Auto) 59.3, Lymph % (Auto) 26.6, Wheeler % (Auto) 9.6, Eos % (Auto) 2.9, Baso % (Auto) 0.6, Absolute Neuts (auto) 4.1, Absolute Lymphs (auto) 1.82, Nucleated RBC % 0 D/C Instructions Discharge Diet: No restrictions Weight Bearing Status: Weight bearing as tolerated Call your doctor if you observe: Fever of 101 or Higher, Shortness of breath, Fainting spells and Chest pain Meaningful Use Info Meaningful Use Meaningful Use Diagnoses (Choose all that apply): None applicable Ischemic Stroke Statin Dosing Therapy Reference: STATIN DOSE THERAPY REFERENCE: * Patients > 75 years receive moderate or high dose statin therapy. * Patients 75 years or YOUNGER should receive HIGH intensity statin dose unless contraindicated. You will be required to document reason for non-treatment if statin daily dose does not meet guidelines. HIGH DOSE STATIN THERAPY DAILY Atorvastatin > than or = to 40 mg Rosuvastatin > than or = to 20 mg Amlodipine + Atorvastatin > than or = to 2.5/40 mg Ezetimibe + Simvastatin 10/80 mg Simvastatin 80mg Discharge Plan Admission Admit Date/Time: 03/03/24 22:16 Attending Provider: Reji Agarwal Primary Care Provider: Dena Stevens TRACK AND FIELD COACH Consulting Providers: Julio Cesar Cox; Colette Womack; Sanket Greenfield Discharge Orders/Prescriptions Prescriptions: New oxycodone 5 mg Tablet 5 mg PO Q4H PRN PRN (Reason: Pain Score 4-10) 3 Days Qty: 14 0RF enoxaparin 40 mg/0.4 mL Syringe 40 mg subcut DAILY 30 Days Qty: 0 0RF sennosides-docusate sodium [Stool Softener-Stimulant Laxat] 8.6-50 mg Tablet 2 tab PO BID Qty: 0 0RF Continued lisinopril 20 mg tablet 20 mg PO DAILY atorvastatin 20 mg tablet 20 mg PO QHS calcium polycarbophil [Fiber-Lax] 625 mg tablet 625 mg PO BID ipratropium bromide 42 mcg (0.06 %) spray,non-aerosol 2 spray intranasal BID montelukast 10 mg tablet 10 mg PO DAILY quetiapine 50 mg tablet extended release 24 hr 100 mg PO QHS benztropine 0.5 mg tablet 0.5 mg PO BID PRN (Reason: shakes) loperamide 2 mg capsule 2 mg PO Q6H PRN (Reason: loose stool) guaifenesin [Child Mucus Relief Expectorant] 100 mg/5 mL liquid 200 mg PO Q8H PRN (Reason: cough) magnesium hydroxide [Milk of Magnesia] 400 mg/5 mL suspension 30 ml PO DAILY PRN (Reason: constipation) dicyclomine 20 mg tablet 20 mg PO BID PRN (Reason: abdominal pain) polyethylene glycol 3350 17 gram/dose powder 4 g PO DAILY PRN (Reason: constipation) bupropion HCl 150 MG tablet sustained-release 12 hr 150 mg PO BID sertraline 100 MG tablet 200 mg PO DAILY acetaminophen 325 MG tablet 1,000 mg PO TID memantine 10 MG tablet 10 mg PO BID omega-3 fatty acids-fish oil 1 EACH capsule 1 cap PO BID budesonide-formoterol [Symbicort] 1 INHALER inhaler 2 puff inhalation BID docusate sodium 100 mg capsule 100 mg PO QHS acetaminophen 325 MG tablet 325 mg PO Q6H PRN PRN (Reason: Pain Or Fever) donepezil [Aricept] 10 MG tablet 10 mg PO DAILY lisinopril 5 mg tablet 5 mg PO DAILY melatonin 5 mg tablet 15 mg PO QHS latanoprost 1 DROP bottle 1 drp EACH EYE QHS omeprazole 20 MG capsule 20 mg PO DAILY Lactobacillus acidophilus 1 EACH capsule 1 ea PO DAILY Invega Sustenna 234 mg/1.5 mL syringe 234 mg IM Q4W quetiapine [Seroquel XR] 300 mg Tablet Extended Release 24 Hr 300 mg PO QHS Zyrtec 10 mg capsule 10 mg PO DAILY Referrals / Follow Up: Julio Cesar Cox DPM [Med Staff - Active Staff] - Within 2 Weeks Dena Stevens TRACK AND FIELD COACH, TRACK AND FIELD COACH-C [Primary Care Provider] - Within 2 Weeks Disposition Disposition (needs filled in before D/C Order can be placed): Senior Care Facility Charges/Coding Visit Charges Inpatient E&M: 64549 Disch Hosp >30min
[2024-03-08 09:42] LABS: Anion Gap 9 (5-15); BUN 15 mg/dL (7-18); BUN/Creat Ratio 23.7 RATIO (10-20); Calcium,Total 9.3 mg/dL (8.5-10.1); Chloride 102 mmol/L (98-107); Creatinine, Serum 0.63 mg/dL (0.55-1.02); EST Glomerular Filtration Rate 100 mL/min (>60); Est Glom Filt Rate - Afr Amer 120 mL/min (>60); Estimated Creatinine Clearance 77.01 ml/min; Glucose 101 mg/dL (74-106); Potassium 5.3 mmol/L (3.5-5.1); Sodium Level 135 mmol/L (136-145)
[2024-03-08 10:16] VITALS: BP 126/51; PULSE 82; RESP 16; TEMP 36.8; O2SAT 94
[2024-03-08] MEDS: Acetaminophen 325 MG Tablet 650 MG PO (10:21)
[2024-03-08] MEDS: oxyCODONE 5 MG Tablet PO (10:22)
[2024-03-08] MEDS: Montelukast 10 MG Tablet PO (10:24)
[2024-03-08] MEDS: busPIRone 15 MG TABLET PO (10:24)
[2024-03-08] MEDS: Celecoxib 200 MG Capsule PO (10:25)
[2024-03-08] MEDS: Donepezil HCl 10 MG Tablet PO (10:25)
[2024-03-08] MEDS: Lisinopril 5 MG Tablet PO (10:25)
[2024-03-08] MEDS: Ipratropium Bromide 0.06% NASAL SPRAY 2 SPRAY NASAL (10:25)
[2024-03-08] MEDS: Pantoprazole Sodium 20 MG Tablet PO (10:26)
[2024-03-08] MEDS: Lisinopril 20 MG Tablet PO (10:26)
[2024-03-08] MEDS: Enoxaparin 40 MG/0.4 ML Syringe SC (10:26)
[2024-03-08] MEDS: Senna/Docusate Sodium 1 Tablet 2 TABLET PO (10:26)
[2024-03-08] MEDS: Sertraline 100 MG Tablet 200 MG PO (10:27)
[2024-03-08] MEDS: Memantine Hydrochloride 10 MG Tablet PO (10:27)
[2024-03-08] MEDS: Loratadine 10 MG Tablet PO (10:27)
[2024-03-08] MEDS: buPROPion (SR) 150 MG Tablet.SA PO (10:27)
[2024-03-08] MEDS: Lactobacillis Acidophilus 1 CAP PO (10:27)
[2024-03-08] MEDS: Menthol/Lanolin/Calamine/Znox 113 GM Tube 1 APPLIC TOPICAL (10:31)
--- NOTE | 2024-03-08 11:07 | CASEMGMT ---
Discharge Planning Discharge orders, signed med list, and transport time sent to [facility] via [facility]. Physicians will transport patient by cot at 12:00p. Nursing, SW, patient, and her son (David) updated. Abiola Cordon DC Planning Asst.
--- NOTE | 2024-03-08 11:24 | PHA.DC.MR.R ---
Pharmacy PA Med Reconciliation Pharmacy Service has performed discharge medication reconciliation for this patient. The patient's discharge medication list was reviewed for discrepancies and discrepancies were resolved. Medications at Discharge Home Medications bupropion HCl 150 mg tablet,12 hr sustained-release 150 mg PO BID mental health 12/15/17 sertraline 100 mg tablet 200 mg PO DAILY depression 12/15/17 acetaminophen 325 mg tablet 1,000 mg PO TID PAIN 04/09/19 memantine 10 mg tablet 10 mg PO BID MEMORY 07/05/19 budesonide-formoterol HFA 160 mcg-4.5 mcg/actuation aerosol inhaler (Symbicort) 2 puff inhalation BID SOB 12/11/19 omega-3 fatty acids-fish oil 340 mg-1,000 mg capsule 1 cap PO BID SUPPLEMENT 12/11/19 acetaminophen 325 mg tablet 325 mg PO Q6H PRN PRN Pain Or Fever 02/07/20 donepezil 10 mg tablet (Aricept) 10 mg PO DAILY MEMORY 02/07/20 Lactobacillus acidophilus 1 ea PO DAILY 11/15/20 latanoprost 0.005 % eye drops 1 drp EACH EYE QHS 11/15/20 omeprazole 20 mg capsule,delayed release 20 mg PO DAILY 11/15/20 quetiapine 300 mg tablet,extended release 24 hr (Seroquel XR) 300 mg PO QHS 09/30/21 lisinopril 20 mg tablet 20 mg PO DAILY 11/04/21 atorvastatin 20 mg tablet 20 mg PO QHS 09/21/23 benztropine 0.5 mg tablet 0.5 mg PO BID PRN shakes 09/21/23 calcium polycarbophil 625 mg tablet (Fiber-Lax) 625 mg PO BID 09/21/23 cetirizine 10 mg capsule (Zyrtec) 10 mg PO DAILY ALLERGIES 09/21/23 dicyclomine 20 mg tablet 20 mg PO BID PRN abdominal pain 09/21/23 docusate sodium 100 mg capsule 100 mg PO QHS CONSTIPATION 09/21/23 guaifenesin 100 mg/5 mL oral liquid (Child Mucus Relief Expectorant) 200 mg PO Q8H PRN cough 09/21/23 ipratropium bromide 42 mcg (0.06 %) nasal spray 2 spray intranasal BID 09/21/23 lisinopril 5 mg tablet 5 mg PO DAILY BP 09/21/23 loperamide 2 mg capsule 2 mg PO Q6H PRN loose stool 09/21/23 magnesium hydroxide 400 mg/5 mL oral suspension (Milk of Magnesia) 30 ml PO DAILY PRN constipation 09/21/23 melatonin 5 mg tablet 15 mg PO QHS SLEEP 09/21/23 montelukast 10 mg tablet 10 mg PO DAILY 09/21/23 paliperidone palmitate 234 mg/1.5 mL intramuscular syringe (Invega Sustenna) 234 mg IM Q4W 09/21/23 polyethylene glycol 3350 17 gram/dose oral powder 4 g PO DAILY PRN constipation 09/21/23 quetiapine 50 mg tablet,extended release 24 hr 100 mg PO QHS 09/21/23 enoxaparin 40 mg/0.4 mL subcutaneous syringe 40 mg (0.4 mL) subcut DAILY 30 days #0 mL 03/07/24 oxycodone 5 mg tablet 5 mg PO Q4H PRN PRN Pain Score 4-10 3 days #14 tabs 03/07/24 sennosides 8.6 mg-docusate sodium 50 mg tablet (Stool Softener-Stimulant Laxative) 2 tab PO BID #0 tabs 03/07/24
--- NOTE | 2024-03-08 11:31 | CASEMGMT ---
Social Work SW met with pt to discuss advance directives. Pt states she has not completed a Living Will or health care POA. SW explained documents to pt and pt is not interested in completing at this time. FABI Kay
--- NOTE | 2024-03-08 11:34 | NURSING ---
report called to the [facility]
== END 2024-03-08 12:28 | disposition skilled nursing facility (03) | DRG 342 ==
LOC: ED 22:09 → MS3 22:40
PROVIDERS: Admitting Provider Family Medicine; Emergency Provider Emergency Medicine; PCP Nurse Practitioner Adult Health; Visit Provider Internal Medicine
DX: S82.892A Other fracture of left lower leg, initial encounter for closed fracture (principal); E66.9 Obesity, unspecified; F02.80 Dementia in other diseases classified elsewhere, unspecified severity, without behavioral disturbance, psychotic disturbance, mood disturbance, and anxiety; F20.9 Schizophrenia, unspecified; J44.9 Chronic obstructive pulmonary disease, unspecified; G30.9 Alzheimer's disease, unspecified; I10 Essential (primary) hypertension; E78.5 Hyperlipidemia, unspecified; S82.891A Other fracture of right lower leg, initial encounter for closed fracture; G47.33 Obstructive sleep apnea (adult) (pediatric); J30.9 Allergic rhinitis, unspecified; K22.70 Barrett's esophagus without dysplasia; F41.8 Other specified anxiety disorders; K21.9 Gastro-esophageal reflux disease without esophagitis; W19.XXXA Unspecified fall, initial encounter; G89.29 Other chronic pain; Z87.891 Personal history of nicotine dependence; Z79.51 Long term (current) use of inhaled steroids; R53.81 Other malaise; Z68.37 Body mass index [BMI] 37.0-37.9, adult
CPT/HCPCS: 36415; 73080; 73200; 73610; 73620; 73700; 80048; 80053; 83735; 84100; 85025; 94640; 94668; 97163; 97166; 97530; 97535; 99252; 99284; J7030; A4216; G0463

== ENCOUNTER → 2025-03-16 | Outpatient (CLI) | payer MEDICAID, SELFPAY ==
--- NOTE | 2025-03-16 16:49 | CT_ITS ---
PROCEDURE: CHEST WITH CONTRAST 03/16/2025 REASON FOR EXAM: SOB TECHNIQUE: CHEST WITH CONTRAST Coronal and Sagittal reconstruction series were provided. CONTRAST: Isovue-350 VOLUME: 100 mL One or more dose reduction techniques were used (e.g., Automated exposure control, adjustment of the mA and/or kV according to patient size, use of iterative reconstruction technique). RADIATION DOSE SUMMARY: CTDlvol: 19.31 mGy DLP: 752 mGycm COMPARISON: Chest radiograph on 12/18/2019. FINDINGS: Elevation of the hemidiaphragms, more on the right side. Bilateral basilar atelectatic pulmonary changes. Subsegmental atelectasis/consolidation of the right lower lobe. Please evaluate to exclude superimposed pneumonia. No significant coronary artery calcifications. Hepatomegaly. Hepatic steatosis. Normal enhancement of the main pulmonary artery and right and left pulmonary arteries. Mild atheromatous plaques of the thoracic aorta and visualized great vessels. There is no demonstrated aortic dissection. Normal heart and pericardium. Normal mediastinum. Normal hilar regions. Normal visualized trachea and bronchi. The remaining lungs are well expanded. Normal remaining pulmonary parenchyma. Normal pleura. CT/Chest WITH Contrast IMPRESSION: 1. Coronary artery calcification (CAC) is is absent 2. Elevation of the hemidiaphragms, more on the right side. 3. Bilateral basilar atelectatic pulmonary changes. 4. Subsegmental atelectasis/consolidation of the right lower lobe. Please evalu ate to exclude superimposed pneumonia. 5. No significant coronary artery calcifications. 6. Hepatomegaly. 7. Hepatic steatosis. Reading [facility] [id number]
== END | disposition home or self-care (01) ==
LOC: CT 16:34
PROVIDERS: PCP Nurse Practitioner Adult Health; Referring Provider Nurse Practitioner Family; Visit Provider Nurse Practitioner Family
DX: R06.02 Shortness of breath (principal)
CPT/HCPCS: 71260; Q9967

== ENCOUNTER 2025-06-03 19:03 | Inpatient (IN) | payer MEDICAID, SELFPAY ==
[2025-06-03] VITALS (9 sets, daily range): BP systolic 102–126; BP diastolic 61–68; PULSE 80–91; RESP 14–26; TEMP 37.3–38; O2SAT 85–93; BMI 47.0
--- NOTE | 2025-06-03 19:31 | EKG12_ITS ---
Test Reason : SOB Blood Pressure : */* mmHG Vent. Rate : 84 BPM Atrial Rate : 84 BPM P-R Int : 166 ms QRS Dur : 104 ms QT Int : 356 ms P-R-T Axes : 47 -35 54 degrees QTcB Int : 420 ms Sinus rhythm with occasional Premature ventricular complexes Left axis deviation Low voltage QRS Incomplete right bundle branch block Cannot rule out Anterior infarct , age undetermined Abnormal ECG Confirmed by Philip Rodriguez ([id number]), book or script editor DANAE GOODEN ([id number]) on 06/05/2025 10:43:28 AM Referred By: Confirmed By: Philip Rodriguez
--- OUTSIDE RECORDS SUMMARY | 2025-06-03 19:37 | XMS RPT_ITS | CCD ---
Author Organization [facility] Care Team Providers Care Neuro Urologist Name Role Phone Dinorah Mcgarry Unavailable Unavailabl e RYAN, JADEN Unavailable Unavailable RYAN, JADEN Unavailable Unavailable RYAN, JADEN Unavailable Unavailable ACOSTA, TWAN Unavailable Unavailable RYAN, JADEN Unavailable Unavailable ACOSTA, TWAN Unavailable Unavailable ACOSTA, TWAN Unavailable Unavailable RYAN, JADEN Unavailable Unavailable ACOSTA, TWAN Unavailable Unavailable RYAN, JADEN Unavailable Unavailable Rodney THERAPY DIRECTOR, THERAPY DIRECTOR-C [facility] er Rodney ZARAGOZA, THERAPY DIRECTOR-C [facility] Referring Provider SASHA Beauchamp Attending Provider Dr. Mike Gallagher Attending Provider Rodney ZARAGOZA-C, [facility] Primary Care Provider Moris ZARAGOZA-CPaulina Attending Provider Moris THERAPY DIRECTOR-C, Paulina Referring Provider [phone] Moris THERAPY DIRECTOR, Paulina Referring Unavailable Moris THERAPY DIRECTORPaulina Attending Unavailable Rodney [facility] Unavailable Medications Current Medications Medication Drug Class(es) Dates Sig (Normalized) Sig (Original) acetaminophen 325 mg oral tablet (9 sources) Start: 02-07-2020 take 1 tablet by mouth every six hours as needed for pain Acetaminophen 325 MG tablet Active 325 mg PO EVERY 6 HOURS NEEDED as needed for Pain Or Fever February 07, 2020 12:00am Start: 04-09-2019 Acetaminophen 325 MG tablet Active 1000 mg PO THREE TIMES A DAY April 09, 2019 12:00am Start: 04-09-2019 take 1000 mg by mout h three times daily Acetaminophen Active 1000 MG PO THREE TIMES A DAY April 08, 2019 11:00pm Start: 12-17-2017 End: 12-28-2018 take 2 tablets by mouth every six hours as needed for pain Acetaminophen 325 MG tablet Discontinued 650 mg PO EVERY 6 HOURS NEEDED as needed for Fever, headache, pain December 17, 2017 12:00am December 28, 2018 4:07pm Start: 12-17-2017 End: 12-28-2018 take 650 mg by mouth every six hours as needed Acetaminophen Discontinued 650 MG PO EVERY 6 HOURS NEEDED December 16, 2017 11:00pm December 28, 2018 3:07pm atorvastatin 20 mg oral tablet (5 sources) HMG-CoA Reductase Inhibitor Start: 09-21-2023 take 1 tablet by mouth at bedtime Atorvastatin 20 mg tablet Active 20 mg PO AT BEDTIME September 21, 2023 1:00am Start: 07-06-2023 take 20 mg by mouth at bedtime Atorvastatin Active 20 MG PO AT BEDTIME July 06, 2023 12:16pm Start: 02-07-2020 End: 07-06-2023 take 1 tablet by mouth at bedtime Atorvastatin 10 MG tablet Discontinued 10 mg PO AT BEDTIME February 07, 2020 12:00am July 06, 2023 1:31pm benztropine mesylate 0.5 mg oral tablet (7 sources) Anticholinergic, Antihistamine Start: 09-21-2023 take 1 tablet by mouth twice daily as needed Benztropine 0.5 mg tablet Active 0.5 mg PO TWICE A DAY as needed for shakes September 21, 2023 1:00am Start: 11-15-2020 End: 11-04-2021 take 0.5 mg by mouth twice daily as needed for anxiety Benztropine 2 MG tablet Discontinued 0.5 mg PO TWICE A DAY as needed for Anxiety November 15, 2020 1:00am November 04, 2021 10:56am Start: 11-15-2020 End: 11-04-2021 take 0.5 mg by mouth twice daily Benztropine Discontinued 0.5 MG PO TWICE A DAY November 15, 2020 12:00am November 04, 2021 9:56am Start: 12-15-2017 End: 12-28-2018 take 0.5 mg by mouth twice daily Benztropine 2 MG tablet Discontinued 0.5 mg PO TWICE A DAY December 15, 2017 12:00am December 28, 2018 4:04pm Start: 12-15-2017 End: 12-28-2018 take 0.5 mg by mouth twice daily Benztropine Discontinued 0.5 MG PO TWICE A DAY December 14, 2017 11:00pm December 28, 2018 3:04pm 120 actuat budesonide 0.16 mg/actuat / formoterol fumarate 0.0045 mg/actuat metered dose inhaler (3 sources) Corticosteroid, beta2-Adrenergic Agonist Start: 12-11-2019 Budesonide-Formoterol (Symbicort) 1 INHALER inhaler Active 2 NMA INHALATION TWICE A DAY December 11, 2019 12:00am Start: 12-11-2019 take 1 puff(s) by in halation twice daily Budesonide-Formoterol (Symbicort) 1 INHALER inhaler Active 2 PUFF INHALATION TWICE A DAY December 10, 2019 11:00pm 12 hr buPROPion hydrochloride 150 mg extended release oral tablet (3 sources) Aminoketone Start: 12-15-2017 take 1 tablet by mouth twice daily Bupropion Hcl 150 MG tablet sustained-release 12 hr Active 150 mg PO TWICE A DAY December 15, 2017 12:00am calcium polycarbophil 625 mg oral tablet (4 sources) Start: 09-21-2023 take 1 tablet by mouth twice daily Calcium Polycarbophil (Fiber-Lax) 625 mg tablet Active 625 mg PO TWICE A DAY September 21, 2023 1:00am Start: 09-30-2021 End: 07-06-2023 take 1 tablet by mouth twice daily Calcium Polycarbophil (Fiber (Calcium Polycarbophil)) 625 mg Tablet Discontinued 625 mg PO TWICE A DAY September 30, 2021 1:00am July 06, 2023 1:18pm cetirizine hydrochloride 10 mg oral capsule (4 sources) Histamine-1 Receptor Antagonist Start: 09-30-2021 End: 09-21-2023 take 1 capsule by mouth once daily Cetirizine (Zyrtec) 10 mg capsule Active 10 mg PO DAILY September 21, 2023 2:17pm dicyclomine hydrochloride 20 mg oral tablet (1 source) Anticholinergic Start: 09-21-2023 take 1 tablet by mouth twice daily as needed for pain Dicyclomine 20 mg tablet Active 20 mg PO TWICE A DAY as needed for abdominal pain September 21, 2023 1:00am docusate sodium 100 mg oral capsule (4 sources) Start: 12-11-2019 End: 09-21-2023 take 1 capsule by mouth at bedtime Docusate Sodium 100 mg capsule Active 100 mg PO AT BEDTIME September 21, 2023 2:17pm docusate sodium 50 mg / sennosides, mcc 8.6 mg oral tablet (1 source) Start: 03-07-2024 Sennosides-Docus ate Sodium (Stool Softener-Stimula nt Laxat) 8.6-50 mg Tablet Active 2 {tbl} PO TWICE A DAY 0 March 07, 2024 12:00am donepezil hydrochloride 10 mg oral tablet (3 sources) Start: 02-07-2020 take 1 tablet by mouth once daily Donepezil (Aricept) 10 MG tablet Active 10 mg PO DAILY February 07, 2020 12:00am 0.4 ml enoxaparin sodium 100 mg/ml prefilled syringe (1 source) Low Molecular Weight Heparin Start: 03-07-2024 Enoxaparin 40 mg/0.4 mL Syringe Active 40 mg SC DAILY 0 30 March 07, 2024 12:00am guaiFENesin 20 mg/ml oral solution (4 sources) Start: 09-21-2023 take 200 mg by mouth every eight hours as needed for cough Guaifenesin (Child Mucus Relief Expectorant) 100 mg/5 mL liquid Active 200 mg PO Q8H as needed for cough September 21, 2023 1:00am Start: 02-07-2020 End: 11-04-2021 take 1 tablet by mouth three times daily as needed for cough Guaifenesin 400 MG tablet Discontinued 400 mg PO 3 TIMES DAILY NEEDED as needed for Cough February 07, 2020 12:00am November 04, 2021 10:56am ipratropium bromide 0.042 mg/actuat metered dose nasal spray (1 source) Anticholinergic Start: 09-21-2023 Ipratropium Br omide 42 mcg (0.06 %) spray,non-aerosol Active 2 NMA INTRANASAL TWICE A DAY September 21, 2023 1:00am Lactobacillus acidophilus (2 sources) Start: 11-15-2020 Lactobacillus Acidophilus Active 1 EACH PO DAILY November 15, 2020 12:00am Lactobacillus Acidophilus 1 EACH capsule (1 source) Start: 02-12-2021 Lactobacillus Acidophilus 1 EACH capsule Active 1 NMA PO DAILY November 15, 2020 1:00am latanoprost 0.05 mg/ml ophthalmic solution (3 sources) Prostaglandin Analog Start: 11-15-[address] 1 DROP bottle Active 1 NMA EACH EYE AT BEDTIME November 15, 2020 1:00am Start: 11-15-2020 Latanoprost Ac tive 1 DRP EACH EYE AT BEDTIME November 15, 2020 12:00am lisinopril 5 mg oral tablet (16 sources) Angiotensin Converting Enzyme Inhibitor Start: 11-04-2021 take 1 tablet by mouth once daily Lisinopril 20 mg tablet Active 20 mg PO DAILY November 04, 2021 1:00am Start: 02-07-2020 End: 09-21-2023 take 1 tablet by mouth once daily Lisinopril 5 mg tablet Active 5 mg PO DAILY September 21, 2023 2:20pm Start: 02-07-2020 take 25 mg by mouth once daily Lisinopril Active 25 MG PO DAILY February 06, 2020 11:00pm Start: 07-18-2019 End: 07-26-2019 Lisinopril 10 mg tablet Disc ontinued 15 mg PO DAILY July 18, 2019 12:00am July 26, 2019 9:41am Start: 07-18-2019 End: 07-26-2019 take 15 mg by mouth once daily Lisinopril Discontinued 15 MG PO DAILY July 17, 2019 11:00pm July 26, 2019 8:41am Start: 12-28-2018 End: 07-18-2019 take 2.5 mg by mouth once daily Lisinopril 30 mg table t Discontinued 2.5 mg PO DAILY December 28, 2018 12:00am July 18, 2019 7:51pm Start: 12-28-2018 End: 07-18-2019 take 2.5 mg by mouth once daily Lisinopril Discontinue d 2.5 MG PO DAILY December 27, 2018 11:00pm July 18, 2019 6:51pm Start: 12-15-2017 End: 12-28-2018 take 1 tablet by mouth once daily Lisinopril 10 MG tablet Discontinued 10 mg PO DAILY December 15, 2017 12:00am December 28, 2018 4:02pm loperamide hydrochloride 2 mg oral capsule (1 source) Opioid Agonist Start: 09-21-2023 take 1 capsule by mouth every six hours as needed Loperamide 2 mg capsule Active 2 mg PO EVERY 6 HOURS as needed for loose stool September 21, 2023 1:00am Magnesium Hydroxide (1 source) Start: 09-21-2023 take 1 mL by mouth once daily as needed for constipation Magnesium Hydroxide (Milk Of Magnesia) 400 mg/5 mL suspension Active 30 mL PO DAILY as needed for constipation September 21, 2023 1:00am melatonin 5 mg oral tablet (4 sources) Start: 09-21-2023 take 3 tablets by mouth at bedtime Melatonin 5 mg tablet Active 15 mg PO AT BEDTIME September 21, 2023 2:20pm Start: 02-07-2020 End: 09-21-2023 take 2 tablets by mouth at bedtime Melatonin 5 MG tablet Discontinued 10 mg PO AT BEDTIME February 07, 2020 12:00am September 21, 2023 2:25pm Start: 02-07-2020 take 10 mg by mouth at bedtime Melatonin Active 10 MG PO AT BEDTIME February 06, 2020 11:00pm memantine hydrochloride 10 mg oral tablet (3 sources) F-dkwgsf-C-aspartate Receptor Antagonist Start: 07-05-2019 take 1 tablet by mouth twice daily Memantine 10 MG tablet Active 10 mg PO TWICE A DAY July 05, 2019 12:00am montelukast 10 mg oral tablet (4 sources) Leukotriene Receptor Antagonist Start: 09-21-2023 take 1 tablet by mouth once daily Montelukast 10 mg tablet Active 10 mg PO DAILY September 21, 2023 1:00am Start: 09-30-2021 End: 11-04-2021 take 1 tablet by mouth at bedtime Montelukast (Singulair) 10 mg Tablet Discontinued 10 mg PO AT BEDTIME September 30, 2021 1:00am November 04, 2021 10:56am Logan-3 Fatty Acids-Fish Oil (2 sources) Start: 12-11-2019 take 1 capsule by mouth twice daily Logan-3 Fatty Acids-Fish Oil Active 1 CAP PO TWICE A DAY December 10, 2019 11:00pm Logan-3 Fatty Acids-Fish Oil 1 EACH capsule (1 source) Start: 12-11-2019 Logan-3 Fatty Acids-Fish Oil 1 EACH capsule Active 1 NMA PO TWICE A DAY December 11, 2019 12:00am omeprazole 20 mg delayed release oral capsule (6 sources) Proton Pump Inhibitor Start: 11-15-2020 take 1 capsule by mouth once daily Omeprazole 20 MG capsule Active 20 mg PO DAILY November 15, 2020 1:00am Start: 12-15-2017 End: 12-28-2018 take 1 capsule by mouth once daily Omeprazole 40 MG capsule,delayed release(DR/EC) Discontinued 40 mg PO DAILY December 15, 2017 12:00am December 28, 2018 3:59pm oxyCODONE hydrochloride 5 mg oral tablet (7 sources) Opioid Agonist Start: 03-07-2024 take 1 tablet by mouth every four hours as needed for pain Oxycodone 5 mg Tablet Active 5 mg PO EVERY 4 HOURS NEEDED as needed for Pain Score 4-10 14 March 07, 2024 Start: 02-12-2020 End: 02-17-2020 take 1 tablet by mouth every six hours as needed for pain Oxycodone 5 MG tablet Discontinued 5 mg PO EVERY 6 HOURS NEEDED as needed for Pain Score 4-5/10 20 February 12, 2020 February 16, 2020 12:00am February 17, 2020 12:02am Start: 12-17-2017 End: 12-28-2018 take 1 tablet by mouth every six hours as needed for pain Oxycodone 5 MG tablet Discontinued 5 mg PO EVERY 6 HOURS NEEDED as needed for Severe Pain (6-10/10) 22 04December 17, 2017 12:00am December 28, 2018 4:07pm 1.5 ml paliperidone palmitate 156 mg/ml prefilled syringe (4 sources) Atypical Antipsychotic Start: 09-21-2023 Paliper idone Palmitate (Invega Sustenna) 234 mg/1.5 mL syringe Active 234 mg IM every 4 weeks September 21, 2023 2:19pm Start: 11-15-2020 End: 09-21-2023 Paliperidone Palmitate (Inve ga Sustenna) 234 MG/1.5 ML syringe Discontinued 234 mg IM Q30D November 15, 2020 1:00am September 21, 2023 2:25pm polyethylene glycol 3350 02123 mg powder for oral solution (4 sources) Osmotic Laxative Start: 09-21-2023 take 4 g by mouth once daily as needed for constipation Polyethylene Glycol 3350 17 gram/dose powder Active 4 g PO DAILY as needed for constipation September 21, 2023 1:00am Start: 11-15-2020 End: 11-04-2021 Polyethylene Glycol 3350 17 GM packet Discontinued 17 g PO NEEDED as needed for PRN November 15, 2020 1:00am November 04, 2021 10:56am QUEtiapine (4 sources) Atypical Antipsychotic Start: 09-21-2023 Quetiap ine 50 mg tablet extended release 24 hr Active 100 mg PO AT BEDTIME September 21, 2023 1:00am Start: 09-30-2021 take 1 tablet by vishal th every twenty-four hours at bedtime Quetiapine (Seroquel Xr) 300 mg Tablet Extended Release 24 Hr Active 300 mg PO AT BEDTIME September 30, 2021 1:00am sertraline 100 mg oral tablet (3 sources) Serotonin Reuptake Inhibitor Start: 12-15-2017 take 2 tablets by mouth once daily Sertraline 100 MG tablet Active 200 mg PO DAILY December 15, 2017 12:00am Start: 12-15-2017 take 200 mg by mouth once trevor y Sertraline Active 200 MG PO DAILY December 14, 2017 11:00pm Completed/Discontinued Medications Medication Drug Class(es) Dates Sig (Normalized) Sig (Original) acetaminophen 325 mg / HYDROcodone bitartrate 5 mg oral tablet (3 sources) Opioid Agonist Start: 04-09-2019 End: 04-16-2019 Hydrocodone-Acetami nophen 1 TABLET tablet Discontinued 1 {tbl} PO EVERY 4 HOURS NEEDED as needed for Pain 14 2 April 09, 2019 April 10, 2019 12:00am April 16, 2019 12:09am Start: 04-09-2019 End: 04-16-2019 take 1 tablet by mouth every four hours as needed Hydrocodone-Acetaminophen Discontinued 1 TABLET PO EVERY 4 HOURS NEEDED 14 2 April 09, 2019 April 15, 2019 11:09pm albuterol 0.83 mg/ml inhalation solution (3 sources) beta2-Adrenergic Agonist Start: 12-17-2017 End: 12-28-2018 take 2.5 mg by inhalation every four hours as needed for wheezing Albuterol Sulfate 2.5 MG/3 ML solution for nebulization Discontinued 2.5 mg INHALATION EVERY 4 HOURS NEEDED as needed for Shortness of breath, wheezing December 17, 2017 12:00am December 28, 2018 4:07pm Albuterol Sulfate (Ventolin Hfa) 90 mcg/actuation HFA aerosol inhaler (3 sources) Start: 02-17-2019 End: 03-01-2019 Albuterol Sulfate (Ventolin Hfa) 90 mcg/actuation HFA aerosol inhaler Discontinued 2 NMA INHALATION EVERY 6 HOURS as needed February 17, 2019 12:00am March 01, 2019 2:26pm Start: 02-17-2019 End: 03-01-2019 take 1 puff(s) by inhalation every six hours Albuterol Sulfate (Ventolin Hfa) 90 mcg/actuation HFA aerosol inhaler Discontinued 2 PUFF INHALATION EVERY 6 HOURS February 16, 2019 11:00pm March 01, 2019 1:26pm aspirin 81 mg chewable tablet (3 sources) Platelet Aggregation Inhibitor, Nonsteroidal Anti-inflammatory Drug Start: 12-28-2018 End: 03-01-2019 take 1 tablet by mouth once daily Aspirin (Aspirin Childrens) 81 mg tablet,chewable Discontinued 81 mg PO DAILY December 28, 2018 12:00am March 01, 2019 2:22pm cholecalciferol 0.05 mg oral capsule (4 sources) Vitamin D Start: 09-21-2023 End: 03-03-2024 take 1 capsule by mouth twice daily Cholecalciferol (Vitamin D3) 50 mcg (2,000 unit) capsule Discontinued 2000 U PO TWICE A DAY September 21, 2023 2:21pm March 03, 2024 8:09pm Start: 11-15-2020 End: 09-21-2023 Cholecalciferol (Vitamin D3) 2,000 UNIT capsule Discontinued 7000 U PO DAILY November 15, 2020 1:00am September 21, 2023 2:25pm Start: 11-15-2020 take 7000 [IU] by mo [facility] once daily Cholecalciferol (Vitamin D3) Active 7000 UNIT PO DAILY November 15, 2020 12:00am clonazePAM 0.5 mg oral tablet (9 sources) Benzodiazepine Start: 02-17-2019 End: 03-01-2019 take 1 tablet by mouth three times daily as needed Clonazepam 0.5 mg tablet Discontinued 0.5 mg PO THREE TIMES A DAY as needed February 17, 2019 12:00am March 01, 2019 2:26pm Start: 12-15-2017 End: 12-28-2018 take 1 tablet by mouth every eight hours as needed for anxiety Clonazepam 0.5 MG tablet Discontinued 0.5 mg PO EVERY 8 HOURS NEEDED as needed for Anxiety 14 5 December 20, 2017 12:00am December 28, 2018 4:07pm cyclobenzaprine hydrochloride 10 mg oral tablet (3 sources) Muscle Relaxant Start: 04-09-2019 End: 02-07-2020 take 1 tablet by mouth three times daily as needed for muscle spasms Cyclobenzaprine 10 MG tablet Discontinued 10 mg PO THREE TIMES A DAY as needed for Muscle Spasm April 09, 2019 12:00am February 07, 2020 10:08am fluticasone propionate 0.05 mg/actuat metered dose nasal spray (6 sources) Corticosteroid Start: 11-15-2020 End: 11-04-2021 Fluticasone Propionate 1 SPRAY spray,suspension Discontinued 1 NMA NASAL DAILY as needed for Nasal Congestion November 15, 2020 1:00am November 04, 2021 10:56am Start: 11-15-2020 End: 11-04-2021 Fluticasone Propionate Discontinued 1 SPRAY NASAL DAILY November 15, 2020 12:00am November 04, 2021 9:56am Start: 12-15-2017 End: 05-26-2019 Fluticasone Propionate 1 INH ALER inhaler Discontinued 1 NMA INHALATION TWICE A DAY December 15, 2017 12:00am May 26, 2019 2:26pm Start: 12-15-2017 End: 05-26-2019 take 1 puff(s) by inhalation twice daily Fluticasone Propionate Discontinued 1 PUFF INHALATION TWICE A DAY December 14, 2017 11:00pm May 26, 2019 1:26pm lidocaine 0.05 mg/mg medicated patch (3 sources) Antiarrhythmic, Amide Local Anesthetic Start: 03-01-2019 End: 02-12-2020 Lidocaine 5 % adhesive patch,medicated Discontinued 1 NMA TOPICAL DAILY March 01, 2019 12:00am February 12, 2020 9:55am meloxicam 15 mg oral tablet (7 sources) Nonsteroidal Anti-inflammatory Drug Start: 09-21-2023 End: 03-03-2024 take 1 tablet by mouth once daily Meloxicam 15 mg tablet Discontinued 15 mg PO DAILY September 21, 2023 2:20pm March 03, 2024 8:10pm Start: 09-30-2021 End: 09-21-2023 take 7.5 mg by mouth once daily Meloxicam 15 mg tablet Discontinued 7.5 mg PO DAILY September 30, 2021 1:00am September 21, 2023 2:25pm Start: 09-30-2021 take 7.5 mg by mouth once trevor y Meloxicam Active 7.5 MG PO DAILY September 30, 2021 12:00am Start: 12-28-2018 End: 02-12-2020 take 1 tablet by mouth at bedtime Meloxicam 15 mg tablet Discontinued 15 mg PO AT BEDTIME December 28, 2018 12:00am February 12, 2020 9:55am Multivitamin,Rs-Wagt-Qtsdess s (Therems-M) 27-0.4 mg tablet (3 sources) Start: 12-28-2018 End: 03-01-2019 Multivitamin,Lw-Rfro-Orruluv s (Therems-M) 27-0.4 mg tablet Discontinued 1 {tbl} PO DAILY December 28, 2018 12:00am March 01, 2019 2:26pm Start: 12-28-2018 End: 03-01-2019 take 1 tablet by mouth once daily Multivitamin,Be-Xrau-Plfoelww (Therems-M ) 27-0.4 mg tablet Discontinued 1 TABLET PO DAILY December 27, 2018 11:00pm March 01, 2019 1:26pm naproxen 500 mg oral tablet (3 sources) Nonsteroidal Anti-inflammatory Drug Start: 04-09-2019 End: 02-07-2020 take 1 tablet by mouth twice daily as needed Naproxen 500 MG tablet Discontinued 500 mg PO TWICE DAILY NEEDED April 09, 2019 12:00am February 07, 2020 2:30pm 24 hr nicotine 0.583 mg/hr transdermal system (3 sources) Cholinergic Nicotinic Agonist Start: 03-01-2019 End: 05-25-2019 apply 1 dose transdermal route every twenty-four hours Nicotine 14 mg/24 hr patch 24 hour Discontinued 1 NMA TD DAILY March 01, 2019 12:00am May 25, 2019 1:34pm Start: 03-01-2019 End: 05-25-2019 apply 1 dose transdermal route once daily Nicotine Discontinued 1 PATCH TD DAILY February 28, 2019 11:00pm May 25, 2019 12:34pm perphenazine 2 mg oral tablet (3 sources) Phenothiazine Start: 12-15-2017 End: 12-28-2018 take 1 tablet by mouth three times daily Perphenazine 2 MG tablet Discontinued 6 mg PO THREE TIMES A DAY December 15, 2017 12:00am December 28, 2018 4:07pm Start: 12-15-2017 End: 12-28-2018 take 6 mg by mouth three times daily Perphenazine Discontinued 6 MG PO THREE TIMES A DAY December 14, 2017 11:00pm December 28, 2018 3:07pm simvastatin 40 mg oral tablet (3 sources) HMG-CoA Reductase Inhibitor Start: 12-15-2017 End: 03-01-2019 take 1 tablet by mouth at bedtime Simvastatin 40 MG tablet Discontinued 40 mg PO AT BEDTIME December 15, 2017 12:00am March 01, 2019 2:26pm 7 actuat umeclidinium 0.0625 mg/actuat / vilanterol 0.025 mg/actuat dry powder inhaler (6 sources) Anticholinergic, beta2-Adrenergic Agonist Start: 05-25-2019 End: 05-26-2019 Umeclidinium-Vilant ray (Anoro Ellipta) 62.5-25 mcg/actuation blister with device Discontinued 1 NMA INHALATION daily 60 May 25, 2019 2:05pm May 26, 2019 2:25pm Start: 05-25-2019 End: 05-26-2019 Umeclidinium-Vilanterol (Ano ro Ellipta) 62.5-25 mcg/actuation blister with device Discontinued 1 INH INHALATION daily 60 May 25, 2019 1:05pm May 26, 2019 1:25pm Problems Problem Classification Problem Date Documented Da te Episodic/Chronic Anxiety disorders (6 sources) Anxiety; Translations: [Anxiety disorder, unspecified] 09-11-2019 Chronic Chronic obstructive pulmonary disease and bronchiectasis (3 sources) Chronic obstructive lung disease; Translations: [Chronic obstructive pulmonary disease, unspecified] 02-07-2020 Chronic Diabetes mellitus with complications (2 sources) Type 2 diabetes mellitus with other specified complication; Translations: [Type 2 diabetes mellitus with other specified complication] Onset: 01-26-2018 Chronic Disorders of lipid metabolism (3 sources) Hyperlipidemia; Translations: [Hyperlipidemia, unspecified] 02-07-2020 Chronic Essential hypertension (3 sources) Essential hypertension; Translations: [Essential (primary) hypertension] 09-30-2021 Chronic Comment on above: CONTROLLED ON MED Fracture of lower limb (1 source) Fracture of ankle; Translations: [Other fracture of right lower leg, initial encounter for closed fracture] 03-03-2024 Episodic Other acquired deformities (1 source) Scoliosis of lumbar spine; Translations: [Scoliosis, unspecified] 09-21-2023 Chronic Other connective tissue disease (5 sources) Pain in lower limb; Translations: [Pain in leg, unspecified] 12-19-2019 Episodic Other connective tissue disease (1 source) Pain in right leg; Translations: [Pain in limb] 07-06-2023 Episodic Other lower respiratory disease (1 source) Shortness of breath; Translations: [Shortness of breath] Onset: 03-22-2025 Episodic Residual codes; unclassified (3 sources) Auditory hallucinations; Translations: [Auditory hallucinations] 09-11-2019 Episodic Schizophrenia and other psychotic disorders (3 sources) Schizophrenia; Translations: [Schizophrenia, unspecified] 02-07-2020 Chronic Spondylosis; intervertebral disc disorders; other back problems (7 sources) Low back pain; Translations: [Low back pain] 11-18-2020 Episodic Results Test Name Value Interpretation Reference Range Facil ity Chest WITH Contraston 2024 Chest WITH Contrast [facility] Imaging Services [address] [place] [address] [id number] Chest WITH Contrast MR#: [id number] Acct: [id number] Name: MAYURI SAEZ Rep #: [id number] : [id number] F [id number] From: Kurt means MD PCP: Dena Stevens THERAPY DIRECTOR-C Status: REG CLI Study: Chest WITH Contrast Date of Exam: 03/16/25 Exam# [id number] Ordering Dr: Paulina Subramanian NP THERAPY DIRECTOR-C PROCEDURE: CHEST WITH CONTRAST 03/16/2025 REASON FOR EXAM: SOB TECHNIQUE: CHEST WITH CONTRAST Coronal and Sagittal reconstruction series were provided. CONTRAST: Isovue-350 VOLUME: 100 mL One or more dose reduction techniques were used (e.g., Automated exposure control, adjustment of the mA and/or kV according to patient size, use of iterative reconstruction technique). RADIATION DOSE SUMMARY: CTDlvol: 19.31 mGy DLP: 752 mGycm COMPARISON: Chest radiograph on 12/18/2019. FINDINGS: Elevation of the hemidiaphragms, more on the right side. Bilateral basilar atelectatic pulmonary changes. Subsegmental atelectasis/consolidat ion of the right lower lobe. Please evaluate to exclude superimposed pneumonia. No significant coronary artery calcifications. Hepatomegaly. Hepatic steatosis. Normal enhancement of the main pulmonary artery and right and left pulmonary arteries. Mild atheromatous plaques of the thoracic aorta and visualized great vessels. There is no demonstrated aortic dissection. Normal heart and pericardium. Normal mediastinum. Normal hilar regions. Normal visualized trachea and bronchi. The remaining lungs are well expanded. Normal remaining pulmonary parenchyma. Normal pleura. CT/Chest WITH Contrast IMPRESSION: 1. Coronary artery calcification (CAC) is is absent 2. Elevation of the hemidiaphragms, more on the right side. 3. Bilateral basilar atelectatic pulmonary changes. 4. Subsegmental atelectasis/consolidat ion of the right lower lobe. Please evaluate to exclude superimposed pneumonia. 5. No significant coronary artery calcifications. 6. Hepatomegaly. 7. Hepatic steatosis. Reading Location: [place] [address] CC: ELVIN Subramanian; ELVIN Stevens Security Engineer: Signed Normal [facility] CNOVon 02-07-2021 OV Office Visit (KALI ) MAYURI SAEZ ([id number]) 1955 F Date Time Provider Department 02/07/21 8:40 AM AIXA GOFF During your visit today, we recorded the following information about you: Pulse Blood pressure Weight Height 90/minute 124/82 87.6 kg 1.6 m Aixa Goff APRN.CNP 02/07/2021 9:38 AM Signed Follow up as needed Sign medical release today for Dr.Sameh Zapata Possible EGD Aixa Goff APRN.MICHAEL 02/07/2021 10:10 AM Signed DEPARTMENT OF GASTROENTEROLOGY - FOLLOW UP VISIT HISTORY OF PRESENT ILLNESS Mayuri Saez is a 65 year old female with a history of Shirley's esophagus, GERD, MIK, asthma, HTN, HLP, Alzheimer's, anxiety depression, schizophrenia and chronic back pain. Who presents today for follow up of diarrhea. The patient has had improvement in bowel habits only having 1-2 episodes of diarrhea since starting the fiber. She states she does have daily formed, brown bowel movements. Denies rectal bleeding or black stools. Abdominal pain had improved. Patient denies heartburn, chest pain, regurgitation, nausea or vomiting Patient states sometimes - not very often has had time swallowing when she needs to have a drink to help get the food down. Patient states the last time she had a scope completed was in [place] a long time ago with CT was ordered previously unable to complete due to not having a ride I have reviewed the procedure and pathology reports, as well as the images, with the patient. PRIOR TEST RESULTS Imaging/Procedures: Colonoscopy:07/07/2019 Impressions : - One polyp in the transverse colon, removed with a hot snare. Resected and retrieved. - The examination was otherwise normal on direct and retroflexion views. Pathology: Transverse colon polyp, biopsy: Tubular adenoma. PAST MEDICAL HISTORY Diagnosis Date - Adjustment disorder with depressed mood - Shirley's esophagus - Benign hypertensive heart disease without heart failure - Catatonic schizophrenia, chronic condition with acute exacerbation (HCC) - Other and unspecified hyperlipidemia - Unspecified asthma(493.90) PAST SURGICAL HISTORY Procedure Laterality Date - NONE Current Outpatient Medications Medication Sig Dispense Refill - wheat dextrin (BENEFIBER HEALTHY SHAPE) 5 gram/7.4 gram powd Take 1 teaspoonful by mouth once daily. 248 g 5 - cholecalciferol (VITAMIN D) 1,000 unit tab tablet Take 4,000 Units by mouth once daily. - cetirizine (ZYRTEC) 10 mg tablet Take 10 mg by mouth once daily. - Lactobacillus acidophilus (ACIDOPHILUS ORAL) Take by mouth. - donepezil (ARICEPT) 10 mg tablet Take 10 mg by mouth once daily. - budesonide-formoterol (SYMBICORT) 160-4.5 mcg/actuation inhaler Inhale 2 Puffs as instructed twice daily. - Lnwfe-8-JXB-EPA-Fish Oil (FISH OIL) 1,000 mg (120 mg-180 mg) cap Take 2 g by mouth twice daily. - memantine (NAMENDA) 10 mg tablet Take 10 mg by mouth twice daily. - acetaminophen (TYLENOL) 325 mg tablet Take 500 mg by mouth three times daily. - QUEtiapine (SEROQUEL) 100 mg tablet Take 50 mg by mouth daily at bedtime. - latanoprost (XALATAN) 0.005 % ophthalmic solution Use 1 Drop in both eyes daily at bedtime. - melatonin 10 mg cap Take 10 mg by mouth daily at bedtime. - polyethylene glycol 3350 (MIRALAX) 17 gram/dose powder Take 17 g by mouth as needed. - fluticasone-emollient no.65 0.05 % ktot Apply 1 [place] to affected area once daily as needed. - magnesium hydroxide (MILK OF MAGNESIA) 400 mg/5 mL suspension Take 30 mL by mouth once daily as needed for Constipation. - loperamide HCl (IMODIUM A-D) 2 mg tab Take 2 mg by mouth as needed. Not to exceed 6 doses - guaiFENesin (ROBITUSSIN) 100 mg/5 mL syrup Take 200 mg by mouth every 8 hours as needed for Cough. - acetaminophen (TYLENOL) 325 mg tablet Take 325 mg by mouth every 8 hours as needed for Pain or Fever. - omeprazole (PRILOSEC) 20 mg capsule Take 20 mg by mouth once daily. - docusate sodium (DOK) 100 mg capsule Take 100 mg by mouth once daily. - aspirin, enteric coated (ASPIRIN, ENTERIC COATED) 81 mg EC tablet Take 81 mg by mouth once daily. - COMPOUNDED PRESCRIPTION Diagnostic polysomnogram. 1 Each 0 - lisinopril (ZESTRIL, PRINIVIL) 10 mg tablet Take 15 mg by mouth once daily. - paliperidone palmitate (INVEGA SUSTENNA) 234 mg/1.5 mL syrg Inject 234 mg intramuscularly once every month. - perphenazine 2 mg tablet Take 8 mg by mouth twice daily. - fluticasone (FLOVENT HFA) 220 mcg/actuation inhaler Inhale 1 Puff as instructed twice daily. - benztropine (COGENTIN) 0.5 mg tablet Take 0.5 mg by mouth twice daily. - simvastatin (ZOCOR) 40 mg tablet Take 40 mg by mouth daily at bedtime. - meloxicam (MOBIC) 15 mg tablet Take 15 mg by mouth at bedtime as needed. - clonazePAM (KLONOPIN) 0.5 mg tablet Take 0.5 mg by mouth twice daily as needed. - ALBUTEROL 90 MCG/ACTUATION AEROSOL INHALER (more content not included)... [facility] MICHAELN Telephone (GASTWS) MAYURI SAEZ ([id number]) 1955 F Date Time Provider Department 12/18/20 AIXA GOFF ([facility]) [facility] During your visit today, we recorded the following information about you: Aixa Goff APRN.CNP 12/18/2020 3:51 PM Signed Called [facility] Nino Juan spoke to the nurse asked how patient is doing regarding her diarrhea symptoms and frequency, has she started benefiber and is she taking a probiotic? Also I informed the nurse the stool studies cam back negative. Nurse is going to call back with a update on how patient is doing. Aixa Goff APRN.CNP Allergies As of Date: 12/18/2020 (No Known Allergies) Date Reviewed: 12/16/2020 Reviewed by: Nicolette (UMicIt) Julee Odom - Fully Assessed Reason for Visit: Results [95] Cmt: stool results Prescriptions as of 12/18/2020 Sig: BENEFIBER HEALTHY SHAPE 5 GRA* Take 1 teaspoonful by mouth o* CHOLECALCIFEROL (VITAMIN D3) * Take 4,000 Units by mouth onc* CETIRIZINE 10 MG TABLET Take 10 mg by mouth once trevor* ACIDOPHILUS ORAL Take by mouth. DONEPEZIL 10 MG TABLET Take 10 mg by mouth once trevor* BUDESONIDE-FORMOTEROL HFA 160* Inhale 2 Puffs as instructed * OMEGA 1-MSE-TPN-FISH OIL 1,00* Take 2 g by mouth twice daily. MEMANTINE 10 MG TABLET Take 10 mg by mouth twice love* ACETAMINOPHEN 325 MG TABLET Take 500 mg by mouth three ti* QUETIAPINE 100 MG TABLET Take 50 mg by mouth daily at * LATANOPROST 0.005 % EYE DROPS Use 1 Drop in both eyes daily* MELATONIN 10 MG CAPSULE Take 10 mg by mouth daily at * POLYETHYLENE GLYCOL 3350 17 G* Take 17 g by mouth as needed. FLUTICASONE 0.05 % LOTION-EMO* Apply 1 [place] to affected are* MAGNESIUM HYDROXIDE 400 MG/5 * Take 30 mL by mouth once trevor* LOPERAMIDE 2 MG TABLET Take 2 mg by mouth as needed.* GUAIFENESIN 100 MG/5 ML ORAL * Take 200 mg by mouth every 8 * ACETAMINOPHEN 325 MG TABLET Take 325 mg by mouth every 8 * OMEPRAZOLE 20 MG CAPSULE,GERTRUDE* Take 20 mg by mouth once trevor* DOCUSATE SODIUM 100 MG CAPSULE Take 100 mg by mouth once love* ASPIRIN 81 MG TABLET,DELAYED * Take 81 mg by mouth once trevor* COMPOUNDED PRESCRIPTION Diagnostic polysomnogram. LISINOPRIL 10 MG TABLET Take 15 mg by mouth once trevor* PALIPERIDONE PALMITATE 234 MG* Inject 234 mg intramuscularly* PERPHENAZINE 2 MG TABLET Take 8 mg by mouth twice trevor* FLUTICASONE PROPIONATE 220 MC* Inhale 1 Puff as instructed t* BENZTROPINE 0.5 MG TABLET Take 0.5 mg by mouth twice da* SIMVASTATIN 40 MG TABLET Take 40 mg by mouth daily at * MELOXICAM 15 MG TABLET Take 15 mg by mouth at bedtim* CLONAZEPAM 0.5 MG TABLET Take 0.5 mg by mouth twice da* ALBUTEROL 90 MCG/ACTUATION AE* 2 puffs q4hr prn RISPERDAL 4 MG TABLET take one tablet Take one(1) t* ATENOLOL 25 MG TABLET take one tablet Take one(1) t* LONOX 2.5 MG-0.025 MG TABLET as necessary IBUPROFEN 400 MG TABLET as necessary LIPITOR 20 MG TABLET Take 10 mg by mouth. CALCIUM 500 MG TABLET take 2 tablets twice daily MULTIPLE VITAMIN TABLET ADVAIR DISKUS 250 MCG-50 MCG/* 1 puff twice daily COMPOUNDED PRESCRIPTION hyoscyamine .125 COMPOUNDED PRESCRIPTION albuterol ZOLOFT 100 MG TABLET Take 100 mg by mouth. Take 2 * WELLBUTRIN XL 300 MG 24 HR TA* 1/2 tablet twice daily SINGULAIR 10 MG TABLET Take one(1) tablet daily. NAPROSYN 500 MG TABLET take 2 tablets daily Problem List As Of Date: 12/18/2020 (None) Encounter Status:Closed by AIXA GOFF APRN.CNP [facility] MICHAELN Tele[facility] (GASTWS) MAYURI SAEZ ([id number]) 1955 F Date Time Provider Department 12/09/20 AIXA GOFF ([facility] GASTWS During your visit today, we recorded the following information about you: Aixa Goff APRN.CNP 12/09/2020 8:25 AM Signed Please tell patient labs came back showing signs of dehydration, please increase her fluids some options can be : Pedialyte or electrolyte water will help with this. Repeat labs in 2 weeks. Please ask patient if symptoms are improving since visit? Orders placed Aixa Goff APRN.CNP Allergies As of Date: 12/09/2020 (No Known Allergies) Date Reviewed: 12/03/2020 Reviewed by: Aarti Swain LPN - Fully Assessed Reason for Visit: Results [95] Primary Visit Diagnosis:Electrolyte abnormality [E87.8] Other Visit Diagnoses:Dehydration [E86.0] Diarrhea, unspecified type [R19.7] Order(s):BASIC METABOLIC PNL [SQBMP] Order #: [id number] FUTURE Prescriptions as of 12/09/2020 Sig: BENEFIBER HEALTHY SHAPE 5 GRA* Take 1 teaspoonful by mouth o* CHOLECALCIFEROL (VITAMIN D3) * Take 4,000 Units by mouth onc* CETIRIZINE 10 MG TABLET Take 10 mg by mouth once trevor* ACIDOPHILUS ORAL Take by mouth. DONEPEZIL 10 MG TABLET Take 10 mg by mouth once trevor* BUDESONIDE-FORMOTEROL HFA 160* Inhale 2 Puffs as instructed * OMEGA 9-GNT-RRB-FISH OIL 1,00* Take 2 g by mouth twice daily. MEMANTINE 10 MG TABLET Take 10 mg by mouth twice love* ACETAMINOPHEN 325 MG TABLET Take 500 mg by mouth three ti* QUETIAPINE 100 MG TABLET Take 50 mg by mouth daily at * LATANOPROST 0.005 % EYE DROPS Use 1 Drop in both eyes daily* MELATONIN 10 MG CAPSULE Take 10 mg by mouth daily at * POLYETHYLENE GLYCOL 3350 17 G* Take 17 g by mouth as needed. FLUTICASONE 0.05 % LOTION-EMO* Apply 1 [place] to affected are* MAGNESIUM HYDROXIDE 400 MG/5 * Take 30 mL by mouth once trevor* LOPERAMIDE 2 MG TABLET Take 2 mg by mouth as needed.* GUAIFENESIN 100 MG/5 ML ORAL * Take 200 mg by mouth every 8 * ACETAMINOPHEN 325 MG TABLET Take 325 mg by mouth every 8 * OMEPRAZOLE 20 MG CAPSULE,GERTRUDE* Take 20 mg by mouth once trevor* DOCUSATE SODIUM 100 MG CAPSULE Take 100 mg by mouth once love* ASPIRIN 81 MG TABLET,DELAYED * Take 81 mg by mouth once trevor* COMPOUNDED PRESCRIPTION Diagnostic polysomnogram. LISINOPRIL 10 MG TABLET Take 15 mg by mouth once trevor* PALIPERIDONE PALMITATE 234 MG* Inject 234 mg intramuscularly* PERPHENAZINE 2 MG TABLET Take 8 mg by mouth twice trevor* FLUTICASONE PROPIONATE 220 MC* Inhale 1 Puff as instructed t* BENZTROPINE 0.5 MG TABLET Take 0.5 mg by mouth twice da* SIMVASTATIN 40 MG TABLET Take 40 mg by mouth daily at * MELOXICAM 15 MG TABLET Take 15 mg by mouth at bedtim* CLONAZEPAM 0.5 MG TABLET Take 0.5 mg by mouth twice da* ALBUTEROL 90 MCG/ACTUATION AE* 2 puffs q4hr prn RISPERDAL 4 MG TABLET take one tablet Take one(1) t* ATENOLOL 25 MG TABLET take one tablet Take one(1) t* LONOX 2.5 MG-0.025 MG TABLET as necessary IBUPROFEN 400 MG TABLET as necessary LIPITOR 20 MG TABLET Take 10 mg by mouth. CALCIUM 500 MG TABLET take 2 tablets twice daily MULTIPLE VITAMIN TABLET ADVAIR DISKUS 250 MCG-50 MCG/* 1 puff twice daily COMPOUNDED PRESCRIPTION hyoscyamine .125 COMPOUNDED PRESCRIPTION albuterol ZOLOFT 100 MG TABLET Take 100 mg by mouth. Take 2 * WELLBUTRIN XL 300 MG 24 HR TA* 1/2 tablet twice daily SINGULAIR 10 MG TABLET Take one(1) tablet daily. NAPROSYN 500 MG TABLET take 2 tablets daily Problem List As Of Date: 12/09/2020 (None) Encounter Status:Closed by AIXA GOFF APRN.CNP on 12/09/20 [facility] MAYURI [facility] ([id number]) 1955 F Date Time Provider Department 12/09/20 AIXA GOFF (MICHAEL) GASTWS During your visit today, we recorded the following information about you: Aixa Goff APRN.CNP 12/09/2020 8:50 AM Signed Please tell patient labs came back showing signs of dehydration, please increase her fluids some options can be : Pedialyte or electrolyte water will help with this. Repeat labs in 2 weeks. Please ask patient if symptoms are improving since visit? Orders placed ? JOYCELYN Goins LPN 12/09/2020 9:28 AM Signed Spoke with Cortney, nurse at [facility]. Information listed below given to her. She reports they got stools turned in and awaiting the results. Pt was doing better till this am and she started with diarrhea again. Faxed lab orders for BMP to have repeated in 2 weeks. Asmita Stevens LPN Allergies As of Date: 12/09/2020 (No Known Allergies) Date Reviewed: 12/03/2020 Reviewed by: Aarti Swain LPN - Fully Assessed Reason for Visit: Results [95] Prescriptions as of 12/09/2020 Sig: BENEFIBER HEALTHY SHAPE 5 GRA* Take 1 teaspoonful by mouth o* CHOLECALCIFEROL (VITAMIN D3) * Take 4,000 Units by mouth onc* CETIRIZINE 10 MG TABLET Take 10 mg by mouth once trevor* ACIDOPHILUS ORAL Take by mouth. DONEPEZIL 10 MG TABLET Take 10 mg by mouth once trevor* BUDESONIDE-FORMOTEROL HFA 160* Inhale 2 Puffs as instructed * OMEGA 0-MWY-LXO-FISH OIL 1,00* Take 2 g by mouth twice daily. MEMANTINE 10 MG TABLET Take 10 mg by mouth twice love* ACETAMINOPHEN 325 MG TABLET Take 500 mg by mouth three ti* QUETIAPINE 100 MG TABLET Take 50 mg by mouth daily at * LATANOPROST 0.005 % EYE DROPS Use 1 Drop in both eyes daily* MELATONIN 10 MG CAPSULE Take 10 mg by mouth daily at * POLYETHYLENE GLYCOL 3350 17 G* Take 17 g by mouth as needed. FLUTICASONE 0.05 % LOTION-EMO* Apply 1 [place] to affected are* MAGNESIUM HYDROXIDE 400 MG/5 * Take 30 mL by mouth once trevor* LOPERAMIDE 2 MG TABLET Take 2 mg by mouth as needed.* GUAIFENESIN 100 MG/5 ML ORAL * Take 200 mg by mouth every 8 * ACETAMINOPHEN 325 MG TABLET Take 325 mg by mouth every 8 * OMEPRAZOLE 20 MG CAPSULE,GERTRUDE* Take 20 mg by mouth once trevor* DOCUSATE SODIUM 100 MG CAPSULE Take 100 mg by mouth once love* ASPIRIN 81 MG TABLET,DELAYED * Take 81 mg by mouth once trevor* COMPOUNDED PRESCRIPTION Diagnostic polysomnogram. LISINOPRIL 10 MG TABLET Take 15 mg by mouth once trevor* PALIPERIDONE PALMITATE 234 MG* Inject 234 mg intramuscularly* PERPHENAZINE 2 MG TABLET Take 8 mg by mouth twice trevor* FLUTICASONE PROPIONATE 220 MC* Inhale 1 Puff as instructed t* BENZTROPINE 0.5 MG TABLET Take 0.5 mg by mouth twice da* SIMVASTATIN 40 MG TABLET Take 40 mg by mouth daily at * MELOXICAM 15 MG TABLET Take 15 mg by mouth at bedtim* CLONAZEPAM 0.5 MG TABLET Take 0.5 mg by mouth twice da* ALBUTEROL 90 MCG/ACTUATION AE* 2 puffs q4hr prn RISPERDAL 4 MG TABLET take one tablet Take one(1) t* ATENOLOL 25 MG TABLET take one tablet Take one(1) t* LONOX 2.5 MG-0.025 MG TABLET as necessary IBUPROFEN 400 MG TABLET as necessary LIPITOR 20 MG TABLET Take 10 mg by mouth. CALCIUM 500 MG TABLET take 2 tablets twice daily MULTIPLE VITAMIN TABLET ADVAIR DISKUS 250 MCG-50 MCG/* 1 puff twice daily COMPOUNDED PRESCRIPTION hyoscyamine .125 COMPOUNDED PRESCRIPTION albuterol ZOLOFT 100 MG TABLET Take 100 mg by mouth. Take 2 * WELLBUTRIN XL 300 MG 24 HR TA* 1/2 tablet twice daily SINGULAIR 10 MG TABLET Take one(1) tablet daily. NAPROSYN 500 MG TABLET take 2 tablets daily Problem List As Of Date: 12/09/2020 (None) Encounter Status:Closed by DENVER ZHOU.AIXA RODRIGUEZ on 12/25/20 [facility] 12-04-2020 JAM Telephone (KALI) MAYURI SAEZ ([id number]) 1955 F Date Time Provider Department 12/04/20 MAYURI VIERA During your visit today, we recorded the following information about you: Asmita Stevens LPN 12/04/2020 10:45 AM Signed Cortney called for the stool study order. They will do this at there facility. Faxed to [phone]. [facility] Asmita Stevens LPN 12/04/2020 10:52 AM Signed Phone and fax are the same number. Asmita Stevens LPN Allergies As of Date: 12/04/2020 (No Known Allergies) Date Reviewed: 12/03/2020 Reviewed by: Aarti Swain LPN - Fully Assessed Reason for Visit: Release Of Medical Records [2017] Prescriptions as of 12/04/2020 Sig: CHOLECALCIFEROL (VITAMIN D3) * Take 4,000 Units by mouth onc* CETIRIZINE 10 MG TABLET Take 10 mg by mouth once trevor* ACIDOPHILUS ORAL Take by mouth. DONEPEZIL 10 MG TABLET Take 10 mg by mouth once trevor* BUDESONIDE-FORMOTEROL HFA 160* Inhale 2 Puffs as instructed * OMEGA 5-MWM-CQY-FISH OIL 1,00* Take 2 g by mouth twice daily. MEMANTINE 10 MG TABLET Take 10 mg by mouth twice love* ACETAMINOPHEN 325 MG TABLET Take 500 mg by mouth three ti* QUETIAPINE 100 MG TABLET Take 50 mg by mouth daily at * LATANOPROST 0.005 % EYE DROPS Use 1 Drop in both eyes daily* MELATONIN 10 MG CAPSULE Take 10 mg by mouth daily at * POLYETHYLENE GLYCOL 3350 17 G* Take 17 g by mouth as needed. FLUTICASONE 0.05 % LOTION-EMO* Apply 1 [place] to affected are* MAGNESIUM HYDROXIDE 400 MG/5 * Take 30 mL by mouth once trevor* LOPERAMIDE 2 MG TABLET Take 2 mg by mouth as needed.* GUAIFENESIN 100 MG/5 ML ORAL * Take 200 mg by mouth every 8 * ACETAMINOPHEN 325 MG TABLET Take 325 mg by mouth every 8 * IV CONTRAST (RADIOLOGY PROCED* CT Chest ABD/PEL-Inject, intr* ENTERIC CONTRAST (RADIOLOGY P* For CT CHESTABD/PEL W IVCON R* OMEPRAZOLE 20 MG CAPSULE,GERTRUDE* Take 20 mg by mouth once trevor* DOCUSATE SODIUM 100 MG CAPSULE Take 100 mg by mouth once love* ASPIRIN 81 MG TABLET,DELAYED * Take 81 mg by mouth once trevor* COMPOUNDED PRESCRIPTION Diagnostic polysomnogram. LISINOPRIL 10 MG TABLET Take 15 mg by mouth once trevor* PALIPERIDONE PALMITATE 234 MG* Inject 234 mg intramuscularly* PERPHENAZINE 2 MG TABLET Take 8 mg by mouth twice trevor* FLUTICASONE PROPIONATE 220 MC* Inhale 1 Puff as instructed t* BENZTROPINE 0.5 MG TABLET Take 0.5 mg by mouth twice da* SIMVASTATIN 40 MG TABLET Take 40 mg by mouth daily at * MELOXICAM 15 MG TABLET Take 15 mg by mouth at bedtim* CLONAZEPAM 0.5 MG TABLET Take 0.5 mg by mouth twice da* ALBUTEROL 90 MCG/ACTUATION AE* 2 puffs q4hr prn RISPERDAL 4 MG TABLET take one tablet Take one(1) t* ATENOLOL 25 MG TABLET take one tablet Take one(1) t* LONOX 2.5 MG-0.025 MG TABLET as necessary IBUPROFEN 400 MG TABLET as necessary LIPITOR 20 MG TABLET Take 10 mg by mouth. CALCIUM 500 MG TABLET take 2 tablets twice daily MULTIPLE VITAMIN TABLET ADVAIR DISKUS 250 MCG-50 MCG/* 1 puff twice daily COMPOUNDED PRESCRIPTION hyoscyamine .125 COMPOUNDED PRESCRIPTION albuterol ZOLOFT 100 MG TABLET Take 100 mg by mouth. Take 2 * WELLBUTRIN XL 300 MG 24 HR TA* 1/2 tablet twice daily SINGULAIR 10 MG TABLET Take one(1) tablet daily. NAPROSYN 500 MG TABLET take 2 tablets daily Problem List As Of Date: 12/04/2020 (None) Encounter Status:Closed by ASMITA STEVENS LPN on 12/04/[address] [facility] CBCon 12-03-2020 Absolute nRBC <0.01 Normal <0.01 [facility] Erythrocyte distribution width (RBC) [Ratio] 14.0 % Normal 11.5-15.0 [facility] Hematocrit (Bld) [Volume fraction] 42.9 % Normal 36.0-46.0 [facility] Hemoglobin (Bld) [Mass/Vol] 13.8 g/dL Normal 11.5-15.5 [facility] MCH 27.7 pG Normal 26.0-34.0 [facility] MCHC (RBC) [Mass/Vol] 32.2 g/dL Normal 30.5-36.0 [facility] MCV (RBC) [Entitic vol] 86.0 fL Normal 80.0-100.0 [facility] Platelet mean volume (Bld) [Entitic vol] 9.9 fL Normal 9.0-12.7 [facility] Platelets (Bld) [#/Vol] 280 10*3/uL Normal 150-400 [facility] RBC (Bld) [#/Vol] 4.99 10*6/uL Normal 3.90-5.20 [facility] WBC (Bld) [#/Vol] 10.31 10*3/uL [facility]00 [facility] 12-03-2020 CNOV Office Visit (GASTWS ) MAYURI SAEZ ([id number]) 1955 F Date Time Provider Department 12/03/20 9:20 AM MAYURI VIERA During your visit today, we recorded the following information about you: Pulse Blood pressure Weight Height 86/minute 100/60 84.8 kg 1.6 m Aixa Goff, RN, RN 12/03/2020 3:01 PM Addendum Mayuriraulito Saez a 65 year old female who is self referred for the evaluation of diarrhea. The patient has not been seen previously. The patient denies a family history of colon cancer. The patient is a resident at [facility]. Her PCP is Dena Stevens. The patient has a reported history of Shirley's esophagus, asthma, HTN, HLD, depression and schizophrenia. The patient presents today diarrhea with abdominal pain Patient presents with complaint of diarrhea. Pt states this has been going on for 3 years She describes it as liquid occuring 3 times in the past 24 hours, last time 7pm last night. Pt states that liquid stool happen 2 to 3 days out of the week alternating between soft and liquid. Associated with abdominal cramping and abdominal pain right before Bowel movement and has relief after bowel movement. Pt states that she did not eat at all yesterday because she didn't feel with little nausea. Denies fever and chills. Uncertain if a loss in weight. Denies blood or black stool. Dizziness when standing. Drinks [place] water. Lactose free milk. She believe she drink enough throughout the day. Denies any certain foods. States that she had symptoms of heart burn that has resolved with omeprazole 20mg daily REVIEW OF SYSTEMS: GENERAL: No weight loss, malaise or fevers HEENT: No changes in hearing or vision, no nose bleeds or other nasal problems NECK: Negative for lumps, goiter, pain and significant neck swelling RESPIRATORY: Negative for cough, hemoptysis, wheezing, COPD, dyspnea or shortness of breath CARDIOVASCULAR: she does believed she has palpitations GI: The patient states that her appetite has been adequate. There has been some nausea, no vomiting. She denies dysphagia and denies odynophagia. There has not been indigestion without heartburn. There has not been regurgitation. Bowel habits have been irregular. There has been diarrhea. There has not been constipation. She has constipation in the past The patient denies rectal bleeding. There has not been melena. Intermittent abdominal pain that is located in the right upper and right lower quadrant. : Negative MUSCULOSKELETAL: Negative for joint pain or swelling, back pain or muscle pain SKIN: Negative for lesions, rash, and itching PSYCH: See HPI HEMATOLOGY/LYMPHOLOGY Negative for prolonged bleeding, bruising easily or swollen nodes ENDOCRINE: Negative for cold or heat intolerance, polyuria, polydipsia and goiter NEURO: Dizziness (when standing), BLE neuropathy All other reviewed and negative other than HPI. Pt was unaccompanied - lives at assisted living - d/t mental and physical limitations of bilateral leg pain, SOB, and unsteady gait as well as memory loss r/t sarcopenia, MIK , COPD, and paranoid schizophrenia. She requires the use of rollator. PAST MEDICAL HISTORY Diagnosis Date - Adjustment disorder with depressed mood - Shirley's esophagus - Benign hypertensive heart disease without heart failure - Catatonic schizophrenia, chronic condition with acute exacerbation (HCC) - Other and unspecified hyperlipidemia - Unspecified asthma(493.90) PAST SURGICAL HISTORY Procedure Laterality Date - NONE FAMILY HISTORY Problem Relation Age of Onset - Hypertension Mother - other (Other) Mother Schizophrenia - Alzheimer's Disease Father age 87. - other (Other) Brother 3 younger, all healthy to patient's knowledge. Current Outpatient Medications on File Prior to Visit Medication Sig - cholecalciferol (VITAMIN D) 1,000 unit tab tablet Take 4,000 Units by mouth once daily. - cetirizine (ZYRTEC) 10 mg tablet Take 10 mg by mouth once daily. - Lactobacillus acidophilus (ACIDOPHILUS ORAL) Take by mouth. - donepezil (ARICEPT) 10 mg tablet Take 10 mg by mouth once daily. - budesonide-formoterol (SYMBICORT) 160-4.5 mcg/actuation inhaler Inhale 2 Puffs as instructed twice daily. - Kfrdj-0-LOD-EPA-Fish Oil (FISH OIL) 1,000 mg (120 mg-180 mg) cap Take 2 g by mouth twice daily. - memantine (NAMENDA) 10 mg tablet Take 10 mg by mouth twice daily. - acetaminophen (TYLENOL) 325 mg tablet Take 500 mg by mouth three times daily. - QUEtiapine (SEROQUEL) 100 mg tablet Take 50 mg by mouth daily at bedtime. - latanoprost (XALATAN) 0.005 % ophthalmic solution Use 1 Drop in both eyes daily at bedtime. - melatonin 10 mg cap Take 10 mg by mouth daily at bedtime. - polyethylene glycol 3350 (MIRALAX) 17 gram/dose powder Take 17 g by mouth as needed. - fluticasone-emollient no.65 0.05 % ktot Edita (more content not included)... Normal [facility] 12-03-2020 JAM Telephone (KALI) MAYURI SAEZ ([id number]) 1955 F Date Time Provider Department 12/03/20 MAYURI VIERA During your visit today, we recorded the following information about you: Aarti Swain LPN 12/03/2020 11:16 AM Signed Patient was unsure of the pharmacy that [facility] uses. Left message for nurse asking for name of pharmacy and phone number. Nurse needs reminded of CT that needs scheduled if not already scheduled. Magaly Viera RN 12/04/2020 11:10 AM Signed Cortney from [facility] called, verified pt by name and birthdate. Cortney states pt uses [facility]. Cortney is aware pt needs CT, she will check to see if it scheduled for pt Magaly Swain LPN 12/04/2020 11:24 AM Signed Please send script for Benefiber to pharmacy listed below. Mayuri iVera RN HOME VISITS NURSE.HYDROGEN BRAZE FURNACE OPERATOR 12/04/2020 12:59 PM Signed OTC, but sent as requested. Mayuri Viera RN HOME VISITS NURSE.HYDROGEN BRAZE FURNACE OPERATOR Allergies As of Date: 12/03/2020 (No Known Allergies) Date Reviewed: 12/03/2020 Reviewed by: Aarti Swain LPN - Fully Assessed Reason for Visit: Question [6807] Primary Visit Diagnosis:Functional bowel disorder [K59.9] Order(s):wheat dextrin (BENEFIBER HEALTHY SHAPE) 5 gram/7.4 gram powdTake 1 teaspoonful by mouth once daily.Disp: 248 gRfl: 5 Prescriptions as of 12/03/2020 Sig: BENEFIBER HEALTHY SHAPE 5 GRA* Take 1 teaspoonful by mouth o* CHOLECALCIFEROL (VITAMIN D3) * Take 4,000 Units by mouth onc* CETIRIZINE 10 MG TABLET Take 10 mg by mouth once trevor* ACIDOPHILUS ORAL Take by mouth. DONEPEZIL 10 MG TABLET Take 10 mg by mouth once trevor* BUDESONIDE-FORMOTEROL HFA 160* Inhale 2 Puffs as instructed * OMEGA 2-AQT-BKA-FISH OIL 1,00* Take 2 g by mouth twice daily. MEMANTINE 10 MG TABLET Take 10 mg by mouth twice love* ACETAMINOPHEN 325 MG TABLET Take 500 mg by mouth three ti* QUETIAPINE 100 MG TABLET Take 50 mg by mouth daily at * LATANOPROST 0.005 % EYE DROPS Use 1 Drop in both eyes daily* MELATONIN 10 MG CAPSULE Take 10 mg by mouth daily at * POLYETHYLENE GLYCOL 3350 17 G* Take 17 g by mouth as needed. FLUTICASONE 0.05 % LOTION-EMO* Apply 1 [place] to affected are* MAGNESIUM HYDROXIDE 400 MG/5 * Take 30 mL by mouth once trevor* LOPERAMIDE 2 MG TABLET Take 2 mg by mouth as needed.* GUAIFENESIN 100 MG/5 ML ORAL * Take 200 mg by mouth every 8 * ACETAMINOPHEN 325 MG TABLET Take 325 mg by mouth every 8 * IV CONTRAST (RADIOLOGY PROCED* CT Chest ABD/PEL-Inject, intr* ENTERIC CONTRAST (RADIOLOGY P* For CT CHESTABD/PEL W IVCON R* OMEPRAZOLE 20 MG CAPSULE,GERTRUDE* Take 20 mg by mouth once trevor* DOCUSATE SODIUM 100 MG CAPSULE Take 100 mg by mouth once love* ASPIRIN 81 MG TABLET,DELAYED * Take 81 mg by mouth once trevor* COMPOUNDED PRESCRIPTION Diagnostic polysomnogram. LISINOPRIL 10 MG TABLET Take 15 mg by mouth once trevor* PALIPERIDONE PALMITATE 234 MG* Inject 234 mg intramuscularly* PERPHENAZINE 2 MG TABLET Take 8 mg by mouth twice trevor* FLUTICASONE PROPIONATE 220 MC* Inhale 1 Puff as instructed t* BENZTROPINE 0.5 MG TABLET Take 0.5 mg by mouth twice da* SIMVASTATIN 40 MG TABLET Take 40 mg by mouth daily at * MELOXICAM 15 MG TABLET Take 15 mg by mouth at bedtim* CLONAZEPAM 0.5 MG TABLET Take 0.5 mg by mouth twice da* ALBUTEROL 90 MCG/ACTUATION AE* 2 puffs q4hr prn RISPERDAL 4 MG TABLET take one tablet Take one(1) t* ATENOLOL 25 MG TABLET take one tablet Take one(1) t* LONOX 2.5 MG-0.025 MG TABLET as necessary IBUPROFEN 400 MG TABLET as necessary LIPITOR 20 MG TABLET Take 10 mg by mouth. CALCIUM 500 MG TABLET take 2 tablets twice daily MULTIPLE VITAMIN TABLET ADVAIR DISKUS 250 MCG-50 MCG/* 1 puff twice daily COMPOUNDED PRESCRIPTION hyoscyamine .125 COMPOUNDED PRESCRIPTION albuterol ZOLOFT 100 MG TABLET Take 100 mg by mouth. Take 2 * WELLBUTRIN XL 300 MG 24 HR TA* 1/2 tablet twice daily SINGULAIR 10 MG TABLET Take one(1) tablet daily. NAPROSYN 500 MG TABLET take 2 tablets daily Problem List As Of Date: 12/03/2020 (None) Prescriptions ordered this encounter Disp Refills Start End BENEFIBER HEALTHY SHAPE 5 GRAM/7.4 G* 248 g 5 12/04/2020 Route: ORAL Sig: Take 1 teaspoonful by mouth once daily. Encounter Status:Closed by AARTI SWAIN LPN on 12/04/[address] [facility] Comp Metabolic Panelon 12-03 Albumin [Mass/Vol] 4.9 g/dL Normal 3.9-4.9 [facility] ALP [Catalytic activity/Vol] 65 U/L Normal 34-123 [facility] ALT [Catalytic activity/Vol] 13 U/L Normal 7-38 [facility] Anion gap [Moles/Vol] 14 mmol/L Normal 9-18 [facility] AST [Catalytic activity/Vol] 14 U/L Normal 13-35 [facility] Bilirubin [Mass/Vol] 0.5 mg/dL Normal 0.2-1.3 [facility] Calcium [Mass/Vol] 10.2 mg/dL Normal 8.5-10.2 [facility] Chloride [Moles/Vol] 98 mmol/L Normal 97-105 [facility] CO2 [Moles/Vol] 22 mmol/L Normal 22-30 [facility] Creatinine [Mass/Vol] 0.77 mg/dL Normal 0.58-0.96 [facility] eGFR- Amer. >60 Normal [facility] eGFR-All Other Races >[address] [facility] Comment on above: Result Comment: eGFR (Estimated GFR) Units of measure: mL/min/1.73 meters squared eGFR is derived from the reexpressed MDRD Study equation using the following parameters: serum creatinine, age, gender and race. The creatinine assay has been calibrated to be traceable to IDMS. An eGFR <60 mL/min/1.73m2 for >3 months is consistent with chronic kidney disease. Refer to KDOQI guidelines for clinical interpretation. In patients with unstable renal function, e.g. those with acute kidney injury, the eGFR may not accurately reflect actual GFR. Glucose [Mass/Vol] 98 mg/dL Normal 74-99 [facility] Comment on above: Result Comment: The [place] Diabetes Association (ADA) provides guidance for cutoff values for fasting glucose and random glucose. The ADA defines fasting as no caloric intake for at least 8 hours. Fasting plasma glucose results between 100 to 125 mg/dL indicate increased risk for diabetes (prediabetes). Fasting plasma glucose results greater than or equal to 126 mg/dL meet the criteria for diagnosis of diabetes. In the absence of unequivocal hyperglycemia, results should be confirmed by repeat testing. In a patient with classic symptoms of hyperglycemia or hyperglycemic crisis, random plasma glucose results greater than or equal to 200 mg/dL meet the criteria for diagnosis of diabetes. Reference: Standards of Medical Care in Diabetes 2016, [place] Diabetes Association. Diabetes Care. 2016.39(Suppl 1). Potassium [Moles/Vol] 4.3 mmol/L Normal 3.7-5.1 [facility] Protein [Mass/Vol] 7.4 g/dL Normal 6.3-8.0 [facility] Sodium [Moles/Vol] 134 mmol/L Low 136-144 [facility] Urea nitrogen [Mass/Vol] 24 mg/dL High 7-21 [facility] HISTORY PHYSICALon HISTORY PHYSICAL HNO ID: [id number] Author: Aixa (Rn) ANAY Goff Service: ? Author Type: Registered Nurse Type: HANDP Filed: 12/03/2020 3:07 PM Note Text: Mayuri Saez a 65 year old female who is self referred for the evaluation of diarrhea. The patient has not been seen previously. The patient denies a family history of colon cancer. The patient is a resident at [facility]. Her PCP is Dena Stevens. The patient has a reported history of Shirley's esophagus, asthma, HTN, HLD, depression and schizophrenia. The patient presents today diarrhea with abdominal pain Patient presents with complaint of diarrhea. Pt states this has been going on for 3 years She describes it as liquid occuring 3 times in the past 24 hours, last time 7pm last night. Pt states that liquid stool happen 2 to 3 days out of the week alternating between soft and liquid. Associated with abdominal cramping and abdominal pain right before Bowel movement and has relief after bowel movement. Pt states that she did not eat at all yesterday because she didn't feel with little nausea. Denies fever and chills. Uncertain if a loss in weight. Denies blood or black stool. Dizziness when standing. Drinks [place] Kiwi water. Lactose free milk. She believe she drink enough throughout the day. Denies any certain foods. States that she had symptoms of heart burn that has resolved with omeprazole 20mg daily REVIEW OF SYSTEMS: GENERAL: No weight loss, malaise or fevers HEENT: No changes in hearing or vision, no nose bleeds or other nasal problems NECK: Negative for lumps, goiter, pain and significant neck swelling RESPIRATORY: Negative for cough, hemoptysis, wheezing, COPD, dyspnea or shortness of breath CARDIOVASCULAR: she does believed she has palpitations GI: The patient states that her appetite has been adequate. There has been some nausea, no vomiting. She denies dysphagia and denies odynophagia. There has not been indigestion without heartburn. There has not been regurgitation. Bowel habits have been irregular. There has been diarrhea. There has not been constipation. She has constipation in the past The patient denies rectal bleeding. There has not been melena. Intermittent abdominal pain that is located in the right upper and right lower quadrant. : Negative MUSCULOSKELETAL: Negative for joint pain or swelling, back pain or muscle pain SKIN: Negative for lesions, rash, and itching PSYCH: See HPI HEMATOLOGY/LYMPHOLOGY Negative for prolonged bleeding, bruising easily or swollen nodes ENDOCRINE: Negative for cold or heat intolerance, polyuria, polydipsia and goiter NEURO: Dizziness (when standing), BLE neuropathy All other reviewed and negative other than HPI. Pt was unaccompanied - lives at assisted living - d/t mental and physical limitations of bilateral leg pain, SOB, and unsteady gait as well as memory loss r/t sarcopenia, MIK , COPD, and paranoid schizophrenia. She requires the use of rollator. PAST MEDICAL HISTORY Diagnosis Date - Adjustment disorder with depressed mood - Shirley's esophagus - Benign hypertensive heart disease without heart failure - Catatonic schizophrenia, chronic condition with acute exacerbation (HCC) - Other and unspecified hyperlipidemia - Unspecified asthma(493.90) PAST SURGICAL HISTORY Procedure Laterality Date - NONE FAMILY HISTORY Problem Relation Age of Onset - Hypertension Mother - other (Other) Mother Schizophrenia - Alzheimer's Disease Father age 87. - other (Other) Brother 3 younger, all healthy to patient's knowledge. Current Outpatient Medications on File Prior to Visit Medication Sig - cholecalciferol (VITAMIN D) 1,000 unit tab tablet Take 4,000 Units by mouth once daily. - cetirizine (ZYRTEC) 10 mg tablet Take 10 mg by mouth once daily. - Lactobacillus acidophilus (ACIDOPHILUS ORAL) Take by mouth. - donepezil (ARICEPT) 10 mg tablet Take 10 mg by mouth once daily. - budesonide-formoterol (SYMBICORT) 160-4.5 mcg/actuation inhaler Inhale 2 Puffs as instructed twice daily. - Nojei-7-VPP-EPA-Fish Oil (FISH OIL) 1,000 mg (120 mg-180 mg) cap Take 2 g by mouth twice daily. - memantine (NAMENDA) 10 mg tablet Take 10 mg by mouth twice daily. - acetaminophen (TYLENOL) 325 mg tablet Take 500 mg by mouth three times daily. - QUEtiapine (SEROQUEL) 100 mg tablet Take 50 mg by mouth daily at bedtime. - latanoprost (XALATAN) 0.005 % ophthalmic solution Use 1 Drop in both eyes daily at bedtime. - melatonin 10 mg cap Take 10 mg by mouth daily at bedtime. - polyethylene glycol 3350 (MIRALAX) 17 gram/dose powder Take 17 g by mouth as needed. - fluticasone-emollient no.65 0.05 % ktot Apply 1 [place] to affected area once daily as needed. - magnesium hydroxide (MILK OF MAGNESIA) 400 mg/5 mL suspension Take 30 mL by mouth once daily as needed for Constipation. - loperamide HCl (IMODIUM A-D) 2 mg tab Take 2 mg by mouth as needed. Not (more content not included)... Normal [facility] Helico pylori Abon 1 H pylori Ab, IgG <0.4 Normal [facility] Comment on above: Result Comment: U/mL are interpreted as follows: Negative specimens <0.9 Indeterminate specimens >=0.9 to <1.1 Positive specimens >=1.1 Results were obtained with the IMMULITE 2000 H.pylori IgG EIA. Results obtained from other manufacturers' assay methods may not be used interchangeably. Performed By: #### L IPA, HPYLRI #### [facility] [address], [place] [address] H. pylori IgG, Qual Negative Normal Negative [facility] Comment on above: Result Comment: H. p ylori IgG antibodies were not detected in the sample. Negative results by this test do not preclude recent primary infection. Performed By: #### L IPA, HPYLRI #### [facility] [employer] [address], [place] [address] Lipaseon 12-03-2020 Lipase [Catalytic activity/Vol] 26 U/L Normal 16-61 [facility] Comment on above: Performed By: #### L IPA, HPYLRI #### [facility] [address] [place], [place] [address] BD BONE DENSITY DEXA AXIAL S [facility] 09-02-2018 BD BONE DENSITY DEXA AXIAL SKELETON ORIGINALBONE DENSITOMETRY CLINICAL STATEMENT: SCREENING FOR OSTEOPOROSIS COMPARISON: 12/25/2014 T Score Left Femoral Neck: -2.2 BMD (g/cm2) Left Femoral Neck: 0.609 T Score Left Hip: -1.7 BM D (g/cm2) Left Hip: 0.731 T Score Lumbar Spine L1-L4: 2.7 BMD (g/cm2) Lumbar Spine L1-L4: 1.344 Bone density measurements for the lumbar spine are likely falsely elevated in this patient due to the presence of degenerative spurs and sclerosis. CONCLUSION: The patient is considered osteopenic based on the left femoral neck which has a T score of -2.2. BMD Change from previous Hip: -12.6 %BMD Change from previous Lumbar Spine: 2.7 % *By the World Health Organization standards: Osteopenia is present when the bone mineral density is greater than 1 standard deviation (SD) but less than 2.5 SDs below a young normal sex matched population. Osteoporosis is present when the bone mineral density is equal to or greater than 2.5 SDs below a young normal sex matched population. Interpreted By: Sanchez Beard MDPreliminary Report By: Sanchez Beard MDElectronically Signed By: Sanchez Beard MD Dictated Date: 09/02/2018 4:49:16 PM Prelim Date: 09/02/2018 4:49:16 PM Sign Date: 09/02/2018 4:50:59 PM Normal [facility] ([place]) [place] MAMMOGRAM SCREENING BILAT ERAL W/TOMOon 09-02-2018 MA MAMMOGRAM SCREENING BILATERAL W/PETEY ORIGINALFROM:[address] [address]Ejkfh: [phone] PROCEDURE FOR:MAYURI [id number] [address]Cczb: [phone]#: [id number]#: [id number]#: [id number]: 1955ge: 63 TO:[place] [id number] #[id number] BILATERAL DIGITAL SCREENING MAMMOGRAM 3D/2D WITH CAD WITH CLEAVAGE MEDIOLATERAL OBLIQUE: 09/02/2018 Comparison is made to exams dated: 05/21/2017 mammogram and 02/05/2016 mammogram - [facility]. There are scattered fibroglandular elements in both breasts. Current study was also evaluated with a Computer Aided Detection (CAD) system. There are benign scattered calcifications in both breasts. No significant masses, calcifications, or other findings are seen in either breast. There has been no significant interval change. IMPRESSION: BENIGNThere is no mammographic evidence of malignancy. A 1 year screening mammogram is recommended.( 9) I have personally reviewed the images of the examination and agree with the findings and interpretation. SUDHIR Madrigal,luis/andressa:2017 09:05:10 [employer] Pilot(s): JASON CARRANZA, RT(R)(M)(CT) [facility] Normal BI-RADS 1&2 Mammogram BI-RADS: 2 Benign Normal [facility] ([place] XR KNEE 4 VIEWS LEFTon 03-16 XR KNEE 4 VIEWS LEFT ORIGINALXR KNEE 4 VIEWS LEFT CLINICAL STATEMENT: lt knee pain COMPARISON: None FINDINGS:3 images of the LEFT knee demonstrate no acute fracture or dislocation. Minimal joint space narrowing in the medial compartment and moderate joint space narrowing in the patellofemoral compartment is noted. There is no joint effusion. IMPRESSION:Minimal degenerative change primarily in the patellofemoral compartment Interpreted By: Khloe Conner MDPreliminary Report By: Khloe Conner MDElectronically Signed By: Khloe Conner MD Dictated Date: 03/16/2018 1:09:12 PM Prelim Date: 03/16/2018 1:09:12 PM Sign Date: 03/16/2018 1:09:40 PM Normal [facility] ([place]) .GFRon 01-26-2018 GFR Non- >60 Normal [facility] ([place]) Comment on above: Result Comment: GFR Population mean for , Non- Americans Ages 20-29 = 116 mL/min/1.73 sq.m. Ages 30-39 = 107 mL/min/1.73 sq.m. Ages 40-49 = 99 mL/min/1.73 sq.m. Ages 50-59 = 93 mL/min/1.73 sq.m. Ages 60-69 = 85 mL/min/1.73 sq.m. Ages 70+ = 75 mL/min/1.73 sq.m.Chronic Kidney Disease: Less than 60 mL/min/1.73 square metersEnd Stage Renal Disease: Less than 15 mL/min/1.73 square meters Performed By: #### C MP, LIPID, GFR ####[address] [place], [place] [address] GFR 102 ml/min/1.73sqm Normal [facility] ([place]) Comment on above: Result Comment: GFR Population mean for , Non- Americans Ages 20-29 = 116 mL/min/1.73 sq.m. Ages 30-39 = 107 mL/min/1.73 sq.m. Ages 40-49 = 99 mL/min/1.73 sq.m. Ages 50-59 = 93 mL/min/1.73 sq.m. Ages 60-69 = 85 mL/min/1.73 sq.m. Ages 70+ = 75 mL/min/1.73 sq.m.Chronic Kidney Disease: Less than 60 mL/min/1.73 square metersEnd Stage Renal Disease: Less than 15 mL/min/1.73 square meters Performed By: #### C MP, LIPID, GFR ####[address] [place], [place] [address] [facility] Albumin mass conc 4.6 G/dL Normal 3.4-4.8 [facility] ([place]) Comment on above: Performed By: #### C MP, LIPID, GFR ####[address] [place], [place] [address] Albumin/Globulin mass ratio 1.8 {ratio} Normal 1.1-2.5 [facility] ([place]) Comment on above: Performed By: #### C MP, LIPID, GFR ####[address] [place], [place] [address] ALP enzyme act/vol 96 U/L Normal 40-135 [facility] ([place]) Comment on above: Performed By: #### C MP, LIPID, GFR ####[address] [place], [place] [address] ALT enzyme act/vol 15 U/L Normal 10-35 [facility] ([place] Comment on above: Performed By: #### C MP, LIPID, GFR ####[address] [place], [place] [address] AST enzyme act/vol 15 U/L Normal 10-40 [facility] ([place] Comment on above: Performed By: #### C MP, LIPID, GFR ####[address] [place], [place] [address] Bili Total 0.2 mg/dL Normal 0.2-1.0 [facility] ([place] Comment on above: Performed By: #### C MP, LIPID, GFR ####[address] [place], [place] [address] Calcium mass conc 9.5 mg/dL Normal 8.4-10.2 [facility] ([place] Comment on above: Performed By: #### C MP, LIPID, GFR ####[address] [place], [place] [address] CO2 molar conc 28 mmol/L Normal 23-31 [facility] ([place]) Comment on above: Performed By: #### C MP, LIPID, GFR ####[address] [place], [place] [address] Creatinine mass conc 0.7 mg/dL Normal 0.6-1.2 [facility] ([place]) Comment on above: Performed By: #### C MP, LIPID, GFR ####[address] [place], [place] [address] Electrolyte Balance 11.0 mEq/L Normal [facility] ([place] Comment on above: Performed By: #### C MP, LIPID, GFR ####[address] [place], [place] [address] Globulin Calculated mass conc (S) 2.5 G/dL Normal [facility] ([place]) Comment on above: Performed By: #### C MP, LIPID, GFR ####[address] [place], [place] [address] Glucose mass conc 125 mg/dL High 80-115 [facility] ([place] Comment on above: Performed By: #### C MP, LIPID, GFR ####[address] [place], [place] [address] Protein mass conc 7.1 G/dL Normal 6.0-8.3 [facility] ([place] Comment on above: Performed By: #### C MP, LIPID, GFR ####[address] [place], [place] [address] Urea nitrogen mass conc 6.9 mg/dL Low 7.0-18.0 [facility] ([place] Comment on above: Performed By: #### C MP, LIPID, GFR ####[address] [place], [place] [address] Urea nitrogen/Creatinin e mass ratio 10 ratio Normal 7-27 [facility] ([place] Comment on above: Performed By: #### C MP, LIPID, GFR ####[address] [place], [place] [address] Chloride molar conc 95 mmol/L Low 98-107 [facility] ([place] Comment on above: Performed By: #### C MP, LIPID, GFR ####[address] [place], [place] [address] Potassium molar conc 4.6 mmol/L Normal 3.5-5.1 [facility] ([place] Comment on above: Performed By: #### C MP, LIPID, GFR ####[address] [place], [place] [address] Sodium molar conc 134 mmol/L Low 136-146 [facility] ([place] Comment on above: Performed By: #### C MP, LIPID, GFR ####[address] [place], [place] [address] LIPIDon 01-26-2018 Cholesterol in HDL mass conc 69 mg/dL Normal 35-90 [facility] ([place]) Comment on above: Result Comment: HDL Reference Interval:Less than 40 Low - high risk60 or above Optimal/lowers risk Performed By: #### C MP, LIPID, GFR ####[address] [place], [place] [address] Cholesterol in LDL mass conc 87 mg/dL Normal 0-130 [facility] ([place] Comment on above: Result Comment: LDL is a calculated result and requires a 12- hr fast.LDL Reference Interval:Less than 100 [id number] Near or above [id number] Borderline high [id number] High [id number] and above Very high risk Performed By: #### C MP, LIPID, GFR ####[address] [place], [place] [address] Cholesterol mass conc 177 mg/dL Normal 131-200 [facility] ([place] Comment on above: Result Comment: Chol esterol Reference Interval:Less than 200 [id number] Borderline high [id number] and above High risk Performed By: #### C MP, LIPID, GFR ####[address] [place], [place] [address] Triglyceride mass conc 107 mg/dL Normal 40-150 [facility] ([place] Comment on above: Result Comment: Trig lyceride Reference Interval:Less than 150 [id number] Borderline high [id number] High [id number] or higher Very high risk Performed By: #### C MP, LIPID, GFR ####[address] [place], [place] [address] XR ANKLE MINIMUM 3 VIEWS LEF Ton 11-22-2017 XR ANKLE MINIMUM 3 VIEWS LEFT ORIGINALXR ANKLE MINIMUM 3 VIEWS LEFT CLINICAL STATEMENT: s/p Fall, tender to palpation COMPARISON: None FINDINGS: No acute fracture or dislocation is identified. The ankle mortise and talar dome are normal. The joint spaces are maintained. There is no radiopaque foreign body. There is soft tissue swelling about the ankle. There was suboptimal positioning on the lateral view. IMPRESSION: No acute fracture or dislocation. Interpreted By: Shelly Castellano MDPreliminary Report By: Shelly Castellano MDElectronically Signed By: Shelly Castellano MD Dictated Date: 11/22/2017 3:33:43 PM Prelim Date: 11/22/2017 3:33:43 PM Sign Date: 11/22/2017 3:35:04 PM Normal [facility] ([place]) Vital Signs Date Time Vital Sign Value Performing Clinician Dale mireles 07-06-2023 13:09-0400 Body temperature 98.2 [degF] THERAPY DIRECTOR-C Dena Stevens THERAPY DIRECTOR Work Phone: [facility] 07-06-2023 13:09-0400 Diastolic blood pressure 92 mm[Hg] THERAPY DIRECTOR-Hany Stevens THERAPY DIRECTOR Work Phone: [facility] 07-06-2023 13:09-0400 Heart rate 81 /min THERAPY DIRECTOR-C Dena Stevens THERAPY DIRECTOR Work Phone: [facility] 07-06-2023 13:09-0400 SaO2% (BldA) [Mass fraction] 94 % THERAPY DIRECTOR-C Dena Stevens THERAPY DIRECTOR Work Phone: [facility] 07-06-2023 13:09-0400 Systolic blood pressure 166 mm[Hg] THERAPY DIRECTOR-C Dena Stevens THERAPY DIRECTOR Work Phone: [facility] Encounters Encounter Date Encounter Type Care Provider Facility Start: 03-16-2025 End: 03-16-2025 ambulatory Dena Stevens THERAPY DIRECTOR-C Work Phone: [facility] Work Phone: Start: 03-16-2025 End: 03-16-2025 Patient encounter procedure Paulina Subramanian THERAPY DIRECTOR-C -Cat Scan [facility] Work Phone: Start: 03-16-2025 End: 03-16-2025 ambulatory Paulina Subramanian THERAPY DIRECTOR Facility:[facility] Start: 08-09-2023 Non-patient / Non-visit THERAPY DIRECTOR-C Amrit Stevens THERAPY DIRECTOR Work Phone: [facility] Start: 08-09-2023 End: 08-09-2023 ambulatory THERAPY DIRECTOR-C Dena Stevens THERAPY DIRECTOR Work Phone: [facility] Work Phone: Start: 08-09-2023 End: 08-09-2023 Patient encounter procedure THERAPY DIRECTOR-C Dena Stevens THERAPY DIRECTOR Work Phone: [facility] Work Phone: Start: 07-06-2023 End: 07-06-2023 Patient encounter procedure THERAPY DIRECTOR-C Dena Stevens THERAPY DIRECTOR Work Phone: [facility] Work Phone: Start: 08-13-2022 End: 08-13-2022 ambulatory [facility] Work Phone: Start: 08-13-2022 End: 08-13-2022 Patient encounter procedure [facility] Start: 09-02-2018 End: 09-03-2018 Patient encounter procedure TWAN ACOSTA Facility:B Start: 06-14-2018 Patient encounter procedure TWAN ACOSTA Facility:B Start: 03-16-2018 End: 03-17-2018 Patient encounter procedure TWAN ACOSTA [facility] Start: 01-26-2018 End: 01-31-2018 Patient encounter procedure JADEN DAVIS Facility:[facility] Start: 11-22-2017 End: 11-22-2017 Emergency department patient visit Dinorah Mcgarry Facility:[facility] Procedures Date Procedure Procedure Detail Performing Clinician Start: 03-16-2025 CT of thorax with contrast Dena Stevens THERAPY DIRECTOR-C Work Phone: Start: 08-13-2022 Screening mammography Plan of Treatment Date Care Activity Detail Author Start: 07-06-2023 Patient referral [facility] Work Phone: Patient referral [facility] Work Phone: Immunizations Immunization Date Immunization Notes Care Provider Atul jovel 07-21-2022 influenza, injectabl e, quadrivalent, preservative free Dena Stevens THERAPY DIRECTOR-C Work Phone: [facility] 02-24-2022 Covid (Moderna) Dena campos THERAPY DIRECTOR-C Work Phone: [facility] 11-18-2020 Covid (Moderna) Dena campos THERAPY DIRECTOR-C Work Phone: [facility] 10-23-2020 Covid (Moderna) Dena campos THERAPY DIRECTOR-C Work Phone: [facility] 12-16-2017 influenza, injectabl e, quadrivalent, preservative free THERAPY DIRECTOR-C Dena Rodney THERAPY DIRECTOR Work Phone: [facility] 12-16-2017 influenza, seasonal, injectable [facility] Work Phone: Payers Date Payer Category Payer Self-pay [id number] 2017 Medicaid [id number] 1955 Unknown [id number] [id number] 1955 Unknown [id number] 2.16.8 [id number] 1955 Unknown [id number] 2.16.8 [id number] 1955 Unknown [id number] 2.16.8 [id number] 1955 Unknown [id number] 2.16.8 [id number] Unknown [id number] 2.16.8 [id number] Social History Date Type Detail Facility Start: 11-04-2021 End: 07-06-2023 Tobacco smoking status NHIS Unknown if ever smoked [facility] Start: 02-07-2020 None [facility] Start: 02-07-2020 - [facility] Start: 11-13-2020 Non-smoker [facility] Start: 1955 Sex Assigned At Female [facility] Start: 03-03-2024 Tobacco smoking stat us NHIS Ex-smoker (finding) [facility] Radiology Diagnostic study note 03-17-2025 Note Date & Type Note Facility 03-17-2025 Radiology Diagnostic study note [facility] Imaging Services [address] [place] [address] Chest WITH Contrast MR#: [id number] Acct: [id number] Name: MAYURI SAEZ Rep #: [id number] : [id number] F [id number] From: Aldo Disla MD PCP: ELVIN Brenner Status: REG CLI Study:Chest WITH Contrast Date of Exam: 03/16/25 Exam# [id number] Ordering Dr: Dionne Subramanian NP THERAPY DIRECTOR-Hany PROCEDURE: CHEST WITH CONTRAST 03/16/2025 REASON FOR EXAM: SOB TECHNIQUE: CHEST WITH CONTRAST Coronal and Sagittal reconstruction series were provided. CONTRAST: Isovue-350 VOLUME: 100 mL One or more dose reduction techniques were used (e.g., Automated exposure control, adjustment of the mA and/or kV according to patient size, use of iterative reconstruction technique). RADIATION DOSE SUMMARY: CTDlvol: 19.31 mGy DLP: 752 mGycm COMPARISON: Chest radiograph on 12/18/2019. FINDINGS: Elevation of the hemidiaphragms, more on the right side. Bilateral basilar atelectatic pulmonary changes. Subsegmental atelectasis/consolidation of the right lower lobe. Please evaluate to exclude superimposed pneumonia. No significant coronary artery calcifications. Hepatomegaly. Hepatic steatosis. Normal enhancement of the main pulmonary artery and right and left pulmonary arteries. Mild atheromatous plaques of the thoracic aorta and visualized great vessels. There is no demonstrated aortic dissection. Normal heart and pericardium. Normal mediastinum. Normal hilar regions. Normal visualized trachea and bronchi. The remaining lungs are well expanded. Normal remaining pulmonary parenchyma. Normal pleura. CT/Chest WITH Contrast IMPRESSION: 1. Coronary artery calcification (CAC) is is absent 2. Elevation of the hemidiaphragms, more on the right side. 3. Bilateral basilar atelectatic pulmonary changes. 4. Subsegmental atelectasis/consolidation of the right lower lobe. Please evaluate to exclude superimposed pneumonia. 5. No significant coronary artery calcifications. 6. Hepatomegaly. 7. Hepatic steatosis. Reading Location: [place] [address] CC: ELVIN Subramanian; ELVIN Stevens ~ Security Engineer: Signed [facility] Progress note 02-07-2021 Note Date & Type Note Facility 02-07-2021 Note HNO ID: [id number] Author: Aixa Goff APRN.HYDROGEN BRAZE FURNACE OPERATOR Service: ? Author Type: Nurse Practitioner Type: Progress Notes Filed: 02/07/2021 10:10 AM Note Text: DEPARTMENT OF GASTROENTEROLOGY - FOLLOW UP VISIT HISTORY OF PRESENT ILLNESS Mayuri Saez is a 65 year old female with a history of Shirley's esophagus, GERD, MIK, asthma, HTN, HLP, Alzheimer's, anxiety depression, schizophrenia and chronic back pain. Who presents today for follow up of diarrhea. The patient has had improvement in bowel habits only having 1-2 episodes of diarrhea since starting the fiber. She states she does have daily formed, brown bowel movements. Denies rectal bleeding or black stools. Abdominal pain had improved. Patient denies heartburn, chest pain, regurgitation, nausea or vomiting Patient states sometimes - not very often has had time swallowing when she needs to have a drink to help get the food down. Patient states the last time she had a scope completed was in [place] a long time ago with CT was ordered previously unable to complete due to not having a ride I have reviewed the procedure and pathology reports, as well as the images, with the patient. PRIOR TEST RESULTS Imaging/Procedures: Colonoscopy:07/07/2019 Impressions : - One polyp in the transverse colon, removed with a hot snare. Resected and retrieved. - The examination was otherwise normal on direct and retroflexion views. Pathology: Transverse colon polyp, biopsy: Tubular adenoma. PAST MEDICAL HISTORY Diagnosis Date - Adjustment disorder with depressed mood - Shirley's esophagus - Benign hypertensive heart disease without heart failure - Catatonic schizophrenia, chronic condition with acute exacerbation (HCC) - Other and unspecified hyperlipidemia - Unspecified asthma(493.90) PAST SURGICAL HISTORY Procedure Laterality Date - NONE Current Outpatient Medications Medication Sig Dispense Refill - wheat dextrin (BENEFIBER HEALTHY SHAPE) 5 gram/7.4 gram powd Take 1 teaspoonful by mouth once daily. 248 g 5 - cholecalciferol (VITAMIN D) 1,000 unit tab tablet Take 4,000 Units by mouth once daily. - cetirizine (ZYRTEC) 10 mg tablet Take 10 mg by mouth once daily. - Lactobacillus acidophilus (ACIDOPHILUS ORAL) Take by mouth. - donepezil (ARICEPT) 10 mg tablet Take 10 mg by mouth once daily. - budesonide-formoterol (SYMBICORT) 160-4.5 mcg/actuation inhaler Inhale 2 Puffs as instructed twice daily. - Zjiqi-0-MXL-EPA-Fish Oil (FISH OIL) 1,000 mg (120 mg-180 mg) cap Take 2 g by mouth twice daily. - memantine (NAMENDA) 10 mg tablet Take 10 mg by mouth twice daily. - acetaminophen (TYLENOL) 325 mg tablet Take 500 mg by mouth three times daily. - QUEtiapine (SEROQUEL) 100 mg tablet Take 50 mg by mouth daily at bedtime. - latanoprost (XALATAN) 0.005 % ophthalmic solution Use 1 Drop in both eyes daily at bedtime. - melatonin 10 mg cap Take 10 mg by mouth daily at bedtime. - polyethylene glycol 3350 (MIRALAX) 17 gram/dose powder Take 17 g by mouth as needed. - fluticasone-emollient no.65 0.05 % ktot Apply 1 [place] to affected area once daily as needed. - magnesium hydroxide (MILK OF MAGNESIA) 400 mg/5 mL suspension Take 30 mL by mouth once daily as needed for Constipation. - loperamide HCl (IMODIUM A-D) 2 mg tab Take 2 mg by mouth as needed. Not to exceed 6 doses - guaiFENesin (ROBITUSSIN) 100 mg/5 mL syrup Take 200 mg by mouth every 8 hours as needed for Cough. - acetaminophen (TYLENOL) 325 mg tablet Take 325 mg by mouth every 8 hours as needed for Pain or Fever. - omeprazole (PRILOSEC) 20 mg capsule Take 20 mg by mouth once daily. - docusate sodium (DOK) 100 mg capsule Take 100 mg by mouth once daily. - aspirin, enteric coated (ASPIRIN, ENTERIC COATED) 81 mg EC tablet Take 81 mg by mouth once daily. - COMPOUNDED PRESCRIPTION Diagnostic polysomnogram. 1 Each 0 - lisinopril (ZESTRIL, PRINIVIL) 10 mg tablet Take 15 mg by mouth once daily. - paliperidone palmitate (INVEGA SUSTENNA) 234 mg/1.5 mL syrg Inject 234 mg intramuscularly once every month. - perphenazine 2 mg tablet Take 8 mg by mouth twice daily. - fluticasone (FLOVENT HFA) 220 mcg/actuation inhaler Inhale 1 Puff as instructed twice daily. - benztropine (COGENTIN) 0.5 mg tablet Take 0.5 mg by mouth twice daily. - simvastatin (ZOCOR) 40 mg tablet Take 40 mg by mouth daily at bedtime. - meloxicam (MOBIC) 15 mg tablet Take 15 mg by mouth at bedtime as needed. - clonazePAM (KLONOPIN) 0.5 mg tablet Take 0.5 mg by mouth twice daily as needed. - ALBUTEROL 90 MCG/ACTUATION AEROSOL INHALER 2 puffs q4hr prn 1 12 - RISPERDAL 4 MG TAB take one tablet Take one(1) tablet daily at bedtime. 0 - ATENOLOL 25 MG TAB take one tablet Take one(1) tablet daily. 0 - LONOX 2.5 MG-0.025 MG TAB as necessary 0 - IBUPROFEN 400 MG TAB as necessary 0 - LIPITOR 20 MG TAB Take 10 mg by mouth. 0 - CALCIUM 500 MG TAB take 2 tablets twice daily 0 - MULTIPLE VITAMIN (more content not included)... [facility] Evaluation note Note Date & Type Note Facility Evaluation note No assessment information availa [facility] Work Phone: Evaluation note Note Date & Type Note Facility Evaluation note Diagnosis Onset Date Bilateral lower extremity pain acute [facility] Work Phone: Reason for referral (narrative) Note Date & Type Note Facility Reason for referral (narrative) No reason for referral information available [facility] Work Phone: Summary Purpose Family History No Family History Records Found Relationship Condition Age at Onset Recorded Date/T stanislaw father Malignant neoplasm Unknown mother Malignant neoplasm Unknown Advance Directives No Advanced Directives Records Found Advance Directive Response Recorded Date/ Time Living Will No October 15 9:01am Power of Food Vendor No October 15, 2021 9:01am Chief Complaint and Reason for Visit Chief Complaint SCREENING Chief Complaint Consult Peripheral vascular disease, unspecified Reason for Visit Bilateral lower extr emity pain Chief Complaint Admit Date SOB March 16, 2025 4:33 pm Additional Source Comments INFORMATION SOURCE (unrecogn ized section and content) DATE CREATED AUTHOR 09/12/2018 [facility] ([place]) DATE CREATED AUTHOR AUTHOR'S ORGANIZ ATION 11/12/2021 [facility] DATE CREATED AUTHOR AUTHOR'S ORGANIZ ATION 03/25/2025 [facility] Goals (unrecognized section and content) Goals may be documented in a n alternate sectionGoals may be documented in an alternate sectionGoals may be documented in an alternate section Care Teams (unrecognized sec tion and content) Team Status: Active Member Role Status Dates Dena Stevens THERAPY DIRECTOR, THERAPY DIRECTOR-C Family Provider Active Dena Stevens THERAPY DIRECTOR, THERAPY DIRECTOR-C Primary Care Provider Act uyen Team Status: Inactive Member Role Status Dates Dena Stevens THERAPY DIRECTOR, THERAPY DIRECTOR-C Primary Care Provider, Re ferring Provider Active SASHA Cox Attending Provider Active Team Status: Active Member Role Status Dates Dena Stevens THERAPY DIRECTOR, THERAPY DIRECTOR-C Primary Care Provider Act uyen Dr. Mike Gallagher MD Attending Provider Active Team Status: Inactive Member Role Status Dates Dena Stevens THERAPY DIRECTOR, THERAPY DIRECTOR-C Primary Care Provider Act uyen SASHA Cox Attending Provider, Referring Provid er Active Team Status: Active Member Role Status Dates Dena Stevens THERAPY DIRECTOR, THERAPY DIRECTOR-C Primary Care Provider Act uyen Team Status: Inactive Member Role Status Dates Dena Stevens THERAPY DIRECTOR, THERAPY DIRECTOR-C Primary Care Provider Act uyen Start: March 16, 2025 End: March 16, 2025 Paulina Subramanian NP, THERAPY DIRECTOR-C Attending Provider Active S tart: March 16, 2025 End: March 16, 2025 Paulina Subramanian NP, THERAPY DIRECTOR-C Referring Provider Active S tart: March 16, 2025 End: March 16, 2025 FOR RECORDS PERTAINING TO PATIENTS WHO ARE OR HAVE BEEN ENROLLED IN A CHEMICAL DEPENDENCY/SUBSTANCEABUSE PROGRAM, SOME INFORMATION MAY BE OMITTED. This clinical summary was aggregated from multiple sources. Caution should be exercised in using it in the provision of clinical care. This summary normalizes information from multiple sources, and as a consequence, information in this document may materially change the coding, format and clinical context of patient data. In addition, data may be omitted in some cases. CLINICAL DECISIONS SHOULD BE BASED ON THE PRIMARY CLINICAL RECORDS. [employer] [facility]. provides no warranty or guarantee of the accuracy or completeness of information in this document.
--- NOTE | 2025-06-03 19:45 | RAD_ITS ---
PROCEDURE: CHEST 1 VIEW (PORTABLE) 06/03/2025 REASON FOR EXAM: TACHYPNEA TECHNIQUE: Frontal view of the chest. COMPARISON: March 16, 2025, December 18, 2019 FINDINGS: Hardware: EKG leads Heart: Normal Lungs: The lungs are hypoventilated. There is elevation right hemidiaphragm similar to recent prior CT. Subsegmental atelectasis of the lung bases. Bones: Minimal degenerative changes thoracic spine. RAD/Chest 1 View (Portable) IMPRESSION: Hypoventilation. Minimal atelectasis. Elevation right hemidiaphragm unchanged . Reading Location: [id number]
[2025-06-03 19:58] LABS: Allen Test Positive; Base Excess 8 mmol/L (-2 to +2); FI02 4.0; PO2 73 mmHG (75-100); SITE R Radial; SO2 92 % (95-99); Time Given 19:56:09
[2025-06-03 20:04] LABS: Hematocrit 37.9 % (37-47); Hemoglobin 11.7 g/dL (12.0-15.0); Immature Granulocytes Count 0.070 X10^3/uL (0.0-0.0); Mean Corp Hgb Conc 30.9 g/dL (32-36); Mean Corpuscular Volume 93.6 fL (81-99); Mean Platelet Vol. 10.3 fl (6.2-12.0); NRBC Flagged by Analyzer 0 % (0-5); POSITIVE DIFFERENTIAL YES; Platelet Count 179 K/mm3 (150-450); RBC Distribution Width CV 15.1 % (11.6-14.6); RBC Distribution Width SD 52.1 fl (35.1-43.9); Red Blood Count 4.05 M/mm3 (4.2-5.4); White Blood Count 10.8 K/mm3 (4.4-11.0)
[2025-06-03 20:24] LABS: AST(SGOT) 16 U/L (<=31); Alanine Aminotransfer ALT/SGPT 14 U/L (<=34); Albumin, Serum 3.8 g/dL (3.4-4.8); Alkaline Phosphatase 62 U/L (35-104); Anion Gap 12 (5-15); BUN 24 mg/dL (4-19); BUN/Creat Ratio 37.1 RATIO (10-20); Calcium,Total 9.3 mg/dL (7.6-11.0); Carbon Dioxide 30.9 mmol/L (21.0-32.0); Chloride 97 mmol/L (98-108); Estimated Creatinine Clearance 84.66 ml/min (50-250); Globulin 3.1 g/dL (2.2-4.2); Glucose 174 mg/dL (70-99); Potassium 4.8 mmol/L (3.3-5.1)
--- NOTE | 2025-06-03 20:25 | CM.ED ---
Social Work Date of referral: 06/03/25 Reason for referral: Advanced Care Directives (ACD's) not on file Referred by: Social Work Identification Patient unable to talk due to oxygen treatment being provided however health care social worker requested patient to bring in a copy of the ACD's when able. Cecile Rubio, DIALYSIS EQUIPMENT TECHNICIAN, WAREHOUSE PROCESSOR
[2025-06-03 20:34] LABS: Color, Urine Yellow (Yellow); Glucose, Dipstick Normal (Normal); Ketone-Dipstick 5 mg/dl (Negative); Leukocyte Esterase-Dipstick 25 /ul (Negative); Nitrite-Dipstick Negative (Negative); Occult Blood-Urine Negative /ul (Negative); Protein-Dipstick 30 mg/dl (Negative); Specific Gravity, Urine 1.025 (1.002-1.030); Urine Bilirubin Dipstick Negative (Negative)
[2025-06-03 20:52] LABS: Mucous, Urine 1+ /hpf (<or=2+); Red Blood Cells-Urine 0-5 SEEN /hpf (0-5); Squamous Epithelial Cells - UA 0-5 SEEN /hpf (5-10)
--- NOTE | 2025-06-03 21:43 | EX.ED.DYSGE1 ---
HPI History of Present Illness Chief Complaint: Shortness of Breath Detail of Chief Complaint: Reportedly shortness of breath. Patient states she feels tired and not wel Informant: patient Onset/Context/Timing Onset: - (Unknown. Presumed today) Context: - (Unknown) Timing: Continuous Quality: Decreased level consciousness, slow to answer questions Location: Presents from nursing facility Current Severity: Moderate Maximum Severity: Moderate Worsened by: Presumed hypercapnia due to noncompliance Relieved by: Nothing Associated Symptoms Associated Symptoms: Unable to determine Narrative Narrative: Patient is a 70-year-old woman. She has versus COPD, hypertension, hyperlipidemia and obstructive sleep apnea. She is noncompliant with her BiPAP usage. She requires tactile and verbal stimuli to open her eyes. She answers most questions correctly. She is disoriented. She does have a cough. Uncertain whether this is new or not. She complains of subjective fever. No chills. She has had some mild nasal congestion. Prior similar symptoms: No Recent Illness/Hospitalization: No [facility] Medical History (Updated 06/03/25 @ 23:[address] Tobi Polanco MD) Mitral valve regurgitation Hx of steroid therapy Nicotine dependence, cigarettes, in remission MIK (obstructive sleep apnea) Barretts esophagus Chronic back pain Alzheimer disease GERD (gastroesophageal reflux disease) Obstructive sleep apnea Obesity Nicotine dependence Schizophrenia Anxiety and depression COPD (chronic obstructive pulmonary disease) Essential (primary) hypertension Hyperlipidemia Home Medications ?Medication ?Instructions ?Recorded ?Last Taken ?Type bupropion HCl 150 mg tablet,12 hr 150 mg PO BID mental health 12/15/17 02/06/20 History sustained-release sertraline 100 mg tablet 200 mg PO DAILY depression 12/15/17 02/06/20 History acetaminophen 325 mg tablet 1,000 mg PO TID PAIN 04/09/19 02/06/20 History memantine 10 mg tablet 10 mg PO BID MEMORY 07/05/19 02/06/20 History omega-3 fatty acids-fish oil 340 1 cap PO BID SUPPLEMENT 12/11/19 02/06/20 History mg-1,000 mg capsule donepezil 10 mg tablet (Aricept) 10 mg PO DAILY MEMORY 02/07/20 02/04/20 History Lactobacillus acidophilus 1 ea PO DAILY 11/15/20 Unknown History latanoprost 0.005 % eye drops 1 drp EACH EYE QHS 11/15/20 Unknown History omeprazole 20 mg capsule,delayed 20 mg PO DAILY 11/15/20 Unknown History release lisinopril 20 mg tablet 20 mg PO QHS 11/04/21 Unknown History atorvastatin 20 mg tablet 20 mg PO QHS 09/21/23 Unknown History benztropine 0.5 mg tablet 0.5 mg PO BID PRN shakes 09/21/23 Unknown History calcium polycarbophil 625 mg 625 mg PO BID 09/21/23 Unknown History tablet (Fiber-Lax) cetirizine 10 mg capsule (Zyrtec) 10 mg PO DAILY ALLERGIES 09/21/23 Unknown History dicyclomine 20 mg tablet 20 mg PO BID PRN abdominal pain 09/21/23 Unknown History docusate sodium 100 mg capsule 100 mg PO QHS CONSTIPATION 09/21/23 Unknown History guaifenesin 100 mg/5 mL oral 200 mg PO Q8H PRN cough 09/21/23 Unknown History liquid (Child Mucus Relief Expectorant) ipratropium bromide 42 mcg (0.06 2 spray intranasal BID 09/21/23 Unknown History %) nasal spray lisinopril 5 mg tablet 5 mg PO QHS BP 09/21/23 Unknown History loperamide 2 mg capsule 2 mg PO Q6H PRN loose stool 09/21/23 Unknown History magnesium hydroxide 400 mg/5 mL 30 ml PO DAILY PRN constipation 09/21/23 Unknown History oral suspension (Milk of Magnesia) melatonin 5 mg tablet 15 mg PO QHS SLEEP 09/21/23 Unknown History paliperidone palmitate 234 mg/1.5 234 mg IM Q4W 09/21/23 Unknown History mL intramuscular syringe (Invega Sustenna) polyethylene glycol 3350 17 4 g PO DAILY PRN constipation 09/21/23 Unknown History gram/dose oral powder sennosides 8.6 mg-docusate sodium 2 tab PO BID #0 tabs 03/07/24 Unknown Rx 50 mg tablet (Stool Softener-Stimulant Laxative) albuterol sulfate 90 mcg/actuation 2 puff inhalation Q4H PRN SOB 06/03/25 Unknown History aerosol inhaler fluticasone 250 mcg-salmeterol 50 1 ea inhalation BID 06/03/25 Unknown History mcg/dose blistr powdr for inhalation (Advair Diskus) olanzapine 20 mg tablet 20 mg PO QHS 06/03/25 Unknown History ondansetron HCl 4 mg tablet 4 mg PO Q8H PRN PRN nausea and 06/03/25 Unknown History vomiting trazodone 50 mg tablet 50 mg PO QHS 06/03/25 Unknown History Allergy/AdvReac Type Severity Reaction Status Date / Time No Known Allergies Allergy Verified 06/03/25 19:04 Family History Father Cancer Mother Cancer Surgical History History of esophagogastroduodenoscopy (EGD) (~2016) History of colonoscopy History of tubal ligation History of tooth extraction Social History household members: none housing: assisted living facility Smoking Status: Former smoker alcohol intake: never substance use type: does not use caffeine: Yes what type of physical activity do you participate in: none seatbelt use: sometimes do you feel safe at home: Yes additional social history: Single-Lives at [facility] [place] ROS ROS ED Review of Systems ROS Unobtainable: due to mental status Respiratory/Chest Respiratory/Chest: Reports cough and dyspnea Neurologic Neurologic: Reports other Details: Decreased level of consciousness EXAM Physical Exam Const Vital Signs: 06/03/25 19:04 06/03/25 19:08 06/03/25 19:08 Temperature 99.2 F H 99.2 F H Temperature Source Oral Oral Pulse Rate 91 90 Respiratory Rate 22 H 22 H Respiratory Effort Short of Breath Respiratory Depth Normal Respiratory Pattern Normal Blood Pressure 104/62 104/62 Blood Pressure Mean 76 76 Pulse Ox 85 92 Oxygen Delivery Method Room Air Nasal Cannula Nasal Cannula Oxygen Flow Rate (L/min) 3 2 Fraction of Inspired Oxygen (FIO2) 06/03/25 20:05 06/03/25 20:08 06/03/25 20:11 Temperature 99.2 F H Temperature Source Oral Pulse Rate 89 88 Respiratory Rate 24 H 25 H Respiratory Effort Respiratory Depth Respiratory Pattern Blood Pressure 114/61 Blood Pressure Mean 78 Pulse Ox 91 91 Oxygen Delivery Method Nasal Cannula Nasal Cannula Oxygen Flow Rate (L/min) 4 4 Fraction of Inspired Oxygen (FIO2) 30 06/03/25 21:00 06/03/25 22:00 06/03/25 22:42 Temperature 99.5 F H 99.5 F H Temperature Source Axillary Oral Pulse Rate 85 81 81 Respiratory Rate 24 H 22 H 16 Respiratory Effort Respiratory Depth Respiratory Pattern Blood Pressure 102/68 119/62 Blood Pressure Mean 79 81 Pulse Ox 90 93 92 Oxygen Delivery Method Bi-pap Bi-pap Oxygen Flow Rate (L/min) 30 Fraction of Inspired Oxygen (FIO2) 30 06/03/25 23:00 Temperature 100.4 F H Temperature Source Axillary Pulse Rate 80 Respiratory Rate 26 H Respiratory Effort Respiratory Depth Respiratory Pattern Blood Pressure 126/63 H Blood Pressure Mean 84 Pulse Ox 92 Oxygen Delivery Method Bi-pap Oxygen Flow Rate (L/min) Fraction of Inspired Oxygen (FIO2) 30 Positive well nourished and well developed Constitutional Narrative: Patient is somnolent. Patient requires both tactile and verbal stimuli to open her eyes. She answers some questions and believe them to be accurate. She is disoriented. She is tachypneic. There is no retractions noted. She has no accessory muscle use. She was hypoxic. General Appearance ED: well developed; Negative for pallor HEENT Reports TM's clear and dry mucous membranes Negative for trauma or tenderness Tympanic Membrane ED: Yes TM's clear Mouth ED: Yes dry mucous membranes Mouth: dry mucous membranes Eyes PERRL and EOMs intact bilaterally General Eye ED: Negative for pale conjunctiva or scleral icterus Neck Neck Narrative: Difficult to see anatomical structure due to body habitus. There are no carotid bruits. Chest Wall inspection of chest normal and palpation of chest normal Resp No clear to auscultation bilaterally Auscultation: rales bilateral base Cardio regular rate, regular rhythm, S1 normal heart sound, S2 normal heart sound and no murmurs GI normal to inspection, nondistended, normoactive bowel sounds, non-tender, non-distended and no masses; Negative for hepatosplenomegaly Auscultation: normoactive bowel sounds Back/Spine no CVA tenderness Extremity normal to inspection General Extremety ED: Negative for tenderness Neuro No oriented x3 and CN's II-XII intact bilaterally Sensorium / Orientation: Negative for alert Psych mental status grossly normal Skin no rashes or lesions noted, no wounds and No skin turgor normal General Skin Exam: Negative for jaundice or pallor MDM MDM MDM Narrative Medical decision making narrative: With altered mental status need to assess for metabolic or infectious cause. Suspect patient has hypercapnia due to noncompliance. She is normally on oxygen according to the nurse. Patient is unable to give this information. Will obtain EKG to assess for cardiac ischemia, chest x-ray to assess for heart failure, pneumonia. CBC to rule out anemia. Competence of metabolic panel to assess for any endorgan dysfunction. UA to evaluate for infection. Lab Data Attestation: I reviewed the patient's lab results. Lab results narrative: CBC reveals mild anemia. Comprehensive metabolic panel is remarkable and elevated BUN to creatinine ratio of approximately 40-1. Glucose is elevated 174 with normal CO2 anion gap. UA is unremarkable. Labs: Laboratory Results - last 24 hr 06/03/25 06/03/25 19:15 20:23 WBC 10.8 RBC 4.05 L Hgb 11.7 L Hct 37.9 MCV 93.6 MCH 28.9 MCHC 30.9 L RDW Std Deviation 52.1 H RDW Coeff of Humphrey 15.1 H Plt Count 179 MPV 10.3 Immature Gran % (Auto) 0.700 Neut % (Auto) 86.7 H Lymph % (Auto) 4.7 L [place] % (Auto) 7.5 Eos % (Auto) 0.1 Baso % (Auto) 0.3 Absolute Neuts (auto) 9.3 H Absolute Lymphs (auto) 0.50 L Nucleated RBC % 0 Sodium 139 Potassium 4.8 Chloride 97 L Carbon Dioxide 30.9 Anion Gap 12 BUN 24 H Creatinine 0.64 L Estim Creat Clear Calc 84.66 Est GFR (MDRD) Non-Af 96 BUN/Creatinine Ratio 37.1 H Glucose 174 H Lactic Acid 1.9 Calcium 9.3 Total Bilirubin 0.32 AST 16 ALT 14 Alkaline Phosphatase 62 Total Protein 6.9 Albumin 3.8 Globulin 3.1 Albumin/Globulin Ratio 1.2 Urine Color Yellow Urine Clarity Clear Urine pH 5.0 Ur Specific [place] 1.025 Urine Protein 30 H Urine Glucose (UA) Normal Urine Ketones 5 H Urine Occult Blood Negative Urine Nitrite Negative Urine Bilirubin Negative Urine Urobilinogen Normal Ur Leukocyte Esterase 25 H Urine RBC 0-5 SEEN Urine WBC 0-5 SEEN Ur Squamous Epith Cells 0-5 SEEN Urine Bacteria RARE Hyaline Casts 25-50 SEEN Urine Mucus 1+ ABG Data Attestation: I personally reviewed and interpreted this ABG as follows: Interpretation: ABG reveals a respiratory acidosis. Patient was placed on BiPAP. Will contact hospitalist for admission. ABG results: ABG 06/03/25 19:54 Specimen Type ART Sample Site R Radial pH 7.30 L Bicarbonate Actual 34.8 H Total CO2 37 Base Excess 8 H O2 Saturation 92 L O2 % 4.0 ABG pCO2 71.1 H* ABG pO2 73 L Morgan Test Positive O2 Delivery Device Cannula Vent Mode Not entered Crit Call To/Read Back Yes Blood Gas Notified Whom Polanco Blood Gas Notified Time 19:56:09 Radiography Chest X-Ray - ED: 1 View and Read by ED Physician (Single view portable chest x-ray reveals decreased respiratory volume. There is atelectasis noted left greater than right. There is also elevated hemidiaphragm which is unchanged from prior. Cardiac silhouette size normal. Osseous structures reveal no acute process.) Diagnostic Testing: Clinical Impression(s) from Imaging Studies Chest X-Ray 06/03/25 19:45 IMPRESSION: Hypoventilation. Minimal atelectasis. Elevation right hemidiaphragm unchanged. Reading Location: [facility] EKG Initial EKG: Attestation: I personally reviewed and interpreted this EKG as follows: Interpretation: Sinus Rhythm (Rate is 84. [place] interval is 106 6 ms. QRS is 104 ms. QT is 350 ms. [place] the left. There is a premature ventricular beat noted. Decreased anterior forces. There is artifact as well.) Management Discussion w/another healthcare provider: Hospitalist (Case was reviewed with Dr. Orozco for admission to the hospital) Critical Care Time Critical Care Time: Yes Critical care time (excluding procedures): 30-74 minutes (32), Including time spent: (History, physical, documentation, independent rotation of laboratory results and images,), Discussing w/Patient &/or Family/Machine Plug Shaper, Discussing w/Consultants (Hospitalist for admission for hypercapnia because of altered mental status), Arranging Admission or Transfer, Performing Direct Patient Care at Bedside and - (Discussion with respiratory therapist) Discharge Plan Dx/Rx/DC Orders Clinical Impression: Acute on chronic respiratory failure with hypoxia and hypercapnia, Schizophrenia, Obstructive sleep apnea, Hyperlipidemia, Essential (primary) hypertension, Acute alteration in mental status, History of COPD, Adult BMI 45.0-49.9 kg/sq m, Fever Disposition Disposition: Acute Care Hospital [facility]
--- NOTE | 2025-06-03 22:48 | HP.PCM.HOS_ITS ---
[facility] - General General Date of Admission: 06/03/25 Date of Service: 06/03/25 Chief Complaint: SOB and Confusion. [facility] Narrative JESSENIA SAEZ, is a 70 F with a past medical history of essential hypertension; on lisinopril twice daily, hyperlipidemia; on atorvastatin, morbid obesity (class III); with a BMI of 47.1 this admission, MIK; noncompliant with BiPAP, history of tobacco abuse; with subsequent COPD, history of paranoid schizophrenia; on paliperidone palmitate IM monthly, depression with anxiety; on sertraline, bupropion, olanzapine and trazodone nightly, chronic Alzheimer's dementia; on donepezil, history of mitral valve regurgitation, glaucoma; on latanoprost eyedrops nightly, GERD; with history of Shirley's esophagus on omeprazole, chronic constipation; on sennosides-docusate twice daily plus polyethylene glycol daily as needed, OA; with chronic back pain and history of admission here from March 03, 2024 to March 08, 2024 for treatment of fall with bilateral ankle fractures with patient subsequently discharged to senior care facility who presents to [facility] ER complaining of shortness of breath and confusion. Ms. Saez is not a fully-reliable historian at this time so information was gathered from chart, medical staff and computer. According to the records she requires tactile and verbal stimulation to open her eyes. In the ER she was noted to have clinical evidence of AE COPD complicated by clinical evidence of [id number] hypoxic and hypercapnic Respiratory Failure compounded by Metabolic Encephalopathy in the setting of chronic noncompliance with BiPAP for MIK. She was then admitted to the PCU for ongoing care for stated is expected to extend beyond 2 midnights. [facility] Medical History (Updated 06/03/25 @ 23:[address] Tobi Polanco MD) Mitral valve regurgitation Hx of steroid therapy Nicotine dependence, cigarettes, in remission MIK (obstructive sleep apnea) Barretts esophagus Chronic back pain Alzheimer disease GERD (gastroesophageal reflux disease) Obstructive sleep apnea Obesity Nicotine dependence Schizophrenia Anxiety and depression COPD (chronic obstructive pulmonary disease) Essential (primary) hypertension Hyperlipidemia Home Medications ?Medication ?Instructions ?Recorded ?Last Taken ?Type bupropion HCl 150 mg tablet,12 hr 150 mg PO BID mental health 12/15/17 02/06/20 History sustained-release sertraline 100 mg tablet 200 mg PO DAILY depression 0 12/15/17 02/06/20 History acetaminophen 325 mg tablet 1,000 mg PO TID PAIN 04/0902/06/20 History memantine 10 mg tablet 10 mg PO BID MEMORY 07/05/19 02/06/20 History omega-3 fatty acids-fish oil 340 1 cap PO BID SUPPLEME NT 12/11/19 02/06/20 History mg-1,000 mg capsule donepezil 10 mg tablet (Aricept) 10 mg PO DAILY MEMORY 02/07/20 02/04/20 History Lactobacillus acidophilus 1 ea PO DAILY 11/15/20 Unkno wn History latanoprost 0.005 % eye drops 1 drp EACH EYE QHS 11/15 Unknown History omeprazole 20 mg capsule,delayed 20 mg PO DAILY Unknown History release lisinopril 20 mg tablet 20 mg PO QHS 11/04/21 Unknow n History atorvastatin 20 mg tablet 20 mg PO QHS 09/21/23 Unknow n History benztropine 0.5 mg tablet 0.5 mg PO BID PRN shakes Unknown History calcium polycarbophil 625 mg 625 mg PO BID 09/21/23 Un known History tablet (Fiber-Lax) cetirizine 10 mg capsule (Zyrtec) 10 mg PO DAILY ALLER GIES 09/21/23 Unknown History dicyclomine 20 mg tablet 20 mg PO BID PRN abdominal p ain 09/21/23 Unknown History docusate sodium 100 mg capsule 100 mg PO QHS CONSTIPAT ION 09/21/23 Unknown History guaifenesin 100 mg/5 mL oral 200 mg PO Q8H PRN cough 1 11/22/22 Unknown History liquid (Child Mucus Relief Expectorant) ipratropium bromide 42 mcg (0.06 2 spray intranasal BI D 09/21/23 Unknown History %) nasal spray lisinopril 5 mg tablet 5 mg PO QHS BP 09/21/23 Unkn own History loperamide 2 mg capsule 2 mg PO Q6H PRN loose stool 09/21/23 Unknown History magnesium hydroxide 400 mg/5 mL 30 ml PO DAILY PRN con stipation 09/21/23 Unknown History oral suspension (Milk of Magnesia) melatonin 5 mg tablet 15 mg PO QHS SLEEP 09/21/23 Unknown History paliperidone palmitate 234 mg/1.5 234 mg IM Q4W Unknown History mL intramuscular syringe (Invega Sustenna) polyethylene glycol 3350 17 4 g PO DAILY PRN constipat ion 09/21/23 Unknown History gram/dose oral powder sennosides 8.6 mg-docusate sodium 2 tab PO BID #0 tabs 03/07/24 Unknown Rx 50 mg tablet (Stool Softener-Stimulant Laxative) albuterol sulfate 90 mcg/actuation 2 puff inhalation Q 4H PRN SOB 06/03/25 Unknown History aerosol inhaler fluticasone 250 mcg-salmeterol 50 1 ea inhalation BID 06/03/25 Unknown History mcg/dose blistr powdr for inhalation (Advair Diskus) olanzapine 20 mg tablet 20 mg PO QHS 06/03/25 Unknow n History ondansetron HCl 4 mg tablet 4 mg PO Q8H PRN PRN nausea and 06/03/25 Unknown History vomiting trazodone 50 mg tablet 50 mg PO QHS 06/03/25 Unknow n History Allergy/AdvReac Type Severity Reaction Status Date / Time No Known Allergies Allergy Verified 06/04/25 01:06 Family History Father Cancer Mother Cancer Surgical History History of esophagogastroduodenoscopy (EGD) (~2015) History of colonoscopy History of tubal ligation History of tooth extraction Social History household members: none housing: assisted living facility Smoking Status: Former smoker alcohol intake: never substance use type: does not use caffeine: Yes what type of physical activity do you participate in: none seatbelt use: sometimes do you feel safe at home: Yes additional social history: Single-Lives at [facility] Living ROS ROS Narrative Full ROS was not possible due to patient's altered mental status. Vital Signs Vital Signs Vital Signs: 06/03/25 19:04 06/03/25 19:08 06/03/25 19:08 Temperature 99.2 F H 99.2 F H Temperature Source Oral Oral Pulse Rate 91 90 Respiratory Rate 22 H 22 H Respiratory Effort Short of Breath Respiratory Depth Normal Respiratory Pattern Normal Blood Pressure 104/62 104/62 Blood Pressure Mean 76 76 Pulse Ox 85 92 Oxygen Delivery Method Room Air Nasal Cannula Nasal Cannula Oxygen Flow Rate (L/min) 3 2 Fraction of Inspired Oxygen (FIO2) 06/03/25 20:05 06/03/25 20:08 06/03/25 20:11 Temperature 99.2 F H Temperature Source Oral Pulse Rate 89 88 Respiratory Rate 24 H 25 H Respiratory Effort Respiratory Depth Respiratory Pattern Blood Pressure 114/61 Blood Pressure Mean 78 Pulse Ox 91 91 Oxygen Delivery Method Nasal Cannula Nasal Cannula Oxygen Flow Rate (L/min) 4 4 Fraction of Inspired Oxygen (FIO2) 30 06/03/25 21:00 06/03/25 22:00 06/03/25 22:42 Temperature 99.5 F H 99.5 F H Temperature Source Axillary Oral Pulse Rate 85 81 81 Respiratory Rate 24 H 22 H 16 Respiratory Effort Respiratory Depth Respiratory Pattern Blood Pressure 102/68 119/62 Blood Pressure Mean 79 81 Pulse Ox 90 93 92 Oxygen Delivery Method Bi-pap Bi-pap Oxygen Flow Rate (L/min) 30 Fraction of Inspired Oxygen (FIO2) 30 Weight Weight: 265 lb 14.04 oz Body Mass Index (BMI) 47.0 Physical Exam Const Constitutional Narrative: Patient is somnolent but responds to tactile and verbal stimuli with obvious disorientation. General Appearance: cooperative Orientation / Consciousness: disoriented HEENT normocephalic, head/scalp atraumatic and hearing grossly normal bilaterally HEENT Narrative: Mucous membranes dry. Eyes PERRL, EOMs intact bilaterally and conjunctivae normal Neck no lymphadenopathy and supple Resp Resp Narrative: Diminished breath sounds throughout with bibasilar rales. Auscultation: rales Cardio regular rate and regular rhythm GI normal to inspection, nondistended, normoactive bowel sounds, soft to palpation, non-tender and non-distended GI Narrative: Morbidly obese. Extremity normal to inspection, full ROM and no clubbing, cyanosis or edema Skin Skin Narrative: Patient has evidence of rash, abscess, wounds or jaundice. Neuro CN's II-XII intact bilaterally, moves all extremities and no focal motor deficits Sensorium / Orientation: awake, alert, oriented to person and oriented to place Speech: speech normal Psych Psych Narrative: Patient is lethargic and disoriented. Results Medical Records Data Attestation: I reviewed the patient's medical records Lab / Micro Data Attestation: I reviewed the patient's lab results. 06/03/25 19:15 06/03/25 19:15 Labs: Laboratory Results - last 24 hr 06/03/25 19:15: WBC 10.8, RBC 4.05 L, Hgb 11.7 L, Hct 37.9, MCV 93.6, MCH 28.9, MCHC 30.9 L, RDW Std Deviation 52.1 H, RDW Coeff of Humphrey 15.1 H, Plt Count 179, MPV 10.3, Immature Gran % (Auto) 0.700, Neut % (Auto) 86.7 H, Lymph % (Auto) 4.7 L, Metcalfe % (Auto) 7.5, Eos % (Auto) 0.1, Baso % (Auto) 0.3, Absolute Neuts (auto) 9.3 H, Absolute Lymphs (auto) 0.50 L, Nucleated RBC % 0, Sodium 139, Potassium 4.8, Chloride 97 L, Carbon Dioxide 30.9, Anion Gap 12, BUN 24 H, Creatinine 0.64 L, Estim Creat Clear Calc 84.66, Est GFR (MDRD) Non-Af 96, BUN/Creatinine Ratio 37.1 H, Glucose 174 H, Lactic Acid 1.9, Calcium 9.3, Total Bilirubin 0.32, AST 16, ALT 14, Alkaline Phosphatase 62, Total Protein 6.9, Albumin 3.8, Globulin 3.1, Albumin/Globulin Ratio 1.2 06/03/25 20:23: Urine Color Yellow, Urine Clarity Clear, Urine pH 5.0, Ur Specific Eaton 1.025, Urine Protein 30 H, Urine Glucose (UA) Normal, Urine Ketones 5 H, Urine Occult Blood Negative, Urine Nitrite Negative, Urine Bilirubin Negative, Urine Urobilinogen Normal, Ur Leukocyte Esterase 25 H, Urine RBC 0-5 SEEN, Urine WBC 0-5 SEEN, Ur Squamous Epith Cells 0-5 SEEN, Urine Bacteria RARE, Hyaline Casts 25-50 SEEN, Urine Mucus 1+ ABG Data ABG results: ABG 06/03/25 19:54 Specimen Type ART Sample Site R Radial pH 7.30 L Bicarbonate Actual 34.8 H Total CO2 37 Base Excess 8 H O2 Saturation 92 L O2 % 4.0 ABG pCO2 71.1 H* ABG pO2 73 L Morgan Test Positive O2 Delivery Device Cannula Vent Mode Not entered Crit Call To/Read Back Yes Blood Gas Notified Whom Polanco Blood Gas Notified Time 19:56:09 Imaging Radiology Impression Chest X-Ray 06/03/25 19:45 IMPRESSION: Hypoventilation. Minimal atelectasis. Elevation right hemidiaphragm unchanged. Reading Location: [id number] Assessment & Plan Assessment/Plan (1) COPD with acute exacerbation: (2) Acute hypoxic on chronic hypercapnic respiratory failure: (3) Metabolic encephalopathy: (4) Alzheimer disease: (5) Morbid obesity with BMI of 40.0-44.9, adult: (6) Obstructive sleep apnea: (7) Medically noncompliant: (8) Schizophrenia: QUALIFIERS: Schizophrenia type: paranoid schizophrenia Qualified Code(s): F20.0 - Paranoid schizophrenia PLAN: Plan 1. AE COPD - Admit to PCU. Start IV methylprednisolone with scheduled and prn nebulizers. Cover with empiric IV doxycycline. Check viral panel. Give acetaminophen prn for pain or fever. 2. Ojkmu-fz-Fwgxwah hypoxic and hypercapnic Respiratory Failure due to #1 in the setting of previously known chronic Noncompliance with BiPAP for MIK - Wean BiPAP as tolerated. 3. Metabolic Encephalopathy attributable to #1 & #2 in the setting of known Chronic Alzheimer's dementia; on donepezil - Check TSH, B12, Folate, UDS and SARAH to evaluate for potentially reversible causes of confusion. Otherwise, continue supportive cares outlined above and monitor for improvement. UDS positive for amphetamines. 4. Morbid obesity (class III); with a BMI of 47.1 this admission adding to the burden of disease outlined for #1 - #3 - Weight loss will be recommended when sensorium clears. Check TSH. 5. History of paranoid schizophrenia; on paliperidone palmitate IM monthly adding to the medical complexity of #1 - #4 - Noted. 6. Depression with anxiety; on sertraline, bupropion, olanzapine and trazodone nightly - Hold oral medications until further notice. 7. History of admission here from March 03, 2024 to March 08, 2024 for treatment of fall with bilateral ankle fractures with patient subsequently discharged to senior care facility - Noted. 8. Essential hypertension; on lisinopril twice daily - Hold scheduled oral antihypertensives. Give hydralazine IV prn for systolic blood pressure > 160 mmHg. 9. Hyperlipidemia; on atorvastatin - Restart statin when patient can safely tolerate oral intake. 10. History of mitral valve regurgitation - Noted. 11. Glaucoma; on latanoprost eyedrops nightly - Maintain present therapy. 12. GERD; with history of Shirley's esophagus on omeprazole - Give PPI IV in light of steroids for #1 plus AMS. 13. Chronic constipation; on sennosides-docusate twice daily plus polyethylene glycol daily as needed - Reinitiate bowel regimen when able. 14. OA; with chronic back pain - Stable. 15. DVT prophylaxis - Enoxaparin 40 mg q BID plus SCD's. Total time: Approximately (but not less than) 75 minutes. Charges/Coding Visit Charges Inpatient E&M: 55741 Init Hosp L3
--- OUTSIDE RECORDS SUMMARY | 2025-06-03 23:42 | XMS RPT_ITS | CCD ---
Author Organization [facility] [employer] [facility] Care Team Providers Care Imaging Services Director Name Role Phone Dinorah Mcgarry Unavailable Unavailabl e RYAN, JADEN Unavailable Unavailable RYAN, JADEN Unavailable Unavailable RYAN, JADEN Unavailable Unavailable ACOSTA, TWAN Unavailable Unavailable RYAN, JADEN Unavailable Unavailable ACOSTA, TWAN Unavailable Unavailable ACOSTA, TWAN Unavailable Unavailable RYAN, AJDEN Unavailable Unavailable ACOSTA, TWAN Unavailable Unavailable RYAN, JADEN Unavailable Unavailable Rodnye EQUIPMENT PROCESSER STORAGE, EQUIPMENT PROCESSER STORAGE-C Formerly [facility] Primary Care [facility] er Rodney ZARAGOZA, EQUIPMENT PROCESSER STORAGE-C Formerly [facility] Referring Provider SASHA Beauchamp Attending Provider [phone] Mike Gallagher Attending Provider Rodney ZARAGOZA-C, Formerly [facility] Primary Care Provider Moris ZARAGOZA-CPaulina Attending Provider [phone] Moris EQUIPMENT PROCESSER STORAGE-C, Paulina Referring Provider Moris EQUIPMENT PROCESSER STORAGE, Paulina Referring Unavailable Moris EQUIPMENT PROCESSER STORAGEPaulina Attending Unavailable Rodney [facility] Primary [facility] Unavailable Medications Current Medications [...] 2:17pm docusate sodium 50 mg / sennosides, prison 8.6 mg oral tablet (1 source) Start: [...] hydrochloride 10 mg oral tablet (3 sources) I-mokyed-C-aspartate Receptor Antagonist Start: 07-05-2019 take 1 tablet [...] 30, 2021 1:00am November 04, 2021 10:56am [place]-3 Fatty Acids-Fish Oil (2 sources) Start: 12-11-2019 take 1 capsule by mouth twice daily [place]-3 Fatty Acids-Fish Oil Active 1 CAP PO TWICE A DAY December 10, 2019 11:00pm [place]-3 Fatty Acids-Fish Oil 1 EACH capsule (1 source) Start: 12-11-2019 [place]-3 Fatty Acids-Fish Oil 1 EACH capsule Active [...] September 21, 2023 2:25pm polyethylene glycol 3350 89320 mg powder for oral solution (4 sources) [...] Start: 11-15-2020 take 7000 [IU] by mo [facility] once daily Cholecalciferol (Vitamin D3) Active 7000 [...] 28, 2018 12:00am February 12, 2020 9:55am Multivitamin,Ea-Xdlt-Vsieffr s (Therems-M) 27-0.4 mg tablet (3 sources) Start: 12-28-2018 End: 03-01-2019 Multivitamin,Zi-Adoc-Gobfnua s (Therems-M) 27-0.4 mg tablet Discontinued 1 {tbl} PO DAILY December 28, 2018 12:00am March 01, 2019 2:26pm Start: 12-28-2018 End: 03-01-2019 take 1 tablet by mouth once daily Multivitamin,Fh-Reqg-Uvpdaobi (Therems-M ) 27-0.4 mg tablet Discontinued 1 [...] Chest WITH Contraston 2024 Chest WITH Contrast [facility] Imaging Services [address] [place] [address] [id number] Chest WITH Contrast MR#: [id number] Acct: [id number] Name: MAYURI SAEZ Rep #: [id number] : 1955 F 69 From: Kurt means MD PCP: Dena Stevens EQUIPMENT PROCESSER STORAGE-C Status: REG CLI Study: Chest WITH Contrast Date of Exam: 03/16/25 Exam# [id number] Ordering Dr: Paulina Subramanian NP EQUIPMENT PROCESSER STORAGE-C PROCEDURE: CHEST WITH CONTRAST 03/16/2025 REASON FOR [...] 6. Hepatomegaly. 7. Hepatic steatosis. Reading Location: [place] [address] CC: ELVIN Subramanian; ELVIN Stevens Bell Hole Digger: Signed Normal [facility] CNOVon 02-07-2021 OV Office Visit (KALI ) MAYURI SAEZ ([id number]) 1955 F Date Time Provider Department 02/07/21 [...] she had a scope completed was in [place] a long time ago with CT was [...] 2 Puffs as instructed twice daily. - Rpuon-0-NSM-EPA-Fish Oil (FISH OIL) 1,000 mg (120 mg-180 [...] fluticasone-emollient no.65 0.05 % ktot Apply 1 Purdum to affected area once daily as needed. [...] AEROSOL INHALER (more content not included)... [facility] MICHAELN Telephone (GASTWS) MAYURI SAEZ ([id number]) 1955 F Date Time Provider Department 12/18/20 AIXA GOFF ([facility]) [facility] During your visit today, we recorded the following information about you: Aixa Goff APRN.CNP 12/18/2020 3:51 PM Signed Called [facility] Nino Juan spoke to the nurse asked [...] Allergies) Date Reviewed: 12/16/2020 Reviewed by: Nicolette ([employer]) Julee Odom - Fully Assessed Reason for [...] Inhale 2 Puffs as instructed * OMEGA 6-EII-KIE-FISH OIL 1,00* Take 2 g by mouth [...] needed. FLUTICASONE 0.05 % LOTION-EMO* Apply 1 Purdum to affected are* MAGNESIUM HYDROXIDE 400 MG/5 [...] Status:Closed by AIXA GOFF APRN.CNP [facility] MICHAELN Telephone (GASTWS) MAYURI SAEZ ([id number]) 1955 F Date Time Provider Department 12/09/20 AIXA GOFF ([facility] GASTWS During your visit today, we recorded [...] [R19.7] Order(s):BASIC METABOLIC PNL [SQBMP] Order #: [id number] FUTURE Prescriptions as of 12/09/2020 Sig: BENEFIBER [...] Inhale 2 Puffs as instructed * OMEGA 4-KKV-NTO-FISH OIL 1,00* Take 2 g by mouth [...] needed. FLUTICASONE 0.05 % LOTION-EMO* Apply 1 Purdum to affected are* MAGNESIUM HYDROXIDE 400 MG/5 * Take 30 mL by mouth once trevor* LOPERAMIDE 2 MG TABLET Take 2 mg by mouth as needed.* GUAIFENESIN 100 MG/5 ML ORAL * Take 200 mg by mouth every 8 * ACETAMINOPHEN 325 MG TABLET Take 325 mg by mouth every 8 * OMEPRAZOLE 20 MG CAPSULE,GERTRUDE* Take 20 mg by mouth once trevro* DOCUSATE SODIUM 100 MG CAPSULE Take 100 [...] Status:Closed by AIXA GOFF APRN.CNP on 12/09/20 [facility] MAYURI SAEZ ([id number]) 1955 F Date Time Provider Department 12/09/20 [...] AM Signed Spoke with Cortney, nurse at [facility]. Information listed below given to her. She reports they got stools turned in and awaiting the results. Pt was doing better till this am and she started with diarrhea again. Faxed lab orders for BMP to have repeated in 2 weeks. Asmita Stevens LPN Allergies As of Date: 12/09/2020 (No Known Allergies) Date Reviewed: 12/03/2020 Reviewed by: aArti Swain LPN - Fully Assessed Reason for [...] Inhale 2 Puffs as instructed * OMEGA 5-JOC-SKX-FISH OIL 1,00* Take 2 g by mouth [...] needed. FLUTICASONE 0.05 % LOTION-EMO* Apply 1 Purdum to affected are* MAGNESIUM HYDROXIDE 400 MG/5 [...] Status:Closed by DENVER ZHOU.AIXA RODRIGUEZ on 12/25/20 [facility] 12-04-2020 JAM Telephone (KALI) MAYURI SAEZ ([id number]) 1955 F Date Time Provider Department 12/04/20 MAYURI VIERA During your visit today, we recorded the following information about you: Asmita Stevens LPN 12/04/2020 10:45 AM Signed Cortney called for the stool study order. They will do this at there facility. Faxed to [phone]. DOne Asmita Stevens LPN 12/04/2020 10:52 AM [...] Inhale 2 Puffs as instructed * OMEGA 2-DRH-RHS-FISH OIL 1,00* Take 2 g by mouth [...] needed. FLUTICASONE 0.05 % LOTION-EMO* Apply 1 Purdum to affected are* MAGNESIUM HYDROXIDE 400 MG/5 [...] ASMITA STEVENS LPN on 12/04/[address] [facility] CBCon 12-03-2020 Absolute nRBC <0.01 Normal <0.01 [facility] Erythrocyte distribution width (RBC) [Ratio] 14.0 % Normal 11.5-15.0 [facility] Hematocrit (Bld) [Volume fraction] 42.9 % Normal 36.0-46.0 [facility] Hemoglobin (Bld) [Mass/Vol] 13.8 g/dL Normal 11.5-15.5 [facility] MCH 27.7 pG Normal 26.0-34.0 [facility] MCHC (RBC) [Mass/Vol] 32.2 g/dL Normal 30.5-36.0 [facility] MCV (RBC) [Entitic vol] 86.0 fL Normal 80.0-100.0 [facility] Platelet mean volume (Bld) [Entitic vol] 9.9 fL Normal 9.0-12.7 [facility] Platelets (Bld) [#/Vol] 280 10*3/uL Normal 150-400 [facility] RBC (Bld) [#/Vol] 4.99 10*6/uL Normal 3.90-5.20 [facility] WBC (Bld) [#/Vol] 10.31 10*3/uL Normal 3.70-11.00 [facility] CNOVon 12-03-2020 CNOV Office Visit (GASTWS ) MAYURI SAEZ ([id number]) 1955 F Date Time Provider Department 12/03/20 [...] cancer. The patient is a resident at [facility]. Her PCP is Dena Stevens. The patient [...] or black stool. Dizziness when standing. Drinks [place] Kiwi water. Lactose free milk. She believe [...] 2 Puffs as instructed twice daily. - Gihpa-1-LCG-EPA-Fish Oil (FISH OIL) 1,000 mg (120 mg-180 [...] ktot Edita (more content not included)... [facility] JAM Telephone (KALI) MAYURI SAEZ ([id number]) 1955 F Date Time Provider Department 12/03/20 AMYURI VIERA During your visit today, we recorded the following information about you: Aarti Swain LPN 12/03/2020 11:16 AM Signed Patient was unsure of the pharmacy that [facility] uses. Left message for nurse asking for name of pharmacy and phone number. Nurse needs reminded of CT that needs scheduled if not already scheduled. Magaly Viera RN 12/04/2020 11:10 AM Signed Cortney from [facility] called, verified pt by name and birthdate. Cortney states pt uses [facility]. Cortney is aware pt needs CT, she will check to see if it scheduled for pt Magaly Swain LPN 12/04/2020 11:24 AM Signed Please send script for Benefiber to pharmacy listed below. Mayuri Viera RN BACKEND TESTER.ON AIR HOST 12/04/2020 12:59 PM Signed OTC, but sent as requested. 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 FLUTICASONE 0.05 % LOTION-EMO* Apply 1 Purdum to affected are* MAGNESIUM HYDROXIDE 400 MG/5 [...] AARTI SWAIN LPN on 12/04/[address] [facility] Comp Metabolic Panelon 12-03 Albumin [Mass/Vol] 4.9 g/dL Normal 3.9-4.9 [facility] ALP [Catalytic activity/Vol] 65 U/L Normal 34-123 [facility] ALT [Catalytic activity/Vol] 13 U/L Normal 7-38 [facility] Anion gap [Moles/Vol] 14 mmol/L Normal 9-18 [facility] AST [Catalytic activity/Vol] 14 U/L Normal 13-35 [facility] Bilirubin [Mass/Vol] 0.5 mg/dL Normal 0.2-1.3 [facility] Calcium [Mass/Vol] 10.2 mg/dL Normal 8.5-10.2 [facility] Chloride [Moles/Vol] 98 mmol/L Normal 97-105 [facility] CO2 [Moles/Vol] 22 mmol/L Normal 22-30 [facility] Creatinine [Mass/Vol] 0.77 mg/dL Normal 0.58-0.96 [facility] eGFR- Amer. >60 Normal [facility] eGFR-All Other Races >[address] [facility] Comment on above: Result Comment: eGFR (Estimated [...] GFR. Glucose [Mass/Vol] 98 mg/dL Normal 74-99 [facility] Comment on above: Result Comment: The [place] Diabetes Association (ADA) provides guidance for cutoff [...] Standards of Medical Care in Diabetes 2016, [place] Diabetes Association. Diabetes Care. 2016.39(Suppl 1). Potassium [Moles/Vol] 4.3 mmol/L Normal 3.7-5.1 [facility] Protein [Mass/Vol] 7.4 g/dL Normal 6.3-8.0 [facility] Sodium [Moles/Vol] 134 mmol/L Low 136-144 [facility] Urea nitrogen [Mass/Vol] 24 mg/dL High 7-21 [facility] HISTORY PHYSICALon HISTORY PHYSICAL HNO ID: [id number] Author: Aixa (Rn) ANAY Goff Service: ? Author Type: Registered Nurse Type: HANDP Filed: 12/03/2020 3:07 PM Note Text: Mayuri Saez a 65 year old female who is self referred for the evaluation of diarrhea. The patient has not been seen previously. The patient denies a family history of colon cancer. The patient is a resident at [facility]. Her PCP is Dena Stevens. The patient [...] or black stool. Dizziness when standing. Drinks [place] Kiwi water. Lactose free milk. She believe [...] 2 Puffs as instructed twice daily. - Hqyij-4-QSU-EPA-Fish Oil (FISH OIL) 1,000 mg (120 mg-180 [...] fluticasone-emollient no.65 0.05 % ktot Apply 1 Purdum to affected area once daily as needed. - magnesium hydroxide (MILK OF MAGNESIA) 400 mg/5 mL suspension Take 30 mL by mouth once daily as needed for Constipation. - loperamide HCl (IMODIUM A-D) 2 mg tab Take 2 mg by mouth as needed. Not (more content not included)... Normal [facility] Helico pylori Abon 1 H pylori Ab, IgG <0.[address] [facility] Comment on above: Result Comment: U/mL are interpreted as follows: Negative specimens <0.9 Indeterminate specimens >=0.9 to <1.1 Positive specimens >=1.1 Results were obtained with the IMMULITE 2000 H.pylori IgG EIA. Results obtained from other manufacturers' assay methods may not be used interchangeably. Performed By: #### L IPA, HPYLRI #### [facility] [address] [place], [place] [address] H. pylori IgG, Qual Negative Normal Negative [facility] Comment on above: Result Comment: H. p ylori IgG antibodies were not detected in the sample. Negative results by this test do not preclude recent primary infection. Performed By: #### L IPA, HPYLRI #### [facility] [address] [place], [place] [address] Lipaseon 12-03-2020 Lipase [Catalytic activity/Vol] 26 U/L Normal 16-61 [facility] Comment on above: Performed By: #### L IPA, HPYLRI #### [facility] [address] [place], [place] [address] BD BONE DENSITY DEXA AXIAL S [facility] 09-02-2018 BD BONE DENSITY DEXA AXIAL [...] PM Sign Date: 09/02/2018 4:50:59 PM Normal [facility] ([place]) [place] MAMMOGRAM SCREENING BILAT ERAL W/TOMOon 09-02-2018 [place] MAMMOGRAM SCREENING BILATERAL W/PETEY ORIGINALFROM:[address] [address]Hesnq: [phone] PROCEDURE FOR:MAYURI SAEZ[address] [address]Fczf: [phone]#: [id number]#: [id number]#: [id number]: 1955ge: 63 TO:TWAN ACOSTA [place] [address] #[id number] BILATERAL DIGITAL SCREENING MAMMOGRAM 3D/2D WITH CAD WITH CLEAVAGE MEDIOLATERAL OBLIQUE: 09/02/2018 Comparison is made to exams dated: 05/21/2017 mammogram and 02/05/2016 mammogram - [facility]. There are scattered fibroglandular elements in both [...] the findings and interpretation. SUDHIR Madrigal,luis/andressa:2017 09:05:10 Hot Metal Car Operator(s): JASON CARRANZA, RT(R)(M)(CT) [facility]: Normal BI-RADS 1&2 Mammogram BI-RADS: 2 Benign Normal [facility] ([place] XR KNEE 4 VIEWS LEFTon 03-16 XR [...] PM Sign Date: 03/16/2018 1:09:40 PM Normal [facility] ([place] .GFRon 01-26-2018 GFR Non- >60 Normal [facility] ([place] Comment on above: Result Comment: GFR Population [...] #### C MP, LIPID, GFR ####[address] [place], [place] [address] GFR 102 ml/min/1.73sqm Normal [facility] ([place]) Comment on above: Result Comment: GFR Population [...] By: #### C MP, LIPID, GFR ####[address] [place], [place] [address] [facility] 01-26-2018 Albumin mass conc 4.6 G/dL Normal 3.4-4.8 [facility] ([place]) Comment on above: Performed By: #### C MP, LIPID, GFR ####[address] [place], [place] [address] Albumin/Globulin mass ratio 1.8 {ratio} Normal 1.1-2.5 [facility] ([place]) Comment on above: Performed By: #### C MP, LIPID, GFR ####[address] [place], [place] [address] ALP enzyme act/vol 96 U/L Normal 40-135 [facility] ([place]) Comment on above: Performed By: #### C MP, LIPID, GFR ####[address] [place], [place] [address] ALT enzyme act/vol 15 U/L Normal 10-35 [facility] ([place] Comment on above: Performed By: #### C MP, LIPID, GFR ####[address] [place], [place] [address] AST enzyme act/vol 15 U/L Normal 10-40 [facility] ([place] Comment on above: Performed By: #### C MP, LIPID, GFR ####[address] [place], [place] [address] Bili Total 0.2 mg/dL Normal 0.2-1.0 [facility] ([place] Comment on above: Performed By: #### C MP, LIPID, GFR ####[address] [place], [place] [address] Calcium mass conc 9.5 mg/dL Normal 8.4-10.2 [facility] ([place] Comment on above: Performed By: #### C MP, LIPID, GFR ####[address] [place], [place] [address] CO2 molar conc 28 mmol/L Normal 23-31 [facility] ([place]) Comment on above: Performed By: #### C MP, LIPID, GFR ####[address] [place], [place] [address] Creatinine mass conc 0.7 mg/dL Normal 0.6-1.2 [facility] ([place] Comment on above: Performed By: #### C MP, LIPID, GFR ####[address] [place], [place] [address] Electrolyte Balance 11.0 mEq/L Normal [facility] ([place] Comment on above: Performed By: #### C MP, LIPID, GFR ####[address] [place], [place] [address] Globulin Calculated mass conc (S) 2.5 G/dL Normal [facility] ([place] Comment on above: Performed By: #### C MP, LIPID, GFR ####[address] [place], [place] [address] Glucose mass conc 125 mg/dL High 80-115 [facility] ([place] Comment on above: Performed By: #### C MP, LIPID, GFR ####[address] [place], [place] [address] Protein mass conc 7.1 G/dL Normal 6.0-8.3 [facility] ([place] Comment on above: Performed By: #### C MP, LIPID, GFR ####[address] [place], [place] [address] Urea nitrogen mass conc 6.9 mg/dL Low 7.0-18.0 [facility] ([place]) Comment on above: Performed By: #### C MP, LIPID, GFR ####[address] [place], [place] [address] Urea nitrogen/Creatinin e mass ratio 10 ratio Normal 7-27 [facility] ([place] Comment on above: Performed By: #### C MP, LIPID, GFR ####[address] [place], [place] [address] Chloride molar conc 95 mmol/L Low 98-107 [facility] ([place] Comment on above: Performed By: #### C MP, LIPID, GFR ####[address] [place], [place] [address] Potassium molar conc 4.6 mmol/L Normal 3.5-5.1 [facility] ([place] Comment on above: Performed By: #### C MP, LIPID, GFR ####[address] [place], [place] [address] Sodium molar conc 134 mmol/L Low 136-146 [facility] ([place] Comment on above: Performed By: #### C MP, LIPID, GFR ####[address] [place], [place] [address] LIPIDon 01-26-2018 Cholesterol in HDL mass conc 69 mg/dL Normal 35-90 [facility] ([place] Comment on above: Result Comment: HDL Reference Interval:Less than 40 Low - high risk60 or above Optimal/lowers risk Performed By: #### C MP, LIPID, GFR ####[address] [place], [place] [address] Cholesterol in LDL mass conc 87 mg/dL Normal 0-130 [facility] ([place] Comment on above: Result Comment: LDL is a calculated result and requires a 12- hr fast.LDL Reference Interval:Less than 100 [id number] Near or above obnsahj562-543 Borderline high kxja843-618 High ryae452 and above Very high risk Performed By: #### C MP, LIPID, GFR ####[address] [place], [place] [address] Cholesterol mass conc 177 mg/dL Normal 131-200 [facility] ([place] Comment on above: Result Comment: Chol esterol Reference Interval:Less than 200 Enezinzjt751-061 Borderline high bppe789 and above High risk Performed By: #### C MP, LIPID, GFR ####[address] [place], [place] [address] Triglyceride mass conc 107 mg/dL Normal 40-150 [facility] ([place] Comment on above: Result Comment: Trig lyceride Reference Interval:Less than 150 Kqjvyq241-776 Borderline high pkie431-701 High gbjm525 or higher Very high risk Performed By: #### C MP, LIPID, GFR ####[address] [place], [place] [address] XR ANKLE MINIMUM 3 VIEWS LEF Ton [...] PM Sign Date: 11/22/2017 3:35:04 PM Normal [facility] ([place]) Vital Signs Date Time Vital Sign Value Performing Clinician Dale mireles 07-06-2023 13:09-0400 Body temperature 98.2 [degF] EQUIPMENT PROCESSER STORAGE-C Dena Stevens EQUIPMENT PROCESSER STORAGE Work Phone: [facility] 07-06-2023 13:09-0400 Diastolic blood pressure 92 mm[Hg] EQUIPMENT PROCESSER STORAGE-Hany Stevens EQUIPMENT PROCESSER STORAGE Work Phone: [facility] 07-06-2023 13:09-0400 Heart rate 81 /min EQUIPMENT PROCESSER STORAGE-C Dena Stevens EQUIPMENT PROCESSER STORAGE Work Phone: [facility] 07-06-2023 13:09-0400 SaO2% (BldA) [Mass fraction] 94 % EQUIPMENT PROCESSER STORAGE-C Dena Stevens EQUIPMENT PROCESSER STORAGE Work Phone: [facility] 07-06-2023 13:09-0400 Systolic blood pressure 166 mm[Hg] EQUIPMENT PROCESSER STORAGE-C Dena Stevens EQUIPMENT PROCESSER STORAGE Work Phone: [facility] Encounters Encounter Date Encounter Type Care Provider Facility Start: 03-16-2025 End: 03-16-2025 ambulatory Dena Stevens EQUIPMENT PROCESSER STORAGE-C Work Phone: [facility] Work Phone: Start: 03-16-2025 End: 03-16-2025 Patient encounter procedure Paulina Subramanian EQUIPMENT PROCESSER STORAGE-C -Cat Scan [facility] Work Phone: Start: 03-16-2025 End: 03-16-2025 ambulatory Paulina Subramanian EQUIPMENT PROCESSER STORAGE Facility:[facility] Start: 08-09-2023 Non-patient / Non-visit EQUIPMENT PROCESSER STORAGE-C Amrit Stevens EQUIPMENT PROCESSER STORAGE Work Phone: [facility] Start: 08-09-2023 End: 08-09-2023 ambulatory EQUIPMENT PROCESSER STORAGE-C Dena Stevens EQUIPMENT PROCESSER STORAGE Work Phone: [facility] Work Phone: Start: 08-09-2023 End: 08-09-2023 Patient encounter procedure EQUIPMENT PROCESSER STORAGE-C Dena Stevens EQUIPMENT PROCESSER STORAGE Work Phone: [facility] Work Phone: Start: 07-06-2023 End: 07-06-2023 Patient encounter procedure EQUIPMENT PROCESSER STORAGE-C Dena Stevens EQUIPMENT PROCESSER STORAGE Work Phone: [facility] Work Phone: Start: 08-13-2022 End: 08-13-2022 ambulatory [facility] Work Phone: Start: 08-13-2022 End: 08-13-2022 Patient encounter procedure [facility]Out[facility] Start: 09-02-2018 End: 09-03-2018 Patient encounter procedure TWAN ACOSTA Facility:B Start: 06-14-2018 Patient encounter procedure TWAN ACOSTA Facility:B Start: 03-16-2018 End: 03-17-2018 Patient encounter procedure TWAN ACOSTA Facility:[facility] Start: 01-26-2018 End: 01-31-2018 Patient encounter procedure JADEN DAVIS Facility:B Start: 11-22-2017 End: 11-22-2017 Emergency department patient visit Dinorah Mcgarry Facility:B Procedures Date Procedure Procedure Detail Performing Clinician Start: 03-16-2025 CT of thorax with contrast Dena Stevens EQUIPMENT PROCESSER STORAGE-C Work Phone: Start: 08-13-2022 Screening mammography Plan of Treatment Date Care Activity Detail Author Start: 07-06-2023 Patient referral [facility] Work Phone: Patient referral [facility] Work Phone: Immunizations Immunization Date Immunization Notes Care Provider Atul jovel 07-21-2022 influenza, injectabl e, quadrivalent, preservative free Dena Stevens EQUIPMENT PROCESSER STORAGE-C Work Phone: [facility] 02-24-2022 Covid (Moderna) Dena campos EQUIPMENT PROCESSER STORAGE-C Work Phone: [facility] 11-18-2020 Covid (Moderna) Dena campos EQUIPMENT PROCESSER STORAGE-C Work Phone: [facility] 10-23-2020 Covid (Moderna) Dena campos EQUIPMENT PROCESSER STORAGE-C Work Phone: [facility] 12-16-2017 influenza, injectabl e, quadrivalent, preservative free EQUIPMENT PROCESSER STORAGE-C Dena Rodney EQUIPMENT PROCESSER STORAGE Work Phone: [facility] 12-16-2017 influenza, seasonal, injectable [facility] Work Phone: Payers Date Payer Category Payer Self-pay [id number] 2017 Medicaid [id number] 1955 Unknown [id number] 2.16.8 [id number] 1955 Unknown [id number] 2.16.8 [id number] 1955 Unknown [id number] 2.16.8 [id number] 1955 Unknown [id number] 2.16.8 [id number] 1955 Unknown [id number] 2.16.8 [id number] Unknown [id number] 2.16.8 [id number] Social History Date Type Detail Facility Start: 11-04-2021 End: 07-06-2023 Tobacco smoking status NHIS Unknown if ever smoked [facility] Start: 02-07-2020 None [facility] Start: 02-07-2020 - [facility] Start: 11-13-2020 Non-smoker [facility] Start: 1955 Sex Assigned At Female W [facility] [place] Start: 03-03-2024 Tobacco smoking stat us NHIS Ex-smoker (finding) [facility] Radiology Diagnostic study note 03-17-2025 Note Date & Type Note Facility 03-17-2025 Radiology Diagnostic study note [facility] Imaging Services [address] [place] [address] Chest WITH Contrast MR#: [id number] Acct: [id number] Name: MAYURI SAEZ Rep #: [id number] : 1955 F 69 From: Aldo Disla MD PCP: ELVIN Brenner Status: REG CLI Study:Chest WITH Contrast Date of Exam: 03/16/25 Exam# [id number] Ordering Dr: Dionne Subramanian NP EQUIPMENT PROCESSER [employer]ORAGE-[employer]any PROCEDURE: CHEST WITH CONTRAST 03/16/2025 REASON FOR [...] 6. Hepatomegaly. 7. Hepatic steatosis. Reading Location: [place] [address] CC: ELVIN Subramanian; ELVIN Stevens ~ [employer]ger: Signed [facility] Progress note 02-07-2021 Note Date & Type Note Facility 02-07-2021 Note HNO ID: [id number] Author: Aixa Goff APRN.[employer] Service: ? Author Type: Nurse Practitioner Type: [...] she had a scope completed was in [place] a long time ago with CT was [...] 2 Puffs as instructed twice daily. - Hktjh-4-CBL-EPA-Fish Oil (FISH OIL) 1,000 mg (120 mg-180 [...] fluticasone-emollient no.65 0.05 % ktot Apply 1 Purdum to affected area once daily as needed. [...] MULTIPLE VITAMIN (more content not included)... [facility] Evaluation note Note Date & Type Note Facility Evaluation note No assessment information availa [facility] Work Phone: Evaluation note Note Date & Type Note Facility Evaluation note Diagnosis Onset Date Bilateral lower extremity pain acute [facility] Work Phone: Reason for referral (narrative) Note Date & Type Note Facility Reason for referral (narrative) No reason for referral information available [facility] Work Phone: Summary Purpose Family History No Family History Records Found Relationship Condition Age at Onset Recorded Date/T stanislaw father Malignant neoplasm Unknown mother Malignant neoplasm Unknown Advance Directives No Advanced Directives Records Found Advance Directive Response Recorded Date/ Time Living Will No October 15 9:01am Power of Blueprint Tracer No October 15, 2021 9:01am Chief Complaint and Reason for Visit Chief Complaint SCREENING Chief Complaint Consult Peripheral vascular disease, unspecified Reason for Visit Bilateral lower extr emity pain Chief Complaint Admit Date SOB March 16, 2025 4:33 pm Additional Source Comments INFORMATION SOURCE (unrecogn ized section and content) DATE CREATED AUTHOR 09/12/2018 [facility] ([place]) DATE CREATED AUTHOR AUTHOR'S ORGANIZ ATION 11/12/2021 [facility] DATE CREATED AUTHOR AUTHOR'S ORGANIZ ATION 03/25/2025 [facility] Goals (unrecognized section and content) Goals may be documented in a n alternate sectionGoals may be documented in an alternate sectionGoals may be documented in an alternate section Care Teams (unrecognized sec tion and content) Team Status: Active Member Role Status Dates Dena Stevens EQUIPMENT PROCESSER STORAGE, EQUIPMENT PROCESSER STORAGE-C Family Provider Active Dena Stevens EQUIPMENT PROCESSER STORAGE, EQUIPMENT PROCESSER STORAGE-C Primary Care Provider Act uyen Team Status: Inactive Member Role Status Dates Dena Stevens EQUIPMENT PROCESSER [employer]ORAGE, EQUIPMENT PROCESSER STORAGE-C Primary Care Provider, Re ferring Provider Active SASHA Cox Attending Provider Active Team Status: Active Member Role Status Dates Dena Stevens EQUIPMENT PROCESSER STORAGE, EQUIPMENT PROCESSER STORAGE-C Primary Care Provider Act uyen Dr. Mike Gallagher MD Attending Provider Active Team Status: Inactive Member Role Status Dates Dena Stevens EQUIPMENT PROCESSER STORAGE, EQUIPMENT PROCESSER STORAGE-C Primary Care Provider Act uyen SASHA Cox Attending Provider, Referring Provid er Active Team Status: Active Member Role Status Dates Dena Stevens EQUIPMENT PROCESSER STORAGE, EQUIPMENT PROCESSER STORAGE-C Primary Care Provider Act uyen Team Status: Inactive Member Role Status Dates Dena Stevens EQUIPMENT PROCESSER STORAGE, EQUIPMENT PROCESSER STORAGE-C Primary Care Provider Act uyen Start: March 16, 2025 End: March 16, 2025 Paulina Subramanian NP, EQUIPMENT PROC[employer]ER [employer]ORAGE-C Attending Provider Active S tart: March 16, 2025 End: March 16, 2025 Paulina Subramanian NP, EQUIPMENT PROCESSER [employer]ORAGE-C Referring Provider Active S tart: March 16, [...] BE BASED ON THE PRIMARY CLINICAL RECORDS. [facility]. provides no warranty or guarantee of the accuracy or completeness of information in this document.
[2025-06-03 23:56] LABS: Allen Test Positive; Base Excess 11 mmol/L (-2 to +2); Comment 15/7 cm H2O; FI02 30.0; PO2 63 mmHG (75-100); RR 14; SITE L Radial; SO2 90 % (95-99)
[2025-06-04] VITALS (20 sets, daily range): BP systolic 102–132; BP diastolic 57–80; PULSE 62–84; RESP 14–25; TEMP 36.7–37.5; O2SAT 85–96; BMI 49.1; BMI 49.4
[2025-06-04 00:12] LABS: D-Dimer Quantitative (DVT/PE) 1.17 FEU/ug/m (0.27-0.49)
[2025-06-04 00:41] LABS: Magnesium 2.2 mg/dL (1.5-2.2)
[2025-06-04] MEDS: 0.9% Normal Saline (1000mL) 1,000 ML 70 ML IV (00:54)
[2025-06-04 00:55] LABS: Barbiturate Urine NEGATIVE (< 200 ng/mL); Benzodiazepine Urine NEGATIVE (< 200 ng/mL); PCP Urine NEGATIVE (< 25 ng/mL); THC Urine NEGATIVE (< 50 ng/mL)
[2025-06-04] MEDS: Pantoprazole Sodium 40 MG in 0.9% Normal Saline (100mL MB+) 100 ML 330 MG IV ×2 (01:04→20:55)
[2025-06-04] MEDS: 0.9% Saline Lock 10 ML Syringe IV (01:06)
[2025-06-04] MEDS: Albuterol 2.5 MG/3 ML VIAL.NEB. INHALATION ×4 (01:20→19:11)
[2025-06-04] MEDS: Doxycycline 100 MG in 0.9% Normal Saline (250mL Bag) 250 ML 250 MG IV ×2 (01:31→09:20)
--- OUTSIDE RECORDS SUMMARY | 2025-06-04 01:41 | XMS RPT_ITS | CCD ---
Author Organization [facility] Team Providers Care Nurse Midwife/Clinical Instructor Name Role Phone Dinorah Mcgarry Unavailable Unavailabl e RYAN, JADEN Unavailable Unavailable RYAN, JADEN Unavailable Unavailable RYAN, JADEN Unavailable Unavailable ACOSTA, TWAN Unavailable Unavailable RYAN, JADEN Unavailable Unavailable ACOSTA, TWAN Unavailable Unavailable ACOSTA, TWAN Unavailable Unavailable RYAN, JADEN Unavailable Unavailable ACOSTA, TWAN Unavailable Unavailable RYAN, JADEN Unavailable Unavailable Rodney HAND OR MACHINE PASTER, HAND OR MACHINE PASTER-C [facility] Primary Care Provid er Rodney HAND OR MACHINE PASTER, HAND OR MACHINE PASTER-C [facility] Referring Provider SASHA Beauchamp Attending Provider [phone] Mike Gallagher Attending Provider [phone] Rodney HAND OR MACHINE PASTER-C, [facility] Primary Care Provider Moris HAND OR MACHINE PASTER-C, Paulina Attending Provider Moris HAND OR MACHINE PASTER-C, Apulina Referring Provider Moris HAND OR MACHINE PASTER, Paulina Referring Unavailable Moris HAND OR MACHINE PASTER, Paulina Attending Unavailable Rodney [facility] [place] [facility] Unavailable Dr. Tobi Polanco MD Emergency Provider Dr. Reji Tidwell DO Admit Provider Unavail able Dr. Reji Tidwell DO Attending Provider Unav ailable Medications Current Medications Medication Drug Class(es) Dates Sig (Normalized) Sig (Original) [id number] 200 actuat albuterol 0.09 mg/actuat metered dose inhaler (5 sources) beta2-Adrenergic Agonist Start: 06-03-2025 Albuterol Sulfate 90 mcg/actuation HFA aerosol inhaler Active 2 NMA INHALATION Q4H as needed for SOB June 03, 2025 12:00am Start: 12-17-2017 End: 12-28-2018 take 2.5 mg by inhalation every four hours as needed for wheezing Albuterol Sulfate 2.5 MG/3 ML solution for nebulization Discontinued 2.5 mg INHALATION EVERY 4 HOURS NEEDED as needed for Shortness of breath, wheezing 0 December 17, 2017 12:00am December 28, 2018 4:07pm atorvastatin 20 mg oral tablet (7 sources) HMG-CoA Reductase Inhibitor Start: 09-21-2023 take [...] 07, 2020 12:00am July 06, 2023 1:31pm CHOLESTEROL benztropine mesylate 0.5 mg oral tablet (10 sources) Anticholinergic, Antihistamine Start: 09-21-2023 take 1 [...] 15, 2017 12:00am December 28, 2018 4:04pm mental health Start: 12-15-2017 End: 12-28-2018 take 0.5 mg by mouth twice daily Benztropine Discontinued 0.5 MG PO TWICE A DAY December 14, 2017 11:00pm December 28, 2018 3:04pm 12 hr buPROPion hydrochloride 150 mg extended release oral tablet (4 sources) Aminoketone Start: 12-15-2017 take 1 tablet by mouth twice daily Bupropion Hcl 150 MG tablet sustained-release 12 hr Active 150 mg PO TWICE A DAY December 15, 2017 12:00am [facility] calcium polycarbophil 625 mg oral tablet (6 sources) Start: 09-21-2023 take 1 tablet by [...] 1:18pm cetirizine hydrochloride 10 mg oral capsule (6 sources) Histamine-1 Receptor Antagonist Start: 09-30-2021 End: 09-21-2023 take 1 capsule by mouth once daily Cetirizine (Zyrtec) 10 mg capsule Active 10 mg PO DAILY September 21, 2023 2:17pm ALLERGIES dicyclomine hydrochloride 20 mg oral tablet (2 sources) Anticholinergic Start: 09-21-2023 take 1 tablet by mouth twice daily as needed for pain Dicyclomine 20 mg tablet Active 20 mg PO TWICE A DAY as needed for abdominal pain September 21, 2023 1:00am docusate sodium 100 mg oral capsule (6 sources) Start: 12-11-2019 End: 09-21-2023 take 1 capsule by mouth at bedtime Docusate Sodium 100 mg capsule Active 100 mg PO AT BEDTIME September 21, 2023 2:17pm CONSTIPATION docusate sodium 50 mg / sennosides, fci 8.6 mg oral tablet (2 sources) Start: 03-07-2024 Sennosides-Docusa te Sodium (Stool Softener-Stimulan t Laxat) 8.6-50 mg Tablet Active 2 {tbl} PO TWICE A DAY 0 0 March 07, 2024 12:00am donepezil hydrochloride 10 mg oral tablet (4 sources) Start: 02-07-2020 take 1 tablet by mouth once daily Donepezil (Aricept) 10 MG tablet Active 10 mg PO DAILY February 07, 2020 12:00am [facility] Fluticasone Propion-Salmeterol [Fluticasone 250 Mcg-Salmeterol 50 Mcg/Dose Blistr Powdr For Inhalation] (1 source) Corticosteroid, beta2-Adrenergic Agonist Start: 06-03-2025 Fluticasone Propion-Salmetero l [Fluticasone 250 Mcg-Salmeterol 50 Mcg/Dose Blistr Powdr For Inhalation] (Fluticasone 250 Mcg-Salmeterol 50 Mcg/Dose ) 250-50 mcg/dose blister with device Active 1 NMA INHALATION TWICE A DAY June 03, 2025 12:00am guaiFENesin 20 mg/ml oral solution (6 sources) Start: 09-21-2023 take 200 mg by [...] bromide 0.042 mg/actuat metered dose nasal spray (2 sources) Anticholinergic Start: 09-21-2023 Ipratropium Br omide 42 mcg (0.06 %) spray,non-aerosol Active 2 NMA INTRANASAL TWICE A DAY September 21, 2023 1:00am Lactobacillus acidophilus (2 sources) Start: 11-15-2020 Lactobacillus Acidophilus Active 1 EACH PO DAILY November 15, 2020 12:00am Lactobacillus Acidophilus 1 EACH capsule (2 sources) Start: 11-15-2020 Lactobacillus Acidophilus 1 EACH capsule Active 1 NMA PO DAILY November 15, 2020 1:00am latanoprost 0.05 mg/ml ophthalmic solution (4 sources) Prostaglandin Analog Start: 11-15-[address] 1 DROP bottle Active 1 NMA EACH EYE AT BEDTIME November 15, 2020 1:00am Start: 11-15-2020 Latanoprost Ac tive 1 DRP EACH EYE AT BEDTIME November 15, 2020 12:00am lisinopril 5 mg oral tablet (20 sources) Angiotensin Converting Enzyme Inhibitor Start: 11-04-2021 take 1 tablet by mouth at bedtime Lisinopril 20 mg tablet Active 20 mg PO AT BEDTIME November 04, 2021 1:00am Start: 02-07-2020 End: 09-21-2023 take 1 tablet by mouth at bedtime Lisinopril 5 mg tablet Active 5 mg PO AT BEDTIME September 21, 2023 2:20pm BP Start: 02-07-2020 take 25 mg by mouth [...] 15, 2017 12:00am December 28, 2018 4:02pm blood pressure loperamide hydrochloride 2 mg oral capsule (2 sources) Opioid Agonist Start: 09-21-2023 take 1 capsule by mouth every six hours as needed Loperamide 2 mg capsule Active 2 mg PO EVERY 6 HOURS as needed for loose stool September 21, 2023 1:00am Magnesium Hydroxide (2 sources) Start: 09-21-2023 take 1 mL by mouth once daily as needed for constipation Magnesium Hydroxide (Milk Of Magnesia) 400 mg/5 mL suspension Active 30 mL PO DAILY as needed for constipation September 21, 2023 1:00am melatonin 5 mg oral tablet (6 sources) Start: 09-21-2023 take 3 tablets by mouth at bedtime Melatonin 5 mg tablet Active 15 mg PO AT BEDTIME September 21, 2023 2:20pm SLEEP Start: 02-07-2020 End: 09-21-2023 take 2 tablets by mouth at bedtime Melatonin 5 MG tablet Discontinued 10 mg PO AT BEDTIME February 07, 2020 12:00am September 21, 2023 2:25pm SLEEP Start: 02-07-2020 take 10 mg by mouth at bedtime Melatonin Active 10 MG PO AT BEDTIME February 06, 2020 11:00pm memantine hydrochloride 10 mg oral tablet (4 sources) D-gjuhmk-Y-aspartate Receptor Antagonist Start: 07-05-2019 take 1 tablet by mouth twice daily Memantine 10 MG tablet Active 10 mg PO TWICE A DAY July 05, 2019 12:00am [facility] OLANZapine 20 mg oral tablet (1 source) Atypical Antipsychotic Start: 06-03-2025 take 1 tablet by mouth at bedtime Olanzapine 20 mg tablet Active 20 mg PO AT BEDTIME June 03, 2025 12:00am Emporium-3 Fatty Acids-Fish Oil (2 sources) Start: 12-11-2019 take 1 capsule by mouth twice daily Emporium-3 Fatty Acids-Fish Oil Active 1 CAP PO TWICE A DAY December 10, 2019 11:00pm Emporium-3 Fatty Acids-Fish Oil 1 EACH capsule (2 sources) Start: 12-11-2019 Emporium-3 Fatty Acids-Fish Oil 1 EACH capsule Active 1 NMA PO TWICE A DAY December 11, 2019 12:00am SUPPLEMENT Start: 12-11-2019 Emporium-3 Fatty Acids-Fish Oil 1 EACH capsule Active 1 NMA PO TWICE A DAY December 11, 2019 12:00am omeprazole 20 mg delayed release oral capsule (8 sources) Proton Pump Inhibitor Start: 11-15-2020 take 1 capsule by mouth once daily Omeprazole 20 MG capsule Active 20 mg PO DAILY November 15, 2020 1:00am Start: 12-15-2017 End: 12-28-2018 take 1 capsule by mouth once daily Omeprazole 40 MG capsule,delayed release(DR/EC) Discontinued 40 mg PO DAILY December 15, 2017 12:00am December 28, 2018 3:59pm gerd/acid reflux ondansetron 4 mg oral tablet (1 source) Serotonin-3 Receptor Antagonist Start: 06-03-2025 take 1 tablet by mouth every eight hours as needed for nausea and vomiting Ondansetron Hcl 4 mg tablet Active 4 mg PO EVERY 8 HOURS NEEDED as needed for nausea and vomiting June 03, 2025 12:00am 1.5 ml paliperidone palmitate 156 mg/ml prefilled syringe (6 sources) Atypical Antipsychotic Start: 09-21-2023 Paliperidone Palmitate (Invega Sustenna) 234 mg/1.5 mL syringe Active 234 mg IM every 4 weeks September 21, 2023 2:19pm Start: 11-15-2020 End: 09-21-2023 Paliperidone Palmitate (Inve ga Sustenna) 234 MG/1.5 ML syringe Discontinued 234 mg IM Q30D November 15, 2020 1:00am September 21, 2023 2:25pm polyethylene glycol 3350 42701 mg powder for oral solution (6 sources) Osmotic Laxative Start: 09-21-2023 take 4 g by mouth once daily as needed for constipation Polyethylene Glycol 3350 17 gram/dose powder Active 4 g PO DAILY as needed for constipation September 21, 2023 1:00am Start: 11-15-2020 End: 11-04-2021 Polyethylene Glycol 3350 17 GM packet Discontinued 17 g PO NEEDED as needed for PRN November 15, 2020 1:00am November 04, 2021 10:56am sertraline 100 mg oral tablet (4 sources) Serotonin Reuptake Inhibitor Start: 12-15-2017 take 2 tablets by mouth once daily Sertraline 100 MG tablet Active 200 mg PO DAILY December 15, 2017 12:00am depression Start: 12-15-2017 take 200 mg by mouth once trevor y Sertraline Active 200 MG PO DAILY December 14, 2017 11:00pm traZODone hydrochloride 50 mg oral tablet (1 source) Serotonin Reuptake Inhibitor Start: 06-03-2025 take 1 tablet by mouth at bedtime Trazodone 50 mg tablet Active 50 mg PO AT BEDTIME June 03, 2025 12:00am Completed/Discontinued Medications Medication Drug Class(es) Dates Sig (Normalized) Sig (Original) acetaminophen 325 mg oral tablet (12 sources) Start: 02-07-2020 End: 06-03-2025 take 1 tablet by mouth every six hours as needed for pain Acetaminophen 325 MG tablet Discontinued 325 mg PO EVERY 6 HOURS NEEDED as needed for Pain Or Fever February 07, 2020 12:00am June 03, 2025 9:28pm Start: 04-09-2019 Acetaminophen 325 MG tablet Active 1000 mg PO THREE TIMES A DAY April 09, 2019 12:00am PAIN Start: 04-09-2019 take 1000 mg by mout h three times daily Acetaminophen Active 1000 MG PO THREE TIMES A DAY April 08, 2019 11:00pm Start: 12-17-2017 End: 12-28-2018 take 2 tablets by mouth every six hours as needed for pain Acetaminophen 325 MG tablet Discontinued 650 mg PO EVERY 6 HOURS NEEDED as needed for Fever, headache, pain 0 December 17, 2017 12:00am December 28, 2018 4:07pm Start: 12-17-2017 End: 12-28-2018 take 650 mg by mouth every six hours as needed Acetaminophen Discontinued 650 MG PO EVERY 6 HOURS NEEDED December 16, 2017 11:00pm December 28, 2018 3:07pm acetaminophen 325 mg / HYDROcodone bitartrate 5 mg oral tablet (4 sources) Opioid Agonist Start: 04-09-2019 End: 04-16-2019 Hydrocodone-Acetaminophen 1 TABLET tablet Discontinued 1 {tbl} PO EVERY 4 HOURS NEEDED as needed for Pain 14 2 0 April 09, 2019 April 10, 2019 12:00am April 16, 2019 12:09am Back pain Dorsalgia, unspecified Start: 04-09-2019 End: 04-16-2019 take 1 tablet by mouth every four hours as needed Hydrocodone-Acetaminophen Discontinued 1 TABLET PO EVERY 4 HOURS NEEDED 14 2 April 09, 2019 April 15, 2019 11:09pm Albuterol Sulfate (Ventolin Hfa) 90 mcg/actuation HFA aerosol inhaler (4 sources) Start: 02-17-2019 End: 03-01-2019 Albuterol Sulfate [...] 2019 1:26pm aspirin 81 mg chewable tablet (4 sources) Platelet Aggregation Inhibitor, Nonsteroidal Anti-inflammatory Drug Start: 12-28-2018 End: 03-01-2019 take 1 tablet by mouth once daily Aspirin (Aspirin Childrens) 81 mg tablet,chewable Discontinued 81 mg PO DAILY December 28, 2018 12:00am March 01, 2019 2:22pm 120 actuat budesonide 0.16 mg/actuat / formoterol fumarate 0.0045 mg/actuat metered dose inhaler (4 sources) Corticosteroid, beta2-Adrenergic Agonist Start: 12-11-2019 End: 06-03-2025 Budesonide-Formotero l (Symbicort) 1 INHALER inhaler Discontinued 2 NMA INHALATION TWICE A DAY December 11, 2019 12:00am June 03, 2025 10:02pm SOB Start: 12-11-2019 take 1 puff(s) by in halation twice daily Budesonide-Formoterol (Symbicort) 1 INHALER inhaler Active 2 PUFF INHALATION TWICE A DAY December 10, 2019 11:00pm cholecalciferol 0.05 mg oral capsule (6 sources) Vitamin D Start: 09-21-2023 End: 03-03-2024 [...] Start: 11-15-2020 take 7000 [IU] by mo [facility] once daily Cholecalciferol (Vitamin D3) Active 7000 UNIT PO DAILY November 15, 2020 12:00am clonazePAM 0.5 mg oral tablet (12 sources) Benzodiazepine Start: 02-17-2019 End: 03-01-2019 take [...] NEEDED as needed for Anxiety 14 5 0 December 20, 2017 12:00am December 28, 2018 4:07pm Anxiety Anxiety disorder, unspecified cyclobenzaprine hydrochloride 10 mg oral tablet (4 sources) Muscle Relaxant Start: 04-09-2019 End: 02-07-2020 take 1 tablet by mouth three times daily as needed for muscle spasms Cyclobenzaprine 10 MG tablet Discontinued 10 mg PO THREE TIMES A DAY as needed for Muscle Spasm 20 0 April 09, 2019 12:00am February 07, 2020 10:08am 0.4 ml enoxaparin sodium 100 mg/ml prefilled syringe (2 sources) Low Molecular Weight Heparin Start: 03-07-2024 End: 06-03-2025 Enoxaparin 40 mg/0.4 mL Syringe Discontinued 40 mg SC DAILY 0 30 0 March 07, 2024 12:00am June 03, 2025 10:02pm fluticasone propionate 0.05 mg/actuat metered dose nasal spray (8 sources) Corticosteroid Start: 11-15-2020 End: 11-04-2021 Fluticasone [...] 15, 2017 12:00am May 26, 2019 2:26pm breathing Start: 12-15-2017 End: 05-26-2019 take 1 puff(s) by inhalation twice daily Fluticasone Propionate Discontinued 1 PUFF INHALATION TWICE A DAY December 14, 2017 11:00pm May 26, 2019 1:26pm lidocaine 0.05 mg/mg medicated patch (4 sources) Antiarrhythmic, Amide Local Anesthetic Start: 03-01-2019 End: 02-12-2020 Lidocaine 5 % adhesive patch,medicated Discontinued 1 NMA TOPICAL DAILY March 01, 2019 12:00am February 12, 2020 9:55am BACK PAIN meloxicam 15 mg oral tablet (10 sources) Nonsteroidal Anti-inflammatory Drug Start: 09-21-2023 End: [...] 28, 2018 12:00am February 12, 2020 9:55am PAIN montelukast 10 mg oral tablet (6 sources) Leukotriene Receptor Antagonist Start: 09-21-2023 End: 06-03-2025 take 1 tablet by mouth once daily Montelukast 10 mg tablet Discontinued 10 mg PO DAILY September 21, 2023 1:00am June 03, 2025 10:02pm Start: 09-30-2021 End: 11-04-2021 take 1 tablet by mouth at bedtime Montelukast (Singulair) 10 mg Tablet Discontinued 10 mg PO AT BEDTIME September 30, 2021 1:00am November 04, 2021 10:56am Multivitamin,Cr-Xoaf-Jixtyzr s (Therems-M) 27-0.4 mg tablet (4 sources) Start: 12-28-2018 End: 03-01-2019 Multivitamin,Xd-Iokb-Irsljkv s (Therems-M) 27-0.4 mg tablet Discontinued 1 {tbl} PO DAILY December 28, 2018 12:00am March 01, 2019 2:26pm Start: 12-28-2018 End: 03-01-2019 take 1 tablet by mouth once daily Multivitamin,Sx-Mghv-Nxsbhqvo (Therems-M ) 27-0.4 mg tablet Discontinued 1 TABLET PO DAILY December 27, 2018 11:00pm March 01, 2019 1:26pm naproxen 500 mg oral tablet (4 sources) Nonsteroidal Anti-inflammatory Drug Start: 04-09-2019 End: 02-07-2020 take 1 tablet by mouth twice daily as needed Naproxen 500 MG tablet Discontinued 500 mg PO TWICE DAILY NEEDED April 09, 2019 12:00am February 07, 2020 2:30pm 24 hr nicotine 0.583 mg/hr transdermal system (4 sources) Cholinergic Nicotinic Agonist Start: 03-01-2019 End: 05-25-2019 apply 1 dose transdermal route every twenty-four hours Nicotine 14 mg/24 hr patch 24 hour Discontinued 1 NMA TD DAILY March 01, 2019 12:00am May 25, 2019 1:34pm Start: 03-01-2019 End: 05-25-2019 apply 1 dose transdermal route once daily Nicotine Discontinued 1 PATCH TD DAILY February 28, 2019 11:00pm May 25, 2019 12:34pm oxyCODONE hydrochloride 5 mg oral tablet (10 sources) Opioid Agonist Start: 03-07-2024 End: 06-03-2025 take 1 tablet by mouth every four hours as needed for pain Oxycodone 5 mg Tablet Discontinued 5 mg PO EVERY 4 HOURS NEEDED as needed for Pain Score 4-10 14 3 0 March 07, 2024 June 03, 2025 10:02pm Fracture of both ankles Other fracture of right lower leg, initial encounter for closed fracture Other fracture of left lower leg, initial encounter for closed fracture Start: 02-12-2020 End: 02-17-2020 take 1 tablet by mouth every six hours as needed for pain Oxycodone 5 MG tablet Discontinued 5 mg PO EVERY 6 HOURS NEEDED as needed for Pain Score 4-5/10 20 5 0 February 12, 2020 February 16, 2020 12:00am February 17, 2020 12:02am Low back pain Low back pain Start: 12-17-2017 End: 12-28-2018 take 1 tablet by mouth every six hours as needed for pain Oxycodone 5 MG tablet Discontinued 5 mg PO EVERY 6 HOURS NEEDED as needed for Severe Pain (6-10/10) 20 7 0 December 17, 2017 12:00am December 28, 2018 4:07pm Fracture of clavicle perphenazine 2 mg oral tablet (4 sources) Phenothiazine Start: 12-15-2017 End: 12-28-2018 take 1 tablet by mouth three times daily Perphenazine 2 MG tablet Discontinued 6 mg PO THREE TIMES A DAY December 15, 2017 12:00am December 28, 2018 4:07pm schizophrenia Start: 12-15-2017 End: 12-28-2018 take 6 mg by mouth three times daily Perphenazine Discontinued 6 MG PO THREE TIMES A DAY December 14, 2017 11:00pm December 28, 2018 3:07pm QUEtiapine (6 sources) Atypical Antipsychotic Start: 09-21-2023 End: 06-03-2025 Quetiapine 50 mg tablet extended release 24 hr Discontinued 100 mg PO AT BEDTIME September 21, 2023 1:00am June 03, 2025 10:02pm Start: 09-21-2023 Quetiapine 50 mg tablet extended release 24 hr Active 100 mg PO AT BEDTIME September 21, 2023 1:00am Start: 09-30-2021 End: 06-03-2025 take 1 tablet by mouth every twenty-four hours at bedtime Quetiapine (Seroquel Xr) 300 mg Tablet Extended Release 24 Hr Discontinued 300 mg PO AT BEDTIME September 30, 2021 1:00am June 03, 2025 10:02pm simvastatin 40 mg oral tablet (4 sources) HMG-CoA Reductase Inhibitor Start: 12-15-2017 End: 03-01-2019 take 1 tablet by mouth at bedtime Simvastatin 40 MG tablet Discontinued 40 mg PO AT BEDTIME December 15, 2017 12:00am March 01, 2019 2:26pm cholesterol 7 actuat umeclidinium 0.0625 mg/actuat / vilanterol 0.025 mg/actuat dry powder inhaler (8 sources) Anticholinergic, beta2-Adrenergic Agonist Start: 05-25-2019 End: 05-26-2019 Umeclidinium-Vilant ray (Anoro Ellipta) 62.5-25 mcg/actuation blister with device Discontinued 1 NMA INHALATION daily 60 3 May 25, 2019 2:05pm May 26, 2019 2:25pm Obstructive sleep apnea (adult) (pediatric) Start: 05-25-2019 End: 05-26-2019 Umeclidinium-Vilanterol (Ano ro Ellipta) 62.5-25 mcg/actuation blister with device Discontinued 1 INH INHALATION daily 60 May 25, 2019 1:05pm May 26, 2019 1:25pm Problems Problem Classification Problem Date Documented Date Episodic/Chronic Anxiety disorders (8 sources) Anxiety; Translations: [Anxiety disorder, unspecified] 09-11-2019 Chronic Chronic obstructive pulmonary disease and bronchiectasis (6 sources) Chronic obstructive lung disease; Translations: [Chronic obstructive pulmonary disease, unspecified] 02-07-2020 Chronic Delirium, dementia, and amnestic and other cognitive disorders (2 sources) Alzheimer's disease; Translations: [Alzheimer's disease, unspecified] 06-03-2025 Chronic Diabetes mellitus with complications (2 sources) Type 2 diabetes mellitus with other specified complication; Translations: [Type 2 diabetes mellitus with other specified complication] Onset: 01-26-2018 Chronic Disorders of lipid metabolism (4 sources) Hyperlipidemia; Translations: [Hyperlipidemia, unspecified] 02-07-2020 Chronic Essential hypertension (4 sources) Essential hypertension; Translations: [Essential (primary) hypertension] 09-30-2021 Chronic Comment on above: CONTROLLED ON MED Fever of unknown origin (1 source) Fever; Translations: [Fever, unspecified] 06-03-2025 Episodic Fracture of lower limb (2 sources) Fracture of ankle; Translations: [Other fracture of right lower leg, initial encounter for closed fracture] 03-03-2024 Episodic Other acquired deformities (2 sources) Scoliosis of lumbar spine; Translations: [Scoliosis, unspecified] 09-21-2023 Chronic Other connective tissue disease (7 sources) Pain in lower limb; Translations: [Pain in leg, unspecified] 12-19-2019 Episodic Other connective tissue disease (1 source) Pain in right leg; Translations: [Pain in limb] 07-06-2023 Episodic Other lower respiratory disease (1 source) Shortness of breath; Translations: [Shortness of breath] Onset: 03-22-2025 Episodic Other lower respiratory disease (1 source) History of chronic obstructive airway disease; Translations: [Personal history of other diseases of the respiratory system] 06-03-2025 Episodic Other nervous system disorders (2 sources) Metabolic encephalopathy; Translations: [Metabolic encephalopathy] 06-03-2025 Chronic Other nutritional; endocrine; and metabolic disorders (3 sources) Body mass index 40+ - severely obese; Translations: [Body mass index (BMI) 45.0-49.9, adult] 06-03-2025 Chronic Residual codes; unclassified (2 sources) Obstructive sleep apnea syndrome; Translations: [Obstructive sleep apnea (adult) (pediatric)] 06-03-2025 Chronic Residual codes; unclassified (4 sources) Auditory hallucinations; Translations: [Auditory hallucinations] 09-11-2019 Episodic Residual codes; unclassified (1 source) Altered mental status; Translations: [Altered mental status, unspecified] 06-03-2025 Episodic Residual codes; unclassified (2 sources) Patient noncompliance - general; Translations: [General patient noncompliance] 06-03-2025 Episodic Respiratory failure; insufficiency; arrest (adult) (1 source) Acute on chronic hypoxemic and hypercapnic respiratory failure; Translations: [Acute and chronic respiratory failure with hypoxia] 06-03-2025 Chronic Respiratory failure; insufficiency; arrest (adult) (2 sources) [id number] respiratory failure; Translations: [Acute respiratory failure with hypoxia] 06-03-2025 Episodic Schizophrenia and other psychotic disorders (6 sources) Schizophrenia; Translations: [Schizophrenia, unspecified] 02-07-2020 Chronic Comment on above: paranoid Spondylosis; intervertebral disc disorders; other back problems (10 sources) Low back pain; Translations: [Low back pain] 11-18-2020 Episodic Results Test Name Value Interpretation Reference Range Facility Absolute lymphocyte countOrd ered By: Tobi Polanco on 06-03-2025 Lymphocytes Auto (Unsp spec) [#/Vol] 0.50 10*3/uL Low 0.83-4.51 [facility] Absolute neutrophil countOrd ered By: Tobi Polanco on 06-03-2025 Neutrophils (Bld) [#/Vol] 9.3 10*3/uL High 2.0-7.7 [facility] Anion gap in Serum or Plasma Ordered By: Tobi Polanco on 06-03-2025 Anion gap [Moles/Vol] 12 mmol/L 5-15 [facility] Assessment of wrist artery p atency prior to arterial punctureOrdered By: Reji Brambila on 06-03-2025 Arterial patency Wrist artery --pre arterial puncture Positive [facility] Automated lymphocyte count a s percentage of total leukocytesOrdered By: Tobi Polanco on 06-03-2025 Lymphocytes/100 WBC Auto (Unsp spec) 4.7 % Low 19-41 [facility] BUN/creatinine ratioOrdered By: Tobi Polanco on 06-03-2025 Urea nitrogen/Creatinine [Mass ratio] 37.1 mg/mg High 10-20 [facility] Basophil percentageOrdered B y: Tobi Polanco on 06-03-2025 Basophils/100 WBC (Bld) 0.3 % 0-1 [facility] Bilirubin Test strip Ql (U)O rdered By: Tobi Polanco on 06-03-2025 Bilirubin Ql (U) Negative Negative [facility] Bilirubin, totalOrdered By: Tobi Polanco on 06-03-2025 Bilirubin [Mass/Vol] 0.32 mg/dL 0.00-1.30 [facility] Blood base excess determinat ionOrdered By: Reji Brambila on 06-03-2025 Base excess Calc (BldV) [Moles/Vol] 11 mmol/L High -2-2 [facility] Blood bicarbonate measuremen tOrdered By: Reji Brambila on 06-03-2025 HCO3 (Bld) [Moles/Vol] 36.8 mmol/L High 22-26 [facility] Carbon dioxide, total [Moles /volume] in Central venous bloodOrdered By: Tobi Polanco on 06-03-2025 CO2 [Moles/Vol] 30.9 mmol/L 21.0-32.0 [facility] Chloride assayOrdered By: Francesca Polanco on 06-03-2025 Chloride [Moles/Vol] 97 mmol/L Low 98-108 [facility] Eosinophil percentageOrdered By: Tobi Ivyo on 06-03-2025 Eosinophils/100 WBC (Bld) 0.1 % 0-5 [facility] Erythrocyte distribution wid th ratioOrdered By: Tobi Polanco on 06-03-2025 Erythrocyte distribution width (RBC) [Ratio] 15.1 % High 11.6-14.6 [facility] Erythrocyte distribution wid th standard deviationOrdered By: Tobi Polanco on 06-03-2025 Erythrocyte distribution width (RBC) [Ratio] 52.1 fl High 35.1-43.9 [facility] Glomerular filtration rate ( GFR) estimation/1.73 sq m using serum, plasma, or whole bOrdered By: Tobi Polanco on 06-03-2025 GFR/1.73 sq M.predicted among non-blacks MDRD (S/P/Bld) [Vol rate/Area] 96 mL/min/{1.73_m2} >60 [facility] Comment on above: mL/min/1.73m2 CKD-EP I Creatinine Equation (2020) Hematocrit Auto (Bld) [Volum e fraction]Ordered By: Tobi Polanco on 06-03-2025 Hematocrit (Bld) [Volume fraction] 37.9 % 37-47 [facility] Hemoglobin measurementOrdere d By: Tobi Polanco on 06-03-2025 Hemoglobin (Bld) [Mass/Vol] 11.7 g/dL Low 12.0-15.0 [facility] Hyaline casts LM.LPF (Urine sed) [#/Area]Ordered By: Tobi Polanco on 06-03-2025 Hyaline casts (Urine sed) [#/Area] 25 /[LPF] 0-5 [facility] Immature granulocytes/100 WB C Auto (Bld)Ordered By: Tobi Polanco on 06-03-2025 Immature granulocytes/100 WBC (Bld) 0.700 % 0.0-0.9 [facility] Comment on above: IG% - Immature Granu locytes (promyelocytes, myelocytes and metamyelocytes) > 1% indicates that a LEFT SHIFT is Present. Ketones Test strip Ql (U)Ord ered By: Tobi Polanco on 06-03-2025 Ketones Ql (U) 5 mg/dl High Negative [facility] Laboratory - Chemistry and C hemistry - challengeOrdered By: Tobi Polanco 06-03-2025 AST [Catalytic activity/Vol] 16 U/L <32 [facility] Lactic acid measurementOrder ed By: Tobi Polanco on 06-03-2025 Lactate [Moles/Vol] 1.9 mmol/L 0.0-2.0 [facility] MCV (mean corpuscular volume ) determinationOrdered By: Tobi Polanco on 06-03-2025 MCV (RBC) [Entitic vol] 93.6 fL 81-99 [facility] Mean corpuscular hemoglobin (MCH) determinationOrdered By: Tobi Polanco on 06-03-2025 MCH (RBC) [Entitic mass] 28.9 pg 27.0-32.0 [facility] Mean corpuscular hemoglobin concentration (MCHC) determinationOrdered By: Tobi Polanco on 06-03-2025 MCHC (RBC) [Mass/Vol] 30.9 g/dL Low 32-36 [facility] Mean platelet volume determi nationOrdered By: Tobi Polanco on 06-03-2025 Platelet mean volume (Bld) [Entitic vol] 10.3 fL 6.2-12.0 [facility] Measurement, pHOrdered By: Lisha Brambila on 06-03-2025 pH (Unsp spec) 7.35 [pH] 7.35-7.45 [facility] Microscopic analysis of urin e for red blood cells (RBC)Ordered By: Tobi Polanco on 06-03-2025 Microscopic analysis of urine for red blood cells (RBC) 0-5 SEEN /hpf 0-5 [facility] Monocyte percentageOrdered B y: Tobi Polanco on 06-03-2025 Monocytes/100 WBC (Bld) 7.5 % 0-10 [facility] Mucus LM Ql (Urine sed)Order ed By: Tobi Polanco on 06-03-2025 Mucus Ql (Urine sed) 1+ /hpf [facility] Neutrophil percentageOrdered By: Tobi Polanco on 06-03-2025 Neutrophils/100 WBC (Bld) 86.7 % High 47-70 [facility] Nitrite Test strip Ql (U)Ord ered By: Tobi Polanco on 06-03-2025 Nitrite Ql (U) Negative Negative [facility] No Panel InformationOrdered By: Reji Brambila on 06-03-2025 Blood Gas Clinical Comments 15/7 cm H2O [facility] Blood Gas Respiration Rate 14 [facility] Blood Gas Sample Site L Radial [facility] Blood Gas Specimen Type ART [facility] Blood Gas Vent Mode Not entered [facility] Oxygen Delivery Device BiPAP [facility] No Panel InformationOrdered By: Tobi Polanco on 06-03-2025 Bld Gas Crit Called To/Read Back By Yes [facility] Blood Gas Notified Time 19:56:09 [facility] Blood Gas Notified Whom Polanco [facility] Nucleated red blood cell per centageOrdered By: Tobi Polanco on 06-03-2025 Nucleated RBC/100 WBC (Bld) [Ratio] 0 % 0-5 [facility] Platelet countOrdered By: Francesca Polanco on 06-03-2025 Platelets (Bld) [#/Vol] 179 10*3/uL 150-450 [facility] Potassium measurement (mass/ volume)Ordered By: Tobi Polanco on 06-03-2025 Potassium (Unsp spec) [Mass/Vol] 4.8 mmol/L 3.3-5.1 [facility] Protein Test strip Ql (U)Ord ered By: Tobi Polanco on 06-03-2025 Protein Ql (U) 30 mg/dl High Negative [facility] RBC Auto (Bld) [#/Vol]Ordere d By: Tobi Polanco on 06-03-2025 RBC (Bld) [#/Vol] 4.05 10*6/uL Low 4.2-5.4 [facility] Serum creatinine measurement (mass/volume)Ordered By: Tobi Polanco on 06-03-2025 Creatinine [Mass/Vol] 0.64 mg/dL Low 0.70-1.20 [facility] Serum globulin measurementOr dered By: Tobi Polanco on 06-03-2025 Globulin (S) [Mass/Vol] 3.1 g/dL 2.2-4.2 [facility] Serum glucose measurement (m ass/volume)Ordered By: Tobi Polanco on 06-03-2025 Glucose [Mass/Vol] 174 mg/dL High 70-99 [facility] Serum or plasma alanine crowder otransferase (ALT) measurementOrdered By: Tobi Polanco on 06-03-2025 ALT [Catalytic activity/Vol] 14 U/L <35 [facility] Serum or plasma albumin natalie urement (mass/volume)Ordered By: Tobi Polanco on 06-03-2025 Albumin [Mass/Vol] 3.8 g/dL 3.4-4.8 [facility] Serum or plasma albumin/glob ulin mass ratioOrdered By: Tobi Polanco on 06-03-2025 Albumin/Globulin [Mass ratio] 1.2 {ratio} 0.9-2.4 [facility] Serum or plasma alkaline chata sphatase measurementOrdered By: Tobi Polanco on 06-03-2025 ALP [Catalytic activity/Vol] 62 U/L 35-104 [facility] Serum or plasma calcium natalie urement (mass/volume)Ordered By: Tobi Polanco on 06-03-2025 Calcium [Mass/Vol] 9.3 mg/dL 7.6-11.0 [facility] Serum or plasma urea nitroge n measurement (mass/volume)Ordered By: Tobi Polanco on 06-03-2025 Urea nitrogen [Mass/Vol] 24 mg/dL High 4-19 [facility] Sodium levelOrdered By: Tobi Polanco on 06-03-2025 Sodium [Moles/Vol] 139 mmol/L 133-145 [facility] Squamous epithelial cells de tection in urine sediment by light microscopyOrdered By: Tobi Polanco on 06-03-2025 Epithelial cells.squamous LM Ql (Urine sed) 0-5 SEEN /hpf 5-10 [facility] Total carbon dioxide measure mentOrdered By: Reji Brambila on 06-03-2025 CO2 [Moles/Vol] 39 mmol/L [facility] Total proteinOrdered By: Tobi Polanco on 06-03-2025 Protein [Mass/Vol] 6.9 g/dL 5.9-8.4 [facility] Urine clarityOrdered By: Tobi Polanco on 06-03-2025 Clarity (U) Clear Clear [facility] Urine color determinationOrd ered By: Tobi Polanco on 06-03-2025 Color (U) Yellow Yellow [facility] Urine glucose detectionOrder ed By: Tobi Polanco on 06-03-2025 Glucose Ql (U) Normal mg/dl Normal [facility] Urine leukocyte esterase det ection by dipstickOrdered By: Tobi Polanco on 06-03-2025 Leukocyte esterase Test strip Ql (U) 25 /ul High Negative [facility] Urine pHOrdered By: Tobi cavazos on 06-03-2025 pH (U) 5.0 [pH] 5.0 - 8.0 [facility] Urine sediment bacteria coun t by microscopy (number/high power field)Ordered By: Tobi Polanco on 06-03-2025 Bacteria LM.HPF (Urine sed) [#/Area] RARE /hpf None Seen [facility] Urine specific gravity measu rementOrdered By: Tobimacy Polanco on 06-03-2025 Specific gravity (U) [Rel density] 1.025 1.002-1.030 [facility] Urine urobilinogen measureme ntOrdered By: Tobimacy Polanco on 06-03-2025 Urobilinogen Ql (U) Normal mg/dl Normal [facility] White blood cell (WBC) count Ordered By: Tobimacy Polanco on 06-03-2025 WBC (Bld) [#/Vol] 10.8 10*3/uL 4.4-11.0 [facility] White blood cell countOrdere d By: Tobi Polanco on 06-03-2025 White blood cell count 0-5 SEEN /hpf 0-5 [facility] Chest WITH Contraston 2024 Chest WITH Contrast [facility] [address] [place] [id number] Chest WITH Contrast MR#: [id number] Acct: [id number] Name: JESSENIA SAEZ Rep #: [id number] : 1955 F 69 From: Kurt means MD PCP: Dena Stevens 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 Bilateral basilar atelectatic pulmonary changes. Subsegmental atelectasis/consolid ation of the right lower lobe. Please evaluate [...] Bilateral basilar atelectatic pulmonary changes. 4. Subsegmental atelectasis/consolid ation of the right lower lobe. Please evaluate to exclude superimposed pneumonia. 5. No significant coronary artery calcifications. 6. Hepatomegaly. 7. Hepatic steatosis. Reading [facility] CC: ELVIN Subramanian; ELVIN Stevens Brand Activation Manager: Signed Normal [facility] CNOVon 02-07-2021 OV Office Visit (KALI) JESSENIA SAEZ ([id number]) 1955 F Date Time Provider Department 02/07/21 8:40 AM MAGGIE GOFF During your visit today, we recorded the following information about you: Pulse Blood pressure Weight Height 90/minute 124/82 87.6 kg 1.6 m Maggie Goff APRN.CNP 02/07/2021 9:38 AM Signed Follow up as needed Sign medical release today for Dr.Sameh Zapata Possible EGD Maggie Goff APRN.MICHAEL 02/07/2021 10:10 AM Signed DEPARTMENT OF GASTROENTEROLOGY - FOLLOW UP VISIT HISTORY OF PRESENT ILLNESS Jessenia Saez is a 65 year old female [...] she had a scope completed was in [place] a long time ago with CT was ordered previously unable to complete due to not having a ride I have reviewed the procedure and pathology reports, as well as the images, with the patient. PRIOR TEST RESULTS Imaging/Procedures: Colonoscopy: 9 Impressions : - One polyp in the transverse colon, removed with a hot snare. Resected and retrieved. - The examination was otherwise normal on direct and retroflexion views. Pathology: Transverse colon polyp, biopsy: Tubular adenoma. PAST MEDICAL HISTORY Diagnosis Date - Adjustment disorder with depressed mood - Hsirley's esophagus - Benign hypertensive heart disease without [...] 10 mg by mouth once daily. - budesonide-formotero l (SYMBICORT) 160-4.5 mcg/actuation inhaler Inhale 2 Puffs as instructed twice daily. - Jtjbj-2-QCQ-EPA-Fish Oil (FISH OIL) 1,000 mg (120 mg-180 [...] 17 g by mouth as needed. - fluticasone-emollien t no.65 0.05 % ktot Apply 1 [place] to affected area once daily as needed. [...] AEROSOL INHALER (more content not included)... [facility] (GASTWS) JESSENIA SAEZ ([id number]) 1955 F Date Time Provider Department 12/18/20 MAGGIE GOFF ([facility]) GAST During your visit today, we recorded the following information about you: Maggie Goff APRN.CNP 12/18/2020 3:51 PM Signed Called Isidra Oneill Jaun spoke to the nurse asked how patient is doing regarding her diarrhea symptoms and frequency, has she started benefiber and is she taking a probiotic? Also I informed the nurse the stool studies cam back negative. Nurse is going to call back with a update on how patient is doing. Maggie Goff APRN.CNP Allergies As of Date: 12/18/2020 (No Known Allergies) Date Reviewed: 12/16/2020 Reviewed by: Nicolette (MetaStat) Julee Odom - Fully Assessed Reason for [...] Take 10 mg by mouth once trevor* BUDESONIDE-FORMOTERO L HFA 160* Inhale 2 Puffs as instructed * OMEGA 0-VBV-MDT-FISH OIL 1,00* Take 2 g by mouth [...] needed. FLUTICASONE 0.05 % LOTION-EMO* Apply 1 [place] to affected are* MAGNESIUM HYDROXIDE 400 MG/5 [...] Of Date: 12/18/2020 (None) Encounter Status:Closed by MAGGIE GOFF APRN.CNP on 12/18/20 [facility] 12-09-2020 MICHAELN Telephone (GASTWS) JESSENIA SAEZ ([id number]) 1955 F Date Time Provider Department 12/09/20 MAGGIE GOFF ([facility] GASTWS During your visit today, we recorded the following information about you: Maggie Goff APRN.CNP 12/09/2020 8:25 AM Signed Please tell patient labs came back showing signs of dehydration, please increase her fluids some options can be : Pedialyte or electrolyte water will help with this. Repeat labs in 2 weeks. Please ask patient if symptoms are improving since visit? Orders placed Maggie Goff APRN.CNP Allergies As of Date: 12/09/2020 (No Known Allergies) Date Reviewed: 12/03/2020 Reviewed by: Leonor Swain LPN - Fully Assessed Reason for Visit: Results [95] Primary Visit Diagnosis:Electrolyt e abnormality [E87.8] Other Visit Diagnoses:Dehydratio n [E86.0] Diarrhea, unspecified type [R19.7] Order(s):BASIC METABOLIC PNL [SQBMP] Order #: [id number] FUTURE Prescriptions as of 12/09/2020 Sig: BENEFIBER HEALTHY SHAPE 5 GRA* Take 1 teaspoonful by mouth o* CHOLECALCIFEROL (VITAMIN D3) * Take 4,000 Units by mouth onc* CETIRIZINE 10 MG TABLET Take 10 mg by mouth once trevor* ACIDOPHILUS ORAL Take by mouth. DONEPEZIL 10 MG TABLET Take 10 mg by mouth once trevor* BUDESONIDE-FORMOTERO L HFA 160* Inhale 2 Puffs as instructed * OMEGA 9-KSN-VWM-FISH OIL 1,00* Take 2 g by mouth [...] needed. FLUTICASONE 0.05 % LOTION-EMO* Apply 1 [place] to affected are* MAGNESIUM HYDROXIDE 400 MG/5 [...] Of Date: 12/09/2020 (None) Encounter Status:Closed by MAGGIE GOFF APRN.CNP on 12/09/[address] [facility] ([id number]) 1955 F Date Time Provider Department 12/09/20 MAGGIE GOFF (MICHAEL) GASTWS During your visit today, we recorded the following information about you: Maggie Goff APRN.CNP 12/09/2020 8:50 AM Signed Please tell patient labs came back showing signs of dehydration, please increase her fluids some options can be : Pedialyte or electrolyte water will help with this. Repeat labs in 2 weeks. Please ask patient if symptoms are improving since visit? Orders placed ? JOYCELYN Goins LPN 12/09/2020 9:28 AM Signed Spoke with Cortney, nurse at [facility]. Information listed below given to her. She reports they got stools turned in and awaiting the results. Pt was doing better till this am and she started with diarrhea again. Faxed lab orders for BMP to have repeated in 2 weeks. Charissa Stevens LPN Allergies As of Date: 12/09/2020 (No Known Allergies) Date Reviewed: 12/03/2020 Reviewed by: Leonor Swain LPN - Fully Assessed Reason for Visit: Results [95] Prescriptions as of 12/09/2020 Sig: BENEFIBER HEALTHY SHAPE 5 GRA* Take 1 teaspoonful by mouth o* CHOLECALCIFEROL (VITAMIN D3) * Take 4,000 Units by mouth onc* CETIRIZINE 10 MG TABLET Take 10 mg by mouth once trevor* ACIDOPHILUS ORAL Take by mouth. DONEPEZIL 10 MG TABLET Take 10 mg by mouth once trevor* BUDESONIDE-FORMOTERO L HFA 160* Inhale 2 Puffs as instructed * OMEGA 8-OVI-DZX-FISH OIL 1,00* Take 2 g by mouth [...] needed. FLUTICASONE 0.05 % LOTION-EMO* Apply 1 [place] to affected are* MAGNESIUM HYDROXIDE 400 MG/5 [...] Date: 12/09/2020 (None) Encounter Status:Closed by DENVER ZHOU.MAGGIE RODRIGUEZ on 12/25/20 [facility] Angelic 12-04-2020 JAM Telephone (KALI) JESSENIA SAEZ ([id number]) 1955 F Date Time Provider Department 12/04/20 JESSENIA VIERA During your visit today, we recorded the following information about you: Charissa Stevens LPN 12/04/2020 10:45 AM Signed Cortney called for the stool study order. They will do this at there facility. Faxed to [phone]. [facility]One Charissa Stevens LPN 12/04/2020 10:52 AM Signed Phone and fax are the same number. Chraissa Stevens LPN Allergies As of Date: 12/04/2020 (No Known Allergies) Date Reviewed: 12/03/2020 Reviewed by: Leonor Swain LPN - Fully Assessed Reason for Visit: Release Of Medical Records [2017] Prescriptions as of 12/04/2020 Sig: CHOLECALCIFEROL (VITAMIN D3) * Take 4,000 Units by mouth onc* CETIRIZINE 10 MG TABLET Take 10 mg by mouth once trevor* ACIDOPHILUS ORAL Take by mouth. DONEPEZIL 10 MG TABLET Take 10 mg by mouth once trevor* BUDESONIDE-FORMOTERO L HFA 160* Inhale 2 Puffs as instructed * OMEGA 2-XJD-TKW-FISH OIL 1,00* Take 2 g by mouth [...] needed. FLUTICASONE 0.05 % LOTION-EMO* Apply 1 [place] to affected are* MAGNESIUM HYDROXIDE 400 MG/5 [...] Of Date: 12/04/2020 (None) Encounter Status:Closed by CHARISSA STEVENS LPN on 12/04/20 Normal [facility] CBCon 12-03-2020 Absolute nRBC <0.01 Normal <0.01 [facility] Erythrocyte distribution width (RBC) [Ratio] 14.0 % Normal 11.5-15.0 [facility] Hematocrit (Bld) [Volume fraction] 42.9 % Normal 36.0-46.0 [facility] Hemoglobin (Bld) [Mass/Vol] 13.8 g/dL Normal 11.5-15.5 [facility] MCH 27.7 pG Normal 26.0-34.0 [facility] MCHC (RBC) [Mass/Vol] 32.2 g/dL Normal 30.5-36.0 [facility] MCV (RBC) [Entitic vol] 86.0 fL Normal 80.0-100.0 [facility] Platelet mean volume (Bld) [Entitic vol] 9.9 fL Normal 9.0-12.7 [facility] Platelets (Bld) [#/Vol] 280 10*3/uL Normal 150-400 [facility] RBC (Bld) [#/Vol] 4.99 10*6/uL Normal 3.90-5.20 [facility] WBC (Bld) [#/Vol] 10.31 10*3/uL Normal 3.70-11.00 [facility] [place] [facility] 12-[facility] CNOV Office Visit (GASTWS) JESSENIA SAEZ ([id number]) 1955 F Date Time Provider Department 12/03/20 9:20 AM JESSENIA VIERA During your visit today, we recorded the following information about you: Pulse Blood pressure Weight Height 86/minute 100/60 84.8 kg 1.6 m Maggie Goff, RN, RN 12/03/2020 3:01 PM Addendum Jessenia Saez a 65 year old female who is self referred for the evaluation of diarrhea. The patient has not been seen previously. The patient denies a family history of colon cancer. The patient is a resident at [facility]. Her PCP is Dena Stevens. The patient [...] or black stool. Dizziness when standing. Drinks [place] Kiwi water. Lactose free milk. She believe [...] lesions, rash, and itching PSYCH: See HPI HEMATOLOGY/LYMPHOLOG Y Negative for prolonged bleeding, bruising easily or [...] 10 mg by mouth once daily. - budesonide-formotero l (SYMBICORT) 160-4.5 mcg/actuation inhaler Inhale 2 Puffs as instructed twice daily. - Ifaiu-1-YVJ-EPA-Fish Oil (FISH OIL) 1,000 mg (120 mg-180 [...] 17 g by mouth as needed. - fluticasone-emollien t no.65 0.05 % ktot Edita (more content not included)... Normal [facility] 12-03-2020 JAM Telephone (KALI) JESSENIA SAEZ ([id number]) 1955 F Date Time Provider Department 12/03/20 JESSENIA VIERA During your visit today, we recorded the following information about you: Leonor Swain LPN 12/03/2020 11:16 AM Signed Patient was unsure of the pharmacy that [facility] uses. Left message for nurse asking for name of pharmacy and phone number. Nurse needs reminded of CT that needs scheduled if not already scheduled. Magaly Viera RN 12/04/2020 11:10 AM Signed Cortney from [facility] called, verified pt by name and birthdate. Cortney states pt uses [facility]. Crotney is aware pt needs CT, she will check to see if it scheduled for pt Magaly Swain LPN 12/04/2020 11:24 AM Signed Please send script for Benefiber to pharmacy listed below. Jessenia Viera RN [employer] SYSTEM OPERATOR.SAMPLE COORDINATOR 12/04/2020 12:59 PM Signed OTC, but sent as requested. 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 FLUTICASONE 0.05 % LOTION-EMO* Apply 1 [place] to affected are* MAGNESIUM HYDROXIDE 400 MG/5 [...] by mouth once daily. Encounter Status:Closed by LEONOR SWAIN LPN on 12/04/20 Normal [facility] Comp Metabolic Panelon 12-03 Albumin [Mass/Vol] 4.9 g/dL Normal 3.9-4.9 [facility] ALP [Catalytic activity/Vol] 65 U/L Normal 34-123 [facility] ALT [Catalytic activity/Vol] 13 U/L Normal 7-38 [facility] Anion gap [Moles/Vol] 14 mmol/L Normal 9-18 [facility] AST [Catalytic activity/Vol] 14 U/L Normal 13-35 [facility] Bilirubin [Mass/Vol] 0.5 mg/dL Normal 0.2-1.3 [facility] Calcium [Mass/Vol] 10.2 mg/dL Normal 8.5-10.2 [facility] Chloride [Moles/Vol] 98 mmol/L Normal 97-105 [facility] CO2 [Moles/Vol] 22 mmol/L Normal 22-30 [facility] Creatinine [Mass/Vol] 0.77 mg/dL Normal 0.58-0.96 [facility] eGFR- Amer. >60 Normal [facility] eGFR-All Other Races >60 Normal [facility] Comment on above: Result Comment: eGFR [...] GFR. Glucose [Mass/Vol] 98 mg/dL Normal 74-99 [facility] Comment on above: Result Comment: The [place] Diabetes Association (ADA) provides guidance for cutoff [...] Standards of Medical Care in Diabetes 2016, [place] [employer] Association. Diabetes Care. 2016.39(Suppl 1). Potassium [Moles/Vol] 4.3 mmol/L Normal 3.7-5.1 [facility] Protein [Mass/Vol] 7.4 g/dL Normal 6.3-8.0 [facility] Sodium [Moles/Vol] 134 mmol/L Low 136-144 [facility] Urea nitrogen [Mass/Vol] 24 mg/dL High 7-21 [facility] HISTORY PHYSICALon HISTORY PHYSICAL HNO ID: [id number] Author: Maggie DoradoRn) ANAY Goff Service: ? Author Type: Registered Nurse Type: HANDP Filed: 12/03/2020 3:07 PM Note Text: Jessenia Saez a 65 year old female who is self referred for the evaluation of diarrhea. The patient has not been seen previously. The patient denies a family history of colon cancer. The patient is a resident at [facility]. Her PCP is Dena Stevens. The patient [...] or black stool. Dizziness when standing. Drinks [place] Kiwi water. Lactose free milk. She believe [...] lesions, rash, and itching PSYCH: See HPI HEMATOLOGY/LYMPHOLOG Y Negative for prolonged bleeding, bruising easily or [...] 10 mg by mouth once daily. - budesonide-formotero l (SYMBICORT) 160-4.5 mcg/actuation inhaler Inhale 2 Puffs as instructed twice daily. - Imjll-4-KPM-EPA-Fish Oil (FISH OIL) 1,000 mg (120 mg-180 [...] 17 g by mouth as needed. - fluticasone-emollien t no.65 0.05 % ktot Apply 1 [place] to affected area once daily as needed. - magnesium hydroxide (MILK OF MAGNESIA) 400 mg/5 mL suspension Take 30 mL by mouth once daily as needed for Constipation. - loperamide HCl (IMODIUM A-D) 2 mg tab Take 2 mg by mouth as needed. Not (more content not included)... Normal [facility] Helico pylori Abon H pylori Ab, IgG <0.4 Normal [facility] Comment on above: Result Comment: U/mL are interpreted as follows: Negative specimens <0.9 Indeterminate specimens >=0.9 to <1.1 Positive specimens >=1.1 Results were obtained with the IMMULITE 2000 H.pylori IgG EIA. Results obtained from other manufacturers' assay methods may not be used interchangeably. Performed By: #### L IPA, HPYLRI #### [facility] [address] [address] H. pylori IgG, Qual Negative Normal Negative [facility] Comment on above: Result Comment: H. p ylori IgG antibodies were not detected in the sample. Negative results by this test do not preclude recent primary infection. Performed By: #### L IPA, HPYLRI #### [facility] [address] [place], [place] [address] Lipaseon 12-03-2020 Lipase [Catalytic activity/Vol] 26 U/L Normal 16-61 [facility] Comment on above: Performed By: #### L IPA, HPYLRI #### [facility] [address] [place], [place] [address] BD BONE DENSITY DEXA AXIAL S KELETONon 09-02-2018 BD BONE DENSITY DEXA AXIAL SKELETON ORIGINALBONE DENSITOMETRY CLINICAL STATEMENT: SCREENING FOR OSTEOPOROSIS COMPARISON: 12/25/2014 T Score Left Femoral Neck: -2.2 BMD (g/cm2) Left Femoral Neck: 0.609 T Score Left Hip: -1.7 BMD (g/cm2) Left Hip: 0.731 T Score Lumbar [...] sex matched population. Interpreted By: Sanchez Beard [facility] Report By: Sanchez Beard MDElectronically Signed By: Sanchez Beard MD Dictated Date: 09/02/2018 4:49:16 PM Prelim Date: 09/02/2018 4:49:16 PM Sign Date: 09/02/2018 4:50:59 PM Normal [facility] ([place]) MA MAMMOGRAM SCREENING BILAT ERAL W/TOMOon 09-02-2018 MA MAMMOGRAM SCREENING BILATERAL W/PETEY ORIGINALFROM:[address] [address]Ngcfe: [phone] PROCEDURE FOR:JESSENIA [id number] [address]Xryg: [phone]#: [id number]#: [id number]#: [id number]: 1955ge: 63 TO:TWAN ACOSTA [address] [place], [place] [address] #[id number] BILATERAL DIGITAL SCREENING MAMMOGRAM 3D/2D WITH CAD WITH CLEAVAGE MEDIOLATERAL OBLIQUE: 09/02/2018 Comparison is made to exams dated: 05/21/2017 mammogram and 02/05/2016 mammogram - [facility]. There are scattered fibroglandular elements in both breasts. Current study was also evaluated with a Computer Aided Detection (CAD) system. There are benign scattered calcifications in both breasts. No significant masses, calcifications, or other findings are seen in either breast. There has been no significant interval change. IMPRESSION: BENIGNThere is no mammographic evidence of malignancy. A 1 year screening mammogram is recommended.( 019) I have personally reviewed the images of the examination and agree with the findings and interpretation. SUDHIR Madrigal,luis/andressa:09/05/2018 09:05:10 Manager Business Banking(s): JASON CARRANZA, RT(R)(M)(CT) [facility]: Normal BI-RADS 1&2 Mammogram BI-RADS: 2 Benign Normal [facility] ([place]) XR KNEE 4 VIEWS LEFTon 03-16 XR [...] in the patellofemoral compartment Interpreted By: Khloe Connerreliminary Report By: Khloe Conner MDElectronically Signed By: Khloe Conner MD Dictated Date: 03/16/2018 1:09:12 PM Prelim Date: 03/16/2018 1:09:12 PM Sign Date: 03/16/2018 1:09:40 PM Normal [facility] ([place]) .GFRon 01-26-2018 GFR Non- >60 Normal [facility] ([place]) Comment on above: Result Comment: GFR Population [...] Performed By: #### C MP, LIPID, GFR ####[address] [place], [place] [address] GFR 102 ml/min/1.73sqm Normal [facility] ([place]) Comment on above: Result Comment: GFR Population [...] Performed By: #### C MP, LIPID, GFR ####[address] [place], [place] [address] CMPon 01-26-2018 Albumin mass conc 4.6 G/dL Normal 3.4-4.8 [facility] ([place] Comment on above: Performed By: #### C MP, LIPID, GFR ####[address] [place], [place] [address] Albumin/Globulin mass ratio 1.8 {ratio} Normal 1.1-2.5 [facility] ([place] Comment on above: Performed By: #### C MP, LIPID, GFR ####[address] [place], [place] [address] ALP enzyme act/vol 96 U/L Normal 40-135 [facility] ([place]) Comment on above: Performed By: #### C MP, LIPID, GFR ####[address] [place], [place] [address] ALT enzyme act/vol 15 U/L Normal 10-35 [facility] ([place] Comment on above: Performed By: #### C MP, LIPID, GFR ####[address] [place], [place] [address] AST enzyme act/vol 15 U/L Normal 10-40 [facility] ([place] Comment on above: Performed By: #### C MP, LIPID, GFR ####[address] [place], [place] [address] Bili Total 0.2 mg/dL Normal 0.2-1.0 [facility] ([place] Comment on above: Performed By: #### C MP, LIPID, GFR ####[address] [place], [place] [address] Calcium mass conc 9.5 mg/dL Normal 8.4-10.2 [facility] ([place] Comment on above: Performed By: #### C MP, LIPID, GFR ####[address] [place], [place] [address] CO2 molar conc 28 mmol/L Normal 23-31 [facility] ([place] Comment on above: Performed By: #### C MP, LIPID, GFR ####[address] [place], [place] [address] Creatinine mass conc 0.7 mg/dL Normal 0.6-1.2 [facility] ([place]) Comment on above: Performed By: #### C MP, LIPID, GFR ####[address] [place], [place] [address] Electrolyte Balance 11.0 mEq/L Normal [facility] ([place]) Comment on above: Performed By: #### C MP, LIPID, GFR ####[address] [place], [place] [address] Globulin Calculated mass conc (S) 2.5 G/dL Normal [facility] ([place] Comment on above: Performed By: #### C MP, LIPID, GFR ####[address] [place], [place] [address] Glucose mass conc 125 mg/dL High 80-115 [facility] ([place] Comment on above: Performed By: #### C MP, LIPID, GFR ####[address] [place], [place] [address] Protein mass conc 7.1 G/dL Normal 6.0-8.3 [facility] ([place] Comment on above: Performed By: #### C MP, LIPID, GFR ####[address] [place], [place] [address] Urea nitrogen mass conc 6.9 mg/dL Low 7.0-18.0 A [facility] ([place]) Comment on above: Performed By: #### C MP, LIPID, GFR ####[address] [place], [place] [address] Urea nitrogen/Creatinine mass ratio 10 ratio Normal 7-27 [facility] ([place] Comment on above: Performed By: #### C MP, LIPID, GFR ####[address] [place], [place] [address] Chloride molar conc 95 mmol/L Low 98-107 [facility] ([place] Comment on above: Performed By: #### C MP, LIPID, GFR ####[address] [place], [place] [address] Potassium molar conc 4.6 mmol/L Normal 3.5-5.1 [facility] ([place] Comment on above: Performed By: #### C MP, LIPID, GFR ####[address] [place], [place] [address] Sodium molar conc 134 mmol/L Low 136-146 [facility] ([place] Comment on above: Performed By: #### C MP, LIPID, GFR ####[address] [place], [place] [address] LIPIDon 01-26-2018 Cholesterol in HDL mass conc 69 mg/dL Normal 35-90 [facility] ([place] Comment on above: Result Comment: HDL Reference Interval:Less than 40 Low - high risk60 or above Optimal/lowers risk Performed By: #### C MP, LIPID, GFR ####[address] [place], [place] [address] Cholesterol in LDL mass conc 87 mg/dL Normal 0-130 [facility] ([place]) Comment on above: Result Comment: LDL is a calculated result and requires a 12-hr fast.LDL Reference Interval:Less than 100 [id number] Near or above [id number] Borderline high prsg017-675 High ocmy667 and above Very high risk Performed By: #### C MP, LIPID, GFR ####[address] [place], [place] [address] Cholesterol mass conc 177 mg/dL Normal 131-200 [facility] ([place]) Comment on above: Result Comment: Chol esterol Reference Interval:Less than 200 [id number] Borderline high zuuz446 and above High risk Performed By: #### C MP, LIPID, GFR ####[address] [place], [place] [address] Triglyceride mass conc 107 mg/dL Normal 40-150 [facility] ([place]) Comment on above: Result Comment: Trig lyceride Reference Interval:Less than 150 Tupizo022-473 Borderline high ivph360-374 High rvfh621 or higher Very high risk Performed By: #### C MP, LIPID, GFR ####[address] [place], [place] [address] XR ANKLE MINIMUM 3 VIEWS LEF Ton [...] Date: 11/22/2017 3:35:04 PM Normal [facility] ([place]) Vital Signs Date Time Vital Sign Value Performing Clinician Facility 06-03-2025 23:36-0400 Body temperature 100.4 [degF] Dena Stevens HAND OR MACHINE PASTER-C Work Phone: [facility] 06-03-2025 23:36-0400 Diastolic blood pressure 63 mm[Hg] Dena Stevens HAND OR MACHINE PASTER-C Work Phone: [phone] [place] [address] 06-03-2025 23:36-0400 Heart rate 81 /min Dena Stevens HAND OR MACHINE PASTER-C Work Phone: [phone] [place] [address] 06-03-2025 23:36-0400 Respiratory rate 20 /min Dena Stevens HAND OR MACHINE PASTER-C Work Phone: [phone] [place] [address] 06-03-2025 23:36-0400 SaO2% (BldA) [Mass fraction] 92 % Dena Stevens HAND OR MACHINE PASTER-C Work Phone: [phone] [place] [address] 06-03-2025 23:36-0400 Systolic blood pressure 126 mm[Hg] Dena Stevens HAND OR MACHINE PASTER-C Work Phone: [facility] 06-03-2025 23:00-0400 Inhaled oxygen concentration 30 % Dena Stevens HAND OR MACHINE PASTER-C Work Phone: [facility] 06-03-2025 22:00-0400 Inhaled oxygen flow rate 30 L/min Dena Stevens HAND OR MACHINE PASTER-C Work Phone: [facility] 06-03-2025 19:04-0400 Body height 160.02 cm Dena Stevens HAND OR MACHINE PASTER-C Work Phone: [facility] 06-03-2025 19:04-0400 Body mass index (BMI) [Ratio] 47 kg/m2 Dena Stevens HAND OR MACHINE PASTER-C Work Phone: [facility] 06-03-2025 19:04-0400 Body weight 120.6 kg Dena Stevens HAND OR MACHINE PASTER-C Work Phone: [phone] [place] [address] 07-06-2023 13:09-0400 Body temperature 98.2 [degF] HAND OR MACHINE PASTER-C Dena Stevens HAND OR MACHINE PASTER Work Phone: [facility] 07-06-2023 13:09-0400 Diastolic blood pressure 92 mm[Hg] HAND OR MACHINE PASTER-C Dena Stevens HAND OR MACHINE PASTER Work Phone: [facility] 07-06-2023 13:09-0400 Heart rate 81 /min HAND OR MACHINE PASTER-C Dena Stevens HAND OR MACHINE PASTER Work Phone: [facility] 07-06-2023 13:09-0400 SaO2% (BldA) [Mass fraction] 94 % HAND OR MACHINE PASTER-C Dena Stevens HAND OR MACHINE PASTER Work Phone: [facility] 07-06-2023 13:09-0400 Systolic blood pressure 166 mm[Hg] HAND OR MACHINE PASTER-C Dena Stevens HAND OR MACHINE PASTER Work Phone: [facility] Encounters Encounter Date Encounter Type Care Provider Facility Start: 06-03-2025 Evaluation and management of inpatient Dr. Reji Tidwell DO -[facility] Work Phone: Start: 03-16-2025 End: 03-16-2025 ambulatory Dena Stevens HAND OR MACHINE PASTER-C Work Phone: [facility] Work Phone: Start: 03-16-2025 End: 03-16-2025 Patient encounter procedure Paulina Subramanian HAND OR MACHINE PASTER-C -Cat Scan [facility] Work Phone: Start: 03-16-2025 End: 03-16-2025 ambulatory Paulina Subramanian HAND OR MACHINE PASTER Facility:[facility] Start: 08-09-2023 Non-patient / Non-visit HAND OR MACHINE PASTER-C Amrit Stevens HAND OR MACHINE PASTER Work Phone: [facility] Start: 08-09-2023 End: 08-09-2023 ambulatory HAND OR MACHINE PASTER-C Dena Stevens HAND OR MACHINE PASTER Work Phone: [facility] Work Phone: Start: 08-09-2023 End: 08-09-2023 Patient encounter procedure HAND OR MACHINE PASTER-C Dena Stevens HAND OR MACHINE PASTER Work Phone: [facility] Work Phone: Start: 07-06-2023 End: 07-06-2023 Patient encounter procedure HAND OR MACHINE PASTER-C Dena Stevens NP Work Phone: [facility] Work Phone: Start: 08-13-2022 End: 08-13-2022 ambulatory [facility] Work Phone: Start: 08-13-2022 End: 08-13-2022 Patient encounter procedure [facility]-Outpatient Breast Imaging Start: 09-02-2018 End: 09-03-2018 Patient encounter procedure TWAN ACOSTA Facility:B Start: 06-14-2018 Patient encounter procedure TWAN ACOSTA Facility:[facility] Start: 03-16-2018 End: 03-17-2018 Patient encounter procedure TWAN ACOSTA Facility:[facility] Start: 01-26-2018 End: 01-31-2018 Patient encounter procedure JADEN DAVIS Facility:[facility] Start: 11-22-2017 End: 11-22-2017 Emergency department patient visit Dinorah Mcgarry Facility:[facility] Procedures Date Procedure Procedure Detail Performing Clinician Start: 06-03-2025 Carbon dioxide measu rement, partial pressure Dena Stevens HAND OR MACHINE PASTER-C Work Phone: Start: 06-03-2025 Gases blood o2 satur ation only direct natalie Dena Stevens HAND OR MACHINE PASTER-C Work Phone: Start: 06-03-2025 Measurement of parti al pressure of oxygen in blood Dena Stevens NP-C Work Phone: Start: 06-03-2025 Oxygen measurement Trinh Stevens HAND OR MACHINE PASTER-C Work Phone: Start: 06-03-2025 D-dimer assay, quantitative Dena Stevens HAND OR MACHINE PASTER-C Work Phone: Comment on above: D-Dimer ELEVATED (>0 .49): Additional studies and clinicalassessments are indicated to conclude diagnosis of:Deep Vein Thrombosis (DVT) or Pulmonary Embolism (PE)CRITICAL VALUE CALLED TO RENY BRIGGS06/04/25 0012 Taryn Fernández.RESULTS READ BACK BY SAME. Start: 06-03-2025 Urnls dip stick/tabl et reagent auto microscopy Dena Stevens NP-C Work Phone: Start: 06-03-2025 Plain chest X-ray Mckenzie RONDONC Work Phone: Start: 06-03-2025 Estimated creatinine clearance Dena Stevens HAND OR MACHINE PASTER-C Work Phone: Start: 03-16-2025 CT of thorax with contrast Dena Stevens NP-C Work Phone: Start: 08-13-2022 Screening mammography Plan of Treatment Date Care Activity Detail Author Start: 06-03-2025 Thyroid stimulating hormone measurement [facility] Start: 06-03-2025 Hospital admission, emergency, from emergency room, medical nature [facility] Start: 06-03-2025 Respiratory pathogen s DNA and RNA panel - Respiratory specimen by KAYLIE with probe detection [facility] Start: 06-03-[address] [facility] Start: 06-03-2025 Admission procedure [facility] Start: 06-03-2025 Continuous pulse oximetry [facility] Start: 06-03-2025 Dual pressure sponta neous ventilation support [facility] Start: 06-03-2025 End: 06-03-2025 [facility] Start: 07-06-2023 Patient referral [facility] Work Phone: Amphetamines [Presen ce] in Urine by Screen method >1000 ng/mL [facility] l Benzodiazepine measurement, urine [facility] Cocaine measurement, urine [facility] Ethanol [Mass/volume ] in Serum or Plasma [facility] fentaNYL [Presence] in Urine by Screen method [facility] Folate [Moles/volume ] in Serum or Plasma [facility] Magnesium measurement [facility] Methadone measurement, urine [facility] Patient referral [facility] Work Phone: Phencyclidine [Presence] in Urine [facility] Urine cannabinoid measurement [facility] Urine opiate measurement [facility] Immunizations Immunization Date Immunization Notes Care Provider Fa cility 07-21-2022 influenza, injectabl e, quadrivalent, preservative free Dena Rodney HAND OR MACHINE PASTER-C Work Phone: [facility] 02-24-2022 Jeraldia (Moderna) Dena campos HAND OR MACHINE PASTER-C Work Phone: [facility] 11-18-2020 Jeraldia (Modernlucio) Dena campos HAND OR MACHINE PASTER-C Work Phone: [facility] 10-23-2020 Jeraldia (Modern) Dena campos HAND OR MACHINE PASTER-C Work Phone: [facility] 12-16-2017 influenza, injectabl e, quadrivalent, preservative free HAND OR MACHINE PASTER-C Dena Stevens HAND OR MACHINE PASTER Work Phone: [facility] 12-16-2017 influenza, seasonal, injectable [facility] Work Phone: Payers Date Payer Category Payer Self-pay [id number] 2017 Medicaid [id number] 1955 Unknown [id number] 2.16.8 [id number] 1955 Unknown [id number] 2.16.8 [id number] 1955 Unknown [id number] 2.16.8 [id number] 1955 Unknown [id number] 2.16.8 [id number] 1955 Unknown [id number] 2.16.8 [id number] Unknown [id number] 2.16.8 [id number] Social History Date Type Detail Facility Start: 11-04-2021 End: 07-06-2023 Tobacco smoking status NHIS Unknown if ever smoked [facility] Start: 02-07-2020 [facility] Start: 02-07-2020 [facility] Start: 11-13-2020 [facility] Start: 1955 Sex Assigned At Female [facility] Start: 03-03-2024 End: 06-03-2025 Tobacco smoking status NHIS Ex-smoker (finding) [facility] Discharge summary 06-03-2025 Note Date & Type Note Facility 06-03-2025 Discharge summary [facility] Radiology Diagnostic study note 06-03-2025 Note Date & Type Note Facility 06-03-2025 Radiology Diagnostic study note [facility] Imaging Services [address] [place] [address] Chest 1 View (Portable) MR#: [id number] Acct: [id number] Name: JESSENIA SAEZ Rep #: [id number] : 1955 F 70 From: Kimberli Burks MD PCP: Dena Stevens, HAND OR MACHINE PASTER-C Status: REG ER Study:Chest 1 View (Portable) Date of Exam: 06/03/25 Exam# [id number] Ordering Dr: Francesca Polanco MD PROCEDURE: CHEST 1 VIEW (PORTABLE) 06/03/2025 REASON FOR EXAM: TACHYPNEA TECHNIQUE: Frontal view of the chest. COMPARISON: March 16, 2025, December 18, 2019 FINDINGS: Hardware: EKG leads Heart: Normal Lungs: The lungs are hypoventilated. There is elevation right hemidiaphragm similar to recent prior CT. Subsegmental atelectasis of the lung bases. Bones: Minimal degenerative changes thoracic spine. RAD/Chest 1 View (Portable) IMPRESSION: Hypoventilation. Minimal atelectasis. Elevation right hemidiaphragm unchanged. Reading Location: [id number] CC: HAND OR MACHINE PASTER-C Dena Stevens; Dr. Tobi Polanco MD ~ Brand Activation Manager: Signed [facility] Discharge summary 06-03-2025 Note Date & Type Note Facility 06-03-2025 Discharge summary Note Date/Time June 03, 2025 11:36pm [facility] Medical Records Department [address] [place] [address] Emergency Department Summary 06/03/25 MR#: [id number] Acct: [id number] Name: JESSENIA SAEZ Rep #:[id number] : 1955 70 From: Tobi Polanco MD PCP: ALCON BrennerC Status: REG ER Location: ED HPI History of Present Illness Chief Complaint: Shortness of Breath Detail of Chief Complaint: Reportedly shortness of breath. Patient states she feels tired and not wel Informant: patient Onset/Context/Timing Onset: - (Unknown. Presumed today) Context: - (Unknown) Timing: Continuous Quality: Decreased level consciousness, slow to answer questions Location: Presents from nursing facility Current Severity: Moderate Maximum Severity: Moderate Worsened by: Presumed hypercapnia due to noncompliance Relieved by: Nothing Associated Symptoms Associated Symptoms: Unable to determine Narrative Narrative: Patient is a 70-year-old woman. She has versus COPD, hypertension, hyperlipidemia and obstructive sleep apnea. She is noncompliant with her BiPAP usage. She requires tactile and verbal stimuli to open her eyes. She answers most questions correctly. She is disoriented. She does have a cough. Uncertain whether this is new or not. She complains of subjective fever. No chills. She has had some mild nasal congestion. Prior similar symptoms: No Recent Illness/Hospitalization: No PFSH PFSH Medical History (Updated 06/03/25 @ 23:[address] Tobi Polanco MD) Mitral valve regurgitation Hx of steroid therapy Nicotine dependence, cigarettes, in remission MIK (obstructive sleep apnea) Barretts esophagus Chronic back pain Alzheimer disease GERD (gastroesophageal reflux disease) Obstructive sleep apnea Obesity Nicotine dependence Schizophrenia Anxiety and depression COPD (chronic obstructive pulmonary disease) Essential (primary) hypertension Hyperlipidemia Home Medications ?Medication ?Instructions ?Recorded ?Last Taken ?Type bupropion HCl 150 mg tablet,12 hr 150 mg PO BID mental health 12/15/17 02/06/20 History sustained-release sertraline 100 mg tablet 200 mg PO DAILY depression 0 12/15/17 02/06/20 History acetaminophen 325 mg tablet 1,000 mg PO TID PAIN 04/0902/06/20 History memantine 10 mg tablet 10 mg PO BID MEMORY 07/05/19 02/06/20 History omega-3 fatty acids-fish oil 340 1 cap PO BID SUPPLEME NT 12/11/19 02/06/20 History mg-1,000 mg capsule donepezil 10 mg tablet (Aricept) 10 mg PO DAILY MEMORY 02/07/20 02/04/20 History Lactobacillus acidophilus 1 ea PO DAILY 11/15/20 Unkno wn History latanoprost 0.005 % eye drops 1 drp EACH EYE QHS 11/15 Unknown History omeprazole 20 mg capsule,delayed 20 mg PO DAILY Unknown History release lisinopril 20 mg tablet 20 mg PO QHS 11/04/21 Unknow n History atorvastatin 20 mg tablet 20 mg PO QHS 09/21/23 Unknow n History benztropine 0.5 mg tablet 0.5 mg PO BID PRN shakes Unknown History calcium polycarbophil 625 mg 625 mg PO BID 09/21/23 Un known History tablet (Fiber-Lax) cetirizine 10 mg capsule (Zyrtec) 10 mg PO DAILY ALLER GIES 09/21/23 Unknown History dicyclomine 20 mg tablet 20 mg PO BID PRN abdominal p ain 09/21/23 Unknown History docusate sodium 100 mg capsule 100 mg PO QHS CONSTIPAT ION 09/21/23 Unknown History guaifenesin 100 mg/5 mL oral 200 mg PO Q8H PRN cough 1 11/22/22 Unknown History liquid (Child Mucus Relief Expectorant) ipratropium bromide 42 mcg (0.06 2 spray intranasal BI D 09/21/23 Unknown History %) nasal spray lisinopril 5 mg tablet 5 mg PO QHS BP 09/21/23 Unkn own History loperamide 2 mg capsule 2 mg PO Q6H PRN loose stool 09/21/23 Unknown History magnesium hydroxide 400 mg/5 mL 30 ml PO DAILY PRN con stipation 09/21/23 Unknown History oral suspension (Milk of Magnesia) melatonin 5 mg tablet 15 mg PO QHS SLEEP 09/21/23 Unknown History paliperidone palmitate 234 mg/1.5 234 mg IM Q4W Unknown History mL intramuscular syringe (Invega Sustenna) polyethylene glycol 3350 17 4 g PO DAILY PRN constipat ion 09/21/23 Unknown History gram/dose oral powder sennosides 8.6 mg-docusate sodium 2 tab PO BID #0 tabs 03/07/24 Unknown Rx 50 mg tablet (Stool Softener-Stimulant Laxative) albuterol sulfate 90 mcg/actuation 2 puff inhalation Q 4H PRN SOB 06/03/25 Unknown History aerosol inhaler fluticasone 250 mcg-salmeterol 50 1 ea inhalation BID 06/03/25 Unknown History mcg/dose blistr powdr for inhalation (Advair Diskus) olanzapine 20 mg tablet 20 mg PO QHS 06/03/25 Unknow n History ondansetron HCl 4 mg tablet 4 mg PO Q8H PRN PRN nausea and 06/03/25 Unknown History vomiting trazodone 50 mg tablet 50 mg PO QHS 06/03/25 Unknow n History Allergy/AdvReac Type Severity Reaction Status Date / Time No Known Allergies Allergy Verified 06/03/25 19:04 Family History Father Cancer Mother Cancer Surgical History History of esophagogastroduodenoscopy (EGD) (~2015) History of colonoscopy History of tubal ligation History of tooth extraction Social History household members: none housing: assisted living facility Smoking Status: Former smoker alcohol intake: never substance use type: does not use caffeine: Yes what type of physical activity do you participate in: none seatbelt use: sometimes do you feel safe at home: Yes additional social history: Single-Lives at [facility] ROS ROS ED Review of Systems ROS Unobtainable: due to mental status Respiratory/Chest Respiratory/Chest: Reports cough and dyspnea Neurologic Neurologic: Reports other Details: Decreased level of consciousness EXAM Physical Exam Const Vital Signs: 06/03/25 19:04 06/03/25 19:08 06/03/25 19:08 Temperature 99.2 F H 99.2 F H Temperature Source Oral Oral Pulse Rate 91 90 Respiratory Rate 22 H 22 H Respiratory Effort Short of Breath Respiratory Depth Normal Respiratory Pattern Normal Blood Pressure 104/62 104/62 Blood Pressure Mean 76 76 Pulse Ox 85 92 Oxygen Delivery Method Room Air Nasal Cannula Nasal Cannula Oxygen Flow Rate (L/min) 3 2 Fraction of Inspired Oxygen (FIO2) 06/03/25 20:05 06/03/25 20:08 06/03/25 20:11 Temperature 99.2 F H Temperature Source Oral Pulse Rate 89 88 Respiratory Rate 24 H 25 H Respiratory Effort Respiratory Depth Respiratory Pattern Blood Pressure 114/61 Blood Pressure Mean 78 Pulse Ox 91 91 Oxygen Delivery Method Nasal Cannula Nasal Cannula Oxygen Flow Rate (L/min) 4 4 Fraction of Inspired Oxygen (FIO2) 30 06/03/25 21:00 06/03/25 22:00 06/03/25 22:42 Temperature 99.5 F H 99.5 F H Temperature Source Axillary Oral Pulse Rate 85 81 81 Respiratory Rate 24 H 22 H 16 Respiratory Effort Respiratory Depth Respiratory Pattern Blood Pressure 102/68 119/62 Blood Pressure Mean 79 81 Pulse Ox 90 93 92 Oxygen Delivery Method Bi-pap Bi-pap Oxygen Flow Rate (L/min) 30 Fraction of Inspired Oxygen (FIO2) 30 06/03/25 23:00 Temperature 100.4 F H Temperature Source Axillary Pulse Rate 80 Respiratory Rate 26 H Respiratory Effort Respiratory Depth Respiratory Pattern Blood Pressure 126/63 H Blood Pressure Mean 84 Pulse Ox 92 Oxygen Delivery Method Bi-pap Oxygen Flow Rate (L/min) Fraction of Inspired Oxygen (FIO2) 30 Positive well nourished and well developed Constitutional Narrative: Patient is somnolent. Patient requires both tactile and verbal stimuli to open her eyes. She answers some questions and believe them to be accurate. She is disoriented. She is tachypneic. There is no retractions noted. She has no accessory muscle use. She was hypoxic. General Appearance ED: well developed; Negative for pallor HEENT Reports TM's clear and dry mucous membranes Negative for trauma or tenderness Tympanic Membrane ED: Yes TM's clear Mouth ED: Yes dry mucous membranes Mouth: dry mucous membranes Eyes PERRL and EOMs intact bilaterally General Eye ED: Negative for pale conjunctiva or scleral icterus Neck Neck Narrative: Difficult to see anatomical structure due to body habitus. There are no carotidbruits. Chest Wall inspection of chest normal and palpation of chest normal Resp No clear to auscultation bilaterally Auscultation: rales bilateral base Cardio regular rate, regular rhythm, S1 normal heart sound, S2 normal heart sound and no murmurs GI normal to inspection, nondistended, normoactive bowel sounds, non-tender, non-distended and no masses; Negative for hepatosplenomegaly Auscultation: normoactive bowel sounds Back/Spine no CVA tenderness Extremity normal to inspection General Extremety ED: Negative for tenderness Neuro No oriented x3 and CN's II-XII intact bilaterally Sensorium / Orientation: Negative for alert Psych mental status grossly normal Skin no rashes or lesions noted, no wounds and No skin turgor normal General Skin Exam: Negative for jaundice or pallor MDM MDM MDM Narrative Medical decision making narrative: With altered mental status need to assess for metabolic or infectious cause. Suspect patient has hypercapnia due to noncompliance. She is normally on oxygenaccording to the nurse. Patient is unable to give this information. Will obtain EKG to assess for cardiac ischemia, chest x-ray to assess for heart failure, pneumonia. CBC to rule out anemia. Competence of metabolic panel to assess for any endorgan dysfunction. UA to evaluate for infection. Lab Data Attestation: I reviewed the patient's lab results. Lab results narrative: CBC reveals mild anemia. Comprehensive metabolic panel is remarkable and elevated BUN to creatinine ratio of approximately 40-1. Glucose is elevated 174with normal CO2 anion gap. UA is unremarkable. Labs: Laboratory Results - last 24 hr 06/03/25 06/03/25 19:15 20:23 WBC 10.8 RBC 4.05 L Hgb 11.7 L Hct 37.9 MCV 93.6 MCH 28.9 MCHC 30.9 L RDW Std Deviation 52.1 H RDW Coeff of Humphrey 15.1 H Plt Count 179 MPV 10.3 Immature Gran % (Auto) 0.700 Neut % (Auto) 86.7 H Lymph % (Auto) 4.7 L [place] % (Auto) 7.5 Eos % (Auto) 0.1 Baso % (Auto) 0.3 Absolute Neuts (auto) 9.3 H Absolute Lymphs (auto) 0.50 L Nucleated RBC % 0 Sodium 139 Potassium 4.8 Chloride 97 L Carbon Dioxide 30.9 Anion Gap 12 BUN 24 H Creatinine 0.64 L Estim Creat Clear Calc 84.66 Est GFR (MDRD) Non-Af 96 BUN/Creatinine Ratio 37.1 H Glucose 174 H Lactic Acid 1.9 Calcium 9.3 Total Bilirubin 0.32 AST 16 ALT 14 Alkaline Phosphatase 62 Total Protein 6.9 Albumin 3.8 Globulin 3.1 Albumin/Globulin Ratio 1.2 Urine Color Yellow Urine Clarity Clear Urine pH 5.0 Ur Specific [place] 1.025 Urine Protein 30 H Urine Glucose (UA) Normal Urine Ketones 5 H Urine Occult Blood Negative Urine Nitrite Negative Urine Bilirubin Negative Urine Urobilinogen Normal Ur Leukocyte Esterase 25 H Urine RBC 0-5 SEEN Urine WBC 0-5 SEEN Ur Squamous Epith Cells 0-5 SEEN Urine Bacteria RARE Hyaline Casts 25-50 SEEN Urine Mucus 1+ ABG Data Attestation: I personally reviewed and interpreted this ABG as follows: Interpretation: ABG reveals a respiratory acidosis. Patient was placed on BiPAP. Will contact hospitalist for admission. ABG results: ABG 06/03/25 19:54 Specimen Type ART Sample Site R Radial pH 7.30 L Bicarbonate Actual 34.8 H Total CO2 37 Base Excess 8 H O2 Saturation 92 L O2 % 4.0 ABG pCO2 71.1 H* ABG pO2 73 L Morgan Test Positive O2 Delivery Device Cannula Vent Mode Not entered Crit Call To/Read Back Yes Blood Gas Notified Whom Polanco Blood Gas Notified Time 19:56:09 Radiography Chest X-Ray - ED: 1 View and Read by ED Physician (Single view portable chest x-ray reveals decreased respiratory volume. There is atelectasis noted left greater than right. There is also elevated hemidiaphragm which is unchanged from prior. Cardiac silhouette size normal. Osseous structures reveal no acuteprocess.) Diagnostic Testing: Clinical Impression(s) from Imaging Studies Chest X-Ray 06/03/25 19:45 IMPRESSION: Hypoventilation. Minimal atelectasis. Elevation right hemidiaphragm unchanged. Reading Location: [facility] EK Initial EKG: Attestation: I personally reviewed and interpreted this EKG as follows: Interpretation: Sinus Rhythm (Rate is 84. NV interval is 106 6 ms. QRS is 104 ms. QT is 350 ms. Sheldon the left. There is a premature ventricular beatnoted. Decreased anterior forces. There is artifact as well.) Management Discussion w/another healthcare provider: Hospitalist (Case was reviewed with Dr. Orozco for admission to the hospital) Critical Care Time Critical Care Time: Yes Critical care time (excluding procedures): 30-74 minutes (32), Including time spent: (History, physical, documentation, independent rotation of laboratory results and images,), Discussing w/Patient &/or Family/Corrections Identification Technician, Discussing w/Consultants (Hospitalist for admission for hypercapnia because of altered mental status), Arranging Admission or Transfer, Performing Direct Patient Care at Bedside and - (Discussion with respiratory therapist) Discharge Plan Dx/Rx/DC Orders Clinical Impression: Acute on chronic respiratory failure with hypoxia and hypercapnia, Schizophrenia, Obstructive sleep apnea, Hyperlipidemia, Essential (primary) hypertension, Acute alteration in mental status, History of COPD, Adult BMI 45.0-49.9 kg/sq m, Fever Disposition Disposition: [facility] Care [facility] What to do if you have Problems For any increased pain, shortness of breath, bleeding, nausea or vomiting, chestpain, or any unexpected problems, contact your Primary Care Provider. Call [facility] ([phone]) or report to the closest Emergency Room. Call 911 if necessary. 06/03/25 [id number] <Electronically signed by Tobi Polanco MD> Cosigner Signature (if applicable): CC: HAND OR MACHINE PASTER-C Dena Stevens ~ Signed [facility] Work Phone: Radiology Diagnostic study note 03-17-2025 Note Date & Type Note Facility 03-17-2025 Radiology Diagnostic study note [facility] Imaging Services [address] [place] [address] [id number] Chest WITH Contrast MR#: [id number] Acct: [id number] Name: JESSENIA SAEZ Rep #: [id number] : 1955 F 69 From: Aldo Disla MD PCP: ALCON BrennerC Status: REG CLI Study:Chest WITH Contrast Date of Exam: 03/16/25 Exam# [id number] Ordering Dr: Dionne Subramanian NP HAND OR MACHINE PASTER-C PROCEDURE: CHEST WITH CONTRAST 03/16/2025 REASON FOR [...] 6. Hepatomegaly. 7. Hepatic steatosis. Reading Location: [place] [address] CC: ELVIN Subramanian; ELVIN Stevens ~ Brand Activation Manager: Signed [facility] Progress note 02-07-2021 Note Date & Type Note Facility 02-07-2021 Note HNO ID: [id number] Author: Maggie Goff APRN.SAMPLE COORDINATOR Service: ? Author Type: Nurse Practitioner Type: Progress Notes Filed: 02/07/2021 10:10 AM Note Text: DEPARTMENT OF GASTROENTEROLOGY - FOLLOW UP VISIT HISTORY OF PRESENT ILLNESS Jessenia Saez is a 65 year old female [...] she had a scope completed was in [place] a long time ago with CT was [...] 2 Puffs as instructed twice daily. - Hcmjn-8-BSW-EPA-Fish Oil (FISH OIL) 1,000 mg (120 mg-180 [...] fluticasone-emollient no.65 0.05 % ktot Apply 1 [place] to affected area once daily as needed. [...] - MULTIPLE VITAMIN (more content not included)... [facility] Evaluation note Note Date & Type Note Facility Evaluation note No assessment information availa ble [facility] Work Phone: Evaluation note Note Date & Type Note Facility Evaluation note Diagnosis Onset Date Bilateral lower extremity pain acute [facility] Work Phone: Evaluation note Note Date & Type Note Facility Evaluation note Diagnosis Onset Date Resolution Acute hypoxic on chronic hypercapnic respiratory failure acute June 03 11:39pm Alzheimer disease acute June 03, 2025 11:39pm Medically noncompliant acute Au christiano 2024 11:39pm Metabolic encephalopathy acute June 03, 2025 11:39pm Morbid obesity with BMI of 40.0-44.9, adult acute June 03, 2025 11:39pm Obstructive sleep apnea acute A ugust 2024 11:39pm Schizophrenia acute May 11:39pm COPD with acute exacerbation chronic June 03 11:39pm [facility] Work Phone: Reason for referral (narrative) Note Date & Type Note Facility Reason for referral (narrative) No reason for referral information available [facility] Work Phone: Summary Purpose Family History Relationship Condition Age at Onset Recorded Date/T stanislaw father Malignant neoplasm Unknown mother Malignant neoplasm Unknown Advance Directives Advance Directive Response Recorded Date/ Time Living Will No October 15 9:01am Power of Chemical Applicator No October 15, 2021 9:01am Advance Directive Response Recorded Date/ Time Do you have a Healthcare Power of Chemical Applicator? Yes June 03, 2025 7:08pm Chief Complaint and Reason for Visit Chief Complaint SCREENING Chief Complaint Consult Peripheral vascular disease, unspecified Reason for Visit Bilateral lower extr emity pain Chief Complaint Admit Date SOB March 16, 2025 4:33 pm Chief Complaint Admit Date SOB March 16, 2025 4:33 pm AE COPD June 03, 2025 11 :39pm Reason for Visit Admit Date Acute hypoxic on chronic hypercapnic res piratory failure June 03, 2025 11:39pm Alzheimer disease June 03, 2025 11 :39pm Medically noncompliant June 03, 2025 11:39pm Metabolic encephalopathy June 03 11:39pm Morbid obesity with BMI of 40.0-44.9, ad ult June 03, 2025 11:39pm Obstructive sleep apnea June 03 11:39pm Schizophrenia June 03, 2025 11 :39pm COPD with acute exacerbation May 11:39pm Additional Source Comments INFORMATION SOURCE (unrecogn ized section and content) DATE CREATED AUTHOR 09/12/2018 [facility] ([place]) DATE CREATED AUTHOR AUTHOR'S ORGANIZ ATION 11/12/2021 [facility] DATE CREATED AUTHOR AUTHOR'S ORGANIZ ATION 03/25/2025 [facility] Goals (unrecognized section and content) Goals may be documented in a n alternate sectionGoals may be documented in an alternate sectionGoals may be documented in an alternate sectionGoals may be documented in an alternate section Care Teams (unrecognized sec tion and content) Team Status: Active Member Role Status Dates Dena Stevens HAND OR MACHINE PASTER, HAND OR MACHINE PASTER-C Family Provider Active Dena Stevens HAND OR MACHINE PASTER, HAND OR MACHINE PASTER-C Primary Care Provider Act uyen Team Status: Inactive Member Role Status Dates Dena Stevens NP, HAND OR MACHINE PASTER-C Primary Care Provider, Re ferring Provider Active SASHA Cox Attending Provider Active Team Status: Active Member Role Status Dates Dena Stevens NP, HAND OR MACHINE PASTER-C Primary Care Provider Act uyen Dr. Mike Gallagher MD Attending Provider Active Team Status: Inactive Member Role Status Dates Dena Stevens NP, HAND OR MACHINE PASTER-C Primary Care Provider Act uyen SASHA Cox Attending Provider, Referring Provid er Active Team Status: Active Member Role Status Dates Dena Stevens HAND OR MACHINE PASTER, HAND OR MACHINE PASTER-C Primary Care Provider Act uyen Team Status: Inactive Member Role Status Dates Dena Stevens NP, HAND OR MACHINE PASTER-C Primary Care Provider Act uyen Start: March 16, 2025 End: March 16, 2025 Paulina Subramanian NP, HAND OR MACHINE PASTER-C Attending Provider Active S tart: March 16, 2025 End: March 16, 2025 Paulina Subramanian NP, HAND OR MACHINE PASTER-C Referring Provider Active S tart: March 16, 2025 End: March 16, 2025 Team Status: Active Member Role/Relationship Status Dates Dena Stevens HAND OR MACHINE PASTER, HAND OR MACHINE PASTER-C Primary Care Provider Act uyen Team Status: Inactive Member Role/Relationship Status Dates Dena Ruff Rodney HAND OR MACHINE PASTER, HAND OR MACHINE PASTER-C Primary Care Provider Act uyen Start: March 16, 2025 End: March 16, 2025 Paulina Subramanian HAND OR MACHINE PASTER, HAND OR MACHINE PASTER-C Attending Provider Active S tart: March 16, 2025 End: March 16, 2025 Paulina Subramanian NP, HAND OR MACHINE PASTER-C Referring Provider Active S tart: March 16, 2025 End: March 16, 2025 Team Status: Active Member Role/Relationship Status Dates Dena Elzbieta Stevens HAND OR MACHINE PASTER, HAND OR MACHINE PASTER-C Primary Care Provider Act uyen Start: June 03, 2025 Dr. Tobi Polanco MD Emergency Provider Active Sta rt: June 03, 2025 Dr. Reji Tidwell DO Admit Provider Active Start: June 03, 2025 Dr. Reji Tidwell DO Attending Provider Active Start: June 03, 2025 FOR RECORDS PERTAINING TO PATIENTS WHO [...] BE BASED ON THE PRIMARY CLINICAL RECORDS. [facility]. provides no warranty or guarantee of the accuracy or completeness of information in this document.
[2025-06-04 02:27] LABS: Alcohol, Blood (Medical)-Serum < 10.1 mg/dL (<=10.0)
[2025-06-04 03:00] LABS: Vitamin B12 574 pg/mL (180-914)
[2025-06-04 05:10] LABS: Hematocrit 36.9 % (37-47); Hemoglobin 11.2 g/dL (12.0-15.0); Immature Granulocytes Count 0.090 X10^3/uL (0.0-0.0); Mean Corp Hgb Conc 30.4 g/dL (32-36); Mean Corpuscular Volume 92.9 fL (81-99); Mean Platelet Vol. 10.0 fl (6.2-12.0); NRBC Flagged by Analyzer 0 % (0-5); POSITIVE DIFFERENTIAL YES; Platelet Count 172 K/mm3 (150-450); RBC Distribution Width CV 14.7 % (11.6-14.6); RBC Distribution Width SD 50.3 fl (35.1-43.9); Red Blood Count 3.97 M/mm3 (4.2-5.4); White Blood Count 10.2 K/mm3 (4.4-11.0)
[2025-06-04 05:48] LABS: AST(SGOT) 13 U/L (<=31); Alanine Aminotransfer ALT/SGPT 15 U/L (<=34); Albumin, Serum 3.8 g/dL (3.4-4.8); Alkaline Phosphatase 56 U/L (35-104); Anion Gap 9 (5-15); BUN 24 mg/dL (4-19); BUN/Creat Ratio 59.0 RATIO (10-20); Calcium,Total 9.1 mg/dL (7.6-11.0); Carbon Dioxide 30.4 mmol/L (21.0-32.0); Chloride 99 mmol/L (98-108); Estimated Creatinine Clearance 87.17 ml/min (50-250); Globulin 3.1 g/dL (2.2-4.2); Glucose 170 mg/dL (70-99); Potassium 4.9 mmol/L (3.3-5.1)
[2025-06-04 06:43] LABS: FOLATES,SERUM (FOLIC ACID) 32.30 ng/mL (4.60-34.80)
[2025-06-04] MEDS: 0.9% Normal Saline (1000mL) 1,000 ML 125 ML IV ×2 (14:56→23:44)
--- NOTE | 2025-06-04 16:25 | PN.HOSP_ITS ---
Reason for Visit Chief Complaint: SOB and Confusion. Subjective Subjective Patient was seen and examined today, she appears to be resting quietly and does not appear to be in any distress. She is currently on BiPAP, I talked briefly to the nursing facility where she resides, I confirmed that she is a full code, I also confirmed that at times patient is lethargic and does not carry on conversations. According to the care home, she has dementia. Objective Data Objective Data Vital Signs: Vital Signs Temp Pulse Resp BP Pulse Ox O2 Del Method O2 Flow Rate 98.1 F 62 19 H 109/60 85 Bi-pap 30 06/04/25 10:05 06/04/25 13:18 06/04/25 13:18 06/04/25 10:05 06/04/25 13:18 06/04/25 13:57 06/03/25 22:00 FiO2 35 06/04/25 13:18 Oxygen Flow Rate (L/min) 30 Oxygen Delivery Method Bi-pap Weight: 126.5 kg Body Mass Index (BMI) 49.4 Intake & Output: Intake and Output for Last 24 Hours 06/02/25 06/03/25 06/04/25 23:59 23:59 23:59 Intake Total 1600.00 / 1600.00 Output Total 200 / 200 Balance 1400.00 / 1400.00 Lab / Micro Data 06/04/25 05:00 06/04/25 05:00 Labs: Laboratory Results - last 24 hr 06/03/25 19:15: WBC 10.8, RBC 4.05 L, Hgb 11.7 L, Hct 37.9, MCV 93.6, MCH 28.9, MCHC 30.9 L, RDW Std Deviation 52.1 H, RDW Coeff of Humphrey 15.1 H, Plt Count 179, MPV 10.3, Immature Gran % (Auto) 0.700, Neut % (Auto) 86.7 H, Lymph % (Auto) 4.7 L, [place] % (Auto) 7.5, Eos % (Auto) 0.1, Baso % (Auto) 0.3, Absolute Neuts (auto) 9.3 H, Absolute Lymphs (auto) 0.50 L, Nucleated RBC % 0, Sodium 139, Potassium 4.8, Chloride 97 L, Carbon Dioxide 30.9, Anion Gap 12, BUN 24 H, Creatinine 0.64 L, Estim Creat Clear Calc 84.66, Est GFR (MDRD) Non-Af 96, BUN/Creatinine Ratio 37.1 H, Glucose 174 H, Lactic Acid 1.9, Calcium 9.3, Total Bilirubin 0.32, AST 16, ALT 14, Alkaline Phosphatase 62, Total Protein 6.9, Albumin 3.8, Globulin 3.1, Albumin/Globulin Ratio 1.2 06/03/25 20:23: Urine Color Yellow, Urine Clarity Clear, Urine pH 5.0, Ur Specific [place] 1.025, Urine Protein 30 H, Urine Glucose (UA) Normal, Urine Ketones 5 H, Urine Occult Blood Negative, Urine Nitrite Negative, Urine Bilirubin Negative, Urine Urobilinogen Normal, Ur Leukocyte Esterase 25 H, Urine RBC 0-5 SEEN, Urine WBC 0-5 SEEN, Ur Squamous Epith Cells 0-5 SEEN, Urine Bacteria RARE, Hyaline Casts 25-50 SEEN, Urine Mucus 1+, Urine Opiates Screen NEGATIVE, U Buprenorphine Qual NEGATIVE, Ur Oxycodone Screen NEGATIVE, Urine Methadone Screen NEGATIVE, Urine Fentanyl Screen NEGATIVE, Ur Barbiturates Screen NEGATIVE, Ur Phencyclidine Scrn NEGATIVE, Ur Amphetamines Screen PRESUMPTIVE POSITIVE, U Benzodiazepines Scrn NEGATIVE, Urine Cocaine Screen NEGATIVE, U Cannabinoids Screen NEGATIVE 06/03/25 23:32: D-Dimer Quant (PE/DVT) 1.17 H*, Magnesium 2.2, Vitamin B12 574, Serum Folate Cancelled, TSH 2.570, Ethyl Alcohol < 10.1 06/04/25 05:00: WBC 10.2, RBC 3.97 L, Hgb 11.2 L, Hct 36.9 L, MCV 92.9, MCH 28.2, MCHC 30.4 L, RDW Std Deviation 50.3 H, RDW Coeff of [place]rey 14.7 H, Plt Count 172, MPV 10.0, Immature Gran % (Auto) 0.900, Neut % (Auto) 93.3 H, Lymph % (Auto) 3.0 L, [place] % (Auto) 2.6, Eos % (Auto) 0.1, Baso % (Auto) 0.1, Absolute Neuts (auto) 9.5 H, Absolute Lymphs (auto) 0.31 L, Nucleated RBC % 0, Sodium 139, Potassium 4.9, Chloride 99, Carbon Dioxide 30.4, Anion Gap 9, BUN 24 H, C reatinine 0.40 L, Estim Creat Clear Calc 87.17, Est GFR (MDRD) Non-Af 108, B UN/Creatinine Ratio 59.0 H, Glucose 170 H, Calcium 9.1, Phosphorus 2.9, Total Bilirubin 0.26, AST 13, ALT 15, Alkaline Phosphatase 56, Total Protein 6.9, Albumin 3.8, Globulin 3.1, Albumin/Globulin Ratio 1.2, Serum Folate 32.30 Micro: Microbiology 06/04/25 00:15 Mucosa - Nasopharyngeal Respiratory Panel (PCR) - Final ABG Data ABG results: ABG 06/03/25 06/03/25 19:54 23:53 Specimen Type ART ART Sample Site R Radial L Radial pH 7.30 L 7.35 Bicarbonate Actual 34.8 H 36.8 H Total CO2 37 39 Base Excess 8 H 11 H O2 Saturation 92 L 90 L O2 % 4.0 30.0 ABG pCO2 71.1 H* 66.3 H ABG pO2 73 L 63 L Morgan Test Positive Positive Respiration Rate 14 O2 Delivery Device Cannula BiPAP Vent Mode Not entered Not entered Crit Call To/Read Back Yes Blood Gas Notified Whom Polanco Blood Gas Notified Time 19:56:09 Clinical Comments 15/7 cm H2O Radiography Diagnostic Testing: Radiology Impression Chest X-Ray 06/03/25 19:45 IMPRESSION: Hypoventilation. Minimal atelectasis. Elevation right hemidiaphragm unchanged. Reading Location: [facility] Physical Exam Const no apparent distress Constitutional Narrative: Patient has class III obesity, she responds to painful stimuli but does not carry on a conversation General Appearance: well developed HEENT normocephalic, head/scalp atraumatic and moist oral mucous membranes Eyes PERRL, EOMs intact bilaterally and conjunctivae normal Neck supple, no JVD, thyroid normal and no carotid bruits General: trachea midline Resp normal respiratory effort, no retractions, no use of accessory muscles and clear to auscultation bilaterally Auscultation: Negative for rales, rhonchi or wheezes Cardio regular rate, regular rhythm, S1 normal heart sound, S2 normal heart sound, no murmurs, no rub and no gallops GI normal to inspection, nondistended, normoactive bowel sounds, soft to palpation, non-tender and non-distended Extremity no clubbing, cyanosis or edema Skin no rashes or lesions noted General Skin Exam: no breakdown Neuro CN's II-XII intact bilaterally Neuro Narrative: Patient is lethargic, she awakens to painful stimuli Psych Psych Narrative: Patient is lethargic, she awakens to painful stimuli Assessment & Plan Assessment/Plan (1) COPD with acute exacerbation: PLAN: Plan 1. Acute exacerbation of COPD-patient will remain on IV Solu-Medrol and scheduled/as needed nebulizers, patient is currently on IV doxycycline, I will change this to Zithromax #2 acute on chronic hypoxic and hypercapnic respiratory failure secondary to chronic obstructive pulmonary disease with obstructive sleep apnea with a backdrop of noncompliance-patient is currently on BiPAP #3 metabolic encephalopathy-secondary to exacerbation of COPD and acute on chronic hypoxic and hypercapnic respiratory failure-complicates care, management, recovery, prognosis #4 Alzheimer's dementia-complicates care, management, recovery, and prognosis #5 essential hypertension-patient will be given IV medication for blood pressure control until she is alert enough to take oral medications #6 hyperlipidemia-patient is on atorvastatin, this will be held until patient is able to take oral medication #7 schizophrenia-patient receives monthly injections of medication, complicates care, management, recovery, and prognosis #8 class III obesity-complicates care, management, recovery, and prognosis Total clinical time spent by myself addressing the patient's medical issues, reviewing all of her data, and collaborating with patient's care team: 35 minutes Charges/Coding Visit Charges Inpatient E&M: [id number] Subs Hosp L2
[2025-06-04] MEDS: Azithromycin 500 MG in 0.9% Normal Saline (250mL Bag) 250 ML 250 MG IV (16:47)
[2025-06-04] MEDS: Latanoprost 0.005% 1 Bottle 1 DRP EACH EYE (20:55)
--- NOTE | 2025-06-05 01:11 | PN.HOSP_ITS ---
Reason for Visit Chief Complaint: SOB and Confusion. Subjective Subjective Notified by nursing that pt is requesting her home dosing of sleep aids as she cannot get any sleep while using the BiPAP. She reportedly takes melatonin 15mg, but it doesn't really work, and 50mg of trazodone nightly. Objective Data Objective Data Vital Signs: Vital Signs Temp Pulse Resp BP Pulse Ox O2 Del Method O2 Flow Rate 98.0 F 70 20 H 121/69 H 96 Bi-pap 30 06/04/25 16:05 06/04/25 19:11 06/04/25 19:11 06/04/25 16:05 06/04/25 19:11 06/04/25 16:05 06/03/25 22:00 FiO2 35 06/04/25 19:11 Oxygen Flow Rate (L/min) 30 Oxygen Delivery Method Bi-pap Weight: 278 lb 14.156 oz Body Mass Index (BMI) 49.4 Intake & Output: Intake and Output for Last 24 Hours 06/03/25 06/04/25 06/05/25 23:59 23:59 23:59 Intake Total 2950.00 / 2950.00 Output Total 425 / 425 Balance 2525.00 / 2525.00 Lab / Micro Data 06/04/25 05:00 06/04/25 05:00 Labs: Laboratory Results - last 24 hr 06/03/25 20:23: Urine Cocaine Screen NEGATIVE 06/03/25 23:32: Magnesium 2.2, Vitamin B12 574, Serum Folate Cancelled, TSH 2.570, Ethyl Alcohol < 10.1 06/04/25 05:00: WBC 10.2, RBC 3.97 L, Hgb 11.2 L, Hct 36.9 L, MCV 92.9, MCH 28.2, MCHC 30.4 L, RDW Std Deviation 50.3 H, RDW Coeff of Humphrey 14.7 H, Plt Count 172, MPV 10.0, Immature Gran % (Auto) 0.900, Neut % (Auto) 93.3 H, Lymph % (Auto) 3.0 L, [place] % (Auto) 2.6, Eos % (Auto) 0.1, Baso % (Auto) 0.1, Absolute Neuts (auto) 9.5 H, Absolute Lymphs (auto) 0.31 L, Nucleated RBC % 0, Sodium 139, Potassium 4.9, Chloride 99, Carbon Dioxide 30.4, Anion Gap 9, BUN 24 H, C reatinine 0.40 L, Estim Creat Clear Calc 87.17, Est GFR (MDRD) Non-Af 108, B UN/Creatinine Ratio 59.0 H, Glucose 170 H, Calcium 9.1, Phosphorus 2.9, Total Bilirubin 0.26, AST 13, ALT 15, Alkaline Phosphatase 56, Total Protein 6.9, Albumin 3.8, Globulin 3.1, Albumin/Globulin Ratio 1.2, Serum Folate 32.30 Micro: Microbiology 06/04/25 00:15 Mucosa - Nasopharyngeal Respiratory Panel (PCR) - Final Assessment & Plan Assessment/Plan (1) COPD with acute exacerbation: PLAN: * known noncompliance with BiPAP home therapy * trazodone 50mg PO x1 now placed, she MUST be on BiPAP if taking
[2025-06-05 01:15] VITALS: PULSE 63; RESP 14; RESP 21; O2SAT 97
[2025-06-05 02:00] VITALS: BP 132/74; PULSE 65; RESP 18; TEMP 36.6; O2SAT 95
[2025-06-05 04:50] VITALS: PULSE 70; RESP 14; RESP 18; O2SAT 94
[2025-06-05 05:32] VITALS: BMI 46.8
[2025-06-05] MEDS: Albuterol 2.5 MG/3 ML VIAL.NEB. INHALATION ×2 (06:53→14:23)
[2025-06-05 06:54] VITALS: PULSE 69; RESP 18; O2SAT 94
[2025-06-05 08:00] VITALS: BP 140/76; PULSE 69; RESP 18; TEMP 36.3; O2SAT 93
[2025-06-05] MEDS: 0.9% Normal Saline (1000mL) 1,000 ML 125 ML IV (08:22)
[2025-06-05] MEDS: Azithromycin 500 MG in 0.9% Normal Saline (250mL Bag) 250 ML 250 MG IV (08:31)
--- NOTE | 2025-06-05 10:09 | CASEMGMT ---
ANAY CARLOS in to discuss discharge planning with patient. Patient states she will return to [facility] when medically ready. Patient had no further questions or concerns. ANAY CARLOS called daughter, Leonor YEAGER, to update to plan, no answer, voice message left with return contact information. ANAY CARLOS updated DC planning manager to send updated clinicals to [facility] [place]. CM will continue to follow this patient and plan for a safe discharge.
[2025-06-05] MEDS: Memantine Hydrochloride 10 MG Tablet PO (10:12)
[2025-06-05] MEDS: buPROPion (SR) 150 MG Tablet.SA PO (10:12)
--- NOTE | 2025-06-05 10:27 | CASEMGMT ---
Discharge Planning Updates sent to [facility] with note that pt may return today. Abiola Cordon DC Planning Asst.
--- NOTE | 2025-06-05 11:02 | CASEMGMT ---
Social Work [facility] did send over POA for Healthcare, LW provision initialed. Daughter Leonor Suazo listed as HCPOA. DADISON Hyatt
--- NOTE | 2025-06-05 12:58 | PCM.TXEXTCAR ---
Diet Diet Order/Speech Therapy: INPATIENT Hospital Diet / Speech Therapy Order(s) 06/05/25 09:02 ADA [Diet: Consistent Carb - Calorie Controlled] How many daily calories?: 1800 calorie Routine Orders/Code Status Code Status: Full Code DC O2, CPAP, BIPAP needs Home O2 Discharge instructions: Yes Type of respiratory needs?: Oxygen Oxygen frequency: Continuous Continuous oxygen liters per minute: 5 L and BiPAP BiPAP instructions: Resume previous BiPAP settings at nursing facility when sleeping Therapies Weight Bearing: Weight bearing as tolerated Problem/Diagnosis (1) COPD with acute exacerbation: Status: Chronic Code(s): J44.1 - Chronic obstructive pulmonary disease with (acute) exacerbation Plan 1. Acute exacerbation of COPD #2 acute on chronic hypoxic and hypercapnic respiratory failure secondary to chronic obstructive pulmonary disease with obstructive sleep apnea with a backdrop of noncompliance-patient is currently on BiPAP #3 metabolic encephalopathy-secondary to exacerbation of COPD and acute on chronic hypoxic and hypercapnic respiratory failure-complicates care, management, recovery, prognosis #4 Alzheimer's dementia-complicates care, management, recovery, and prognosis #5 essential hypertension-patient will be given IV medication for blood pressure control until she is alert enough to take oral medications #6 hyperlipidemia-patient is on atorvastatin, this will be held until patient is able to take oral medication #7 schizophrenia-patient receives monthly injections of medication, complicates care, management, recovery, and prognosis #8 class III obesity-complicates care, management, recovery, and prognosis Total clinical time spent by myself addressing the patient's medical issues, reviewing all of her data, and collaborating with patient's care team: 35 minutes Allergies/Procedures Done in Hospital Allergies No Known Allergies Allergy (Verified 06/04/25 01:06) Procedures: None Type of Care/Length of Stay Estimated LOS: More Than 30 Days Type of Care Needed: Intermediate Rehab Potential: Fair Prognosis: Fair Additional Orders/Day of Discharge H&P will serve as current which was dated: 06/03/25 Day of Discharge: 06/05/25 Dietary and Speech Recommendations Dietitian Recommendations/Changes: Recommend 1800kcal consistent carbohydrate diet to manage blood sugars and weight. Discharge Plan Admission Admit Date/Time: 06/03/25 23:17 Primary Reason for Your Visit: Exacerbation of COPD, metabolic encephalopathy Attending Provider: Noah Huerta Primary Care Provider: Dena Stevens TOILET PRODUCTS MOLDER Consulting Providers: Reji Tidwell Discharge Orders/Prescriptions Prescriptions: New nystatin 100,000 unit/gram Powder 1 applic topical BID Qty: 0 0RF Protocol: *Topical Application Instructions APPLICATION INSTRUCTIONS: under breasts prednisone 20 mg tablet 20 mg PO BID Qty: 14 0RF Rx Instructions: Take for total of 14 doses then discontinue azithromycin [Zithromax] 500 mg tablet 500 mg PO DAILY 3 Days Qty: 3 0RF Rx Instructions: Start 06/06/2025 Continued lisinopril 20 mg tablet 20 mg PO QHS atorvastatin 20 mg tablet 20 mg PO QHS calcium polycarbophil [Fiber-Lax] 625 mg tablet 625 mg PO BID ipratropium bromide 42 mcg (0.06 %) spray,non-aerosol 2 spray intranasal BID benztropine 0.5 mg tablet 0.5 mg PO BID PRN (Reason: shakes) loperamide 2 mg capsule 2 mg PO Q6H PRN (Reason: loose stool) guaifenesin [Child Mucus Relief Expectorant] 100 mg/5 mL liquid 200 mg PO Q8H PRN (Reason: cough) magnesium hydroxide [Milk of Magnesia] 400 mg/5 mL suspension 30 ml PO DAILY PRN (Reason: constipation) dicyclomine 20 mg tablet 20 mg PO BID PRN (Reason: abdominal pain) polyethylene glycol 3350 17 gram/dose powder 4 g PO DAILY PRN (Reason: constipation) bupropion HCl 150 MG tablet sustained-release 12 hr 150 mg PO BID sertraline 100 MG tablet 200 mg PO DAILY acetaminophen 325 MG tablet 1,000 mg PO TID memantine 10 MG tablet 10 mg PO BID omega-3 fatty acids-fish oil 1 EACH capsule 1 cap PO BID docusate sodium 100 mg capsule 100 mg PO QHS donepezil [Aricept] 10 MG tablet 10 mg PO DAILY lisinopril 5 mg tablet 5 mg PO QHS melatonin 5 mg tablet 15 mg PO QHS latanoprost 1 DROP bottle 1 drp EACH EYE QHS omeprazole 20 MG capsule 20 mg PO DAILY Lactobacillus acidophilus 1 EACH capsule 1 ea PO DAILY Invega Sustenna 234 mg/1.5 mL syringe 234 mg IM Q4W Zyrtec 10 mg capsule 10 mg PO DAILY sennosides-docusate sodium [Stool Softener-Stimulant Laxat] 8.6-50 mg Tablet 2 tab PO BID Qty: 0 0RF fluticasone propion-salmeterol [Advair Diskus] 250-50 mcg/dose blister with device 1 ea inhalation BID albuterol sulfate 90 mcg/actuation HFA aerosol inhaler 2 puff inhalation Q4H PRN (Reason: SOB) ondansetron HCl 4 mg tablet 4 mg PO Q8H PRN PRN (Reason: nausea and vomiting) olanzapine 20 mg tablet 20 mg PO QHS trazodone 50 mg tablet 50 mg PO QHS Referrals / Follow Up: Dena Stevens TOILE[employer] PRODUCTS MOLDER, TOILE[employer] PRODUCTS MOLDER-C [Primary Care Provider] - Disposition Disposition (needs filled in before D/C Order can be placed): NonSkilled NH/Intermed Care
--- NOTE | 2025-06-05 14:56 | PCM.DC.SUM ---
Providers Date of Admission: 06/03/25 Date of Discharge: 06/05/25 Primary Care Physician: Dena Stevens, BUSINESS OFFICE REPRESENTATIVETheodore Reason For Visit: AE COPD RESP FAILURE ON BIPAP AND AMS Diagnosis Discharge Diagnosis (1) COPD with acute exacerbation: Status: Chronic Code(s): J44.1 - Chronic obstructive pulmonary disease with (acute) exacerbation Plan 1. Acute exacerbation of COPD #2 acute on chronic hypoxic and hypercapnic respiratory failure secondary to chronic obstructive pulmonary disease with obstructive sleep apnea with a backdrop of noncompliance-patient is currently on BiPAP #3 metabolic encephalopathy-secondary to exacerbation of COPD and acute on chronic hypoxic and hypercapnic respiratory failure-complicates care, management, recovery, prognosis #4 Alzheimer's dementia-complicates care, management, recovery, and prognosis #5 essential hypertension-patient will be given IV medication for blood pressure control until she is alert enough to take oral medications #6 hyperlipidemia-patient is on atorvastatin, this will be held until patient is able to take oral medication #7 schizophrenia-patient receives monthly injections of medication, complicates care, management, recovery, and prognosis #8 class III obesity-complicates care, management, recovery, and prognosis Total clinical time spent by myself addressing the patient's medical issues, reviewing all of her data, and collaborating with patient's care team: 35 minutes Medications at Discharge Home Medications bupropion HCl 150 mg tablet,12 hr sustained-release 150 mg PO BID mental health 12/15/17 sertraline 100 mg tablet 200 mg PO DAILY depression 12/15/17 acetaminophen 325 mg tablet 1,000 mg PO TID PAIN 04/09/19 memantine 10 mg tablet 10 mg PO BID MEMORY 07/05/19 omega-3 fatty acids-fish oil 340 mg-1,000 mg capsule 1 cap PO BID SUPPLEMENT 12/11/19 donepezil 10 mg tablet (Aricept) 10 mg PO DAILY MEMORY 02/07/20 Lactobacillus acidophilus 1 ea PO DAILY 11/15/20 latanoprost 0.005 % eye drops 1 drp EACH EYE QHS 11/15/20 omeprazole 20 mg capsule,delayed release 20 mg PO DAILY 11/15/20 lisinopril 20 mg tablet 20 mg PO QHS 11/04/21 atorvastatin 20 mg tablet 20 mg PO QHS 09/21/23 benztropine 0.5 mg tablet 0.5 mg PO BID PRN shakes 09/21/23 calcium polycarbophil 625 mg tablet (Fiber-Lax) 625 mg PO BID 09/21/23 cetirizine 10 mg capsule (Zyrtec) 10 mg PO DAILY ALLERGIES 09/21/23 dicyclomine 20 mg tablet 20 mg PO BID PRN abdominal pain 09/21/23 docusate sodium 100 mg capsule 100 mg PO QHS CONSTIPATION 09/21/23 guaifenesin 100 mg/5 mL oral liquid (Child Mucus Relief Expectorant) 200 mg PO Q8H PRN cough 09/21/23 ipratropium bromide 42 mcg (0.06 %) nasal spray 2 spray intranasal BID 09/21/23 lisinopril 5 mg tablet 5 mg PO QHS BP 09/21/23 loperamide 2 mg capsule 2 mg PO Q6H PRN loose stool 09/21/23 magnesium hydroxide 400 mg/5 mL oral suspension (Milk of Magnesia) 30 ml PO DAILY PRN constipation 09/21/23 melatonin 5 mg tablet 15 mg PO QHS SLEEP 09/21/23 paliperidone palmitate 234 mg/1.5 mL intramuscular syringe (Invega Sustenna) 234 mg IM Q4W 09/21/23 polyethylene glycol 3350 17 gram/dose oral powder 4 g PO DAILY PRN constipation 09/21/23 sennosides 8.6 mg-docusate sodium 50 mg tablet (Stool Softener-Stimulant Laxative) 2 tab PO BID #0 tabs 03/07/24 albuterol sulfate 90 mcg/actuation aerosol inhaler 2 puff inhalation Q4H PRN SOB 06/03/25 fluticasone 250 mcg-salmeterol 50 mcg/dose blistr powdr for inhalation (Advair Diskus) 1 ea inhalation BID 06/03/25 olanzapine 20 mg tablet 20 mg PO QHS 06/03/25 ondansetron HCl 4 mg tablet 4 mg PO Q8H PRN PRN nausea and vomiting 06/03/25 trazodone 50 mg tablet 50 mg PO QHS 06/03/25 azithromycin 500 mg tablet (Zithromax) 500 mg PO DAILY 3 days #3 tabs 06/05/25 nystatin 100,000 unit/gram topical powder 1 applic topical BID #0 grams 06/05/25 prednisone 20 mg tablet 20 mg PO BID #14 tabs 06/05/25 azithromycin 250 mg tablet 250 mg PO UD 06/07/25 fluticasone 250 mcg-salmeterol 50 mcg/dose blistr powdr for inhalation (Advair Diskus) 1 inh inhalation BID 06/07/25 Hospital Course Operations None Procedures None Summary of Care Provided Minutes Spent on Discharge: 31 Hospital Course: This 70-year-old white female was seen in the emergency room at [facility] with shortness of breath and generalized fatigue. Patient was noted to be disoriented and was able to answer most questions correctly, she was from a nursing facility and was known to be noncompliant with her BiPAP usage. She has a history of COPD and obstructive sleep apnea. Workup in the emergency room showed a normal CBC with the exception of a hemoglobin of 11.7, chemistry profile was remarkable for BUN of 24 and a glucose of 174. Urinalysis showed rare bacteria and was essentially unremarkable. Arterial blood gas was obtained which showed a pH of 7.3, patient's pCO2 was 71 and patient's pO2 was 73. This was on nasal cannula oxygen, patient was on nasal cannula oxygen at the nursing facility at her baseline. Chest x-ray showed hypoventilation with minimal atelectasis and an elevation of the right hemidiaphragm which was chronic. Patient was admitted to PCU for acute on chronic hypercapnic/hypoxic respiratory failure with exacerbation of COPD, patient was placed on nebulizers, IV Zithromax, and IV Solu-Medrol. Pulse ox was monitored, patient was felt to have metabolic encephalopathy secondary to her respiratory failure and exacerbation of COPD. The following day, patient's mental status improved and she was able to answer questions appropriately and able to take oral medications and food. On 06/05/2025, patient was seen and examined:no apparent distress Constitutional Narrative: Patient has class III obesity, she responds to painful stimuli but does not carry on a conversation General Appearance: well developed HEENT normocephalic, head/scalp atraumatic and moist oral mucous membranes Eyes PERRL, EOMs intact bilaterally and conjunctivae normal Neck supple, no JVD, thyroid normal and no carotid bruits General: trachea midline Resp normal respiratory effort, no retractions, no use of accessory muscles and clear to auscultation bilaterally Auscultation: Negative for rales, rhonchi or wheezes Cardio regular rate, regular rhythm, S1 normal heart sound, S2 normal heart sound, no murmurs, no rub and no gallops GI normal to inspection, nondistended, normoactive bowel sounds, soft to palpation, non-tender and non-distended Extremity no clubbing, cyanosis or edema Skin no rashes or lesions noted General Skin Exam: no breakdown Neuro CN's II-XII intact bilaterally Neuro Narrative: Patient is lethargic, she awakens to painful stimuli Psych Psych Narrative: Patient is lethargic, she awakens to painful stimuli On 06/05/2025, patient was felt to be stable for discharge back to her intermediate care nursing facility. Weight / BMI Weight Weight: 120 kg Body Mass Index (BMI) 46.8 ABG / Lab / Microbiology Data 06/04/25 05:00 06/04/25 05:00 Laboratory: Laboratory Results - last 24 hr 06/05/25 05:35: Phosphorus 2.1 L Microbiology: Microbiology 06/04/25 00:15 Mucosa - Nasopharyngeal Respiratory Panel (PCR) - Final D/C Instructions DC O2, CPAP, BIPAP Needs Home O2 Discharge instructions: Yes Type of respiratory needs?: Oxygen Oxygen frequency: Continuous Continuous oxygen liters per minute: 5 L and BiPAP BiPAP instructions: Resume previous BiPAP settings at nursing facility when sleeping DC home with Oxygen: Yes Home O2 MD Review: I have reviewed the oxygen testing, and the patient qualifies for home oxygen equipment and portability. The patient is mobile in the home and the community. Meaningful Use Info Meaningful Use Meaningful Use Diagnoses (Choose all that apply): None applicable Discharge Plan Admission Admit Date/Time: 06/03/25 23:17 Primary Reason for Your Visit: Exacerbation of COPD, metabolic encephalopathy Attending Provider: Noah Huerta Primary Care Provider: Dena Stevens BUSINESS OFFICE REPRESENTATIVE Consulting Providers: Reji Tidwell Discharge Orders/Prescriptions Prescriptions: New nystatin 100,000 unit/gram Powder 1 applic topical BID Qty: 0 0RF Protocol: *Topical Application Instructions APPLICATION INSTRUCTIONS: under breasts prednisone 20 mg tablet 20 mg PO BID Qty: 14 0RF Rx Instructions: Take for total of 14 doses then discontinue azithromycin [Zithromax] 500 mg tablet 500 mg PO DAILY 3 Days Qty: 3 0RF Rx Instructions: Start 06/06/2025 Continued lisinopril 20 mg tablet 20 mg PO QHS atorvastatin 20 mg tablet 20 mg PO QHS calcium polycarbophil [Fiber-Lax] 625 mg tablet 625 mg PO BID ipratropium bromide 42 mcg (0.06 %) spray,non-aerosol 2 spray intranasal BID benztropine 0.5 mg tablet 0.5 mg PO BID PRN (Reason: shakes) loperamide 2 mg capsule 2 mg PO Q6H PRN (Reason: loose stool) guaifenesin [Child Mucus Relief Expectorant] 100 mg/5 mL liquid 200 mg PO Q8H PRN (Reason: cough) magnesium hydroxide [Milk of Magnesia] 400 mg/5 mL suspension 30 ml PO DAILY PRN (Reason: constipation) dicyclomine 20 mg tablet 20 mg PO BID PRN (Reason: abdominal pain) polyethylene glycol 3350 17 gram/dose powder 4 g PO DAILY PRN (Reason: constipation) bupropion HCl 150 MG tablet sustained-release 12 hr 150 mg PO BID sertraline 100 MG tablet 200 mg PO DAILY acetaminophen 325 MG tablet 1,000 mg PO TID memantine 10 MG tablet 10 mg PO BID omega-3 fatty acids-fish oil 1 EACH capsule 1 cap PO BID docusate sodium 100 mg capsule 100 mg PO QHS donepezil [Aricept] 10 MG tablet 10 mg PO DAILY lisinopril 5 mg tablet 5 mg PO QHS melatonin 5 mg tablet 15 mg PO QHS latanoprost 1 DROP bottle 1 drp EACH EYE QHS omeprazole 20 MG capsule 20 mg PO DAILY Lactobacillus acidophilus 1 EACH capsule 1 ea PO DAILY Invega Sustenna 234 mg/1.5 mL syringe 234 mg IM Q4W Zyrtec 10 mg capsule 10 mg PO DAILY sennosides-docusate sodium [Stool Softener-Stimulant Laxat] 8.6-50 mg Tablet 2 tab PO BID Qty: 0 0RF fluticasone propion-salmeterol [Advair Diskus] 250-50 mcg/dose blister with device 1 ea inhalation BID albuterol sulfate 90 mcg/actuation HFA aerosol inhaler 2 puff inhalation Q4H PRN (Reason: SOB) ondansetron HCl 4 mg tablet 4 mg PO Q8H PRN PRN (Reason: nausea and vomiting) olanzapine 20 mg tablet 20 mg PO QHS trazodone 50 mg tablet 50 mg PO QHS No Action azithromycin 250 mg tablet 250 mg PO UD fluticasone propion-salmeterol [Advair Diskus] 250-50 mcg/dose blister with device 1 inh inhalation BID Referrals / Follow Up: Dena Stevens BUSINESS OFFICE REPRESENTATIVE, BUSINESS OFFICE REPRESENTATIVE-C [Primary Care Provider] - Disposition Disposition (needs filled in before D/C Order can be placed): NonSkilled NH/Intermed Care Charges/Coding Visit Charges Inpatient E&M: 80482 Disch Hosp >30min
--- NOTE | 2025-06-05 14:59 | CHAPLAIN ---
Type of Pastoral Visit _x__ Initial Visit ___ Follow-up Visit ___ On-call Visit ___ General Patient Visit ___ Spiritual Assessment ___ Family Conference ___ Bereavement ___ Rapid Response ___ Code Blue ___ Other (describe below) Pastoral Care Referral From _x__ Patient ___ Family ___ Nurse ___ Physician ___ Travel Counselor ___ Duck Farmer ___ Other (describe below) Sacrament/Intervention _x__ Active listening ___ Anointing ___ Rastafari ___ Bereavement ___ Communion ___ [place]zbieta exploration ___ ___ Life review ___ Prayer ___ Reconciliation ___ Sacrament of Sick _x__ Supportive presence ___ Wedding ___ Other (describe below) Pastoral Comments patient states that she is doing better and that after she eats lunch she should be able to return to [facility]; pt states that she is hoping to walk again from therapy [facility]; pt denies needs or concerns
[2025-06-05 15:25] VITALS: BP 140/76; PULSE 69; RESP 18; TEMP 36.3; O2SAT 93
--- NOTE | 2025-06-05 15:37 | CASEMGMT ---
Discharge Planning Discharge orders, signed med list, and transport time sent to [place] [facility]. Physicians will transport pt by cot at 5p. Needs for cot include; COPD, metabolic encephalopathy, Alzheimers, eddi at baseline, and A/O x2-3. MARY, RN CM, and pts daughter/HC POA (Leonor) updated. Abiola Cordon DC Planning Asst.
--- NOTE | 2025-06-05 15:49 | CASEMGMT ---
Patient has order for discharge. Patient to discharge to [facility] under intermediate level of care. Discharge planning aide to complete discharge. Transport setup at 5pm and nursing notified.
--- NOTE | 2025-06-05 15:58 | NURSING ---
Report called to nurse Lopez for pt to be d/c back to [facility].
== END 2025-06-05 17:51 | disposition intermediate care facility (04) | DRG 133 ==
LOC: ED 23:36 → PCU 23:52
PROVIDERS: Admitting Provider Internal Medicine; Emergency Provider Emergency Medicine; PCP Nurse Practitioner Adult Health; Visit Provider Internal Medicine
DX: J96.22 Acute and chronic respiratory failure with hypercapnia (principal); G93.41 Metabolic encephalopathy; J44.1 Chronic obstructive pulmonary disease with (acute) exacerbation; F20.0 Paranoid schizophrenia; G30.9 Alzheimer's disease, unspecified; E66.813 Obesity, class 3; I10 Essential (primary) hypertension; F32.A Depression, unspecified; Z68.42 Body mass index [BMI] 45.0-49.9, adult; J96.21 Acute and chronic respiratory failure with hypoxia; F41.9 Anxiety disorder, unspecified; M19.90 Unspecified osteoarthritis, unspecified site; G47.33 Obstructive sleep apnea (adult) (pediatric); E78.5 Hyperlipidemia, unspecified; K21.9 Gastro-esophageal reflux disease without esophagitis; F02.80 Dementia in other diseases classified elsewhere, unspecified severity, without behavioral disturbance, psychotic disturbance, mood disturbance, and anxiety; Z91.199 Patient's noncompliance with other medical treatment and regimen due to unspecified reason; R50.9 Fever, unspecified; H40.9 Unspecified glaucoma; Z79.51 Long term (current) use of inhaled steroids; G89.29 Other chronic pain; Z79.899 Other long term (current) drug therapy; Z87.891 Personal history of nicotine dependence
CPT/HCPCS: 36415; 36600; 71045; 80053; 80307; 81001; 82077; 82607; 82746; 82803; 83605; 83735; 84100; 84443; 85025; 85379; 87633; 93005; 94002; 94003; 94640; 94762; 97161; 97166; 99252; 99285; P9612; A4216; G0463

== ENCOUNTER 2025-06-07 12:08 | Emergency (ER) | payer MEDICAID, SELFPAY ==
[2025-06-07] VITALS (9 sets, daily range): BP systolic 107–161; BP diastolic 61–101; PULSE 66–83; RESP 18–74; TEMP 36.8–36.9; O2SAT 92–97; BMI 49.0
--- NOTE | 2025-06-07 12:21 | EKG12_ITS ---
Test Reason : SOB Blood Pressure : */* mmHG Vent. Rate : 73 BPM Atrial Rate : 73 BPM P-R Int : 148 ms QRS Dur : 96 ms QT Int : 378 ms P-R-T Axes : 68 -11 50 degrees QTcB Int : 416 ms Sinus rhythm with occasional Premature ventricular complexes Low voltage QRS Cannot rule out Anterior infarct (cited on or before 03-Jun-2025) Abnormal ECG Confirmed by CHERI PELLETIER, AJAY ([id number]), editor at large DANAE GOODEN ([id number]) on 06/11/2025 9:02:25 AM Referred By: YOMAIRA/MAU Confirmed By: AJAY ALONZO MD
[2025-06-07] MEDS: 0.9% Normal Saline (1000mL) 1,000 ML 999 ML IV (12:31)
[2025-06-07 12:35] LABS: Hematocrit 37.1 % (37-47); Hemoglobin 11.2 g/dL (12.0-15.0); Immature Granulocytes Count 0.290 X10^3/uL (0.0-0.0); Mean Corp Hgb Conc 30.2 g/dL (32-36); Mean Corpuscular Volume 93.2 fL (81-99); Mean Platelet Vol. 9.7 fl (6.2-12.0); NRBC Flagged by Analyzer 0 % (0-5); Platelet Count 196 K/mm3 (150-450); RBC Distribution Width CV 14.4 % (11.6-14.6); RBC Distribution Width SD 49.0 fl (35.1-43.9); Red Blood Count 3.98 M/mm3 (4.2-5.4); White Blood Count 6.7 K/mm3 (4.4-11.0)
--- NOTE | 2025-06-07 12:44 | EDS_ITS ---
HPI History of Present Illness Chief Complaint: Shortness of Breath Narrative Narrative: Patient is a 70-year-old female with past medical history of mitral valve regurgitation, MIK, GERD, COPD, anxiety, depression on 2 L nasal cannula chronically who presents to the emergency department chief complaint of shortness of breath. Per EMS when they arrived the care home noted that she was 83% on 8 L nasal cannula. Per respiratory therapy when they arrived here she was able to turn her oxygen down to her baseline and she was saturating normal at 95%. Patient states that she has no complaints at this point time. States that she was recently here in the emergency department. [facility] Medical History Mitral valve regurgitation Hx of steroid therapy Nicotine dependence, cigarettes, in remission MIK (obstructive sleep apnea) Barretts esophagus Chronic back pain Alzheimer disease GERD (gastroesophageal reflux disease) Obstructive sleep apnea Obesity Nicotine dependence Schizophrenia Anxiety and depression COPD (chronic obstructive pulmonary disease) Essential (primary) hypertension Hyperlipidemia Home Medications ?Medication ?Instructions ?Recorded ?Last Taken ?Type bupropion HCl 150 mg tablet,12 hr 150 mg PO BID mental health 12/15/17 02/06/20 History sustained-release sertraline 100 mg tablet 200 mg PO DAILY depression 0 12/15/17 02/06/20 History acetaminophen 325 mg tablet 1,000 mg PO TID PAIN 04/0902/06/20 History memantine 10 mg tablet 10 mg PO BID MEMORY 07/05/19 02/06/20 History omega-3 fatty acids-fish oil 340 1 cap PO BID SUPPLEME NT 12/11/19 02/06/20 History mg-1,000 mg capsule donepezil 10 mg tablet (Aricept) 10 mg PO DAILY MEMORY 02/07/20 02/04/20 History Lactobacillus acidophilus 1 ea PO DAILY 11/15/20 Unkno wn History latanoprost 0.005 % eye drops 1 drp EACH EYE QHS 11/15 Unknown History omeprazole 20 mg capsule,delayed 20 mg PO DAILY Unknown History release lisinopril 20 mg tablet 20 mg PO QHS 11/04/21 Unknow n History atorvastatin 20 mg tablet 20 mg PO QHS 09/21/23 Unknow n History benztropine 0.5 mg tablet 0.5 mg PO BID PRN shakes Unknown History calcium polycarbophil 625 mg 625 mg PO BID 09/21/23 Un known History tablet (Fiber-Lax) cetirizine 10 mg capsule (Zyrtec) 10 mg PO DAILY ALLER GIES 09/21/23 Unknown History dicyclomine 20 mg tablet 20 mg PO BID PRN abdominal p ain 09/21/23 Unknown History docusate sodium 100 mg capsule 100 mg PO QHS CONSTIPAT ION 09/21/23 Unknown History guaifenesin 100 mg/5 mL oral 200 mg PO Q8H PRN cough 1 11/22/22 Unknown History liquid (Child Mucus Relief Expectorant) ipratropium bromide 42 mcg (0.06 2 spray intranasal BI D 09/21/23 Unknown History %) nasal spray lisinopril 5 mg tablet 5 mg PO QHS BP 09/21/23 Unkn own History loperamide 2 mg capsule 2 mg PO Q6H PRN loose stool 09/21/23 Unknown History magnesium hydroxide 400 mg/5 mL 30 ml PO DAILY PRN con stipation 09/21/23 Unknown History oral suspension (Milk of Magnesia) melatonin 5 mg tablet 15 mg PO QHS SLEEP 09/21/23 Unknown History paliperidone palmitate 234 mg/1.5 234 mg IM Q4W Unknown History mL intramuscular syringe (Invega Sustenna) polyethylene glycol 3350 17 4 g PO DAILY PRN constipat ion 09/21/23 Unknown History gram/dose oral powder sennosides 8.6 mg-docusate sodium 2 tab PO BID #0 tabs 03/07/24 Unknown Rx 50 mg tablet (Stool Softener-Stimulant Laxative) albuterol sulfate 90 mcg/actuation 2 puff inhalation Q 4H PRN SOB 06/03/25 Unknown History aerosol inhaler fluticasone 250 mcg-salmeterol 50 1 ea inhalation BID 06/03/25 Unknown History mcg/dose blistr powdr for inhalation (Advair Diskus) olanzapine 20 mg tablet 20 mg PO QHS 06/03/25 Unknow n History ondansetron HCl 4 mg tablet 4 mg PO Q8H PRN PRN nausea and 06/03/25 Unknown History vomiting trazodone 50 mg tablet 50 mg PO QHS 06/03/25 Unknow n History azithromycin 500 mg tablet 500 mg PO DAILY 3 days #3 t abs 06/05/25 Unknown Rx (Zithromax) nystatin 100,000 unit/gram topical 1 applic topical BI D #0 grams 06/05/25 Unknown Rx powder prednisone 20 mg tablet 20 mg PO BID #14 tabs Unknown Rx azithromycin 250 mg tablet 250 mg PO UD 06/07/25 Unkno wn History fluticasone 250 mcg-salmeterol 50 1 inh inhalation BID 06/07/25 Unknown History mcg/dose blistr powdr for inhalation (Advair Diskus) Allergy/AdvReac Type Severity Reaction Status Date / Time No Known Allergies Allergy Verified 06/07/25 12:14 Family History Father Cancer Mother Cancer Surgical History History of esophagogastroduodenoscopy (EGD) (~2015) History of colonoscopy History of tubal ligation History of tooth extraction Social History household members: none housing: assisted living facility Smoking Status: Former smoker alcohol intake: never substance use type: does not use caffeine: Yes what type of physical activity do you participate in: none seatbelt use: sometimes do you feel safe at home: Yes additional social history: Single-Lives at [facility] EXAM Physical Exam Const Vital Signs: 06/07/25 12:10 06/07/25 12:14 06/07/25 12:16 Temperature 98.3 F 98.3 F Temperature Source Oral Oral Pulse Rate 83 73 Respiratory Rate 22 H 74 H Respiratory Effort Normal Non-Labored Respiratory Depth Normal Respiratory Pattern Normal Blood Pressure 161/76 H 161/76 H Blood Pressure Mean 104 104 Pulse Ox 97 94 Oxygen Delivery Method Nasal Cannula Nasal Cannula Nasal Cannula Oxygen Flow Rate (L/min) 4 3 3 06/07/25 12:22 06/07/25 13:14 06/07/25 14:00 Temperature 98.4 F 98.2 F Temperature Source Oral Oral Pulse Rate 74 67 Respiratory Rate 21 H 21 H Respiratory Effort Respiratory Depth Respiratory Pattern Blood Pressure 134/101 H 107/61 Blood Pressure Mean 112 76 Pulse Ox 93 92 Oxygen Delivery Method Nasal Cannula Nasal Cannula Nasal Cannula
--- NOTE | 2025-06-07 12:44 | EX.ED.DYSGE1 ---
HPI History of Present Illness Chief Complaint: Shortness of Breath Narrative Narrative: Patient is a 70-year-old female with past medical history of mitral valve regurgitation, MIK, GERD, COPD, anxiety, depression on 2 L nasal cannula chronically who presents to the emergency department chief complaint of shortness of breath. Per EMS when they arrived the snf noted that she was 83% on 8 L nasal cannula. Per respiratory therapy when they arrived here she was able to turn her oxygen down to her baseline and she was saturating normal at 95%. Patient states that she has no complaints at this point time. States that she was recently here in the emergency department. [facility] Medical History Mitral valve regurgitation Hx of steroid therapy Nicotine dependence, cigarettes, in remission MIK (obstructive sleep apnea) Barretts esophagus Chronic back pain Alzheimer disease GERD (gastroesophageal reflux disease) Obstructive sleep apnea Obesity Nicotine dependence Schizophrenia Anxiety and depression COPD (chronic obstructive pulmonary disease) Essential (primary) hypertension Hyperlipidemia Home Medications ?Medication ?Instructions ?Recorded ?Last Taken ?Type bupropion HCl 150 mg tablet,12 hr 150 mg PO BID mental health 12/15/17 02/06/20 History sustained-release sertraline 100 mg tablet 200 mg PO DAILY depression 12/15/17 02/06/20 History acetaminophen 325 mg tablet 1,000 mg PO TID PAIN 04/09/19 02/06/20 History memantine 10 mg tablet 10 mg PO BID MEMORY 07/05/19 02/06/20 History omega-3 fatty acids-fish oil 340 1 cap PO BID SUPPLEMENT 12/11/19 02/06/20 History mg-1,000 mg capsule donepezil 10 mg tablet (Aricept) 10 mg PO DAILY MEMORY 02/07/20 02/04/20 History Lactobacillus acidophilus 1 ea PO DAILY 11/15/20 Unknown History latanoprost 0.005 % eye drops 1 drp EACH EYE QHS 11/15/20 Unknown History omeprazole 20 mg capsule,delayed 20 mg PO DAILY 11/15/20 Unknown History release lisinopril 20 mg tablet 20 mg PO QHS 11/04/21 Unknown History atorvastatin 20 mg tablet 20 mg PO QHS 09/21/23 Unknown History benztropine 0.5 mg tablet 0.5 mg PO BID PRN shakes 09/21/23 Unknown History calcium polycarbophil 625 mg 625 mg PO BID 09/21/23 Unknown History tablet (Fiber-Lax) cetirizine 10 mg capsule (Zyrtec) 10 mg PO DAILY ALLERGIES 09/21/23 Unknown History dicyclomine 20 mg tablet 20 mg PO BID PRN abdominal pain 09/21/23 Unknown History docusate sodium 100 mg capsule 100 mg PO QHS CONSTIPATION 09/21/23 Unknown History guaifenesin 100 mg/5 mL oral 200 mg PO Q8H PRN cough 09/21/23 Unknown History liquid (Child Mucus Relief Expectorant) ipratropium bromide 42 mcg (0.06 2 spray intranasal BID 09/21/23 Unknown History %) nasal spray lisinopril 5 mg tablet 5 mg PO QHS BP 09/21/23 Unknown History loperamide 2 mg capsule 2 mg PO Q6H PRN loose stool 09/21/23 Unknown History magnesium hydroxide 400 mg/5 mL 30 ml PO DAILY PRN constipation 09/21/23 Unknown History oral suspension (Milk of Magnesia) melatonin 5 mg tablet 15 mg PO QHS SLEEP 09/21/23 Unknown History paliperidone palmitate 234 mg/1.5 234 mg IM Q4W 09/21/23 Unknown History mL intramuscular syringe (Invega Sustenna) polyethylene glycol 3350 17 4 g PO DAILY PRN constipation 09/21/23 Unknown History gram/dose oral powder sennosides 8.6 mg-docusate sodium 2 tab PO BID #0 tabs 03/07/24 Unknown Rx 50 mg tablet (Stool Softener-Stimulant Laxative) albuterol sulfate 90 mcg/actuation 2 puff inhalation Q4H PRN SOB 06/03/25 Unknown History aerosol inhaler fluticasone 250 mcg-salmeterol 50 1 ea inhalation BID 06/03/25 Unknown History mcg/dose blistr powdr for inhalation (Advair Diskus) olanzapine 20 mg tablet 20 mg PO QHS 06/03/25 Unknown History ondansetron HCl 4 mg tablet 4 mg PO Q8H PRN PRN nausea and 06/03/25 Unknown History vomiting trazodone 50 mg tablet 50 mg PO QHS 06/03/25 Unknown History azithromycin 500 mg tablet 500 mg PO DAILY 3 days #3 tabs 06/05/25 Unknown Rx (Zithromax) nystatin 100,000 unit/gram topical 1 applic topical BID #0 grams 06/05/25 Unknown Rx powder prednisone 20 mg tablet 20 mg PO BID #14 tabs 06/05/25 Unknown Rx azithromycin 250 mg tablet 250 mg PO UD 06/07/25 Unknown History fluticasone 250 mcg-salmeterol 50 1 inh inhalation BID 06/07/25 Unknown History mcg/dose blistr powdr for inhalation (Advair Diskus) Allergy/AdvReac Type Severity Reaction Status Date / Time No Known Allergies Allergy Verified 06/07/25 12:14 Family History Father Cancer Mother Cancer Surgical History History of esophagogastroduodenoscopy (EGD) (~2016) History of colonoscopy History of tubal ligation History of tooth extraction Social History household members: none housing: assisted living facility Smoking Status: Former smoker alcohol intake: never substance use type: does not use caffeine: Yes what type of physical activity do you participate in: none seatbelt use: sometimes do you feel safe at home: Yes additional social history: Single-Lives at [facility] ROS ED ROS Narrative Constitutional: Denies any fevers, chills, headaches, lightness, dizziness Eyes: Denies double vision Cardiovascular: Denies chest pain Respiratory: Shortness of breath Abdomen: Denies abdominal pain nausea vomit diarrhea : Denies any urinary symptoms Neurological: Denies any numbness, weakness, tingling Musculoskeletal: Denies back pain Skin: Denies any rashes or lesions EXAM Physical Exam Narrative Exam Narrative: General: Patient lying in bed rest comfortably did not appear to be in acute distress Head: Atraumatic, normocephalic Eyes: PERRL bilaterally, EOMI bilateral, no conjunctival injection noted Neck: Soft, supple, trachea midline Cardiovascular: Regular rate and rhythm no murmurs gallops rubs noted Respiratory: Clear to auscultation bilaterally no rales rhonchi or wheeze noted Abdomen: Soft, nondistended, no tenderness palpation Extremities: +5/5 strength noted in the bilateral upper and lower extremities, radial pulses +2/4 in the bilateral extremities, no pedal edema exam Neurological: Patient follow commands as she was at [facility] year is 2024 Skin: Warm, dry, tact no rashes or lesions noted Const Vital Signs: 06/07/25 12:10 06/07/25 12:14 06/07/25 12:16 Temperature 98.3 F 98.3 F Temperature Source Oral Oral Pulse Rate 83 73 Respiratory Rate 22 H 74 H Respiratory Effort Normal Non-Labored Respiratory Depth Normal Respiratory Pattern Normal Blood Pressure 161/76 H 161/76 H Blood Pressure Mean 104 104 Pulse Ox 97 94 Oxygen Delivery Method Nasal Cannula Nasal Cannula Nasal Cannula Oxygen Flow Rate (L/min) 4 3 3 06/07/25 12:22 06/07/25 13:14 06/07/25 14:00 Temperature 98.4 F 98.2 F Temperature Source Oral Oral Pulse Rate 74 67 Respiratory Rate 21 H 21 H Respiratory Effort Respiratory Depth Respiratory Pattern Blood Pressure 134/101 H 107/61 Blood Pressure Mean 112 76 Pulse Ox 93 92 Oxygen Delivery Method Nasal Cannula Nasal Cannula Nasal Cannula Oxygen Flow Rate (L/min) 3 3 3 06/07/25 15:00 06/07/25 16:00 Temperature 98.2 F 98.2 F Temperature Source Oral Oral Pulse Rate 71 68 Respiratory Rate 20 H 18 Respiratory Effort Respiratory Depth Respiratory Pattern Blood Pressure 156/83 H 152/77 H Blood Pressure Mean 107 102 Pulse Ox 95 95 Oxygen Delivery Method Nasal Cannula Room Air Oxygen Flow Rate (L/min) 3 MDM MDM MDM Narrative Medical decision making narrative: Patient is a 70-year-old female who presents to the emergency department the chief complaint hypoxia via EMS. On the differential diagnose includes but not limited to CHF, ACS, pneumonia, pneumothorax, noncompliance with her oxygen. Once again the patient was turned down to 3 L nasal cannula when she arrived. And was satting at 97%. Patient CBC reviewed showed no evidence leukocytosis white blood count was 6.7, he was 1.2, platelet count was 196. Patient sodium was 142, potassium of 4.2, creatinine was 0.39. Patient's troponin was 54 with a delta troponin of 44 this is likely secondary to her hypoxia as she has no chest pain proBNP normal at 292. Patient chest x-ray reviewed by myself by radiology shows subsegmental atelectasis right lower lobe and the left upper lobe. On reevaluation of the patient we turned her down to 2 L nasal cannula and she remains at 96%. She has no complaints at this point time and would like to go home at this point in time. Patient be discharged back to the facility in stable condition with instructions to follow-up with her doctor return with worsening symptoms or concerns. Lab Data Labs: Laboratory Results - last 24 hr 06/07/25 06/07/25 12:15 15:20 WBC 6.7 RBC 3.98 L Hgb 11.2 L Hct 37.1 MCV 93.2 MCH 28.1 MCHC 30.2 L RDW Std Deviation 49.0 H RDW Coeff of Humphrey 14.4 Plt Count 196 MPV 9.7 Immature Gran % (Auto) 4.300 H Neut % (Auto) 71.6 H Lymph % (Auto) 12.8 L Davis % (Auto) 10.3 H Eos % (Auto) 0.4 Baso % (Auto) 0.6 Absolute Neuts (auto) 4.8 Absolute Lymphs (auto) 0.86 Nucleated RBC % 0 Sodium 142 Potassium 4.2 Chloride 101 Carbon Dioxide 31.8 Anion Gap 9 BUN 20 H Creatinine 0.39 L Estim Creat Clear Calc 86.74 Est GFR (MDRD) Non-Af 108 BUN/Creatinine Ratio 49.9 H Glucose 139 H Calcium 9.2 Troponin T High Sens 54 H* Troponin T Hi Sens 2 Hr 44 H NT pro BNP II 292 Radiography Diagnostic Testing: Clinical Impression(s) from Imaging Studies Chest X-Ray 06/07/25 13:00 IMPRESSION: Subsegmental atelectasis right lower lobe and left upper lobe. Reading Location: [id number] Discharge Plan Triage Chief Complaint: Shortness of Breath ED Provider: Jim Parr Dx/Rx/DC Orders Clinical Impression: Acute on chronic respiratory failure with hypoxemia, Obstructive sleep apnea, COPD (chronic obstructive pulmonary disease), Anxiety and depression Prescriptions: No Action lisinopril 20 mg tablet 20 mg PO QHS atorvastatin 20 mg tablet 20 mg PO QHS calcium polycarbophil [Fiber-Lax] 625 mg tablet 625 mg PO BID ipratropium bromide 42 mcg (0.06 %) spray,non-aerosol 2 spray intranasal BID benztropine 0.5 mg tablet 0.5 mg PO BID PRN (Reason: shakes) loperamide 2 mg capsule 2 mg PO Q6H PRN (Reason: loose stool) guaifenesin [Child Mucus Relief Expectorant] 100 mg/5 mL liquid 200 mg PO Q8H PRN (Reason: cough) magnesium hydroxide [Milk of Magnesia] 400 mg/5 mL suspension 30 ml PO DAILY PRN (Reason: constipation) dicyclomine 20 mg tablet 20 mg PO BID PRN (Reason: abdominal pain) polyethylene glycol 3350 17 gram/dose powder 4 g PO DAILY PRN (Reason: constipation) bupropion HCl 150 MG tablet sustained-release 12 hr 150 mg PO BID sertraline 100 MG tablet 200 mg PO DAILY acetaminophen 325 MG tablet 1,000 mg PO TID memantine 10 MG tablet 10 mg PO BID omega-3 fatty acids-fish oil 1 EACH capsule 1 cap PO BID docusate sodium 100 mg capsule 100 mg PO QHS donepezil [Aricept] 10 MG tablet 10 mg PO DAILY lisinopril 5 mg tablet 5 mg PO QHS melatonin 5 mg tablet 15 mg PO QHS latanoprost 1 DROP bottle 1 drp EACH EYE QHS omeprazole 20 MG capsule 20 mg PO DAILY Lactobacillus acidophilus 1 EACH capsule 1 ea PO DAILY Invega Sustenna 234 mg/1.5 mL syringe 234 mg IM Q4W Zyrtec 10 mg capsule 10 mg PO DAILY azithromycin 250 mg tablet 250 mg PO UD fluticasone propion-salmeterol [Advair Diskus] 250-50 mcg/dose blister with device 1 inh inhalation BID sennosides-docusate sodium [Stool Softener-Stimulant Laxat] 8.6-50 mg Tablet 2 tab PO BID Qty: 0 0RF fluticasone propion-salmeterol [Advair Diskus] 250-50 mcg/dose blister with device 1 ea inhalation BID albuterol sulfate 90 mcg/actuation HFA aerosol inhaler 2 puff inhalation Q4H PRN (Reason: SOB) ondansetron HCl 4 mg tablet 4 mg PO Q8H PRN PRN (Reason: nausea and vomiting) olanzapine 20 mg tablet 20 mg PO QHS trazodone 50 mg tablet 50 mg PO QHS nystatin 100,000 unit/gram Powder 1 applic topical BID Qty: 0 0RF Protocol: *Topical Application Instructions APPLICATION INSTRUCTIONS: under breasts prednisone 20 mg tablet 20 mg PO BID Qty: 14 0RF Rx Instructions: Take for total of 14 doses then discontinue azithromycin [Zithromax] 500 mg tablet 500 mg PO DAILY 3 Days Qty: 3 0RF Rx Instructions: Start 06/06/2025 Primary Care Provider: Dena Stevens [employer]INEER Referrals: Dena Stevens [employer] DRILLING ENGINEER, [employer]LLING ENGINEER-C [Primary Care Provider] - Activity Restrictions/Additional Instructions: Your blood work did not show any acute findings here today. Follow-up your doctor in outpatient setting. Return with worsening symptoms or any concerns. Your chest x-ray is did not show any acute findings either. Print Language: Icelandic Disposition Disposition: Home, Self Care
--- NOTE | 2025-06-07 13:00 | RAD_ITS ---
PROCEDURE: CHEST PA AND LATERAL 06/07/2025 REASON FOR EXAM: CHEST PAIN TECHNIQUE: Procedure Code: RADCXR Modality: DX Procedure: CHEST PA AND LATERAL COMPARISON: June 03, 2025 FINDINGS: Hardware: EKG leads Heart: Normal Mediastinum: Normal Lungs: Subsegmental atelectasis central left upper lobe. Subsegmental atelectasis right lower lobe. Bones: The bones are unremarkable. Curvature thoracolumbar spine. RAD/Chest PA and Lateral IMPRESSION: Subsegmental atelectasis right lower lobe and left upper lobe. Reading Location: [id number]
[2025-06-07 13:06] LABS: Anion Gap 9 (5-15); BUN 20 mg/dL (4-19); BUN/Creat Ratio 49.9 RATIO (10-20); Calcium,Total 9.2 mg/dL (7.6-11.0); Carbon Dioxide 31.8 mmol/L (21.0-32.0); Chloride 101 mmol/L (98-108); Estimated Creatinine Clearance 86.74 ml/min (50-250); Glucose 139 mg/dL (70-99); Potassium 4.2 mmol/L (3.3-5.1)
[2025-06-07 13:11] LABS: Pro- Brain NATRIURETIC PEPTIDE 292 pg/mL (<=900); Troponin T High Sensitivity 54 ng/L (<=14)
[2025-06-07 15:50] LABS: Troponin T High Sens 2 HR 44 ng/L (<=14)
--- NOTE | 2025-06-07 17:39 | ED.RN ---
Report called to [facility]
== END 2025-06-07 18:03 | disposition skilled nursing facility (03) ==
PROVIDERS: Emergency Provider Emergency Medicine; PCP Nurse Practitioner Adult Health; Visit Provider Emergency Medicine
DX: J96.21 Acute and chronic respiratory failure with hypoxia (principal); G30.9 Alzheimer's disease, unspecified; F02.80 Dementia in other diseases classified elsewhere, unspecified severity, without behavioral disturbance, psychotic disturbance, mood disturbance, and anxiety; J44.9 Chronic obstructive pulmonary disease, unspecified; Z87.891 Personal history of nicotine dependence; J98.11 Atelectasis; F41.9 Anxiety disorder, unspecified; I10 Essential (primary) hypertension; G47.33 Obstructive sleep apnea (adult) (pediatric); F32.A Depression, unspecified; K21.9 Gastro-esophageal reflux disease without esophagitis; E78.5 Hyperlipidemia, unspecified; Z99.81 Dependence on supplemental oxygen
CPT/HCPCS: 71046; 80048; 83880; 84484; 85025; 93005; 96360; 96361; 99285; A4216